=== PATIENT | female | born 1970 | race Caucasian/White ===

== ENCOUNTER 2019-06-16 16:57 | Inpatient (IN) | payer MEDICARE, MEDICAID, SELFPAY ==
[2019-06-16 16:58] VITALS: BP 138/82; PULSE 111; RESP 18; O2SAT 95; BMI 33.3
[2019-06-16] MEDS: LORazepam 2 mg/mL INJ 1 mL IM (17:31)
[2019-06-16] MEDS: ziprasidone 20 mg/mL SDV IM (18:08)
--- NOTE | 2019-06-16 18:11 | PC.NURSE ---
pt continues to cry loudly in room while speaking nonsensical statements. pt asked to provide urine sample and pt states she needs water. pt provided ice water at this time.
[2019-06-16 18:15] LABS: Hemoglobin 14.1 g/dL (11.5-15.3); Mean Corpuscular Volume 98.9 fL (81-99); Monocytes # 0.9 10^3/uL (0.2-0.9); Nucleated Red Blood Cells % 0 %
[2019-06-16 18:21] LABS: Basophils % 0.4 %; Eosinophils # 0.1 10^3/uL (0.0-0.8); Eosinophils % 1.1 %; Hematocrit 43.4 % (37.0-47.0); Lymphocytes # 1.9 10^3/uL (0.8-4.8); Lymphocytes % 17.6 %; Mean Corpuscular HGB Conc 32.5 g/dL (30.0-36.0); Mean Corpuscular Hemoglobin 32.1 pg (28.0-34.0); Monocytes % 8.3 %; Neutrophils # 7.8 10^3/uL (1.8-7.7); Neutrophils % 72.3 %; Platelet Count 269 10^3/cmm (130-400); Red Blood Count 4.39 10^6/uL (4.1-5.3); Red Cell Distribution Width 13.4 % (12.1-15.1); White Blood Count 10.8 10^3/uL (4.0-10.0)
[2019-06-16 18:34] LABS: Alanine Aminotransferase 44 U/L (0-33); Albumin Level 4.1 g/dL (3.5-5.2); Alkaline Phosphatase 70 IU/L (35-105); Anion Gap 14.1 (5-19); Aspartate Amino Transferase 19 U/L (0-32); Blood Urea Nitrogen 9 mg/dL (6-20); Calcium 8.8 mg/dL (8.5-10.5); Carbon Dioxide 24 mmol/L (22-29); Chloride 106 mmol/L (98-107); Globulin 2.9 g/dL (1.3-4.6); Glomerular Filtration Rate 76.9 mL/min (90-130); Glucose 111 mg/dL (65-115); Osmolality Calculated 287 mOsm/kg (285-295); Potassium 4.1 mmol/L (3.5-5.1); Sodium 140 mmol/L (136-145); Total Bilirubin 0.2 mg/dL (0.15-1.2)
[2019-06-16 18:44] LABS: Acetaminophen < 5.0 ug/mL (10-30); Alcohol Level < 10 mg/dL (0-10); Salicylate < 0.3 mg/dL (3-10)
[2019-06-16] MEDS: haloperidol inj 5 mg/mL INJ 1 mL 10 MG IM (18:45)
--- NOTE | 2019-06-16 18:49 | PC.NURSE ---
tech asked pt to provide urine sample and pt began to having loud outbursts shouting more nonsensical things. pt ripping her scrubs off and slamming her legs and arms down on the bed. security and ER physician at bedside. Verbal orders received for more anti-anxiety medications. No hands or force was necessary to be used on Pt. Sitter remains at bedside
[2019-06-16] MEDS: LORazepam 2 mg/mL INJ 1 mL (18:53)
[2019-06-16 20:37] LABS: Add Urine Microscopic? YES; Bilirubin Urine Neg (NEGATIVE); Blood Urine Neg (Negative); Glucose Urine UA Norm (Normal); Ketones Urine Negative (Negative); Leukocyte Esterase Urine Negative (Negative); Nitrate Urine Positive (Negative); Protein Urine Neg (Negative); Specific Gravity, Urine 1.015 (1.005-1.030); Sulfosalicylic Acid Urine Negative (Negative); Urine Appearance SL Hazy (CLEAR); Urine Color Yellow (Yellow); Urobilinogen Urine Norm (Negative); pH Urine 8 (5-7)
[2019-06-16 20:38] LABS: Add Urine Culture? Yes; Amphetamines Screen Urine Negative (Negative); Bacteria Urine 4+; Barbiturates Screen Urine Negative (Negative); Benzodiazepines Screen Urine Negative (Negative); Cocaine Screen Urine Negative (Negative); Opiate Screen Urine Negative (Negative); PCP Screen Urine Negative (Negative); Squamous Epithelial Cell Urine 0-4 (0-5); THC Screen Urine Positive (Negative); WBC Urine 0-4 /hpf (0-5)
[2019-06-16 22:00] VITALS: RESP 16
--- NOTE | 2019-06-16 22:51 | W.ED.PSYCH ---
HPI - Psych General: Chief Complaint: Psychiatric Symptoms Stated Complaint: BEHAVIORAL Time Seen by Provider: 06/16/19 17:40 Source: patient and EMS Mode of arrival: EMS Limitations: no limitations History of Present Illness: HPI Narrative: Patient was brought in by EMS with what appears to be a psychotic episode. On asking the patient questions her answers do not make any sense. They are nonsensical and did not follow any organized thought pattern. She talks about needing her engine started on something about B's knees. No proper history can be obtained from this patient Review of Systems General: Reports: ROS unobtainable due to mental status (She is in acute psychosis) PFSH ED PFSH: Social History Smoking and tobacco status: current every day smoker Physical Exam Const: COMMON NORMALS: no apparent distress, average body habitus, no limitations, healthy appearing, alert and well nourished HENMT: COMMON NORMALS: normocephalic, head/scalp atraumatic and moist oral mucous membranes HEAD & SCALP: normocephalic and atraumatic Neck/C-Spine: COMMON NORMALS: no meningeal signs and no JVD Resp: COMMON NORMALS: normal respiratory effort, no retractions, no use of accessory muscles, clear to auscultation bilaterally and percussion normal AUSCULTATION: clear to auscultation bilaterally PERCUSSION: percussion normal Cardio: COMMON NORMALS: no JVD, regular rate, regular rhythm, S1 normal heart sound, S2 normal heart sound, no gallops, no clicks, no murmurs, no rub and peripheral pulses 2+ throughout RATE: regular rate RHYTHM: regular rhythm HEART SOUNDS: S1 normal and S2 normal PERIPHERAL PULSES: pulses 2+ throughout GI: COMMON NORMALS: normal to inspection, nondistended, normoactive bowel sounds, soft to palpation, non-tender, no hepatosplenomegaly, no masses and no bruits PALPATION: Yes soft and Yes no hepatosplenomegaly : COMMON NORMALS: Yes no CVA tenderness BLADDER/KIDNEY EXAM: Yes no CVA tenderness Back/Pelvis: COMMON NORMALS: no CVA tenderness Extremity: COMMON NORMALS: normal to inspection, full ROM, normal capillary refill, no calf tenderness and no pedal edema Neuro: SENSORIUM/ORIENTATION: Yes alert MENINGEAL SIGNS: Yes no meningeal signs Psych: APPEARANCE: Yes unkempt and Yes disheveled ATTITUDE: Yes bizarre and Yes uncooperative ACTIVITY/MOTOR BEHAVIOR: Yes psychomotor agitation and Yes disorganized SPEECH: Yes incoherent MOOD & AFFECT: Yes labile affect THOUGHT PROCESS: disorganized Skin: COMMON NORMALS: no rashes or lesions noted, no wounds, skin turgor normal, no jaundice, no petechiae and no mottling GENERAL SKIN EXAM: no rashes or lesions noted and turgor normal MDM - Psych MDM Narrative: Medical decision making narrative: 49-year-old female patient who presented to the emergency department in acute psychosis. The patient needed several psychoactive medications to get her to be calm enough for evaluation and laboratory testing. She was medically cleared and then admitted to the neuropsychiatric unit for further evaluation. Lab Data: Labs: Lab Results 06/16/19 06/16/19 06/16/19 Range/Units 17:58 17:58 20:10 WBC 10.8 H (4.0-10.0) 10^3/ uL RBC 4.39 (4.1-5.3) 10^6/u L Hgb 14.1 (11.5-15.3) g/dL Hct 43.4 (37.0-47.0) % MCV 98.9 (81-99) fL MCH 32.1 (28.0-34.0) pg MCHC 32.5 (30.0-36.0) g/dL RDW 13.4 (12.1-15.1) % Plt Count 269 (130-400) 10^3/c mm MPV 10.0 (7.4-10.4) fL Neut % (Auto) 72.3 % Lymph % (Auto) 17.6 % [place] % (Auto) 8.3 % Eos % (Auto) 1.1 % Baso % (Auto) 0.4 % Neut # (Auto) 7.8 H (1.8-7.7) 10^3/u L Lymph # (Auto) 1.9 (0.8-4.8) 10^3/u L [place] # (Auto) 0.9 (0.2-0.9) 10^3/u L Eos # (Auto) 0.1 (0.0-0.8) 10^3/u L Baso # (Auto) 0.0 (0.0-0.1) 10^3/u L Nucleated RBC % (a uto) 0 % Nucleated RBCs # 0.0 /100WBC Sodium 140 (136-145) mmol/L Potassium 4.1 (3.5-5.1) mmol/L Chloride 106 (98-107) mmol/L Carbon Dioxide 24 (22-29) mmol/L Anion Gap 14.1 (5-19) BUN 9 (6-20) mg/dL Creatinine 0.8 (0.5-0.9) mg/dL GFR Calculation 76.9 L (90-130) mL/min Glucose 111 (65-115) mg/dL Calculated Osmolal ity 287 (285-295) mOsm/k g Calcium 8.8 (8.5-10.5) mg/dL Total Bilirubin 0.2 (0.15-1.2) mg/dL AST 19 (0-32) U/L ALT 44 H (0-33) U/L Alkaline Phosphata se 70 (35-105) IU/L Total Protein 7.0 (6.6-8.7) g/dL Albumin 4.1 (3.5-5.2) g/dL Globulin 2.9 (1.3-4.6) g/dL Urine Color Yellow (Yellow) Urine Appearance Sl hazy (CLEAR) Urine pH 8 H (5-7) Ur Specific Gravit y 1.015 (1.005-1.030) Urine Protein Neg (Negative) Urine Glucose (UA) Norm (Normal) Urine Ketones Negative (Negative) Urine Blood Neg (Negative) Urine Nitrate Positive H (Negative) Urine Bilirubin Neg (NEGATIVE) Prot Sulfosalicyli c Acd Negative (Negative) Urine Urobilinogen Norm (Negative) mg/dL Ur Leukocyte Ami ase Negative (Negative) Urine RBC None (0-2) /hpf Urine WBC 0-4 H (0-5) /hpf Ur Squamous Epith Cells 0-4 H (0-5) Urine Bacteria 4+ H (NONE) Salicylates < 0.3 L (3-10) mg/dL Urine Opiates Scre en (Negative) ng/mL Acetaminophen < 5.0 L (10-30) ug/mL Ur Barbiturates Sc reen (Negative) ng/mL Ur Phencyclidine S crn (Negative) ng/mL Ur Amphetamines Sc reen (Negative) ng/mL U Benzodiazepines Scrn (Negative) ng/mL Urine Cocaine Scre en (Negative) ng/mL U Marijuana (THC) Screen (Negative) ng/mL Ethyl Alcohol < 10 (0-10) mg/dL 06/16/19 Range/Units 20:10 WBC (4.0-10.0) 10^3/ uL RBC (4.1-5.3) 10^6/u L Hgb (11.5-15.3) g/dL Hct (37.0-47.0) % MCV (81-99) fL MCH (28.0-34.0) pg MCHC (30.0-36.0) g/dL RDW (12.1-15.1) % Plt Count (130-400) 10^3/c mm MPV (7.4-10.4) fL Neut % (Auto) % Lymph % (Auto) % [place] % (Auto) % Eos % (Auto) % Baso % (Auto) % Neut # (Auto) (1.8-7.7) 10^3/u L Lymph # (Auto) (0.8-4.8) 10^3/u L [place] # (Auto) (0.2-0.9) 10^3/u L Eos # (Auto) (0.0-0.8) 10^3/u L Baso # (Auto) (0.0-0.1) 10^3/u L Nucleated RBC % (a uto) % Nucleated RBCs # /100WBC Sodium (136-145) mmol/L Potassium (3.5-5.1) mmol/L Chloride (98-107) mmol/L Carbon Dioxide (22-29) mmol/L Anion Gap (5-19) BUN (6-20) mg/dL Creatinine (0.5-0.9) mg/dL GFR Calculation (90-130) mL/min Glucose (65-115) mg/dL Calculated Osmolal ity (285-295) mOsm/k g Calcium (8.5-10.5) mg/dL Total Bilirubin (0.15-1.2) mg/dL AST (0-32) U/L ALT (0-33) U/L Alkaline Phosphata se (35-105) IU/L Total Protein (6.6-8.7) g/dL Albumin (3.5-5.2) g/dL Globulin (1.3-4.6) g/dL Urine Color (Yellow) Urine Appearance (CLEAR) Urine pH (5-7) Ur Specific Gravit y (1.005-1.030) Urine Protein (Negative) Urine Glucose (UA) (Normal) Urine Ketones (Negative) Urine Blood (Negative) Urine Nitrate (Negative) Urine Bilirubin (NEGATIVE) Prot Sulfosalicyli c Acd (Negative) Urine Urobilinogen (Negative) mg/dL Ur Leukocyte Ami ase (Negative) Urine RBC (0-2) /hpf Urine WBC (0-5) /hpf Ur Squamous Epith Cells (0-5) Urine Bacteria (NONE) Salicylates (3-10) mg/dL Urine Opiates Scre en Negative (Negative) ng/mL Acetaminophen (10-30) ug/mL Ur Barbiturates Sc reen Negative (Negative) ng/mL Ur Phencyclidine S crn Negative (Negative) ng/mL Ur Amphetamines Sc reen Negative (Negative) ng/mL U Benzodiazepines Scrn Negative (Negative) ng/mL Urine Cocaine Scre en Negative (Negative) ng/mL U Marijuana (THC) Screen Positive H (Negative) ng/mL Ethyl Alcohol (0-10) mg/dL Discharge Plan Discharge Patient Disposition: Admitted As Inpatient Admit Provider: Alex Palafox Discharge Date/Time: 06/16/19 21:45 Coding Level of Care Code ED Ocean Forwarder for Shakeel Rosa
[2019-06-17 06:00] VITALS: RESP 18
--- NOTE | 2019-06-17 08:33 | P.HP_ITS ---
Providers/Chief Complaint Admitting Physician: Alex Palafox MD Primary Care Provider: Abraham Rocha MD Chief Complaint: BEHAVIORAL HPI NPU History of Present Illness Annemarie Hardin is a 49 year old female who presented today with limited intelligible conversation. 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 Outside of that she gave no meaningful information during the conversation. Included below the neck served from her last hospitalization here in 2016 she had other hospitalizations immediately preceding that and all of them have the same MO which was her presenting and there being an inability to gather significant information because of how decompensated she was or how significant her psychosis was. Per [facility] IP eval: History of Present Illness Date of Service: Apr 01, 2016 Chief Complaint: Patient admitted due to acute psychosis HPI: This patient was admitted through the emergency room. She was acutely psychotic at the time of her presentation. Patient is concerned is having bizarre and aggressive behavior. Certainly that continues after her admission to the NPU. Patient is essentially a non-historian. She so disorganized and aggressive that no interview can be conducted. She's required numerous when necessary administrations of Haldol due to the level of aggression that she has displayed. She was here in 2016 for depressive symptoms. It's not clear to me what she was taking prior to her hospitalization but most recent medication seems to include nortriptyline, BuSpar getting, Geodon and Effexor. I suspect she has not been compliant with these medications but I will be holding those at this time. She also has a history of abusing multiple illicit substances including methamphetamine marijuana and alcohol. Her current drug screen is positive for marijuana. Allergies: Coded Allergies: ERYTHROMYCIN ETHYLSUCCINATE (Verified Allergy, Mild, THROAT SWELLS, 12/22/07) TETRACYCLINE (Unverified Adverse Reaction, Mild, NAUSEA, 12/22/07) Uncoded Allergies: POISON SUMAC (Allergy, Severe, Rash, 05/11/11) Active Meds: Current Hospital Medications: Medications (Trade) Dose Ordered Sig/George Route PRN Reason Start Time Stop Time Status Last Admin Dose Admin Lorazepam (Ativan Tab) 1 mg Q4H PRN PO FOR MODERATE ANXIETY 03/31/16 10:30 Lorazepam (Ativan Tab) 2 mg Q4H PRN PO FOR SEVERE ANXIETY 03/31/16 10:30 Lorazepam (Ativan Inj) 2 mg Q4H PRN IM For Severe Aggression 03/31/16 10:30 04/01/16 11:52 Diphenhydramine HCl (Benadryl Inj) 50 mg ONCE PRN IV Severe Extrapyramidal Symptoms 03/31/16 10:30 Acetaminophen (Tylenol Tab) 650 mg Q4H PRN PO FOR MILD PAIN 03/31/16 10:30 Trazodone HCl (Trazodone) 50 mg BEDTIME PRN PO FOR SLEEP 03/31/16 10:30 Nicotine (Nicoderm Patch) 21 mg DAILY PRN TD FOR WITHDRAWAL 03/31/16 10:30 Nicotine Polacrilex (Nicotine Gum) 2 mg Q2H PRN PO Withdrawal 03/31/16 10:30 04/01/16 07:19 Olanzapine (Zyprexa Inj) 5 mg Q4H PRN IM FOR AGITATION 03/31/16 17:30 04/01/16 00:06 Olanzapine (Zyprexa Zydis) 30 mg DAILY PO 04/01/16 09:00 04/01/16 09:06 Haloperidol Lactate (Haldol Inj) 10 mg Q4H PRN IM Severe Aggression 04/01/16 14:30 Gabapentin (Neurontin Cap) 400 mg TID PO 04/01/16 14:00 Past Medical History Other Medical History: Hypertension, fibromyalgia, hepatitis, history of ovarian cyst Other Surgical History: Cholecystectomy, D&C, fracture repair, herniorrhaphy, hysterectomy Meds NPU Home Medications Medication Instructions Recorded Confirmed Last Taken Type albuterol sulfate [Ventolin HFA] 2 puff INHALATION Q4H PRN 06/16/19 06/16/19 Unknown History azelastine 1 drp OPHTHALMIC (EYE) BID PRN 06/16/19 06/16/19 Unknown History diclofenac sodium 2 - 4 g TOPICAL TID PRN 06/16/19 06/16/19 Unknown History diclofenac sodium 75 mg PO BID 06/16/19 06/16/19 Unknown History gabapentin 400 mg PO TID 06/16/19 06/16/19 Unknown History ipratropium bromide 1 - 2 spray INTRANASAL DIRECTED 06/16/19 06/16/19 Unknown History quetiapine 50 mg PO BEDTIME 06/16/19 06/16/19 Unknown History risperidone 1 mg PO DAILY 06/16/19 06/16/19 Unknown History tizanidine 4 mg PO BID PRN 06/16/19 06/16/19 Unknown History ziprasidone HCl 60 mg PO BID 06/16/19 06/16/19 Unknown History zolpidem 10 mg PO BEDTIME PRN 06/16/19 06/16/19 Unknown History Allergies Allergy/AdvReac Type Severity Reaction Status Date / Time erythromycin base Allergy ADR-Vomitin Verified 06/16/19 17:08 g PFSH NPU PFSH: Social History Smoking and tobacco status: current every day smoker Mental Status Exam MSE Comments: This is an obese white female with limited dress, grooming and eye contact. No abnormal movements except for significant psychomotor retardation. Uncooperative with exam in mild to moderate distress. Speech was decreased rate and volume and limited. Mood not responded to affect. Thought process disorganized. Thought content: Patient did not respond to question but did not have aggression directed towards her self or others, she did appear guarded/paranoid, she did appear to be attending to internal stimuli. Attention and concentration were impaired and memory was unreliable but none were formally tested. She is alert and oriented to person. Insight and judgment are impaired. Vitals/I&O/Wt Last Vital Signs Temp 98.1 F 06/17/19 22:00 Pulse 90 06/17/19 22:00 Resp 19 H 06/17/19 22:00 BP 141/88 06/17/19 22:00 Pulse Ox 95 06/17/19 22:00 Weight last 48 hrs Weight 90.718 kg Data NPU : 06/16/19 17:58 06/16/19 17:58 A&P Assessment and plan (1) Psychosis: This is a 49-year-old white female with a long history of psychosis and addiction who presents floridly psychotic with limited ability to really communicate her desires or interests. 1. Restarting last documented medications. 2. Encourage individual, group and milieu therapy. 3. Continue every 15 minute checks for safety. 4. Work with social work team to find a sober living program, hopefully residential, at the highest level of care to which she is willing to commit. Status: Acute (2) Cannabis abuse: Status: Acute Involuntary Hold Information 96 Hour Hold: 96 Hour Involuntary Admission: No Attestations NPU Medical Necessity Statement*: Inpatient hospitalization is medically necessary and the clinically appropriate intervention at this time. She will be in the hospital for over 2 midnights. We will continue to examine medications and make changes as indicated. Likely length of stay 3-5 days. Coding Level of Care Code Acute Associate Programmer Analyst for Shakeel Rothd Diagnoses Psychosis F29 Cannabis abuse F12.10
[2019-06-17] MEDS: gabapentin 400 mg Capsule PO ×3 (09:08→20:09)
[2019-06-17] MEDS: diclofenac 75 mg DR Tablet PO ×2 (09:09→17:53)
[2019-06-17] MEDS: ziprasidone hcl 60 mg Capsule PO ×2 (09:09→17:53)
[2019-06-17 14:00] VITALS: BP 136/80; PULSE 88; RESP 18; TEMP 36.2; O2SAT 99
[2019-06-17] MEDS: nicotine 2 mg Gum BUCCAL (17:54)
[2019-06-17] MEDS: hyDROXYzine 25 mg Capsule 50 MG PO (19:38)
--- NOTE | 2019-06-17 19:52 | PC.NURSE ---
PRN VISTARIL ADMINISTERED VISTARIL 50 MG PO FOR PT. C/O ANXIETY. PT AT [facility] CRYING BEGGING FOR SOMETHING TO HELP HER FEEL BETTER. WILL MONITOR FOR MEDICATION EFFECTIVENESS.
[2019-06-17] MEDS: quetiapine 25 mg Tablet 50 MG PO (20:09)
[2019-06-17 22:00] VITALS: BP 141/88; PULSE 90; RESP 19; TEMP 36.7; O2SAT 95
[2019-06-18 06:00] VITALS: BP 130/84; PULSE 86; RESP 17; TEMP 36.8; O2SAT 98
[2019-06-18] MEDS: diclofenac 75 mg DR Tablet PO ×2 (08:34→16:50)
[2019-06-18] MEDS: gabapentin 400 mg Capsule PO ×3 (08:34→21:05)
[2019-06-18] MEDS: ziprasidone hcl 60 mg Capsule PO ×2 (08:34→16:50)
[2019-06-18] MEDS: nicotine 2 mg Gum BUCCAL ×3 (08:40→17:59)
--- NOTE | 2019-06-18 13:31 | P.PN_ITS ---
Subjective NPU Subjective: Interval history: Annemarie presents today appearing much more coherent than yesterday though with clear residual disorganization at times saying words that are in the area of what she appears to be getting at. But certainly more capable of communicating thoughts than she was yesterday. She is quite emotional identifying that it is Mother's Day. She continues to have p eriods of of incoherence where her worries and not making much of any sense but those moments were fairly uncommon throughout the day. Mental Status Exam MSE Comments: This is an obese white female with adequate dress, grooming and eye contact. No abnormal movements except for mild psychomotor retardation. Cooperative with exam in mild distress. Speech was still decreased rate and volume but with more spontaneous speech and certainly more intelligible. Mood described as depressed affect congruent and slightly. Thought process more organized. Thought content: Patient denied any suicidal or homicidal ideation, there were no delusions reported or noted, she denied any auditory or visual hallucinations. Attention and concentration were improving but impaired and memory was unreliable but none were formally tested. She is alert and oriented times person and place. Insight and judgment are impaired. Vitals/I&O/Wt Last Vital Signs Temp 98.2 F 06/18/19 06:00 Pulse 86 06/18/19 06:00 Resp 17 06/18/19 06:00 BP 130/84 06/18/19 06:00 Pulse Ox 98 06/18/19 06:00 Weight last 48 hrs Weight 88.054 kg Data NPU : 06/16/19 17:58 06/16/19 17:58 A&P Additional A&P Information (1) Psychosis: This is a 49-year-old white female with a long history of psychosis and addiction who presents floridly psychotic with limited ability to really communicate her desires or interests. 1. Continue current medications. 2. Encourage individual, group and milieu therapy. 3. Continue every 15 minute checks for safety. 4. Work with social work team to find a sober living program, hopefully resi dential, at the highest level of care to which she is willing to commit. (2) Cannabis abuse: Involuntary Hold Information 96 Hour Hold: 96 Hour Involuntary Admission: No Attestations NPU Medical Necessity Statement*: Inpatient hospitalization is medically necessary and the clinically appropriate intervention at this time. We will continue to examine medications and make changes as indicated. Likely length of stay 2-4 days. Coding Level of Care Code Acute Speedboat Operator for Shakeel Rosa
[2019-06-18 14:00] VITALS: BP 132/94; PULSE 103; RESP 17
[2019-06-18] MEDS: hyDROXYzine 25 mg Capsule 50 MG PO (16:49)
--- NOTE | 2019-06-18 16:49 | PC.NURSE ---
PRN VISTARIL VISTARIL 50MG PO PER PATIENT C/O ANXIETY. PATIENT IS TEARFUL. WILL CONTINUE TO MONITOR FOR MEDICATION EFFECTIVENESS.
--- NOTE | 2019-06-18 16:56 | PC.NURSE ---
PT NOTE; CLIENTS SON DIVINE CALLED TO CHECK ON HIS MOTHER. CLIENTS SON REPORTS THAT HER ANTIPSYCHOTIC MEDICATION WAS RECENTLY SWITCHED FROM HALDOL TO GEODON AND SINCE THAT TIME HER MENTAL STATE HAS DECOMPANSATED. HE REPORTS THAT SHE WAS DOING REALLY WELL ON THE HALDOL OPPOSED TO THE GEODON.
--- NOTE | 2019-06-18 17:50 | PC.NURSE ---
PRN VISTARIL FOLLOW UP MEDICATION EFFECTIVE. NO FURTHER C/O ANXIETY.
[2019-06-18] MEDS: acetaminophen 325 mg Tablet 650 MG PO (18:01)
[2019-06-18] MEDS: diclofenac 1% Topical Gel 100 gm TOPICAL (18:31)
[2019-06-18] MEDS: quetiapine 25 mg Tablet 50 MG PO (21:05)
--- NOTE | 2019-06-18 21:49 | PC.NURSE ---
pt given scheduled gabapentin and seroquel, as well as PRN ambien for sleep per pt request.
[2019-06-18 22:00] VITALS: BP 122/83; PULSE 75; RESP 17; TEMP 36.6; O2SAT 98
[2019-06-19 06:00] VITALS: BP 129/84; PULSE 80; RESP 16; TEMP 36.5; O2SAT 97
[2019-06-19] MEDS: tizanidine 4 mg Tablet PO (06:07)
--- NOTE | 2019-06-19 06:10 | PC.NURSE ---
Pt given zanaflex for complaint of left to right radiating back spasms.
[2019-06-19] MEDS: nicotine 21 mg Patch 1 PATCH TRANSDERMA (06:47)
[2019-06-19] MEDS: diclofenac 75 mg DR Tablet PO ×2 (09:17→17:01)
[2019-06-19] MEDS: ziprasidone hcl 60 mg Capsule PO ×2 (09:17→17:01)
[2019-06-19] MEDS: gabapentin 400 mg Capsule PO ×3 (09:18→20:19)
[2019-06-19 11:38] VITALS: PULSE 85; RESP 16; O2SAT 98
[2019-06-19 14:00] VITALS: BP 106/73; PULSE 75; RESP 20; TEMP 36.5; O2SAT 100
--- NOTE | 2019-06-19 14:48 | PM.NPN ---
Subjective NPU Subjective: Interval history: Annemarie presents today appearing much more coherent than yesterday though with clear residual disorganization at times. She is fully aware of her surroundings and oriented *4. However, there is still some verbalization of phrases and random statements that do not have anythin gto do with the topic at hand. She denied thepresence of auditory or visual hallucinations. She shared that she is frightened that we will never allow her to leave and she will not get to see the new baby. Mental Status Exam MSE Comments: This is an obese white female with adequate dress, grooming and eye contact. She has a mild resting tremor that is not tardiv e in nature. No cogwheel rigidity. Cooperative with exam in mild distress. Speech was normal rate. Mood described as depressed affect congruent and slightly. Thought process more organized. Thought content: Patient denied any suicidal or homicidal ideation, there were no delusions reported or noted, she denied any auditory or visual hallucinations. Attention and concentration were improving but impaired and memory was unreliable but none were formally tested. She is alert and oriented times person and place. Insight and judgment are impaired. Cognition: Patient Appearance: Appropriate Level of Consciousness: Sedated Patient Cognition Impaired: No Ability to Follow Directions: Good Patient Orientation (long list): Person Comprehension Ability: No Impairment Hallucination Type: None Delusion Description: Not Present Thought Process: Appropriate Affect: Affect Description: Appropriate and Calm Depressive Symptoms: Crying Spells Behavior: Patient Behavior: Appropriate and Cooperative Speech Pattern: Appropriate and Clear Vitals/I&O/Wt Last Vital Signs Temp 97.7 F 06/19/19 14:00 Pulse 75 06/19/19 14:00 Resp 20 H 06/19/19 14:00 BP 106/73 06/19/19 14:00 Pulse Ox 100 06/19/19 14:00 Weight last 48 hrs Weight 88.054 kg Data NPU : 06/16/19 17:58 06/16/19 17:58 A&P Assessment and plan (1) Psychosis: This is a 49-year-old white female with a long history of psychosis and addiction who presents floridly psychotic with limited ability to really communicate her desires or interests. 1. Shifting medications to monotherapy for antipsychotic: Geodon 60 mg bid and diazepam 5 mg for sleep at night. May consider addition of SSRI antidepressant pending response. 2. Encourage individual, group and milieu therapy. 3. Continue every 15 minute checks for safety. 4. Work with social work team to find a sober living program, hopefully residential, at the highest level of care to which she is willing to commit. Status: Acute (2) Cannabis abuse: Status: Acute Additional A&P Information (1) Psychosis: This is a 49-year-old white female with a long history of psychosis and addiction who presents floridly psychotic with limited ability to really communicate her desires or interests. 1. Continue current medications. 2. Encourage individual, group and milieu therapy. 3. Continue every 15 minute checks for safety. 4. Work with social work team to find a sober living program, hopefully residential, at the highest level of care to which she is willing to commit. (2) Cannabis abuse: Involuntary Hold Information 96 Hour Hold: 96 Hour Involuntary Admission: No Attestations NPU Medical Necessity Statement*: Patient will remain in the hospital another 4-5 nights to assess medication efficacy and safety. Coding Level of Care Code Acute Roto Rooter Operator for Shakeel Rosa Diagnoses Psychosis F29 Cannabis abuse F12.10
[2019-06-19] MEDS: trazodone 50 mg Tablet PO (20:19)
[2019-06-19] MEDS: diazePAM 5 mg Tablet PO (20:19)
--- NOTE | 2019-06-19 20:49 | PC.NURSE ---
pt given scheduled HS meds diazepam and gabapintin, as well as requested trazodone.
[2019-06-19 21:54] VITALS: BP 129/95; PULSE 88; RESP 18; TEMP 36.7; O2SAT 99
[2019-06-19] MEDS: OLANZapine ODT 5 MG TABLET PO (22:10)
[2019-06-20] MEDS: haloperidol 5 mg Tablet PO (00:28)
[2019-06-20 06:00] VITALS: BP 115/78; PULSE 91; RESP 17; TEMP 36.6; O2SAT 97
[2019-06-20] MEDS: diclofenac 75 mg DR Tablet PO (08:07)
[2019-06-20] MEDS: gabapentin 400 mg Capsule PO ×2 (08:08→14:51)
[2019-06-20] MEDS: ziprasidone hcl 60 mg Capsule PO (08:08)
[2019-06-20 13:06] VITALS: BP 115/78; PULSE 91; RESP 17; TEMP 36.6; O2SAT 97
[2019-06-20 13:10] VITALS: BP 115/78; PULSE 91; RESP 17; TEMP 36.6; O2SAT 97
--- NOTE | 2019-06-20 13:37 | P.DS_ITS ---
Diagnoses at Discharge Discharge Diagnosis (1) Psychosis: Status: Chronic (2) Cannabis abuse: Status: Chronic Reason for Visit Reason for Visit: Reason For Visit: BEHAVIORAL Brief History: Annemarie Hardin is a 49 year old female who presented today with limited intelligible conversation. 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 Outside of that she gave no meaningful information during the conversation. Included below the neck served from her last hospitalization here in 2016 she had other hospitalizations immediately preceding that and all of them have the same MO which was her presenting and there being an inability to gather significant information because of how decompensated she was or how significant her psychosis was. Per [facility] IP eval: History of Present Illness Date of Service: Apr 01, 2016 Chief Complaint: Patient admitted due to acute psychosis HPI: This patient was admitted through the emergency room. She was acutely psychotic at the time of her presentation. Patient is concerned is having bizarre and agg ressive behavior. Certainly that continues after her admission to the NPU. Patient is essentially a non-historian. She so disorganized and aggressive that no interview can be conducted. She's required numerous when necessary administrations of Haldol due to the level of aggression that she has displayed. She was here in 2016 for depressive symptoms. It's not clear to me what she was taking prior to her hospitalization but most recent medication seems to include nortriptyline, BuSpar getting, Geodon and Effexor. I suspect she has not been compliant with these medications but I will be holding those at this time. She also has a history of abusing multiple illicit substances including methamphetamine marijuana and alcohol. Her current drug screen is positive for marijuana. Hospital Course Discharge Summary The patient was admitted to the adult psychiatric unit and entered into the form of individual and group therapies as part of the unit protocol. They were provided 24-hour access to medication supervision and therapeutic activities by trained psychiatric nursing. The patient was educated with regard to potential benefits and side effects of new medications. We agreed to a contingency plan of discontinuation of medication in the event of intolerable side effects. Upon presentation to the hospital unit, she was quite sedated. As the sedation resolved, she continued to be significantly disorganized having been on no medications prior to hospitalization. Over the ensuing 72 hours, her level of awareness and organization her thought processes improved considerably. On hospital day #4, she was demanding to leave. She stated that she wanted to go home because she had to take care of her cats and her dog. She also wanted to make sure that her was okay as well. She would presented no indication that she was an imminent risk to self or others. She was a voluntary patient a nd was not on a 96-hour involuntary commitment. As such, she was allowed to sign out AGAINST MEDICAL ADVICE which was her wish. Involuntary Hold Information 96 Hour Hold: 96 Hour Involuntary Admission: No Mental Status Exam MSE Comments: Discharge Mental Status Exam: Appearance: hygiene is good; no gross neurological deficits., gait is unremarkable; AIMS=0 Speech: Speech is of normal rate and rhythm and easily understood. Thought processes: Thought processes are idiosyncratic but generally logical.. Judgment is adequate for safety. Psychotic processes: There is no indication of guarding or paranoia. There is no attention to the internal stimuli. Auditory and visual hallucinations are denied. Judgment: Insight is poor. Problem solving skills are adequate for safety. Orientation: The patient is oriented to person, place time and situation. Memory: no deficits noted in immediate, or remote spheres. She has significant deficit for the time around her hospitalization and events leading to her hospitalization. Attention: The patient is alert and interpersonally engaged. Language: Verbalizations are coherent. Fund of knowledge: Fund of knowledge is poor but adequate. Affect/Mood: Affect is irritable with a self-reported euthymic mood. denied suicidal ideation Affective range is appropriate. Psychosis: perception impaired through significant cognitive distortion that she utilizes to justify what ever and goal that she would like, such as leaving the hospital early; reality testing intact. Discharge Data Vitals: Last Vital Signs Temp 97.8 F 06/20/19 13:10 Pulse 91 06/20/19 13:10 Resp 17 06/20/19 13:10 BP 115/78 06/20/19 13:10 Pulse Ox 97 06/20/19 13:10 Discharge Plan Discharge Patient Disposition: Home, Self-Care Condition: Stable Prescriptions: New quetiapine 100 mg Tablet 100 mg PO BEDTIME Qty: 30 RF: 4 ziprasidone HCl 40 mg Capsule 40 mg PO BID Qty: 60 RF: 3 Continued azelastine 0.05 % drops 1 drp ophthalmic (eye) BID PRN (Reason: UNKNOWN) RF: 0 tizanidine 4 mg tablet 4 mg PO BID PRN (Reason: Muscle Spasm) RF: 0 gabapentin 400 mg capsule 400 mg PO TID RF: 0 diclofenac sodium 75 mg tablet,delayed release (DR/EC) 75 mg PO BID RF: 0 Ventolin HFA 90 mcg/actuation HFA aerosol inhaler 2 puff INHALATION Q4H PRN (Reason: Shortness Of Breath) RF: 0 ziprasidone HCl 60 mg capsule 60 mg PO BID RF: 0 ipratropium bromide 0.03 % spray,non-aerosol 1 - 2 spray INTRANASAL DIRECTED RF: 0 diclofenac sodium 1 % gel 2 - 4 g TOPICAL TID PRN (Reason: unknown) RF: 0 Discontinued zolpidem 10 mg tablet 10 mg PO BEDTIME PRN (Reason: Sleep) RF: 0 risperidone 1 mg tablet 1 mg PO DAILY RF: 0 quetiapine 50 mg tablet 50 mg PO BEDTIME RF: 0 Discharge Orders: Discharge Order (Routine); Ordered 06/20/19 Ordered By: Silviano Iyer Referrals: Dr. guerrero [Other] - 4-7 days (hospital case picker tried to get you an appointment but no one answered. Message left. If you want to leave before staff returns call, you will need to call and make sure you have an appointment for follow-up. you need outpatient mental health follow-up as soon as possible. You said that you will follow-up but you could not think of her provider name. Be sure to call your provider as soon as you get home so that you can get your appointment soon!!) Patient Instructions: Quetiapine (By mouth), Ziprasidone (By mouth) Discharge Attestations NPU Time Spent in Discharge Care*: greater than 30 min Coding Level of Care Code Acute Hydrogeology Professor for g Fwd Diagnoses Psychosis F29 Cannabis abuse F12.10
[2019-06-20 14:00] VITALS: BP 119/81; PULSE 71; RESP 18; TEMP 36.4; O2SAT 99
[2019-06-20] MEDS: acetaminophen 325 mg Tablet 650 MG PO (14:50)
[2019-06-20] MEDS: hyDROXYzine 25 mg Capsule 50 MG PO (14:50)
== END 2019-06-20 17:08 | disposition home or self-care (01) | DRG 885 ==
LOC: ER 17:40 → NP 20:52
PROVIDERS: Admitting Provider Psychiatry & Neurology Psychiatry; Emergency Provider Family Medicine; Family Provider Family Medicine; PCP Family Medicine; Visit Provider Psychiatry & Neurology Psychiatry
DX: F29 Unspecified psychosis not due to a substance or known physiological condition (principal); I10 Essential (primary) hypertension; M79.7 Fibromyalgia; Z86.19 Personal history of other infectious and parasitic diseases; F17.210 Nicotine dependence, cigarettes, uncomplicated; F12.10 Cannabis abuse, uncomplicated
CPT/HCPCS: 12345; 80053; 80306; 80307; 81001; 85025; 94640; 96372; 99284; A9270; J1630; J2060; J3486; J3490

== ENCOUNTER 2019-08-12 11:36 | Inpatient (IN) | payer MEDICARE, MEDICAID, SELFPAY ==
--- NOTE | 2019-08-12 11:39 | ECG_ITS ---
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 Measurements Intervals Cooter Rate: 91 P: 67 IA: 141 QRS: 17 QRSD: 82 T: 13 QT: 355 QTc: 437 Interpretive Statements SINUS RHYTHM NONSPECIFIC T-WAVE ABNORMALITY Compared to ECG 10/03/2015 20:36:52 T-wave abnormality now present Electronically Signed On 08-12-2019 13:56:11 CDT by Bogdan Sood M.D. [email or web address] ([id number]
[2019-08-12] MEDS: diphenhydrAMINE 50 mg/mL SDV 1mL IM (11:45)
[2019-08-12] MEDS: LORazepam 2 mg/mL INJ 1 mL IM (11:45)
[2019-08-12] MEDS: haloperidol inj 5 mg/mL INJ 1 mL IM (11:45)
--- NOTE | 2019-08-12 11:57 | ED_ITS ---
HPI - General Adult General: Chief complaint: Psychiatric Symptoms Stated complaint: VIOLENT BEHAVIOR Time Seen by Provider: 08/12/19 11:39 Source: patient and EMS Mode of arrival: EMS History of Present Illness: HPI narrative: Annmearie is a 49-year-old female who comes in agitated and combative. EMS brings her in for psychiatric clearance. The patient has been hostile and aggressive and threatened to kill herself. Patient is poor historian, she is uncooperative and at this time she is aggressive and agitated and trying to hurt herself as well as staff. Review of Systems General: Reports: ROS unobtainable due to mental status PFSH ED PFSH: Social History Smoking and tobacco status: current every day smoker Physical Exam Const: GENERAL APPEARANCE: anxious, combative, disheveled and appears older than stated age HENMT: COMMON NORMALS: normocephalic, atraumatic, external ears normal, EAC's normal and Normal external nose present HEAD & SCALP: normal to inspection, normocephalic and atraumatic FACE & SINUS: normal facial exam and face symmetric NOSE: Normal external nose present and Normal nares present E XTERNAL EAR: Yes external ears normal EXTERNAL AUDITORY CANAL: EAC's normal MOUTH: Normal oral and palatal mucosa present, lip normal and tongue normal Eye: COMMON NORMALS: Equal, round and reactive pupils present and conjunctivae normal GENERAL EYE: appearance normal, both eyes and all related structures ALIGNMENT: Yes alignment normal PERIORBITAL: periorbital findings normal EYELID: eyelids normal CONJUNCTIVA: Yes conjunctivae normal SCLERA: sclerae normal PUPIL: Yes Equal, round and reactive pupils present Neck/C-Spine: COMMON NORMALS: full ROM, no lymphadenopathy, supple, no meningeal signs and no JVD GENERAL: Yes normal visual inspection and Yes trachea midline Chest: COMMONS NORMALS: normal inspection of the chest and normal palpation of entire chest wall Resp: COMMON NORMALS: normal respiratory effort, No retractions and No use of accessory muscles EFFORT & INSPECTION: Yes able to speak in complete sentences and Yes symmetric chest movement AUSCULTATION: no crackles, no rales, no rhonchi and no wheezes Cardio: COMMON NORMALS: no JVD, regular rate, regular rhythm, S1 normal heart sound present and S2 normal heart sound present RATE: regular rate RHYTHM: regular rhythm HEART SOUNDS: S1 normal heart sound present, S2 normal heart sound present, no click, no gallops, no murmurs, no rubs and abnormal split S2 GI: COMMON NORMALS: Soft to palpation and No hepatosplenomegaly present PALPATION: Yes Soft to palpation, No Tenderness to palpation present (GI), No Guarding due to palpation present (GI), No Rigid due to palpation, Yes No hepatosplenomegaly present, No Hernia present, No Palpable mass present and No Pulsatile mass present : COMMON NORMALS: Yes no CVA tenderness BLADDER/KIDNEY EXAM: Yes no CVA tenderness EXTERNAL FEMALE EXAM: No Hernia present Back/Pelvis: COMMON NORMALS: no CVA tenderness, thoracic and lumbar spine normal to inspection, no thoracic nor lumbar tenderness and thoraco-lumbar ROM normal Extremity: COMMON NORMALS: normal to inspection, full ROM, capillary refill normal, no joint enlargement, no clubbing, cyanosis or edema and no calf tenderness Neuro: COMMON NORMALS: CN's II-XII intact bilaterally, moves all extremities, no focal motor deficits and no sensory deficits noted MENINGEAL SIGNS: Yes no meningeal signs SPEECH: speech normal Psych: ATTITUDE: Yes uncooperative, Yes agitated, Yes aggressive and Yes hostile Skin: COMMON NORMALS: no rashes or lesions noted, turgor normal, no jaundice, no petechiae and no mottling GENERAL SKIN EXAM: no rashes or lesions noted and turgor normal Course ED course: Arrival -patient has been restrained for violence and agitation by EMS. Here she immediately is trying to get out of restraints and strike nursing and EMS. She is agitated and combative. I believe she is a threat to herself and others. She is still not responding to verbal de-escalation. I will go ahead and physically restrain her and give her chemical sedation. Vital Signs: Vital signs: Vital Signs Temperature 98.8 F 08/12/19 12:07 Pulse Rate 100 08/12/19 15:39 Respiratory Rate 18 08/12/19 15:39 Blood Pressure 125/86 08/12/19 15:39 Pulse Oximetry 94 08/12/19 15:39 MDM - General Adult MDM Narrative: Medical decision making narrative: 1340 -patient has been out of restraints for some time now. She is sleeping and cooperative when aroused. I reviewed the case in full with Dr. Palafox who is agreeable to admission. Patient has been placed under 96-hour hold. Further care will be dictated by Brie Palafox. Lab Data: Attestation: I reviewed the patient's lab results. Labs: Lab Results 08/12/19 08/12/19 08/12/19 Range/Units 12:30 12:30 12:30 WBC 14.2 H (4.0-10.0) 10^3/ uL RBC 4.40 (4.1-5.3) 10^6/u L Hgb 14.3 (11.5-15.3) g/dL Hct 44.0 (37.0-47.0) % MCV 100.0 H (81-99) fL MCH 32.5 (28.0-34.0) pg MCHC 32.5 (30.0-36.0) g/dL RDW 14.7 (12.1-15.1) % Plt Count 252 (130-400) 10^3/c mm MPV 9.3 (7.4-10.4) fL Neut % (Auto) 84.3 % Lymph % (Auto) 9.7 % [place] % (Auto) 5.2 % Eos % (Auto) 0.3 % Baso % (Auto) 0.2 % Neut # (Auto) 11.9 H (1.8-7.7) 10^3/u L Lymph # (Auto) 1.4 (0.8-4.8) 10^3/u L [place] # (Auto) 0.7 (0.2-0.9) 10^3/u L Eos # (Auto) 0.0 (0.0-0.8) 10^3/u L Baso # (Auto) 0.0 (0.0-0.1) 10^3/u L Nucleated RBC % (a uto) 0 % Nucleated RBCs # 0.0 /100WBC PT 12.60 (10.5-13.3) SECO NDS INR 0.92 (0.8-1.2) Sodium 138 (136-145) mmol/L Potassium 3.8 (3.5-5.1) mmol/L Chloride 106 (98-107) mmol/L Carbon Dioxide 19 L (22-29) mmol/L Anion Gap 16.8 (5-19) BUN 11 (6-20) mg/dL Creatinine 0.7 (0.5-0.9) mg/dL GFR Calculation 89.7 L (90-130) mL/min Glucose 86 (65-115) mg/dL Calculated Osmolal ity 281 L (285-295) mOsm/k g Calcium 9.4 (8.5-10.5) mg/dL Magnesium 2.1 (1.7-2.3) mg/dL Total Bilirubin 0.4 (0.15-1.2) mg/dL AST 13 (0-32) U/L ALT 11 (0-33) U/L Alkaline Phosphata se 66 (35-105) IU/L Creatine Kinase 191 (26-192) U/L Total Protein 7.2 (6.6-8.7) g/dL Albumin 4.3 (3.5-5.2) g/dL Globulin 2.9 (1.3-4.6) g/dL TSH 1.36 (0.27-4.20) uIU/ mL Free T4 1.79 H (0.82-1.77) ng/d L HCG, Qual (Negative) Salicylates < 0.3 L (3-10) mg/dL Acetaminophen < 5.0 L (10-30) ug/mL Phenytoin < 0.8 L (10-20) ug/mL Valproic Acid < 2.8 L (50-100) ug/mL Carbamazepine < 2.0 L (4.0-12.0) ug/mL [place] (0.6-1.2) mmol/L Ethyl Alcohol < 10 (0-10) mg/dL 08/12/19 08/12/19 Range/Units 12:30 12:30 WBC (4.0-10.0) 10^3/ uL RBC (4.1-5.3) 10^6/u L Hgb (11.5-15.3) g/dL Hct (37.0-47.0) % MCV (81-99) fL MCH (28.0-34.0) pg MCHC (30.0-36.0) g/dL RDW (12.1-15.1) % Plt Count (130-400) 10^3/c mm MPV (7.4-10.4) fL Neut % (Auto) % Lymph % (Auto) % [place] % (Auto) % Eos % (Auto) % Baso % (Auto) % Neut # (Auto) (1.8-7.7) 10^3/u L Lymph # (Auto) (0.8-4.8) 10^3/u L [place] # (Auto) (0.2-0.9) 10^3/u L Eos # (Auto) (0.0-0.8) 10^3/u L Baso # (Auto) (0.0-0.1) 10^3/u L Nucleated RBC % (a uto) % Nucleated RBCs # /100WBC PT (10.5-13.3) SECO NDS INR (0.8-1.2) Sodium (136-145) mmol/L Potassium (3.5-5.1) mmol/L Chloride (98-107) mmol/L Carbon Dioxide (22-29) mmol/L Anion Gap (5-19) BUN (6-20) mg/dL Creatinine (0.5-0.9) mg/dL GFR Calculation (90-130) mL/min Glucose (65-115) mg/dL Calculated Osmolal ity (285-295) mOsm/k g Calcium (8.5-10.5) mg/dL Magnesium (1.7-2.3) mg/dL Total Bilirubin (0.15-1.2) mg/dL AST (0-32) U/L ALT (0-33) U/L Alkaline Phosphata se (35-105) IU/L Creatine Kinase (26-192) U/L Total Protein (6.6-8.7) g/dL Albumin (3.5-5.2) g/dL Globulin (1.3-4.6) g/dL TSH (0.27-4.20) uIU/ mL Free T4 (0.82-1.77) ng/d L HCG, Qual Negative (Negative) Salicylates (3-10) mg/dL Acetaminophen (10-30) ug/mL Phenytoin (10-20) ug/mL Valproic Acid (50-100) ug/mL Carbamazepine (4.0-12.0) ug/mL [place] 0.1 L (0.6-1.2) mmol/L Ethyl Alcohol (0-10) mg/dL EKG Data^: EKG 1: Attestation: I personally reviewed and interpreted this EKG as follows: EKG interpretation date: 08/12/19 EKG interpretation time: 13:13 Interpretation: Normal sinus rhythm at 91 beats a minute, normal intervals, normal QTC, nonspecific ST and T wave changes. Discharge Plan Discharge Patient Disposition: Admitted As Inpatient Admit Provider: Alex Palafox Clinical Impression: Acute psychosis Condition: Stable Referrals: Abraham Rocha MD [Primary Care Provider] - Discharge Date/Time: 08/12/19 15:42 Coding Level of Care Code ED Aerial Sprayer for Chg Fwd Exam Comprehensive
[2019-08-12 12:07] VITALS: BP 121/83; PULSE 106; RESP 18; TEMP 37.1; O2SAT 93; BMI 33.3
[2019-08-12 12:18] VITALS: O2SAT 93
--- NOTE | 2019-08-12 12:19 | PC.NURSE ---
pt continues to be verbally agressive towards staff. ED physician notified. orders received.
[2019-08-12 12:49] LABS: Basophils % 0.2 %; Eosinophils % 0.3 %; Hemoglobin 14.3 g/dL (11.5-15.3); Lymphocytes # 1.4 10^3/uL (0.8-4.8); Lymphocytes % 9.7 %; Mean Corpuscular HGB Conc 32.5 g/dL (30.0-36.0); Mean Corpuscular Hemoglobin 32.5 pg (28.0-34.0); Mean Platelet Volume 9.3 fL (7.4-10.4); Monocytes # 0.7 10^3/uL (0.2-0.9); Monocytes % 5.2 %; Neutrophils # 11.9 10^3/uL (1.8-7.7); Neutrophils % 84.3 %; Nucleated Red Blood Cells % 0 %; Platelet Count 252 10^3/cmm (130-400); Red Cell Distribution Width 14.7 % (12.1-15.1); White Blood Count 14.2 10^3/uL (4.0-10.0)
[2019-08-12 12:57] LABS: INR 0.92 (0.8-1.2)
[2019-08-12 13:11] LABS: HCG, Serum Qual Negative (Negative)
[2019-08-12 13:25] LABS: Alanine Aminotransferase 11 U/L (0-33); Albumin Level 4.3 g/dL (3.5-5.2); Alkaline Phosphatase 66 IU/L (35-105); Anion Gap 16.8 (5-19); Aspartate Amino Transferase 13 U/L (0-32); Blood Urea Nitrogen 11 mg/dL (6-20); Calcium 9.4 mg/dL (8.5-10.5); Carbon Dioxide 19 mmol/L (22-29); Chloride 106 mmol/L (98-107); Creatine Phosphokinase 191 U/L (26-192); Creatinine Clr Calc Pharmacy 110.5558; Free T4 Free Thyroxine 1.79 ng/dL (0.82-1.77); Globulin 2.9 g/dL (1.3-4.6); Glomerular Filtration Rate 89.7 mL/min (90-130); Glucose 86 mg/dL (65-115); Magnesium 2.1 mg/dL (1.7-2.3); Osmolality Calculated 281 mOsm/kg (285-295); Potassium 3.8 mmol/L (3.5-5.1); Sodium 138 mmol/L (136-145); Thyroid Stimulating Hormone 1.36 uIU/mL (0.27-4.20); Total Bilirubin 0.4 mg/dL (0.15-1.2); Total Protein 7.2 g/dL (6.6-8.7)
[2019-08-12 13:34] LABS: Lithium 0.1 mmol/L (0.6-1.2)
[2019-08-12 13:51] LABS: Acetaminophen < 5.0 ug/mL (10-30); Alcohol Level < 10 mg/dL (0-10); Salicylate < 0.3 mg/dL (3-10)
[2019-08-12 13:52] LABS: Valproic Acid Level < 2.8 ug/mL (50-100)
[2019-08-12 13:53] LABS: Carbamazepine Tegretol < 2.0 ug/mL (4.0-12.0); Phenytoin Dilantin < 0.8 ug/mL (10-20)
[2019-08-12] MEDS: ziprasidone 20 mg/mL SDV 10 MG IM (14:32)
--- NOTE | 2019-08-12 14:32 | PC.NURSE ---
nurse in room to remove pt's clothes and bracelets and pt very aggressive towards staff, refusing to remove items. security in room. ED physician in room to inform pt of 96 hour hold. pt took IM medication willingly. Will attempt to take items again in a few minutes. will continue to monitor.
[2019-08-12 15:39] VITALS: BP 125/86; PULSE 100; RESP 18; O2SAT 94
[2019-08-12 16:17] VITALS: RESP 18
[2019-08-12 20:30] VITALS: RESP 19
--- NOTE | 2019-08-12 22:33 | PC.NURSE ---
patient sedated at time for administration of meds.
[2019-08-13] MEDS: acetaminophen 325 mg Tablet 650 MG PO (03:43)
[2019-08-13] MEDS: hyDROXYzine 25 mg Capsule 50 MG PO (03:45)
[2019-08-13] MEDS: OLANZapine 5 mg ODT PO (03:46)
[2019-08-13 06:00] VITALS: BP 127/91; PULSE 83; RESP 14; TEMP 36.5; O2SAT 95
[2019-08-13] MEDS: gabapentin 400 mg Capsule PO (08:36)
[2019-08-13] MEDS: ziprasidone hcl 40 mg Capsule PO ×2 (08:36→19:03)
[2019-08-13 09:06] VITALS: PULSE 96; RESP 18; O2SAT 97
--- NOTE | 2019-08-13 10:55 | PM.NHP ---
Providers/Chief Complaint Admitting Physician: Alex Palafox MD Primary Care Provider: Abraham Rocha MD Chief Complaint: VIOLENT BEHAVIOR HPI NPU History of Present Illness Annemarie Hardin is a 49 year old female who presented to the emergency room with reports of psychosis, aggression, and lethality, and was admitted on a 96-hour hold to the NPU for definitive treatment of those issues. This morning she was combative, angry, screaming, demanding and not a good historian in any sense. Standard questions that we ask everyone at admission, she was cursing me out, saying it is the same as every other #&?* anybody has asked me these questions. I tried to ask her what had changed since she was here at the hospital compared to her last stay, and she is saying that there is nothing different, and that she wants to juve the hospital and the ambulance company for bringing her here and asked me why we brought her here. I explained to her that the ambulance is an independent entity, not working for the hospital, and that they were functioning with someone else who requested that she be brought here, which she did not believe. Ultimately, she said her medications were working, and clearly they were not. She was unable to be a productive part of the interview, being very angry and hostile, making threats. She was seen by this sheet writer recently and was psychotic then, but not in this aggressive manner, but an excerpt of that hospitalization is included below. Per last [facility] [place] eval IP 06/17/19: History of Present Illness Annemarie Hardin is a 49 year old female who presented today with limited intelligible conversation. 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 Outside of that she gave no meaningful information during the conversation. Included below the neck served from her last hospitalization here in 2016 she had other hospitalizations immediately preceding that and all of them have the same MO which was her presenting and there being an inability to gather significant information because of how decompensated she was or how significant her psychosis was. Per las [facility] [place] IP eval: History of Present Illness Date of Service: Apr 01, 2016 Chief Complaint: Patient admitted due to acute psychosis HPI: This patient was admitted through the emergency room. She was acutely psychotic at the time of her presentation. Patient is concerned is having bizarre and aggressive behavior. Certainly that continues after her admission to the NPU. Patient is essentially a non-historian. She so disorganized and aggressive that no interview can be conducted. She's required numerous when necessary administrations of Haldol due to the level of aggression that she has displayed. She was here in 2016 for depressive symptoms. It's not clear to me what she was taking prior to her hospitalization but most recent medication seems to include nortriptyline, BuSpar getting, Geodon and Effexor. I suspect she has not been compliant with these medications but I will be holding those at this time. She also has a history of abusing multiple illicit substances including methamphetamine marijuana and alcohol. Her current drug screen is positive for marijuana. Allergies: Coded Allergies: ERYTHROMYCIN ETHYLSUCCINATE (Verified Allergy, Mild, THROAT SWELLS, 12/22/07) TETRACYCLINE (Unverified Adverse Reaction, Mild, NAUSEA, 12/22/07) Uncoded Allergies: POISON SUMAC (Allergy, Severe, Rash, 05/11/11) Meds NPU Home Medications Medication Instructions Recorded Confirmed Last Taken Type albuterol sulfate [Ventolin HFA] 2 puff INHALATION Q4H PRN 06/16/19 08/12/19 Unknown History diclofenac sodium 2 - 4 g TOPICAL TID PRN 06/16/19 08/12/19 Unknown History diclofenac sodium 75 mg PO BID 06/16/19 08/12/19 Unknown History gabapentin 400 mg PO TID 06/16/19 08/12/19 Unknown History ipratropium bromide 1 - 2 spray INTRANASAL DIRECTED 06/16/19 08/12/19 Unknown History tizanidine 4 mg PO BID PRN 06/16/19 08/12/19 Unknown History ziprasidone HCl 60 mg PO BID 06/16/19 08/12/19 Unknown History quetiapine 100 mg PO BEDTIME #30 tab 06/20/19 08/12/19 Unknown Rx ziprasidone HCl 40 mg PO BID #60 cap 06/20/19 08/12/19 Unknown Rx Allergies Allergy/AdvReac Type Severity Reaction Status Date / Time erythromycin base Allergy ADR-Vomitin Verified 06/16/19 17:08 g PFSH NPU PFSH: Social History Smoking and tobacco status: current every day smoker Mental Status Exam MSE Comments: This is an obese, white female, with limited, dress, grooming, and eye contact. No abnormal movements except for psychomotor agitation. Uncooperative with exam in no moderate to extreme distress. Speech was increased rate and volume. Mood described as angry; affect congruent. Thought process, organized. Thought content: patient denied any suicidal or homicidal ideation, there were no delusions reported but paranoia and persecutory thinking exists. Attention and concentration were limited, and memory was unreliable, but none were formally tested. She is alert and oriented times person and place. Insight and judgment are impaired. Impulse control is impaired. Vitals/I&O/Wt Last Vital Signs Temp 97.7 F 08/13/19 06:00 Pulse 96 08/13/19 09:06 Resp 18 08/13/19 09:06 BP 127/91 08/13/19 06:00 Pulse Ox 97 08/13/19 09:06 Weight last 48 hrs Weight 90.718 kg Weight 90.718 kg Data NPU : 08/12/19 12:30 08/12/19 12:30 A&P Assessment and plan (1) Psychosis: Status: Acute (2) Cannabis abuse: Status: Chronic (3) Aggression: Status: Acute (4) Suicidal ideation: Status: Acute (5) Homicidal ideation: Status: Acute Additional A&P Information This is a 49 year old, white female, with at least 10 to 12 hospitalizations in this facility alone, who presents psychotic without any insight into her presentation. Continue current medication. Encourage individual, group, and milieu therapy. Continue q 15-minute check for safety. Would like to work to see if there is any community resource so that they can check in and identify whether she is taking her medication. Additionally, we should see if there is any chance that we could get her on a long-acting injectable to assure some medication adherence. Inpatient hospitalization is medically necessary and the clinically appropriate intervention at this time. We will monitor medications and titrate as indicated. She will be in the hospital for over two midnights. May have to consider a 21-day hold. Likely length of stay five to seven days. Involuntary Hold Information 96 Hour Hold: 96 Hour Involuntary Admission: Yes 96 Hour Hold Ending Date: 08/18/19 96 Hour Hold Ending Time: 12:01 Attestations NPU Medical Necessity Statement*: Inpatient hospitalization is medically necessary and the clinically appropriate intervention at this time. We will monitor medications and titrate as indicated. She will be in the hospital for over two midnights. May have to consider a 21-day hold. Likely length of stay five to seven days. Coding Level of Care Code Acute Manager Party for Gilg Fwd Diagnoses Psychosis F29 Cannabis abuse F12.10 Aggression R46.89 Suicidal ideation R45.851 Homicidal ideation R45.850
--- NOTE | 2019-08-13 11:22 | PC.NURSE ---
PT YELLING, AGITATED AT NURSES STATION. PT DEMANDS THAT EVERYONE STOP ASKING HER NAME, DATE OF OR SHE WILL COME THRU THE GLASS WINDOW AT NURSE. PT OFFERED VISTARIL PO FOR ANXIETY, PT ALLOWED NURSE TO HAND HER THE MEDICATION THAN BEGAN SCREAMING SHE WASN'T TAKING ANYTHING BUT ATIVAN, NURSE INFORMED HER SHE HAS NO ORDER FOR ATIVAN AND SHE TOLD NURSE TO SHOVE IT UP HER ASS AND WENT TO HER ROOM.
--- NOTE | 2019-08-13 11:24 | PC.NURSE ---
PT. BEHAVIOR: CLIENT UP TO NURSING STATION VERY DEMANDING REQUESTING TO CALL HER NATACHA. CLIENT ALLOWED TO CALL HER DURING WHICH CONVERSATION SHE LEFT MESSAGE DEMANDING CALL HER BACK. CLIENT AOFFERED MEDICATION TO HELP WITH HER INCREASED ANXIETY VISTARIL WHICH IS ORDERED PRN. CLIENT REFUSED TO TAKE THE VISTAIL STATING SHE NEEDS SOME STRONGER. STAFF OFFERED TO ADMINISTER A SHOT TO HELP HER WHICH SHE HAS AGREED TO TAKE AT THIS TIME.
[2019-08-13] MEDS: diphenhydrAMINE 50 mg/mL SDV 1mL IM (11:46)
[2019-08-13] MEDS: LORazepam 2 mg/mL INJ 1 mL IM (11:46)
[2019-08-13] MEDS: haloperidol inj 5 mg/mL INJ 1 mL IM (11:47)
--- NOTE | 2019-08-13 11:48 | PC.NURSE ---
PT CONTINUES YELLING, SCREAMING, CURSING AT STAFF, THREATENING TO BREAK OUT OF THIS HOSPITAL. PT AGREEABLE TO TAKE INJECTION. HALDOL 5MG IM, ATIVAN 2MG IM AND BENADRYL 50MG IM GIVEN FOR SEVERE AGITATION. PT CONTINUES TO YELL AND DEMAND TO BE RELEASED FROM UNIT.
[2019-08-13 14:00] VITALS: RESP 16
[2019-08-13] MEDS: diclofenac 75 mg DR Tablet PO (19:03)
[2019-08-13 21:57] VITALS: RESP 18
[2019-08-14 01:23] VITALS: PULSE 68; RESP 18; O2SAT 95
--- NOTE | 2019-08-14 05:36 | PC.NURSE ---
2100 meds not given on 06/13/19 due to patients level of sedation.
[2019-08-14 06:00] VITALS: BP 110/70; PULSE 77; RESP 18; TEMP 37; O2SAT 97
[2019-08-14] MEDS: gabapentin 400 mg Capsule PO (08:15)
[2019-08-14] MEDS: diclofenac 75 mg DR Tablet PO (08:15)
[2019-08-14] MEDS: ziprasidone hcl 40 mg Capsule PO (08:15)
--- NOTE | 2019-08-14 10:49 | PM.NDC ---
Diagnoses at Discharge Discharge Diagnosis (1) Cannabis abuse: Status: Chronic (2) Acute psychosis: Status: Acute (3) Narcissistic personality disorder: Status: Acute Reason for Visit Reason for Visit: VIOLENT BEHAVIOR Brief History: History of Present Illness according to initial psychiatric avaluation. Annemarie Hardin is a 49 year old female who presented today with limited intelligible conversation. 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 Outside of that she gave no meaningful information during the conversation. Included below the neck served from her last hospitalization here in 2016 she had other hospitalizations immediately preceding that and all of them have the same MO which was her presenting and there being an inability to gather significant information because of how decompensated she was or how significant her psychosis was. Per [facility] IP eval: History of Present Illness Date of Service: Apr 01, 2016 Chief Complaint: Patient admitted due to acute psychosis HPI: This patient was admitted through the emergency room. She was acutely psychotic at the time of her presentation. Patient is concerned is having bizarre and aggressive behavior. Certainly that continues after her admission to the NPU. Patient is essentially a non-historian. She so disorganized and aggressive that no interview can be conducted. She's required numerous when necessary administrations of Haldol due to the level of aggression that she has displayed. She was here in 2016 for depressive symptoms. It's not clear to me what she was taking prior to her hospitalization but most recent medication seems to include nortriptyline, BuSpar getting, Geodon and Effexor. I suspect she has not been compliant with these medications but I will be holding those at this time. She also has a history of abusing multiple illicit substances including methamphetamine marijuana and alcohol. Her current drug screen is positive for marijuana. Allergies: Coded Allergies: ERYTHROMYCIN ETHYLSUCCINATE (Verified Allergy, Mild, THROAT SWELLS, 12/22/07) TETRACYCLINE (Unverified Adverse Reaction, Mild, NAUSEA, 12/22/07) Uncoded Allergies: POISON SUMAC (Allergy, Severe, Rash, 05/11/11) Hospital Course Hospital Course Much similar to her course from her hospitalization a few months ago, she was admitted to the adult psychiatric unit and provided a medical assessment on entry through the emergency room. If she was entered into the full array of individual and group therapies as part of the adult psychiatric unit protocol. She quickly adapted to the unit and her psychosis on admission resolved with sleep and nutrition. She demanded to leave the hospital because she needed to tend to family duties at home. The patient's manner was demanding, and demeaning to staff. She was profane, insulting and vulgar. However, she was no longer appearing to be an imminent danger to self or others. It was recommended that she stay and reinstitute her previously effective medications. Identical to her course in the last admission, she demanded to leave AGAINST MEDICAL ADVICE. She was allowed to do so. Involuntary Hold Information 96 Hour Hold: 96 Hour Involuntary Admission: Yes 96 Hour Hold Ending Date: 08/18/19 96 Hour Hold Ending Time: 12:01 Mental Status Exam MSE Comments: Discharge Mental Status Exam: The patient's manner is demanding, and demeaning. She is profane, insulting and vulgar. Appearance: hygiene is good; no gross neurological deficits., gait is unremarkable; AIMS=0 Speech: Speech is of normal rate and rhythm and easily understood. Thought processes: Thought processes are abstract. Judgment is adequate for safety. Associations: intact Psychotic processes: There is no indication of guarding or paranoia. There is no attention to the internal stimuli. Auditory and visual hallucinations are denied. Judgment: Insight is fair. Problem solving skills are adequate for safety. Orientation: The patient is oriented to person, place time and situation. Memory: no deficits noted in immediate, intermediate, or remote spheres. Attention: The patient is alert and interpersonally engaged. Language: Verbalizations are coherent. Fund of knowledge: Fund of knowledge is adequate. Affect/Mood: Affect is consistent with a euthymic mood. denied suicidal ideation Affective range is appropriate. Psychosis: perception unimpaired except through cognitive distortion; reality testing intact. Discharge Data Data Completed and Pending: Pending at discharge Category Date Time Status Drug Screen, Urin e Stat Lab 08/12/19 11:39 Ordered Urinalysis Stat Lab 08/12/19 11:39 Ordered Vitals: Last Vital Signs Temp 98.6 F 08/14/19 06:00 Pulse 77 08/14/19 06:00 Resp 18 08/14/19 06:00 BP 110/70 08/14/19 06:00 Pulse Ox 97 08/14/19 06:00 Discharge Plan Discharge Patient Disposition: Home, Self-Care Condition: Stable Prescriptions: Continued tizanidine 4 mg tablet 4 mg PO BID PRN (Reason: Muscle Spasm) RF: 0 gabapentin 400 mg capsule 400 mg PO TID RF: 0 diclofenac sodium 75 mg tablet,delayed release (DR/EC) 75 mg PO BID RF: 0 albuterol sulfate [Ventolin HFA] 90 mcg/actuation HFA aerosol inhaler 2 puff INHALATION Q4H PRN (Reason: Shortness Of Breath) RF: 0 ziprasidone HCl 60 mg capsule 60 mg PO BID RF: 0 ipratropium bromide 0.03 % spray,non-aerosol 1 - 2 spray INTRANASAL DIRECTED RF: 0 diclofenac sodium 1 % gel 2 - 4 g TOPICAL TID PRN (Reason: unknown) RF: 0 quetiapine 100 mg Tablet 100 mg PO BEDTIME Qty: 30 RF: 4 ziprasidone HCl 40 mg Capsule 40 mg PO BID Qty: 60 RF: 3 Discontinued azelastine 0.05 % drops 1 drp ophthalmic (eye) BID PRN (Reason: UNKNOWN) RF: 0 Discharge Orders: Discharge Order (Routine); Ordered 08/14/19 Ordered By: Silviano Iyer Referrals: Abraham Rocha MD [Primary Care Provider] - Discharge Attestations NPU Time Spent in Discharge Care*: greater than 30 min Coding Level of Care Code Acute 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
[2019-08-14 11:09] VITALS: BP 110/70; PULSE 77; RESP 18; TEMP 37; O2SAT 97
== END 2019-08-14 14:10 | disposition left against medical advice (07) | DRG 885 ==
LOC: ER 13:40 → NP 14:05
PROVIDERS: Admitting Provider Psychiatry & Neurology Psychiatry; Emergency Provider Emergency Medicine; Family Provider Family Medicine; PCP Family Medicine; Visit Provider Psychiatry & Neurology Psychiatry
DX: F23 Brief psychotic disorder (principal); F12.10 Cannabis abuse, uncomplicated; Z53.29 Procedure and treatment not carried out because of patient's decision for other reasons; F60.81 Narcissistic personality disorder; F17.210 Nicotine dependence, cigarettes, uncomplicated
CPT/HCPCS: 12345; 36415; 80053; 80156; 80164; 80178; 80185; 80307; 82550; 83735; 84439; 84443; 84703; 85025; 85610; 93005; 96372; 99284; J1200; J1630; J2060; J3486

== ENCOUNTER 2020-03-08 12:46 | Inpatient (IN) | payer MEDICARE, MEDICAID, SELFPAY ==
[2020-03-08 12:49] VITALS: BP 142/87; PULSE 112; RESP 18; TEMP 37.1; O2SAT 97; BMI 29.9
--- NOTE | 2020-03-08 13:07 | W.ED.PSYCH ---
HPI - Psych General: Chief Complaint: Psychiatric Symptoms Stated Complaint: altered mental status Time Seen by Provider: 03/08/20 12:50 History of Present Illness: HPI Narrative: 58-year-old female brought in by [id number] when she arrived in the department he is naked and barefoot. She was in the custody of officers that evidently was found her standing in the [employer] drive-through talking to a wall. Patient is not able to give any kind of history. school services officer states that the notes that they have been trying to get her to [facility] for a psych eval but they had lost her . We were able to identify her name via [id number]. She does not appear to have any particular injury she is ambulatory. When asked if she had any complaints injuries or pain she answers in gibberish and nonsensical responses. She continues to recite lines from different rap songs. complaint: altered mental status Onset (ago): unknown Duration: constant Relieving factors: none Exacerbating factors: none Associated symptoms: Reports delusions and racing thoughts Treatments prior to arrival: placed on mental health hold Review of Systems General: Reports: ROS unobtainable due to mental status Physical Exam HENMT: COMMON NORMALS: normocephalic, atraumatic and hearing grossly normal bilaterally HEAD & SCALP: normocephalic and atraumatic Neck/C-Spine: COMMON NORMALS: full ROM, no lymphadenopathy, supple and no JVD Lymph: LYMPHATIC: no lymphadenopathy noted and no lymphedema noted Resp: COMMON NORMALS: normal respiratory effort, No retractions, No use of accessory muscles and clear to auscultation bilaterally AUSCULTATION: clear to auscultation bilaterally Cardio: COMMON NORMALS: no JVD, regular rate, regular rhythm and No murmurs present (Cardio) RATE: regular rate RHYTHM: regular rhythm GI: COMMON NORMALS: Soft to palpation and No hepatosplenomegaly present AUSCULTATION: Yes normoactive bowel sounds PALPATION: Yes Soft to palpation, No Tenderness to palpation present (GI), No Guarding due to palpation present (GI) and Yes No hepatosplenomegaly present Extremity: COMMON NORMALS: normal to inspection, capillary refill normal, no clubbing, cyanosis or edema, no calf tenderness and no pedal edema Psych: THOUGHT CONTENT: Yes delusions Skin: COMMON NORMALS: no rashes or lesions noted GENERAL SKIN EXAM: no rashes or lesions noted MDM - Psych MDM Narrative: Medical decision making narrative: Patient acutely psychotic. CPK is elevated I suspect that is due to her methamphetamine use. The reported that she had a seizure earlier today but review the records I cannot find where she is ever been documented have a seizure before and she is not on any antiseizure medications. To the extent that she possibly did have a seizure also suspected to be precipitated by the methamphetamine use discussed with Dr. 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 CT of the head done in the emergency room is unremarkable. Lab Data: Labs: Lab Results 03/08/20 03/08/20 03/08/20 Range/Units 13:23 13:23 13:23 WBC Cancelled Corrected WBC Cancelled RBC Cancelled Hgb Cancelled Hct Cancelled MCV Cancelled MCH Cancelled MCHC Cancelled RDW Cancelled Plt Count Cancelled MPV Cancelled Gran % Cancelled Neut % (Auto) Cancelled Lymph % (Auto) Cancelled [place] % (Auto) Cancelled Eos % (Auto) Cancelled Baso % (Auto) Cancelled Neut # (Auto) Cancelled Lymph # (Auto) Cancelled [place] # (Auto) Cancelled Eos # (Auto) Cancelled Baso # (Auto) Cancelled Absolute Gran (aut o) Cancelled Nucleated RBC % (a uto) Cancelled Nucleated RBCs # Cancelled Sodium 140 (136-145) mmol/L Potassium 3.3 L (3.5-5.1) mmol/L Chloride 102 (98-107) mmol/L Carbon Dioxide 22 (22-29) mmol/L Anion Gap 19.3 H (5-19) BUN 9 (6-20) mg/dL Creatinine 0.7 (0.5-0.9) mg/dL GFR Calculation 89.3 L (90-130) mL/min Glucose 98 (65-115) mg/dL Calculated Osmolal ity 289 (285-295) mOsm/k g Calcium 10.0 (8.5-10.5) mg/dL Total Bilirubin 0.5 (0.15-1.2) mg/dL AST 18 (0-32) U/L ALT 18 (0-33) U/L Alkaline Phosphata se 91 (35-105) IU/L Creatine Kinase 871 H* (26-192) U/L Total Protein 7.9 (6.6-8.7) g/dL Albumin 4.6 (3.5-5.2) g/dL Globulin 3.3 (1.3-4.6) g/dL Urine Color (Yellow) Urine Appearance (CLEAR) Urine pH (5-7) Ur Specific Gravit y (1.005-1.030) Urine Protein (Negative) Urine Glucose (UA) (Normal) Urine Ketones (Negative) Urine Blood (Negative) Urine Nitrate (Negative) Urine Bilirubin (Negative) Urine Urobilinogen (Negative) mg/dL Ur Leukocyte Ami ase (Negative) Urine RBC (0-2) /hpf Urine WBC (0-5) /hpf Ur Squamous Epith Cells (0-5) /hpf Amorphous Sediment /hpf Urine Bacteria (NONE) /hpf Urine Mucus /hpf Salicylates < 0.3 L (3-10) mg/dL Urine Opiates Scre en (Negative) ng/mL Acetaminophen < 5.0 L (10-30) ug/mL Ur Barbiturates Sc reen (Negative) ng/mL Ur Phencyclidine S crn (Negative) ng/mL Ur Amphetamines Sc reen (Negative) ng/mL U Benzodiazepines Scrn (Negative) ng/mL Urine Cocaine Scre en (Negative) ng/mL U Marijuana (THC) Screen (Negative) ng/mL Ethyl Alcohol < 10 (0-10) mg/dL 03/08/20 03/08/20 Range/Units 14:01 14:01 WBC Corrected WBC RBC Hgb Hct MCV MCH MCHC RDW Plt Count MPV Gran % Neut % (Auto) Lymph % (Auto) [place] % (Auto) Eos % (Auto) Baso % (Auto) Neut # (Auto) Lymph # (Auto) [place] # (Auto) Eos # (Auto) Baso # (Auto) Absolute Gran (aut o) Nucleated RBC % (a uto) Nucleated RBCs # Sodium (136-145) mmol/L Potassium (3.5-5.1) mmol/L Chloride (98-107) mmol/L Carbon Dioxide (22-29) mmol/L Anion Gap (5-19) BUN (6-20) mg/dL Creatinine (0.5-0.9) mg/dL GFR Calculation (90-130) mL/min Glucose (65-115) mg/dL Calculated Osmolal ity (285-295) mOsm/k g Calcium (8.5-10.5) mg/dL Total Bilirubin (0.15-1.2) mg/dL AST (0-32) U/L ALT (0-33) U/L Alkaline Phosphata se (35-105) IU/L Creatine Kinase (26-192) U/L Total Protein (6.6-8.7) g/dL Albumin (3.5-5.2) g/dL Globulin (1.3-4.6) g/dL Urine Color Yellow (Yellow) Urine Appearance Cloudy (CLEAR) Urine pH 5 (5-7) Ur Specific Gravit y 1.025 (1.005-1.030) Urine Protein Neg (Negative) Urine Glucose (UA) Norm (Normal) Urine Ketones 1+ H (Negative) Urine Blood Neg (Negative) Urine Nitrate Negative (Negative) Urine Bilirubin Neg (Negative) Urine Urobilinogen Norm (Negative) mg/dL Ur Leukocyte Ami ase Negative (Negative) Urine RBC 0-4 H (0-2) /hpf Urine WBC 0-4 H (0-5) /hpf Ur Squamous Epith Cells 0-4 H (0-5) /hpf Amorphous Sediment 2+ /hpf Urine Bacteria Trace (NONE) /hpf Urine Mucus Trace /hpf Salicylates (3-10) mg/dL Urine Opiates Scre en Negative (Negative) ng/mL Acetaminophen (10-30) ug/mL Ur Barbiturates Sc reen Negative (Negative) ng/mL Ur Phencyclidine S crn Negative (Negative) ng/mL Ur Amphetamines Sc reen Positive H (Negative) ng/mL U Benzodiazepines Scrn Negative (Negative) ng/mL Urine Cocaine Scre en Negative (Negative) ng/mL U Marijuana (THC) Screen Positive H (Negative) ng/mL Ethyl Alcohol (0-10) mg/dL Discharge Plan Discharge Patient Disposition: Admitted As Inpatient Admit Provider: Alex Palafox Coding Level of Care Code ED District Extension Service Agent for Shakeel Fwd Exam Comprehensive
[2020-03-08 13:55] LABS: Alanine Aminotransferase 18 U/L (0-33); Albumin Level 4.6 g/dL (3.5-5.2); Alkaline Phosphatase 91 IU/L (35-105); Anion Gap 19.3 (5-19); Aspartate Amino Transferase 18 U/L (0-32); Blood Urea Nitrogen 9 mg/dL (6-20); Carbon Dioxide 22 mmol/L (22-29); Chloride 102 mmol/L (98-107); Globulin 3.3 g/dL (1.3-4.6); Glomerular Filtration Rate 89.3 mL/min (90-130); Glucose 98 mg/dL (65-115); Osmolality Calculated 289 mOsm/kg (285-295); Potassium 3.3 mmol/L (3.5-5.1); Sodium 140 mmol/L (136-145); Total Bilirubin 0.5 mg/dL (0.15-1.2); Total Protein 7.9 g/dL (6.6-8.7)
[2020-03-08 14:06] LABS: Acetaminophen < 5.0 ug/mL (10-30); Alcohol Level < 10 mg/dL (0-10); Salicylate < 0.3 mg/dL (3-10)
[2020-03-08 14:20] LABS: Urine Appearance Cloudy (CLEAR); Urine Color Yellow (Yellow)
[2020-03-08 14:21] LABS: Add Urine Culture? No; Add Urine Microscopic? YES; Amorphous Sediment Urine 2+ /hpf; Bacteria Urine TRACE /hpf; Bilirubin Urine Neg (Negative); Blood Urine Neg (Negative); Glucose Urine UA Norm (Normal); Ketones Urine 1+ (Negative); Leukocyte Esterase Urine Negative (Negative); Mucus Urine TRACE /hpf; Nitrate Urine Negative (Negative); Protein Urine Neg (Negative); RBC Urine 0-4 /hpf (0-2); Specific Gravity, Urine 1.025 (1.005-1.030); Squamous Epithelial Cell Urine 0-4 /hpf (0-5); Urobilinogen Urine Norm (Negative); WBC Urine 0-4 /hpf (0-5); pH Urine 5 (5-7)
--- NOTE | 2020-03-08 14:21 | PC.NURSE ---
Pt was initially brought to ED by [facility] naked and confused. Pt told [facility] that her name was Annemarie Pickard and her date was blue . Pt was registered as Annemarie Pickard with an estimated age and date. Pt was then identified by staff as Annemarie Hardin, name changed by registration. Pt Catalino Pickard called and verified pt identity and date.
[2020-03-08 14:22] LABS: Amphetamines Screen Urine Positive (Negative); Barbiturates Screen Urine Negative (Negative); Benzodiazepines Screen Urine Negative (Negative); Cocaine Screen Urine Negative (Negative); Opiate Screen Urine Negative (Negative); PCP Screen Urine Negative (Negative); THC Screen Urine Positive (Negative)
[2020-03-08 14:44] LABS: Basophils % 0.2 %; Hemoglobin 14.9 g/dL (11.5-15.3); Lymphocytes # 1.6 10^3/uL (0.8-4.8); Lymphocytes % 9.9 %; Mean Corpuscular HGB Conc 33.1 g/dL (30.0-36.0); Mean Corpuscular Hemoglobin 32.8 pg (28.0-34.0); Mean Corpuscular Volume 99.1 fL (81-99); Monocytes # 1.2 10^3/uL (0.2-0.9); Monocytes % 7.3 %; Neutrophils # 13.41 10^3/uL (1.8-7.7); Neutrophils % 82.1 %; Nucleated Red Blood Cells % 0 %; Platelet Count 249 10^3/cmm (130-400); Red Blood Count 4.54 10^6/uL (4.1-5.3); White Blood Count 16.3 10^3/uL (4.0-10.0)
[2020-03-08 14:46] VITALS: BP 142/87; PULSE 112; RESP 18; O2SAT 97
[2020-03-08 14:51] LABS: Creatine Phosphokinase 871 U/L (26-192)
--- NOTE | 2020-03-08 15:15 | CT_ITS ---
WS: [id number] CT HEAD TECHNIQUE: Noncontrast CT of the head obtained from the skullbase to the vertex. CLINICAL INFORMATION: AMS COMPARISON: MRI 2013 DLP: 866.[address] scans at [facility] use at least one of these dose optimization techniques: automat ed exposure control; mA and/or kV adjustment per patient size (includes targeted exams where dose is matched to clinical indication); or iterative reconstruction. FINDINGS: No evidence of intracranial hemorrhage or mass effect. Ventricular system and basal cisterns are horner nt. No extra-axial fluid collections. No evidence of mass or mass effect. Normal carlson-white different iation. Paranasal sinuses and mastoid air cells are well aerated. .Normal visualized soft tissues. CT/CT head wo con* [id number] IMPRESSION: 1. No evidence of intracranial hemorrhage or mass effect. 2. Normal carlson-white differentiation. 3. No acute intracranial findings.
--- NOTE | 2020-03-08 15:34 | PC.PHAR ---
pts brought in medication bottles for paliperidone er 9mg daily dated 02/08/20,ambien 10mg hs prn dated 07/17/18-nortriptyline 50mg daily dated 02/08/20-singulair 10mg daily,zbi-rbo-dkel,mucus relief sinus-pts states he didnt bring in all her medications-ext med history shows these medications filled between 02/08/20-02/12/[address] 75mg bid prn-diclofenac gel 1% tid prn as directed-gabapentin 400mg tid as directed-propranolol 10mg tid prn anxiety-proair hfa 2p q4h
[2020-03-08] MEDS: diphenhydrAMINE 50 mg/mL SDV 1mL IM (16:53)
[2020-03-08] MEDS: LORazepam 2 mg/mL INJ 1 mL IM (16:54)
[2020-03-08] MEDS: haloperidol inj 5 mg/mL INJ 1 mL IM (16:54)
[2020-03-08 21:01] VITALS: RESP 18
[2020-03-09] MEDS: hyDROXYzine 25 mg Capsule 50 MG PO (01:30)
[2020-03-09] MEDS: trazodone 50 mg Tablet PO (01:31)
[2020-03-09] MEDS: acetaminophen 325 mg Tablet 650 MG PO (01:31)
[2020-03-09 06:00] VITALS: RESP 16
[2020-03-09] MEDS: OLANZapine 5 mg ODT PO (10:29)
[2020-03-09] MEDS: nicotine 21 mg Patch 1 PATCH TRANSDERMA (11:26)
[2020-03-09] MEDS: haloperidol 5 mg Tablet PO (13:07)
--- NOTE | 2020-03-09 13:48 | P.HP_ITS ---
Providers/Chief Complaint Admitting Physician: Alex Palafox MD Chief Complaint: altered mental status HPI NPU History of Present Illness ANNEMARIE HARDIN is a 50 year old female who presented to the emergency department with the following report: Chief Complaint: Psychiatric Symptoms Stated Complaint: altered mental status Time Seen by Provider: 03/08/20 12:50 History of Present Illness: HPI Narrative: 58-year-old female brought in by [employer] when she arrived in the department he is naked and barefoot. She was in the custody of officers that evidently was found her standing in the [employer] drive-through talking to a wall. Patient is not able to give any kind of history. sailing officer states that the notes that they have been trying to get her to [facility] for a psych eval but they had lost her . We were able to identify her name via [employer]. She does not appear to have any particular injury she is ambulatory. When asked if she had any complaints injuries or pain she answers in gibberish and nonsensical responses. She continues to recite lines from different rap songs. complaint: altered mental status Onset (ago): unknown Duration: constant Relieving factors: none Exacerbating factors: none Associated symptoms: Reports delusions and racing thoughts Treatments prior to arrival: placed on mental health hold. She was admitted to the neuropsychiatric unit for definitive treatment of those issues. Annemarie is known to this fha underwriter from previous admissions. She has presented with significant psychosis, thought disorder, active intoxication and withdrawal symptoms with significant aggression which generally clears fairly rapidly. If she is now on a 96-hour hold she will then signed out AMA. She presents today very disorganized speaking clear words with saying things that make no sense about her house running and many other assorted statements that lack no basis in reality. The subject of her answers have nothing to do with the questions that are asked. There were no questions that received responses that were related to the questions. An excerpt of her last note from her 08/13/2019 inpatient hospitalization is included below for context. Per her 08/13/2019 [facility] inpatient eval: History of Present Illness Annemarie Hardin is a 49 year old female who presented to the emergency room with reports of psychosis, aggression, and lethality, and was admitted on a 96-hour hold to the NPU for definitive treatment of those issues. This morning she was combative, angry, screaming, demanding and not a good historian in any sense. Standard questions that we ask everyone at admission, she was cursing me out, saying it is the same as every other #&?* anybody has asked me these questions. I tried to ask her what had changed since she was here at the hospital compared to her last stay, and she is saying that there is nothing different, and that she wants to juve the hospital and the ambulance company for bringing her here and asked me why we brought her here. I explained to her that the ambulance is an independent entity, not working for the hospital, and that they were functioning with someone else who requested that she be brought here, which she did not believe. Ultimately, she said her medications were working, and clearly they were not. She was unable to be a productive part of the interview, being very angry and hostile, making threats. She was seen by this fha underwriter recently and was psychotic then, but not in this aggressive manner, but an excerpt of that hospitalization is included below. Per last [facility] eval IP 06/17/19: History of Present Illness Annemarie Hardin is a 49 year old female who presented today with limited intelligible conversation. 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 Outside of that she gave no meaningful information during the conversation. Included below the neck served from her last hospitalization here in 2016 she had other hospitalizations immediately preceding that and all of them have the same MO which was her presenting and there being an inability to gather significant information because of how decompensated she was or how significant her psychosis was. Per las [facility] IP eval: History of Present Illness Date of Service: Apr 01, 2016 Chief Complaint: Patient admitted due to acute psychosis HPI: This patient was admitted through the emergency room. She was acutely psychotic at the time of her presentation. Patient is concerned is having bizarre and aggressive behavior. Certainly that continues after her admission to the NPU. Patient is essentially a non-historian. She so disorganized and aggressive that no interview can be conducted. She's required numerous when necessary administrations of Haldol due to the level of aggression that she has displayed. She was here in 2016 for depressive symptoms. It's not clear to me what she was taking prior to her hospitalization but most recent medication seems to include nortriptyline, BuSpar getting, Geodon and Effexor. I suspect she has not been compliant with these medications but I will be holding those at this time. She also has a history of abusing multiple illicit substances including methamphetamine marijuana and alcohol. Her current drug screen is positive for marijuana. Allergies: Coded Allergies: ERYTHROMYCIN ETHYLSUCCINATE (Verified Allergy, Mild, THROAT SWELLS, 12/22/07) TETRACYCLINE (Unverified Adverse Reaction, Mild, NAUSEA, 12/22/07) Uncoded Allergies: POISON SUMAC (Allergy, Severe, Rash, 05/11/11) Meds NPU Home Medications Medication Instructions Recorded Confirmed Last Taken Type Ohu-Mrx-Aprt Tab See Rx Instructions .ROUTE .COMPLEX 03/08/20 03/08/20 Unknown History albuterol sulfate 2 puff INHALATION Q4H PRN 03/08/20 03/08/20 Unknown History gmxwatb-cbsozdskg-dixb 1 tab PO DAILY 03/08/20 03/08/20 Unknown History diclofenac sodium 75 mg PO BID PRN 03/08/20 03/08/20 Unknown History diclofenac sodium [Voltaren] 1 g TOPICAL TID 03/08/20 03/08/20 Unknown History gabapentin See Rx Instructions .ROUTE .COMPLEX 03/08/20 03/08/20 Unknown History montelukast 10 mg PO DAILY 03/08/20 03/08/20 Unknown History nortriptyline 50 mg PO DAILY 03/08/20 03/08/20 Unknown History nortriptyline 50 mg PO EVERY OTHER DAY 03/08/20 03/08/20 Unknown History paliperidone 9 mg PO QAM 03/08/20 03/08/20 Unknown History paliperidone 9 mg PO QAM 03/08/20 03/08/20 Unknown History phenylephrine-guaifenesin [Mucus See Rx Instructions .ROUTE .COMPLEX 03/08/20 03/08/20 Unknown History Relief Sinus] propranolol 10 mg PO TID PRN 03/08/20 03/08/20 Unknown History zolpidem 10 mg PO DAILY PRN 03/08/20 03/08/20 Unknown History zolpidem [Ambien] 10 mg PO BEDTIME PRN 03/08/20 03/08/20 Unknown History Allergies Allergy/AdvReac Type Severity Reaction Status Date / Time erythromycin base Allergy Unknown Verified 03/08/20 14:33 Mental Status Exam MSE Comments: This is an obese white female with hospital scrubs on with limited and adequate eye contact. No abnormal movements except for mild psychomotor with exam in no acute distress. Speech was normal rate and volume. Mood described as something that had nothing to do with mood, affect fairly calm. Process disorganized, thought content: Patient not responding to these questions appropriately but has not had aggression toward self or others today, and she did not appear to be attending to internal stimuli. Attention concentration were improving and memory was unreliable but none were formally tested. She is alert and oriented to person. Insight and judgment were impaired and impulse control is limited. 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 1. Continue current medication. We will offer antipsychotic as he is able to communicate more. 2. Continue one-to-one observation for safety. 3. Encourage individual, group and milieu therapies. 4. Encourage sober living treatment after discharge at the highest level of care to which she is willing to commit. Involuntary Hold Information 96 Hour Hold: 96 Hour Involuntary Admission: No Attestations NPU Medical Necessity Statement*: Inpatient hospitalization is medically necessary and the clinically appropriate intervention at this time. We will monitor medications and make changes as indicated. Patient will be in the hospital for over two midnights. Likely length of stay 3 to 5 days. Coding Level of Care Code Acute Computer System Validation Specialist for Shakeel Rosa Diagnoses Psychosis F29 Methamphetamine use F15.10 Withdrawal from methamphetamine F15.23 Cannabis abuse F12.10
[2020-03-09 13:59] VITALS: BP 109/71; PULSE 84; RESP 17; TEMP 36.8; O2SAT 97
[2020-03-09] MEDS: ziprasidone hcl 40 mg Capsule PO (16:17)
--- NOTE | 2020-03-09 16:21 | PC.NURSE ---
Patient is undressing and is attempting to enter patients rooms. She has a sitter and is redirected. Administered Horacio NIELSEN as ordered. MARIAMA COLON
[2020-03-09 19:56] VITALS: BP 130/95; PULSE 84; RESP 18; TEMP 36.6; O2SAT 95
[2020-03-09] MEDS: nicotine 2 mg Gum BUCCAL (22:20)
[2020-03-10] MEDS: haloperidol 5 mg Tablet PO ×3 (01:35→17:18)
[2020-03-10] MEDS: hyDROXYzine 25 mg Capsule 50 MG PO ×2 (01:35→08:50)
[2020-03-10] MEDS: trazodone 50 mg Tablet PO (01:35)
[2020-03-10 04:05] VITALS: BP 138/89; PULSE 94; RESP 18; TEMP 36.6; O2SAT 98
[2020-03-10] MEDS: acetaminophen 325 mg Tablet 650 MG PO (08:50)
[2020-03-10] MEDS: OLANZapine 5 mg ODT PO (08:51)
--- NOTE | 2020-03-10 08:51 | PC.NURSE ---
anxiety / agitation zyprexa given.
--- NOTE | 2020-03-10 11:32 | PC.NURSE ---
Patient agitated / anxious. Not talking and making any sense.
[2020-03-10 14:00] VITALS: BP 118/72; PULSE 97; RESP 18; TEMP 37; O2SAT 97
[2020-03-10] MEDS: nicotine 21 mg Patch 1 PATCH TRANSDERMA (17:17)
--- NOTE | 2020-03-10 17:19 | PC.NURSE ---
Haldol 5mg given for agitation / psychosis.
--- NOTE | 2020-03-10 19:29 | PM.NPN ---
Subjective NPU Subjective: Interval history: Annemarie presented today speaking in a quite disorganized fashion still. She would use the word leave in the sentence but could not truly articulate any organized thought. We discussed the fact that she has presented like this with significant thought disorder after use in a generally resolves quickly and we will just have to allow it to run its course. She did begin to get somewhat riled up and was able to respond well to a as needed medication. Mental Status Exam MSE Comments: This is an obese white female with hospital scrubs on with limited grooming and adequate eye contact. No abnormal movements except for mild psychomotor retardation. Cooperative with exam in mild distress. Speech was normal rate and volume. Mood described with a nonsensical response, affect a little anxious. Thought process disorganized, thought content: Patient not responding to these questions appropriately but has not had aggression toward self or others today, and she did not appear to be attending to internal stimuli. Attention and concentration were improving and memory was unreliable but none were formally tested. She is alert and oriented to person. Insight and judgment were impaired and impulse control is limited. Vitals/I&O/Wt Last Vital Signs Temp 98.6 F 03/10/20 14:00 Pulse 97 03/10/20 14:00 Resp 18 03/10/20 14:00 BP 118/72 03/10/20 14:00 Pulse Ox 97 03/10/20 14:00 Weight last 48 hrs Weight 99.337 kg Data NPU : 03/08/20 14:37 03/08/20 13:23 A&P Additional A&P Information (1) Psychosis: (2) Methamphetamine use: (3) Withdrawal from methamphetamine: (4) Cannabis abuse: Additional A&P Information This is a 50-year-old white female who presents again with likely drug-induced psychosis unable to communicate her thoughts with the treatment team and on a one-to-one secondary to aggression upon admission. 1. Continue current medication. We will offer antipsychotic as he is able to communicate more. 2. Continue one-to-one observation for safety. 3. Encourage individual, group and milieu therapies. 4. Encourage sober living treatment after discharge at the highest level of care to which she is willing to commit. Involuntary Hold Information 96 Hour Hold: 96 Hour Involuntary Admission: No Attestations NPU Medical Necessity Statement*: Inpatient hospitalization is medically necessary and the clinically appropriate intervention at this time. We will monitor medications and make changes as indicated. Likely length of stay 2-4 days. Coding Level of Care Code Acute Editing Internship for Shakeel Rosa
[2020-03-10 20:11] VITALS: BP 146/85; PULSE 76; RESP 18; TEMP 36.5; O2SAT 98
[2020-03-11 06:00] VITALS: BP 119/81; PULSE 90; RESP 16; TEMP 36.6; O2SAT 98
[2020-03-11] MEDS: nicotine 2 mg Gum BUCCAL (08:26)
[2020-03-11] MEDS: OLANZapine 5 mg ODT PO ×2 (08:47→19:58)
[2020-03-11 14:00] VITALS: BP 147/95; PULSE 87; RESP 20; TEMP 36.6; O2SAT 96
[2020-03-11] MEDS: ARIPiprazole 10 mg Tablet PO (16:04)
[2020-03-11] MEDS: hyDROXYzine 25 mg Capsule 50 MG PO (19:58)
[2020-03-11 20:18] VITALS: BP 119/77; PULSE 80; RESP 16; TEMP 36.6; O2SAT 97
[2020-03-12 06:00] VITALS: BP 120/78; PULSE 81; RESP 18; TEMP 36.6; O2SAT 97
[2020-03-12] MEDS: hyDROXYzine 25 mg Capsule 50 MG PO (09:39)
[2020-03-12] MEDS: OLANZapine 5 mg ODT PO (13:22)
[2020-03-12] MEDS: acetaminophen 325 mg Tablet 650 MG PO ×2 (13:22→18:19)
[2020-03-12 14:00] VITALS: BP 127/84; PULSE 90; RESP 20; TEMP 36.4; O2SAT 97
[2020-03-12] MEDS: ziprasidone hcl 40 mg Capsule PO (15:34)
--- NOTE | 2020-03-12 18:58 | PM.NPN ---
Subjective NPU Subjective: Interval history: Annemarie presents today continuing to have clear thought disorder and confusion and disorganized thinking. She is showing improvement and is able to get closer to the idea she is thinking about and has moments of approximation of thought but for instance, at one point she talked about leaving and said that her shoe was almost as big as my shoe and somehow conflated that to have some bearing on her leaving her not. She still has points where the concept she is speaking on makes zero sense. Mental Status Exam MSE Comments: This is an obese white female with hospital scrubs on with limited grooming and adequate eye contact. No abnormal movements except for mild psychomotor retardation. Cooperative with exam in mild distress. Speech was slightly decreased rate and volume. Mood described with a nonsensical response, affect subdued. Thought process disorganized, thought content: Patient not responding to these questions appropriately but has not had aggression toward self or others today, and she did not appear to be attending to internal stimuli. Attention and concentration were improving and memory was unreliable but none were formally tested. She is alert and oriented to person. Insight and judgment were impaired and impulse control is limited. Vitals/I&O/Wt Last Vital Signs Temp 97.6 F 03/12/20 14:00 Pulse 90 03/12/20 14:00 Resp 20 H 03/12/20 14:00 BP 127/84 03/12/20 14:00 Pulse Ox 97 03/12/20 14:00 Data NPU : 03/08/20 14:37 03/08/20 13:23 A&P Additional A&P Information (1) Psychosis: (2) Methamphetamine use: (3) Withdrawal from methamphetamine: (4) Cannabis abuse: Additional A&P Information This is a 50-year-old white female who presents again with likely drug-induced psychosis unable to communicate her thoughts with the treatment team and on a one-to-one secondary to aggression upon admission. 1. Continue current medication. Start Abilify 10 mg p.o. every morning. 2. Continue one-to-one observation for safety. 3. Encourage individual, group and milieu therapies. 4. Encourage sober living treatment after discharge at the highest level of care to which she is willing to commit. Involuntary Hold Information 96 Hour Hold: 96 Hour Involuntary Admission: No Attestations NPU Medical Necessity Statement*: Inpatient hospitalization is medically necessary and the clinically appropriate intervention at this time. We will monitor medications and make changes as indicated. Likely length of stay 1-3 days. Coding Level of Care Code Acute Belt And Link Shop Supervisor for Shakeel Rosa
[2020-03-12 19:39] VITALS: BP 98/70; PULSE 87; RESP 17; TEMP 36.4; O2SAT 98
[2020-03-13 06:00] VITALS: BP 112/74; PULSE 97; RESP 15; TEMP 36.5; O2SAT 97
[2020-03-13] MEDS: ARIPiprazole 10 mg Tablet PO (08:18)
[2020-03-13] MEDS: nicotine 21 mg Patch 1 PATCH TRANSDERMA (09:27)
[2020-03-13] MEDS: hyDROXYzine 25 mg Capsule 50 MG PO ×2 (11:13→20:23)
--- NOTE | 2020-03-13 11:14 | PC.NURSE ---
Addendum entered by Vannessa Singh LPN 03/13/20 12:42: PRN MED EFFECTIVE AT THIS CURRENT TIME PT IS MORE CALM, VOICE IS LOW ET STABLE Original Note: PRN VISTARIL 50 MG GIVEN PO PER PT C/O STATED ANXIETY. PT REQUESTING STRESS PILLS PT OFFERED PRN VISTARIL, PT ARGUMENTATIVE WITH STAFF, SAYING NO I WANT ALL MY MEDICATIONS NOW! PT EDUCATED THAT PHYSICIAN WAS THE ONLY PERSON ABLE TO PRESCRIBE MEDICATIONS, PT DIFFICULT TO REDIRECT. WILL CONT TO MONITOR
--- NOTE | 2020-03-13 13:00 | PM.NPN ---
Subjective NPU Subjective: Interval history: Annemarie presented today reporting that she wants to make this conventional underwriter happy. I described to her lids the most important thing is for her to take her medication as prescribed and has worked through the thought disorder she is having likely secondary to her methamphetamine use. She agreed and we discussed resuming some other medications that she had previously not given information for including propranolol and Neurontin. We discussed the risks benefits and alternatives of those and she understood and agreed to proceed as is documented in this note. She continues to be confused and was talking randomly about family members coming from [place] was in family members coming from [place] on how depending on which direction they were coming from she might know who they are with a sort of well factor that did not fit the situation. Mental Status Exam MSE Comments: This is an obese white female with hospital scrubs on with limited grooming and adequate eye contact. No abnormal movements except for mild psychomotor retardation. Cooperative with exam in mild distress. Speech was slightly decreased rate and volume. Mood described with a little better, affect subdued and still confused. Thought process disorganized with some subtle but steady improvement, thought content: Patient not responding to these questions appropriately but has not had aggression toward self or others today, and she did not appear to be attending to internal stimuli. Attention and concentration were improving and memory was unreliable but none were formally tested. She is alert and oriented to person. Insight and judgment were impaired and impulse control is limited. Vitals/I&O/Wt Last Vital Signs Temp 97.7 F 03/13/20 06:00 Pulse 97 03/13/20 06:00 Resp 15 03/13/20 06:00 BP 112/74 03/13/20 06:00 Pulse Ox 97 03/13/20 06:00 Data NPU : 03/08/20 14:37 03/08/20 13:23 A&P Additional A&P Information (1) Psychosis: (2) Methamphetamine use: (3) Withdrawal from methamphetamine: (4) Cannabis abuse: Additional A&P Information This is a 50-year-old white female who presents again with likely drug-induced psychosis unable to communicate her thoughts with the treatment team and on a one-to-one secondary to aggression upon admission. 1. Continue current medication. Restart propranolol and also Neurontin, but at a lower dose. 2. Continue one-to-one observation for safety. 3. Encourage individual, group and milieu therapies. 4. Encourage sober living treatment after discharge at the highest level of care to which she is willing to commit. Involuntary Hold Information 96 Hour Hold: 96 Hour Involuntary Admission: No Attestations NPU Medical Necessity Statement*: Inpatient hospitalization is medically necessary and the clinically appropriate intervention at this time. We will monitor medications and make changes as indicated. Likely length of stay 1-3 days. Coding Level of Care Code Acute Microeconomics Professor for Shakeel Rosa
[2020-03-13 13:52] VITALS: BP 139/75; PULSE 89; RESP 18; TEMP 35.8; O2SAT 96
--- NOTE | 2020-03-13 19:37 | P.PN_ITS ---
NPU Therapy Progress Note Therapy Progress Note Date: 03/13/20 Time In: 18:40 Time Out: 19:00 Symptoms Reported: needs Haldol , concerned about having seizures, concerned about her safety plan Mood: paranoid, delusions, confused Progress Note: Annemarie was noted to interrupt conversation with another patient as she requests to speak with COLLEGE SCOUTING COORDINATOR but was redirected to wait until conversation with the current patient was complete. She responded appropriately to this boundary. She was found to be in the women's dayroom reading the bible. Annemarie request information about her safety plan which included questions about her discharge plan. She is concerned that her son and are involved in this. Communication with Annemarie is difficult due to the continued level of her delusional thought process. She is able to convey that meth and drug use is a negative thing for her. She states [place] is not a good city for her to be in due to negative influences in this area. She wishes to seek mental health and substance abuse treatment in [place], [place]. She cannot remember speaking with the doctor and is very concerned that she communicates the above mentioned to him. COLLEGE SCOUTING COORDINATOR assisted her in making a list of points she wishes to bring up in their next meeting together. She is thankful for this. Intervention: Empathetic listening, redirecting, assisting in making a list of points to ask the doctor as she cannot remember speaking with him, and if she does, she cannot remember what it is she wants to speak with him about. She is concerned she is having seizures and adds that to the list. Reported Goals Before Discharge: Speak with the doctor, create a safety plan with staff
[2020-03-13] MEDS: gabapentin 100 mg Capsule 200 MG PO (20:22)
[2020-03-13 20:23] VITALS: BP 148/96; PULSE 101; RESP 17; TEMP 37.1; O2SAT 98
[2020-03-13] MEDS: trazodone 50 mg Tablet PO (20:23)
[2020-03-13] MEDS: acetaminophen 325 mg Tablet 650 MG PO (20:24)
[2020-03-13] MEDS: propranolol 20 mg Tablet 10 MG PO (20:25)
[2020-03-13] MEDS: nicotine 2 mg Gum BUCCAL (20:25)
[2020-03-14 06:00] VITALS: BP 111/72; PULSE 98; RESP 18; TEMP 37.1; O2SAT 97
[2020-03-14] MEDS: ARIPiprazole 10 mg Tablet PO (07:43)
[2020-03-14] MEDS: gabapentin 100 mg Capsule 200 MG PO (07:44)
[2020-03-14] MEDS: propranolol 20 mg Tablet 10 MG PO (07:46)
[2020-03-14] MEDS: nicotine 2 mg Gum BUCCAL (07:46)
--- NOTE | 2020-03-14 07:47 | PC.NURSE ---
PRN INDERAL 10 MG GIVEN PO PER PT C/O STATED ANXIETY
[2020-03-14] MEDS: acetaminophen 325 mg Tablet 650 MG PO (12:21)
--- NOTE | 2020-03-14 13:03 | P.DS_ITS ---
Diagnoses at Discharge Discharge Diagnosis (1) Psychosis: Status: Acute (2) Methamphetamine use: Status: Acute (3) Withdrawal from methamphetamine: Status: Acute (4) Cannabis abuse: Status: Acute Reason for Visit Reason for Visit: altered mental status Brief History: History of Present Illness ANNEMARIE VILLARREAL is a 50 year old female who presented to the emergency department with the following report: Chief Complaint: Psychiatric Symptoms Stated Complaint: altered mental status Time Seen by Provider: 03/08/20 12:50 History of Present Illness: HPI Narrative: 58-year-old female brought in by Anibal GARCIA when she arrived in the department he is naked and barefoot. She was in the custody of officers that evidently was found her standing in the [employer] drive-through talking to a wall. Patient is not able to give any kind of history. chairman president and chief executive officer states that the notes that they have been trying to get her to [facility] for a psych eval but they had lost her . We were able to identify her name via [employer] . She does not appear to have any p articular injury she is ambulatory. When asked if she had any complaints injuries or pain she answers in gibberish and nonsensical responses. She continues to recite lines from different rap songs. MD complaint: altered mental status Onset (ago): unknown Duration: constant Relieving factors: none Exacerbating factors: none Associated symptoms: Reports delusions and racing thoughts Treatments prior to arrival: placed on mental health hold. She was admitted to the neuropsychiatric unit for definitive treatment of those issues. Annemarie is known to this writer editor from previous admissions. She has p resented with significant psychosis, thought disorder, active intoxication and withdrawal symptoms with significant aggression which generally clears fairly rapidly. If she is now on a 96-hour hold she will then signed out AMA. She presents today very disorganized speaking clear words with saying things that make no sense about her house running and many other assorted statements that lack no basis in reality. The subject of her answers have nothing to do with the questions that are asked. There were no questions that received responses that were related to the questions. An excerpt of her last note from her 08/13/2019 inpatient hospitalization is included below for context. Per her 08/13/2019 [facility] inpatient eval: History of Present Illness Annemarie Villarreal is a 49 year old female who presented to the emergency room with reports of psychosis, aggression, and lethality, and was admitted on a 96-hour hold to the NPU for definitive treatment of those issues. This morning she was combative, angry, screaming, demanding and not a good historian in any sense. Standard questions that we ask everyone at admission, she was cursing me out, saying it is the same as every other #&?* anybody has asked me these questions. I tried to ask her what had changed since she was here at the hospital compared to her last stay, and she is saying that there is nothing different, and that she wants to juve the hospital and the ambulance company for bringing her here and asked me why we brought her here. I explained to her that the ambulance is an independent entity, not working for the hospital, and that they were functioning with someone else who requested that she be brought here, which she did not believe. Ultimately, she said her medications were working, and clearly they were not. She was unable to be a productive part of the interview, being very angry and hostile, making threats. She was seen by this writer editor recently and was psychotic then, but not in this aggressive manner, but an excerpt of that hospitalization is included below. Per last [facility] eval IP 06/17/19: History of Present Illness Annemarie Villarreal is a 49 year old female who presented today with limited intelligible conversation. All she was doing was repeating things like manufacturing engineer, also was at times giving commentary on what she was doing, like moving slowly, or startled me. Outside of that she gave no meaningful information during the conversation. Included below the neck served from her last hospitalization here in 2016 she had other hospitalizations immediately preceding that and all of them have the same MO which was her presenting and there being an inability to gather significant information because of how decompensated she was or how significant her psychosis was. Per las [facility] IP eval: History of Present Illness Date of Service: Apr 01, 2016 Chief Complaint: Patient admitted due to acute psychosis HPI: This patient was admitted through the emergency room. She was acutely psychotic at the time of her presentation. Patient is concerned is having bizarre and aggressive behavior. Certainly that continues after her admission to the NPU. Patient is essentially a non-historian. She so disorganized and aggressive that no interview can be conducted. She's required numerous when necessary administrations of Haldol due to the level of aggression that she has displayed. She was here in 2016 for depressive symptoms. It's not clear to me what she was taking prior to her hospitalization but most recent medication seems to include nortriptyline, BuSpar getting, Geodon and Effexor. I suspect she has not been compliant with these medications but I will be holding those at this time. She also has a history of abusing multiple illicit substances including methamphetamine marijuana and alcohol. Her current drug screen is positive for marijuana. Allergies: Coded Allergies: ERYTHROMYCIN ETHYLSUCCINATE (Verified Allergy, Mild, THROAT SWELLS, 12/22/07) TETRACYCLINE (Unverified Adverse Reaction, Mild, NAUSEA, 12/22/07) Uncoded Allergies: POISON SUMAC (Allergy, Severe, Rash, 05/11/11) Hospital Course Hospital Course Annemarie presented to the emergency department with significant thought disorder, confused with reports of active addiction and possible suicidality. She was admitted to the neuropsychiatric unit for definitive treatment of those issues. She has done quite well to us, however she had a much slower recovery of her sense of reality than usual which is concerning. She was started on Abilify 10 mg p.o. every morning and had a modest response. She was advised to stop taking these drugs for real concerns of lasting damage and fear she may at some point not be able to bounce back. She showed steady improvement and was able to contract for safety prior to discharge. During the hospitalization, patient had routine laboratory studies which were within normal limits except for few outliers. Additionally there was a general medical evaluation which was also within normal limits and revealed no new acute processes. Discharge Summary: At the time of discharge, lethality was denied and psychosis was resolving. Mood and anxiety were well managed. Patient endorsed a plan to avoid all drugs of abuse and follow-up with the aftercare recommendations of the treatment team. Patient was evaluated and deemed to be absent credible lethality, and had achieved the maximum benefit from an inpatient hospitalization, so was discharged. Involuntary Hold Information 96 Hour Hold: 96 Hour Involuntary Admission: No Mental Status Exam MSE Comments: This is an obese white female with hospital scrubs on with improving grooming and adequate eye contact. No abnormal movements except for mild psychomotor retardation. Cooperative with exam in no acute distress. Speech was slightly decreased rate and volume. Mood described as better, affect subdued clearer. Thought process more organized with some subtle steady improvement. thought content: Patient denied suicidal or homicidal ideations, there were no delusions reported or noted, she denied auditory or visual hallucination. Attention and concentration were intact and memory was more reliable but none were formally tested. She is alert and oriented x3. Insight and judgment were improving and impulse control is limited, but improving. Discharge Data Data Completed and Pending: Completed Studies During Hospitalization Category Date Time Status CT head wo con* 7 0450 Stat Cat Scan 03/08/20 15:15 Completed Vitals: Last Vital Signs Temp 98.8 F 03/14/20 06:00 Pulse 98 03/14/20 06:00 Resp 18 03/14/20 06:00 BP 111/72 03/14/20 06:00 Pulse Ox 97 03/14/20 06:00 Discharge Plan Discharge Patient Disposition: Home Condition: Stable Prescriptions: New trazodone 50 mg Tablet 50 mg PO BEDTIME PRN (Reason: Sleep) 30 Days Qty: 30 RF: 1 gabapentin 100 mg Capsule 300 mg PO TID 30 Days Qty: 270 RF: 1 aripiprazole 10 mg Tablet 10 mg PO DAILY 30 Days Qty: 30 RF: 1 Continued montelukast 10 mg tablet 10 mg PO DAILY RF: 0 Mucus Relief Sinus 10-400 mg Tablet See Rx Instructions .ROUTE .COMPLEX RF: 0 Eqv-Lco-Wlrv Tab See Rx Instructions .ROUTE .COMPLEX RF: 0 diclofenac sodium 75 mg tablet,delayed release (DR/EC) 75 mg PO BID PRN (Reason: unknown) RF: 0 albuterol sulfate 90 mcg/actuation HFA aerosol inhaler 2 puff INHALATION Q4H PRN (Reason: Shortness Of Breath) RF: 0 nortriptyline 50 mg capsule 50 mg PO EVERY OTHER DAY RF: 0 zolpidem 10 mg tablet 10 mg PO DAILY PRN (Reason: Insomnia) RF: 0 propranolol 10 mg tablet 10 mg PO TID PRN (Reason: Anxiety) 30 Days Qty: 90 RF: 1 Discontinued zolpidem [Ambien] 10 mg Tablet 10 mg PO BEDTIME PRN (Reason: Sleep) RF: 0 nortriptyline 50 mg Capsule 50 mg PO DAILY RF: 0 paliperidone 9 mg tablet extended release 24hr 9 mg PO QAM RF: 0 gabapentin 400 mg capsule See Rx Instructions .ROUTE .COMPLEX RF: 0 diclofenac sodium [Voltaren] 1 % gel 1 g topical TID RF: 0 paliperidone 9 mg tablet extended release 24hr 9 mg PO QAM RF: 0 wuxdwqo-gvgkksydu-koui 1 tab PO DAILY RF: 0 Discharge Orders: Discharge Order (Routine); Ordered 03/14/20 Ordered By: Alex Palafox Referrals: [facility] [Other] (Intake paperwork was faxed to [facility]. They will call you about an assessment date. They will need copy of ID, insurance cards and social security card. ) [facility] [Other] - 03/27/20 1:45 am (You will be seeing Jono Bean (Physicians Take Out Waiter/Waitress). This appointment is to get you established with the clinic. Please be here at 1:45 PM, your appointment is at 2:00 PM. Please bring Insurance information and list of current medications. ) Discharge Diet: Regular Discharge Activity: Resume usual activity Patient Instructions: Trazodone (By mouth), Gabapentin (By mouth), Aripiprazole (By mouth) Discharge Attestations NPU Time Spent in Discharge Care*: less than 30 min Specific Discharge Activities: Specific discharge activities: educating patient, discussing with pillowcase cutter/social workers/dc planners, documenting/other paperwork and evaluating patient/reviewing data Coding Level of Care Code Acute Fine Arts Chair for g Fwd Diagnoses Psychosis F29 Methamphetamine use F15.10 Withdrawal from methamphetamine F15.23 Cannabis abuse F12.10
[2020-03-14 13:18] VITALS: BP 111/72; PULSE 98; RESP 18; TEMP 37.1; O2SAT 97
[2020-03-14 13:27] VITALS: BP 111/84; PULSE 84; RESP 18; TEMP 36.5; O2SAT 93
[2020-03-14] MEDS: gabapentin 100 mg Capsule 300 MG PO (14:09)
== END 2020-03-14 15:55 | disposition home or self-care (01) | DRG 897 ==
LOC: ER 14:34 → NP 14:40
PROVIDERS: Admitting Provider Psychiatry & Neurology Psychiatry; Emergency Provider Family Medicine; Visit Provider Psychiatry & Neurology Psychiatry
DX: F15.159 Other stimulant abuse with stimulant-induced psychotic disorder, unspecified (principal); F15.13 Other stimulant abuse with withdrawal; F12.10 Cannabis abuse, uncomplicated
CPT/HCPCS: 12345; 36415; 70450; 80053; 80306; 80307; 81001; 82550; 85025; 96372; 99284; J1200; J1630; J2060

== ENCOUNTER 2020-12-18 15:16 | Emergency (ER) | payer MEDICARE, MEDICAID, SELFPAY ==
[2020-12-18 15:56] VITALS: BP 115/89; PULSE 85; RESP 18; TEMP 36.6; O2SAT 97; BMI 26.1
[2020-12-18 17:16] VITALS: BP 120/71; PULSE 82; RESP 18; O2SAT 98
--- NOTE | 2020-12-18 18:48 | W.ED.GENADLT ---
HPI - General Adult General: Chief complaint: General Medical Stated complaint: D/C FROM [facility] 12.15.20:PNEUMONIA,WANTS FOR N/V/D Time Seen by Provider: 12/18/20 17:09 History of Present Illness: HPI narrative: Patient presents with complaints of sore throat and nausea and diarrhea from recent antibiotic treatment. Patient denies any fever presently denies any shortness of breath or chest pains. MD complaint: Sore throat Onset (ago): hour(s) Severity: mild Associated symptoms: Reports nausea and other (Diarrhea); Deny rash Review of Systems Eyes: Denies: eye discharge ENMT: Reports: throat pain; Denies: oral sores or nasal congestion Resp: Reports: non-productive cough; Denies: wheezing or stridor GI: Reports: nausea Skin/Breast: Denies: rash PFSH ED PFSH: Social History (System 10/16/20 @ 07:16 by Jillian Grider) Smoking and tobacco status: current every day smoker Physical Exam Const: COMMON NORMALS: no acute distress (Child appears very well is playful in no distress) GENERAL APPEARANCE: cooperative HENMT: COMMON NORMALS: normocephalic, external ears normal, EAC's normal, TM's normal bilaterally and Normal external nose present HEAD & SCALP: normal to inspection and normocephalic FACE & SINUS: normal facial exam NOSE: Normal external nose present and No nasal discharge present EXTERNAL EAR: Yes external ears normal EXTERNAL AUDITORY CANAL: EAC's normal TYMPANIC MEMBRANE: TM's normal bilaterally MOUTH: Normal oral and palatal mucosa present THROAT: posterior oropharynx abnormal erythema Eye: COMMON NORMALS: conjunctivae normal CONJUNCTIVA: Yes conjunctivae normal Lymph: LYMPHATIC: no lymphadenopathy noted Chest: COMMONS NORMALS: normal inspection of the chest Resp: COMMON NORMALS: normal respiratory effort, No retractions, No use of accessory muscles and clear to auscultation bilaterally AUSCULTATION: clear to auscultation bilaterally Cardio: COMMON NORMALS: regular rate and regular rhythm RATE: regular rate RHYTHM: regular rhythm GI: COMMON NORMALS: Normal to inspection, nondistended, normoactive bowel sounds present Extremity: COMMON NORMALS: normal to inspection Skin: COMMON NORMALS: no rashes or lesions noted GENERAL SKIN EXAM: no rashes or lesions noted Course Vital Signs: Vital signs: Vital Signs Temperature 97.9 F 12/18/20 15:56 Pulse Rate 82 12/18/20 17:16 Respiratory Rate 18 12/18/20 17:16 Blood Pressure 120/71 12/18/20 17:16 Pulse Oximetry 98 12/18/20 17:16 MDM - General Adult MDM Narrative: Medical decision making narrative: Patient encouraged to stop current antibiotic. To drink plenty of fluids. Take medication as prescribed follow-up primary care provider. Discharge Plan Discharge Patient Disposition: Home Clinical Impression: Adverse effect of drug/medicinal Qualifiers: Encounter type: initial encounter Qualified Code(s): T50.905A - Adverse effect of unspecified drugs, medicaments and biological substances, initial encounter Pharyngitis Qualifiers: Pharyngitis/tonsillitis etiology: unspecified etiology Qualified Code(s): J02.9 - Acute pharyngitis, unspecified Condition: Stable Prescriptions: New promethazine 12.5 mg tablet 12.5 mg PO TID PRN (Reason: nausea and vomiting) Qty: 7 RF: 0 loperamide 2 mg capsule 2 mg PO Q6H PRN (Reason: loose stool) Qty: 7 RF: 0 clindamycin HCl 300 mg capsule 300 mg PO Q8H 7 Days Qty: 21 RF: 0 No Action tizanidine 4 mg tablet 4 mg PO BID PRN (Reason: Muscle Spasm) RF: 0 gabapentin 400 mg capsule 400 mg PO TID RF: 0 diclofenac sodium 75 mg tablet,delayed release (DR/EC) 75 mg PO BID RF: 0 albuterol sulfate [Ventolin HFA] 90 mcg/actuation HFA aerosol inhaler 2 puff INHALATION Q4H PRN (Reason: Shortness Of Breath) RF: 0 ziprasidone HCl 60 mg capsule 60 mg PO BID RF: 0 ipratropium bromide 0.03 % spray,non-aerosol 1 - 2 spray INTRANASAL DIRECTED RF: 0 diclofenac sodium 1 % gel 2 - 4 g TOPICAL TID PRN (Reason: unknown) RF: 0 quetiapine 100 mg Tablet 100 mg PO BEDTIME Qty: 30 RF: 4 ziprasidone HCl 40 mg Capsule 40 mg PO BID Qty: 60 RF: 3 montelukast 10 mg tablet 10 mg PO DAILY RF: 0 Mucus Relief Sinus 10-400 mg Tablet See Rx Instructions .ROUTE .COMPLEX RF: 0 Otb-Hbi-Igoi Tab See Rx Instructions .ROUTE .COMPLEX RF: 0 diclofenac sodium 75 mg tablet,delayed release (DR/EC) 75 mg PO BID PRN (Reason: unknown) RF: 0 albuterol sulfate 90 mcg/actuation HFA aerosol inhaler 2 puff INHALATION Q4H PRN (Reason: Shortness Of Breath) RF: 0 nortriptyline 50 mg capsule 50 mg PO EVERY OTHER DAY RF: 0 zolpidem 10 mg tablet 10 mg PO DAILY PRN (Reason: Insomnia) RF: 0 trazodone 50 mg Tablet 50 mg PO BEDTIME PRN (Reason: Sleep) 30 Days Qty: 30 RF: 1 gabapentin 100 mg Capsule 300 mg PO TID 30 Days Qty: 270 RF: 1 aripiprazole 10 mg Tablet 10 mg PO DAILY 30 Days Qty: 30 RF: 1 propranolol 10 mg tablet 10 mg PO TID PRN (Reason: Anxiety) 30 Days Qty: 90 RF: 1 Discharge Orders: Discharge ED (Routine); Ordered 12/18/20 Ordered By: Gaetano Argueta Referrals: Kyler Johnston FNP [Primary Care Provider] - Discharge Diet: Advance as tolerated Discharge Activity: Increase activity as tolerated Activity Restrictions/Additional Instructions: Follow-up with medical provider as directed. Take medications as prescribed. Return to the ER or your medical provider if condition worsens. Please read and understand discharge instructions. If any questions ask please. Coding Level of Care Code ED Tractor Distributor for Shakeel Rosa
== END 2020-12-18 17:25 | disposition home or self-care (01) ==
PROVIDERS: Emergency Provider Nurse Practitioner Family; PCP Nurse Practitioner Family
DX: J02.9 Acute pharyngitis, unspecified (principal); T50.905A Adverse effect of unspecified drugs, medicaments and biological substances, initial encounter; F17.200 Nicotine dependence, unspecified, uncomplicated
CPT/HCPCS: 99281

== ENCOUNTER 2021-06-04 20:37 | Inpatient (IN) | payer MEDICARE, MEDICAID, SELFPAY ==
[2021-06-04] VITALS (7 sets, daily range): BP systolic 110–166; BP diastolic 66–117; PULSE 80–108; RESP 12–24; TEMP 36.6–36.9; O2SAT 96–99
--- NOTE | 2021-06-04 20:52 | W.ED.GENADLT ---
HPI - General Adult General: Chief complaint: Psychiatric Symptoms Stated complaint: SI Time Seen by Provider: 06/04/21 20:42 History of Present Illness: HPI: [51]yo patient w/ hx of depression and anxiety BIBA for suicidal ideation, depression and anxiety. She tells me that she currently does not have plan is not on any antidepressant. However over the last few days he she has had increasing depression and anxiety. Patient says that her anxiety is not controlled by any of the medicine. On arrival, the patient is AAOx3 and cooperative with my evaluation. No focal complaints of chest pain, shortness of breath, palpitations, N/V, focal GI/ complaints. Currently denies HI. No complaints of hallucinations. Onset: acute Duration: ongoing Location: home Severity: severe Associated symptoms: Deny chest pain, dyspnea, nausea, rash, palpitations or vomiting Review of Systems Const: Denies: fever(s) or chills Eyes: Denies: change in vision ENMT: Denies: mouth pain Card: Denies: chest pain or palpitations Resp: Denies: dyspnea or non-productive cough GI: Denies: abdominal pain, nausea, vomiting or diarrhea : Denies: dysuria Musc: Denies: extremity pain Skin/Breast: Denies: rash or new lesions Neuro: Denies: weakness in extremities Psych: Reports: depression and panic attacks Bandar/Lymph: Denies: easy bruising PFSH ED PFSH: Medical History Anxiety Social History Smoking and tobacco status: never smoked Alcohol intake: current Alcohol intake frequency: holidays/special occasions only Physical Exam Const: COMMON NORMALS: alert HENMT: COMMON NORMALS: atraumatic HEAD & SCALP: atraumatic MOUTH: moist mucous membranes not abnormal Eye: COMMON NORMALS: EOMs intact bilaterally and conjunctivae normal CONJUNCTIVA: Yes conjunctivae normal Neck/C-Spine: COMMON NORMALS: full ROM and supple Resp: COMMON NORMALS: normal respiratory effort and clear to auscultation bilaterally AUSCULTATION: clear to auscultation bilaterally Cardio: COMMON NORMALS: regular rate RATE: regular rate GI: COMMON NORMALS: Soft to palpation and non-tender PALPATION: Yes Soft to palpation Extremity: COMMON NORMALS: full ROM Neuro: SENSORIUM/ORIENTATION: Yes alert MOTOR EXAM: No Abnormal motor strength present and Other motor observations present (no focal motor deficits) Psych: COMMON NORMALS: speech normal SPEECH: Yes normal speech MOOD & AFFECT: Yes depressed mood and Yes anxious Course Vital Signs: Vital signs: Vital Signs Temperature 97.7 F 06/05/21 14:00 Pulse Rate 80 06/05/21 14:00 Respiratory Rate 17 06/05/21 14:00 Blood Pressure 115/86 06/05/21 14:00 Pulse Oximetry 98 06/05/21 14:00 MDM - General Adult Medical Decision Making [51]yo patient w/ hx of depression and anxiety presenting for SI and anxiety. HDS, exam within normal limit Thoughts are linear and organized, and the patient has no AH/VH, or HI. Clinically the patient displays no overt toxidrome; they are well appearing, with low suspicion for toxic ingestion given history and exam. Symptoms unlikely 2/2 anemia, hypothyroidism, infection, or ICH. Patient given 2mg ativan for anxiety. Workup: CBC, CMP, Lipase, salicylate/tylenol, UDS, HCG Lab findings: wnl [1000pm] On reassessment, labs and workup wnl. Patient is hemodynamically stable with no acute medical complaints. Case discussed with psychiatric provider Dr. Palafox at [facility] psych inpatient with recommendation for admission Disposition: Psych Lab Data : 06/04/21 21:23 06/04/21 21:23 Discharge Plan Discharge Patient Disposition: Admitted As Inpatient Admit Provider: Alex Palafox Clinical Impression: Depression, Anxiety Condition: Stable Coding Level of Care Code ED Principal Systems Engineer for Chg Fwd Exam Comprehensive
[2021-06-04] MEDS: LORazepam 2 mg Tablet PO (21:23)
[2021-06-04 21:32] LABS: Basophils % 0.2 %; Hematocrit 38.4 % (37.0-47.0); Hemoglobin 12.8 g/dL (11.5-15.3); Lymphocytes # 1.6 10^3/uL (0.8-4.8); Lymphocytes % 12.8 %; Mean Corpuscular HGB Conc 33.3 g/dL (30.0-36.0); Mean Corpuscular Hemoglobin 31.2 pg (28.0-34.0); Mean Corpuscular Volume 93.7 fl (81-99); Mean Platelet Volume 9.9 fL (7.4-10.4); Monocytes # 0.8 10^3/uL (0.2-0.9); Monocytes % 6.1 %; Neutrophils % 80.5 %; Nucleated Red Blood Cells % 0 %; Platelet Count 236 10^3/cmm (130-400); Red Cell Distribution Width 13.2 % (12.1-15.1); White Blood Count 12.7 10^3/uL (4.0-10.0)
[2021-06-04 21:56] LABS: Acetaminophen < 5.0 ug/mL (10-30); Alanine Aminotransferase 12 U/L (0-33); Albumin Level 4.2 g/dL (3.5-5.2); Alkaline Phosphatase 72 IU/L (35-105); Anion Gap 17.5 (5-19); Aspartate Amino Transferase 11 U/L (0-32); Blood Urea Nitrogen 12 mg/dL (6-20); Carbon Dioxide 21 mmol/L (22-29); Chloride 104 mmol/L (98-107); Creatinine Clr Calc Pharmacy 100.5507; Globulin 2.2 g/dL (1.3-4.6); Glomerular Filtration Rate 88.9 mL/min (90-130); Glucose 135 mg/dL (65-115); Lipase 16 U/L (13-60); Osmolality Calculated 290 mOsm/kg (285-295); Potassium 3.5 mmol/L (3.5-5.1); Salicylate 0.6 mg/dL (3-10); Sodium 139 mmol/L (136-145); Total Bilirubin 0.2 mg/dL (0.15-1.2); Total Protein 6.4 g/dL (6.6-8.7)
[2021-06-04 22:13] LABS: Amphetamines Screen Urine Negative (Negative); Barbiturates Screen Urine Negative (Negative); Benzodiazepines Screen Urine Positive (Negative); Cocaine Screen Urine Negative (Negative); Opiate Screen Urine Negative (Negative); PCP Screen Urine Negative (Negative); THC Screen Urine Positive (Negative)
[2021-06-05 06:00] VITALS: RESP 16
--- NOTE | 2021-06-05 09:04 | PC.NURSE ---
In room for assessment. Laid down in bed and would not face this RN during interview. Stated, I just want everybody out of my face. Denies SI/HI and AVH at this time. Reports she always has pain due to rheumatoid arthritis but refuses any PRNs at this time. Very evasive with assessment. Demands she get a shot of Geodon, Haldol or Invega. States, those pills don't fucking work for me and I'm not counting pills. Informed patient I would let the doctor know of her requests. Patient rolled over and demanded I fountain pen turner the fucking lights.
[2021-06-05] MEDS: gabapentin 300 mg Capsule 600 MG PO ×3 (09:41→20:54)
[2021-06-05] MEDS: hyDROXYzine 25 mg Capsule 50 MG PO ×2 (09:42→16:58)
[2021-06-05] MEDS: nicotine 4 mg lozenge MUCOUS MEM ×2 (10:13→16:58)
[2021-06-05] MEDS: acetaminophen 325 mg Tablet 650 MG PO (11:30)
[2021-06-05] MEDS: OLANZapine 5 mg ODT PO (13:32)
[2021-06-05 14:00] VITALS: BP 115/86; PULSE 80; RESP 17; TEMP 36.5; O2SAT 98
--- NOTE | 2021-06-05 17:59 | P.NPUHP_ITS ---
Providers/Chief Complaint Admitting Physician: Alex Palafox MD Primary Care Provider: Héctor Lerma DO Chief Complaint: SI HPI NPU History of Present Illness Annemarie Villarreal is a 51 year old female presented to the emergency department with the following report: Chief complaint: Psychiatric Symptoms Stated complaint: SI Time Seen by Provider: 06/04/21 20:42 History of Present Illness: HPI: [51]yo patient w/ hx of depression and anxiety BIBA for suicidal ideation, depression and anxiety. She tells me that she currently does not have plan is not on any antidepressant. However over the last few days he she has had increasing depression and anxiety. Patient says that her anxiety is not controlled by any of the medicine. On arrival, the patie nt is AAOx3 and cooperative with my evaluation. No focal complaints of chest pain, shortness of breath, palpitations, N/V, focal GI/ complaints. Currently denies HI. No complaints of hallucinations. Onset: acute Duration: ongoing Location: home Severity: severe Associated symptoms: Deny chest pain, dyspnea, nausea, rash, palpitations or vomiting. She was admitted to neuropsychiatric and for definitive treatment of those issues. She presented today reporting that she is also doing well. However the discussion ensued it again clear how unable she was to articulate much of anything with any clarity. She was talking about things that were clearly not real. She cannot explain essentially any answers that she was giving. We discussed the risk-benefit alternatives of increasing her Abilify to 20 mg and having her have access to Geodon 20 mg as needed and she understood agreed to proceed as is documented in his note. All and when she was asked to explain how she was feeling or give some information on how things been going since she was last seen here she would almost curl up and start crying but could not explain what she was crying about. Insert her last inpatient stay is included below for context given her inability to give any valuable history. Per her 03/09/2020 [facility] inpatient hospitalization: History of Present Illness ANNEMARIE VILLARREAL is a 50 year old female who presented to the emergency department with the following report: Chief Complaint: Psychiatric Symptoms Stated Complaint: altered mental status Time Seen by Provider: 03/08/20 12:50 History of Present Illness:?? HPI Narrative: 58-year-old female brought in by [place] [employer] when she arrived in the department he is naked and barefoot.? She was in the custody of officers that evidently was found her standing in the [employer] drive-through talking to a wall.? Patient is not able to give any kind of history.? science and operations officer states that the notes that they have been trying to get her to [facility] for a psych eval but they had lost her .? We were able to identify her name via [place] [employer].? She does not appear to have any particular injury she is ambulatory.? When asked if she had any complaints injuries or pain she answers in gibberish and nonsensical responses.? She continues to recite lines from [employer]. complaint: altered mental status Onset (ago): unknown Duration: constant Relieving factors: none Exacerbating factors: none Associated symptoms: Reports delusions and racing thoughts Treatments prior to arrival: placed on mental health hold. She was admitted to the neuropsychiatric unit for definitive treatment of those issues. Annemarie is known to this program writer from previous admissions.? She has presented with significant psychosis, thought disorder, active intoxication and withdrawal symptoms with significant aggression which generally clears fairly rapidly.? If she is now on a 96-hour hold she will then signed out AMA.? She presents today very disorganized speaking clear words with saying things that make no sense about her house running and many other assorted statements that lack no basis in reality.? The subject of her answers have nothing to do with the questions that are asked.? There were no questions that received responses that were related to the questions.? An excerpt of her last note from her 08/13/2019 inpatient hospitalization is included below for context. Per her 08/13/2019 [facility] inpatient eval: History of Present Illness Annemarie Villarreal is a 49 year old female who presented to the emergency room with reports of psychosis, aggression, and lethality, and was admitted on a 96-hour hold to the NPU for definitive treatment of those issues. This morning she was combative, angry, screaming, demanding and not a good historian in any sense. Standard questions that we ask everyone at admission, she was cursing me out, saying it is the same as every other #&?* anybody has asked me these questions. I tried to ask her what had changed since she was here at the hospital compared to her last stay, and she is saying that there is nothing different, and that she wants to juve the hospital and the ambulance company for bringing her here and asked me why we brought her here. I explained to her that the ambulance is an independent entity, not working for the hospital, and that they were functioning with someone else who requested that she be brought here, which she did not believe. Ultimately, she said her medications were working, and clearly they were not. She was unable to be a productive part of the interview, being very angry and hostile, making threats. She was seen by this program writer recently and was psychotic then, but not in this aggressive manner, but an excerpt of that hospitalization is included below. ? Per last [facility] eval IP 06/17/19: History of Present Illness Annemarie Villarreal is a 49 year old female who presented today with limited intelli gible conversation.? 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 ? Outside of that she gave no meaningful information during the conversation.? Included below the neck served from her last hospitalization here in 2016 she had other hospitalizations immediately preceding that and all of them have the same MO which was her presenting and there being an inability to gather significant information because of how decompensated she was or how significant her psychosis was. Per las [facility] IP eval: History of Present Illness Date of Service: Apr 01, 2016 Chief Complaint: Patient admitted due to acute psychosis HPI: This patient was admitted through the emergency room.? She was acutely psychotic at the time of her presentation.? Patient is concerned is having bizarre and aggressive behavior.? Certainly that continues after her admission to the NPU.? Patient is essentially a non-historian.? She so disorganized and aggressive that no interview can be conducted.? She's required numerous when necessary administrations of Haldol due to the level of aggression that she has displayed.? She was here in 2016 for depressive symptoms.? It's not clear to me what she was taking prior to her hospitalization but most recent medication seems to include nortriptyline, BuSpar getting, Geodon and Effexor.? I suspect she has not been compliant with these medications but I will be holding those at this time.? She also has a history of abusing multiple illicit substances including methamphetamine marijuana and alcohol.? Her current drug screen is positive for marijuana. Allergies: Coded Allergies: ?? ? ERYTHROMYCIN ETHYLSUCCINATE (Verified? Allergy, Mild, THROAT SWELLS, 12/22/07) ?? ? TETRACYCLINE (Unverified? Adverse Reaction, Mild, NAUSEA, 12/22/07) Uncoded Allergies: ?? ? POISON SUMAC (Allergy, Severe, Rash, 05/11/11) Meds NPU Home Medications Medication Instructions Recorded Confirmed Last Taken Type ipratropium bromide 21 mcg (0.03 1 - 2 spray INTRANASAL DIRECTED 06/16/19 06/04/21 Unknown History %) nasal spray tizanidine 4 mg tablet 4 mg PO BID PRN 06/16/19 06/04/21 Unknown History propranolol 10 mg tablet 10 mg PO TID PRN 30 Days #90 tab 03/14/20 06/04/21 Unknown Rx diclofenac sodium 75 mg 75 mg PO BID PRN #30 tab 03/25/21 06/04/21 Unknown Rx tablet,delayed release prednisone 20 mg tablet 20 mg PO DAILY #18 tab 04/28/21 06/04/21 06/04/21 Rx albuterol sulfate 90 mcg/actuation 2 puff INHALATION Q4H PRN #8.5 g 05/21/21 06/04/21 Unknown Rx aerosol inhaler (Ventolin HFA) gabapentin 600 mg tablet 600 mg PO TID #90 tab 05/21/21 06/04/21 06/04/21 Rx trazodone 50 mg tablet 50 mg PO BEDTIME PRN 30 Days #30 05/21/21 06/04/21 Unknown Rx tab aripiprazole 10 mg tablet (Abilify) 10 mg PO BEDTIME 06/04/21 06/04/21 06/03/21 History Allergies Allergy/AdvReac Type Severity Reaction Status Date / Time doxycycline Allergy Unknown Verified 04/28/21 10:39 erythromycin base Allergy ADR-Vomitin Verified 04/28/21 10:39 g Tetracyclines Allergy Unknown Verified 04/28/21 10:39 PFSH NPU PFSH: Medical History Anxiety Social History Smoking and tobacco status: never smoked Alcohol intake: current Alcohol intake frequency: holidays/special occasions only Mental Status Exam MSE Comments: This is an overweight white female in hospital scrubs on with limited grooming and adequate eye contact.? No abnormal movements except for mild to moderate psychomotor agitation. With exam in mild to moderate distress.? Speech was decreased rate and volume.? Mood described as I do not know, affect labile and tearful.? Thought process disorganized, thought content: Patient not responding to these questions appropriately but has not had aggression toward self or others today, there were no delusions reported but she did appear paranoid and guarded, and she did not appear to be attending to internal stimuli.? Attention concentration were limited and memory was unreliable but none were formally tested.? She is alert and oriented to person and place Insight and judgment were impaired and impulse control is limited. Vitals/I&O/Wt Last Vital Signs Temp 97.7 F 06/05/21 21:43 Pulse 68 06/05/21 21:43 Resp 18 06/05/21 21:43 BP 117/82 06/05/21 21:43 Pulse Ox 98 06/05/21 14:00 Weight last 48 hrs Weight 74.843 kg Data NPU : 06/04/21 21:23 06/04/21 21:23 A&P Assessment and plan (1) Depression: Status: Acute (2) Anxiety: Status: Acute (3) Insomnia: Status: Acute (4) Nicotine dependence, cigarettes, with unspecified nicotine-induced disorders: Status: Acute (5) Psychosis: Status: Acute (6) Cannabis abuse: Status: Acute Plan This is a 51-year-old white female with a long history of psychosis and addiction who presents floridly psychotic with limited ability to really communicate her desires or interests. 1.? Continue current medication. We will increase Abilify to 20 mg p.o. nightly and allow for the 20 mg p.o. twice daily as needed. 2.? Encourage individual, group and milieu therapy. 3.? Continue every 15 minute checks for safety. 4.? Encourage sober living treatment after discharge at the highest level of care to which he is willing to commit. 5. May have to consider 96-hour hold/commitment if does not improve. Involuntary Hold Information 96 Hour Hold: 96 Hour Involuntary Admission: No 96 Hour Hold Ending Date: 08/18/19 96 Hour Hold Ending Time: 12:01 Attestations NPU Medical Necessity Statement*: Inpatient hospitalization is medically necessary and the clinically appropriate intervention at this time. We will monitor medication to make changes as indicated. Patient will be in the hospital for over two midnights. Likely length of stay 3 to 5 days. 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
[2021-06-05] MEDS: ziprasidone hcl 20 mg Capsule PO (20:54)
[2021-06-05] MEDS: ARIPiprazole 10 mg Tablet 20 MG PO (20:54)
[2021-06-05 21:43] VITALS: BP 117/82; PULSE 68; RESP 18; TEMP 36.5
[2021-06-06 06:00] VITALS: BP 98/64; PULSE 64; RESP 14; TEMP 36.6; O2SAT 97
[2021-06-06] MEDS: OLANZapine 5 mg ODT PO ×2 (06:51→15:41)
[2021-06-06] MEDS: nicotine 4 mg lozenge MUCOUS MEM ×3 (07:16→18:18)
[2021-06-06] MEDS: gabapentin 300 mg Capsule 600 MG PO ×3 (09:24→20:40)
[2021-06-06] MEDS: albuterol 8 gm MDI 2 PUFF INHALATION (10:09)
[2021-06-06 10:10] VITALS: PULSE 64; RESP 14; O2SAT 97
[2021-06-06] MEDS: diclofenac 75 mg DR Tablet PO (10:34)
[2021-06-06 14:00] VITALS: BP 125/81; PULSE 77; RESP 20; TEMP 37.2; O2SAT 96
[2021-06-06] MEDS: hyDROXYzine 25 mg Capsule 50 MG PO (14:46)
--- NOTE | 2021-06-06 16:09 | PC.NURSE ---
Pt is tearful at the nurses station, nurse administered a zyprexa zydis for anxiety.
--- NOTE | 2021-06-06 17:39 | W.PM.NPUPNS ---
Subjective NPU Subjective: Patient presents today reporting that she like to go home. We continue to have significant conversation about her cognitive limitations and her psychosis and her lack of readiness for discharge. She is been receptive to these conversations and has been able to except her need to stay. She reports that she is not having any side effect of the medication and appears to be responding per staff with less confusion and less strange statements. But those issues remain. Mental Status Exam MSE Comments: This is an overweight white female in hospital scrubs on with limited grooming and adequate eye contact.? No abnormal movements except for mild psychomotor agitation.? With exam in mild distress.? Speech was decreased rate and volume.? Mood described as I think I am better, affect less labile and tearful.? Thought process disorganized, thought content: Patient not responding to these questions appropriately but has not had aggression toward self or others today, there were no delusions reported but she did appear paranoid and guarded, and she did not appear to be attending to internal stimuli.? Attention concentration were limited and memory was unreliable but none were formally tested.? She is alert and oriented to person and place Insight and judgment were impaired and impulse control is limited. Vitals/I&O/Wt Last Vital Signs Temp 97.9 F 06/06/21 20:19 Pulse 70 06/06/21 20:19 Resp 16 06/06/21 20:19 BP 115/70 06/06/21 20:19 Pulse Ox 97 06/06/21 20:19 Data NPU : 06/04/21 21:23 06/04/21 21:23 A&P Assessment and plan (1) Depression: Status: Acute (2) Anxiety: Status: Acute (3) Insomnia: Status: Acute (4) Nicotine dependence, cigarettes, with unspecified nicotine-induced disorders: Status: Acute (5) Psychosis: Status: Acute (6) Methamphetamine use: Status: Acute (7) Withdrawal from methamphetamine: Status: Acute (8) Cannabis abuse: Status: Acute (9) Suicidal ideation: Status: Acute Plan This is a 51-year-old white female with a long history of psychosis and addiction who presents floridly psychotic with limited ability to really communicate her desires or interests. 1.? Continue current medication.? We increased Abilify to 20 mg p.o. nightly and continue Geodon 20 mg p.o. twice daily as needed. 2.? Encourage individual, group and milieu therapy. 3.? Continue every 15 minute checks for safety. 4.? Encourage sober living treatment after discharge at the highest level of care to which he is willing to commit. 5.? May have to consider 96-hour hold/commitment if does not improve or demands to be discharged. Involuntary Hold Information 96 Hour Hold: 96 Hour Involuntary Admission: No 96 Hour Hold Ending Date: 08/18/19 96 Hour Hold Ending Time: 12:01 Attestations NPU Medical Necessity Statement*: Inpatient hospitalization is medically necessary and the clinically appropriate intervention at this time. We will monitor medication to make changes as indicated. Likely length of stay 3 to 5 days. 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
[2021-06-06 20:19] VITALS: BP 115/70; PULSE 70; RESP 16; TEMP 36.6; O2SAT 97
[2021-06-06] MEDS: ziprasidone hcl 20 mg Capsule PO (20:40)
[2021-06-06] MEDS: ARIPiprazole 10 mg Tablet 20 MG PO (20:40)
[2021-06-06] MEDS: trazodone 50 mg Tablet PO (20:40)
--- NOTE | 2021-06-07 04:45 | PC.NURSE ---
PRN ADMIN: Patient c/o anxiety and trouble sleeping. PRN trazodone and PRN geodon given as ordered with noted effectiveness.
[2021-06-07 05:51] VITALS: BP 115/70; PULSE 70; RESP 16; TEMP 36.6; O2SAT 97
[2021-06-07 06:25] VITALS: BP 116/77; PULSE 68; RESP 18; TEMP 36.8; O2SAT 98
[2021-06-07 08:00] VITALS: PULSE 96; RESP 18; O2SAT 98
[2021-06-07] MEDS: ziprasidone hcl 20 mg Capsule PO ×2 (08:05→21:25)
[2021-06-07] MEDS: gabapentin 300 mg Capsule 600 MG PO ×3 (08:05→21:25)
[2021-06-07] MEDS: acetaminophen 325 mg Tablet 650 MG PO (12:11)
--- NOTE | 2021-06-07 12:12 | PC.NURSE ---
Tylenol 650 mg given for headache rates pain 5/10. Continues to ask if she is leaving. Able to verbally redirect.
[2021-06-07] MEDS: OLANZapine 5 mg ODT PO ×2 (12:28→18:42)
--- NOTE | 2021-06-07 12:29 | PC.NURSE ---
PRN MEDICATIONS VERY TEARFUL, AGITATED AND RESTLESS. RINGING HANDS. STATES SHE WANTS TO SEE THE DR. INFORMED SEVERAL TIMES BY MULTIPLE STAFF THAT SHE WOULD SEE THE DR. WAS VERBALLY REDIRECTED AND WENT TO DAY AREA TO CONVERSE WITH PEERS AND WATCH TV.
[2021-06-07 14:00] VITALS: BP 135/78; PULSE 67; RESP 17; TEMP 37; O2SAT 97
--- NOTE | 2021-06-07 16:15 | W.PM.NPUPNS ---
Subjective NPU Subjective: Patient presents today once again talking about discharge and needing to go check on her belongings. She actually had a person she described as her best friend therefore visiting. We discussed the rationale for her remaining and continuing to stabilize on the medication. The friend was very supportive of her desire to leave but very honest with her that the assessment of disorganization and psychosis are accurate and was supportive of her getting better first before considering discharge. Mental Status Exam MSE Comments: This is an overweight white female in hospital scrubs on with limited grooming and adequate eye contact.? No abnormal movements except for mild psychomotor retardation.? With exam in mild distress.? Speech was decreased rate and volume.? Mood described as I think I am better, affect subdued.? Thought process disorganized, but improving thought content: Patient not responding to these questions appropriately but has not had aggression toward self or others today, there were no delusions reported but she did appear paranoid and guarded, and she did not appear to be attending to internal stimuli.? Attention concentration were limited and memory was unreliable but none were formally tested.? She is alert and oriented to person and place Insight and judgment were impaired and impulse control is limited. Vitals/I&O/Wt Last Vital Signs Temp 98.6 F 06/07/21 14:00 Pulse 67 06/07/21 14:00 Resp 17 06/07/21 14:00 BP 135/78 06/07/21 14:00 Pulse Ox 97 06/07/21 14:00 Data NPU : 06/04/21 21:23 06/04/21 21:23 A&P Assessment and plan (1) Depression: Status: Acute (2) Anxiety: Status: Acute (3) Insomnia: Status: Acute (4) Nicotine dependence, cigarettes, with unspecified nicotine-induced disorders: Status: Acute (5) Psychosis: Status: Acute (6) Cannabis abuse: Status: Acute Plan This is a 51-year-old white female with a long history of psychosis and addiction who presents floridly psychotic with limited ability to really communicate her desires or interests. 1.? Continue current medication.? We increased Abilify to 20 mg p.o. nightly and continue Geodon 20 mg p.o. twice daily as needed. 2.? Encourage individual, group and milieu therapy. 3.? Continue every 15 minute checks for safety. 4.? Encourage sober living treatment after discharge at the highest level of care to which he is willing to commit. 5.? May have to consider 96-hour hold/commitment if does not improve or demands to be discharged. Involuntary Hold Information 96 Hour Hold: 96 Hour Involuntary Admission: No 96 Hour Hold Ending Date: 08/18/19 96 Hour Hold Ending Time: 12:01 Attestations NPU Medical Necessity Statement*: Inpatient hospitalization is medically necessary and the clinically appropriate intervention at this time. We will monitor medication to make changes as indicated. Likely length of stay 2-4 days. 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
[2021-06-07] MEDS: haloperidol 5 mg Tablet PO (16:22)
[2021-06-07] MEDS: nicotine 2 mg Gum BUCCAL (16:22)
[2021-06-07] MEDS: nicotine 4 mg lozenge MUCOUS MEM (18:42)
[2021-06-07 20:27] VITALS: BP 135/91; PULSE 81; RESP 18; TEMP 36.8; O2SAT 99
[2021-06-07] MEDS: ARIPiprazole 10 mg Tablet 20 MG PO (21:24)
[2021-06-07] MEDS: trazodone 50 mg Tablet PO (21:24)
--- NOTE | 2021-06-08 00:06 | PC.NURSE ---
PRN ADMIN: Patient c/o trouble sleeping. PRN trazodone given as ordered with noted effectiveness.
[2021-06-08 06:00] VITALS: BP 111/74; PULSE 68; RESP 14; TEMP 36.4; O2SAT 99
[2021-06-08 07:53] VITALS: PULSE 82; RESP 16; O2SAT 99
--- NOTE | 2021-06-08 08:13 | NUR.SHIFT ---
IN ROOM REQUESTING TIME WITH RN AND DR. EXPRESSES TO THIS RN THAT SHE IS READY TO LEAVE AND WANTS TO TALK TO THE DRJacques EARLY POSSIBLE TO CONVINCE HIM THAT I'M READY TO GO. EDUCATED THAT THE DRJacques WOULD BE HERE TODAY AND SEE HER BUT THIS RN DOES NOT KNOW THE EXACT TIME BUT IT WOULD BE TODAY. ANXIETY HAS IMPROVED FROM YESTERDAY. DECLINES PRN MEDICATION STATES SHE IS ABLE TO COPE WITH HER ANXIETY AT THIS TIME. DENIES SI/HI AND AVH AT THIS TIME. DOES REPORT 3/10 PAIN IN NECK. MED NURSE TO ADMINISTER TYLENOL ORDERED WITH AM MED PASS. INCREASED STAFF PRESENCE FOR VERBAL REDIRECTION AND CONSTANT REMINDING THAT SHE WILL SHE THE DR. REMINDS STAFF SHE WANTS TO SEE THE DRJacques EVERY FEW MINUTES.
[2021-06-08] MEDS: acetaminophen 325 mg Tablet 650 MG PO ×2 (08:44→14:10)
[2021-06-08] MEDS: gabapentin 300 mg Capsule 600 MG PO ×3 (08:45→20:19)
[2021-06-08] MEDS: diclofenac 75 mg DR Tablet PO ×2 (08:45→19:16)
[2021-06-08] MEDS: nicotine 4 mg lozenge MUCOUS MEM (08:45)
[2021-06-08] MEDS: ziprasidone hcl 20 mg Capsule PO ×2 (08:48→20:19)
--- NOTE | 2021-06-08 09:45 | PC.NURSE ---
PRN MEDICATION UP TO NURSES STATION SEVERAL TIMES. VOICES SHE IS ANXIOUS. PAT IS HYPER FOCUSED ON LEAVING AND SEEING THE DR. STATES, I NEED TO SEE THE NOW SO I CAN LEAVE. MY IS WITH ANOTHER WOMEN AND I HAVE A PLACE I CAN LIVE WITH A WOMEN WHO IS REALLY NICE. REASSURED PATIENT THAT SHE WOULD SEE THE TODAY. GEODON GIVEN ORDERED FOR ANXIETY. SUPPORT AND REASSURANCE GIVEN
[2021-06-08] MEDS: albuterol 8 gm MDI 2 PUFF INHALATION (13:15)
[2021-06-08 13:16] VITALS: PULSE 105; RESP 20; O2SAT 99
[2021-06-08 14:00] VITALS: BP 151/84; PULSE 120; RESP 18; TEMP 36.9; O2SAT 99
--- NOTE | 2021-06-08 14:31 | P.NPUPN_ITS ---
Subjective NPU Subjective: Patient presents today continuing to display confusion per staff which is notable upon interview. Focus continues to be on discharge as soon as possible but we continue to discuss the critical need for her to be on medication for her to continue to improve. She continues to take the medication as prescribed and denies any specific side effects. We began a conversation about the possibility of the long-acting injectable. Mental Status Exam MSE Comments: This is an overweight white female in hospital scrubs on with limited grooming and adequate eye contact.? No abnormal movements except for mild psychomotor retardation.? With exam in mild distress.? Speech was decreased rate and volume.? Mood described as I think I am better, affect subdued.? Thought process disorganized, but improving thought content: Patient not responding to these questions appropriately but has not had aggression toward self or others today, there were no delusions reported but she did appear paranoid and guarded, and she did not appear to be attending to internal stimuli.? Attention concentration were limited and memory was unreliable but none were formally tested.? She is alert and oriented to person and place Insight and judgment were impaired and impulse control is limited. Vitals/I&O/Wt Last Vital Signs Temp 97.5 F L 06/08/21 06:00 Pulse 105 H 06/08/21 13:16 Resp 20 H 06/08/21 13:16 BP 111/74 06/08/21 06:00 Pulse Ox 99 06/08/21 13:16 Data NPU : 06/04/21 21:23 06/04/21 21:23 A&P Assessment and plan (1) Depression: Status: Acute (2) Anxiety: Status: Acute (3) Insomnia: Status: Acute (4) Nicotine dependence, cigarettes, with unspecified nicotine-induced disorders: Status: Acute (5) Psychosis: Status: Acute (6) Cannabis abuse: Status: Acute Plan This is a 51-year-old white female with a long history of psychosis and addiction who presents floridly psychotic with limited ability to really communicate her desires or interests. 1.? Continue current medication.? We increased Abilify to 20 mg p.o. nightly and continue Geodon 20 mg p.o. twice daily as needed. We will begin to attempt to transition her to the Abilify Maintena. 2.? Encourage individual, group and milieu therapy. 3.? Continue every 15 minute checks for safety. 4.? Encourage sober living treatment after discharge at the highest level of care to which he is willing to commit. 5.? May have to consider 96-hour hold/commitment if does not improve or demands to be discharged. Involuntary Hold Information 96 Hour Hold: 96 Hour Involuntary Admission: No 96 Hour Hold Ending Date: 08/18/19 96 Hour Hold Ending Time: 12:01 Attestations NPU Medical Necessity Statement*: Inpatient hospitalization is medically necessary and the clinically appropriate intervention at this time. We will monitor medication to make changes as indicated. Likely length of stay 2-4 days. 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
[2021-06-08] MEDS: OLANZapine 5 mg ODT PO (14:37)
--- NOTE | 2021-06-08 14:38 | PC.NURSE ---
PRN MEDICATION C/O GENERALIZED PAIN 5/10 TYLENOL GIVEN ORDERED.
--- NOTE | 2021-06-08 14:39 | PC.NURSE ---
PRN MEDICATION VERY TEARFUL WANTING TO SEE SO SHE CAN LEAVE. CONTINUES TO PACE HERNANDEZ. VERBALLY REDIRECTED WITH EFFECT. PT. SPOKE TO THIS RN IN LENGTH AND PROCESSED HER ANXIETY AND TEARFULLNESS. STAYED AT NURSES STATION AND SPOKE TO RN UNTIL SHE WAS CALM ENOUGH TO LEAVE AND SIT ON HER OWN.
[2021-06-08] MEDS: nicotine 2 mg Gum BUCCAL (20:19)
[2021-06-08] MEDS: trazodone 50 mg Tablet PO ×2 (20:19→22:57)
[2021-06-08] MEDS: ARIPiprazole 10 mg Tablet 20 MG PO (20:19)
[2021-06-08 20:46] VITALS: BP 118/84; PULSE 83; RESP 16; TEMP 36.5; O2SAT 97
--- NOTE | 2021-06-09 01:11 | PC.NURSE ---
PRN ADMIN Patient c/o of anxiety and agitation. PRN ziprasidone given as ordered with noted effectiveness. Patient also requested something to help her sleep. PRN trazodone given with no effectivenss. Approx an hour later patient continued to c/o trouble getting to sleep, 2nd dose of PRN trazodone given with noted effectiveness.
[2021-06-09 06:00] VITALS: BP 107/73; PULSE 79; RESP 16; O2SAT 97
[2021-06-09] MEDS: OLANZapine 5 mg ODT PO ×2 (07:56→18:31)
[2021-06-09] MEDS: gabapentin 300 mg Capsule 600 MG PO ×3 (08:01→21:21)
[2021-06-09] MEDS: acetaminophen 325 mg Tablet 650 MG PO (09:34)
[2021-06-09] MEDS: ziprasidone hcl 20 mg Capsule PO (11:03)
[2021-06-09] MEDS: nicotine 4 mg lozenge MUCOUS MEM (12:28)
[2021-06-09] MEDS: haloperidol 5 mg Tablet PO (13:49)
[2021-06-09 14:00] VITALS: BP 154/86; PULSE 124; RESP 20; TEMP 36.7; O2SAT 99
[2021-06-09] MEDS: diclofenac 75 mg DR Tablet PO (17:08)
--- NOTE | 2021-06-09 17:13 | PC.NURSE ---
Prn note Patient noted to be very tearful, has had Haldol recently, cornel this am. Patient stated she was going to shower and work on her anxiety.
[2021-06-09] MEDS: benztropine 1 mg Tablet PO (18:31)
--- NOTE | 2021-06-09 18:54 | P.NPUPN_ITS ---
Subjective NPU Subjective: Patient presents today reporting that she feels very sad that she cannot go home. We discussed her psychosis and the fact that she says and does confusing things and that we are waiting for that to resolve prior to our plan to discharge. She reports that she understands that we are planning on discharging her when she is feeling much better, but more importantly when she is thinking more clearly and able to be more cogent about her decision and safe to be independent. Mental Status Exam MSE Comments: This is an overweight white female in hospital scrubs on with limited grooming and adequate eye contact.? No abnormal movements except for mild psychomotor retardation.? With exam in mild distress.? Speech was decreased rate and volume.? Mood described as a little tired, affect subdued and Thought process disorganized, but improving thought content: Patient not responding to these questions appropriately but has not had aggression toward self or others today, there were no delusions reported but she did appear paranoid and guarded, and she did not appear to be attending to internal stimuli.? Attention concentration were limited and memory was unreliable but none were formally tested.? She is alert and oriented to person and place Insight and judgment were impaired and impulse control is limited. Vitals/I&O/Wt Last Vital Signs Temp 97.3 F L 06/09/21 20:51 Pulse 72 06/09/21 20:53 Resp 16 06/09/21 20:53 BP 109/74 06/09/21 20:51 Pulse Ox 99 06/09/21 20:53 Data NPU : 06/04/21 21:23 06/04/21 21:23 A&P Assessment and plan (1) Depression: Status: Acute (2) Anxiety: Status: Acute (3) Insomnia: Status: Acute (4) Nicotine dependence, cigarettes, with unspecified nicotine-induced disorders: Status: Acute (5) Psychosis: Status: Acute (6) Cannabis abuse: Status: Acute Plan This is a 51-year-old white female with a long history of psychosis and addiction who presents floridly psychotic with limited ability to really communicate her desires or interests. 1.? Continue current medication.? We increased Abilify to 20 mg p.o. nightly and continue Geodon 20 mg p.o. twice daily as needed.? We will begin to attempt to transition her to the Abilify Maintena. 2.? Encourage individual, group and milieu therapy. 3.? Continue every 15 minute checks for safety. 4.? Encourage sober living treatment after discharge at the highest level of care to which he is willing to commit. 5.? May have to consider 96-hour hold/commitment if does not improve or demands to be discharged. Involuntary Hold Information 96 Hour Hold: 96 Hour Involuntary Admission: No 96 Hour Hold Ending Date: 08/18/19 96 Hour Hold Ending Time: 12:01 Attestations NPU Medical Necessity Statement*: Inpatient hospitalization is medically necessary and the clinically appropriate intervention at this time. We will monitor medication to make changes as indicated. Likely length of stay 2-4 days. Coding Level of Care Code Acute Radiologic Technologist Mammogram for Shakeel Fwd Diagnoses Depression F32.A Anxiety F41.9 Insomnia G47.00 Nicotine dependence, cigarettes, with unspecified nicotine-induced disorders F17.219 Psychosis F29 Cannabis abuse F12.10
[2021-06-09 20:51] VITALS: BP 109/74; PULSE 87; RESP 18; TEMP 36.3; O2SAT 100
[2021-06-09 20:53] VITALS: PULSE 72; RESP 16; O2SAT 99
[2021-06-09] MEDS: albuterol 8 gm MDI 2 PUFF INHALATION (20:54)
[2021-06-09] MEDS: ARIPiprazole 10 mg Tablet 20 MG PO (21:21)
[2021-06-09] MEDS: trazodone 50 mg Tablet PO (21:21)
--- NOTE | 2021-06-10 04:35 | PC.NURSE ---
AT START OF SHIFT PT UP IN DAYROOM SOCIALIZING WITH OTHERS. GOOD INTERACTION NOTED.REPORTS CONTINUED ANXIETY BUT DENIED SI/HI AND AVH. PT RESTED IN BED WITH EYES CLOSED UNTIL APPROXIMATELY 0330. HAS BEEN UNABLE TO GO BACK TO SLEEP AT THIS TIME. UP IN DAYROOM WITH ROOMMATE AT THIS TIME.
[2021-06-10] MEDS: OLANZapine 5 mg ODT PO (04:51)
[2021-06-10 06:00] VITALS: BP 112/81; PULSE 80; RESP 18; TEMP 36.4; O2SAT 100
[2021-06-10] MEDS: acetaminophen 325 mg Tablet 650 MG PO ×2 (06:40→16:54)
[2021-06-10] MEDS: haloperidol 5 mg Tablet PO (07:43)
[2021-06-10] MEDS: ziprasidone hcl 20 mg Capsule PO (07:43)
[2021-06-10 08:00] VITALS: PULSE 84; RESP 16
[2021-06-10] MEDS: gabapentin 300 mg Capsule 600 MG PO ×3 (09:17→19:54)
[2021-06-10] MEDS: benztropine 1 mg Tablet PO ×2 (09:17→17:22)
[2021-06-10] MEDS: nicotine 4 mg lozenge MUCOUS MEM ×2 (10:21→18:24)
[2021-06-10 14:00] VITALS: BP 101/66; PULSE 76; RESP 17; TEMP 36.6; O2SAT 99
--- NOTE | 2021-06-10 16:46 | P.NPUPN_ITS ---
Subjective NPU Subjective: Patient presents today reporting that she really left to go home. We have a long discussion about our concerns about her thought disorder. We discussed the risk benefits and alternatives of starting the Abilify Maintena injection and she understood agreed to consider doing that in the morning. We discussed the value of her having the injection even though she continues to report that she does not miss her medication but she did identify that she had a 9-day period where she did not take the medication because reportedly a refill was not available even though she was calling to get a refill. This is the first time in her stay that she seemed to have clarity enough to have a robust c onversation about how we can keep her well. Mental Status Exam MSE Comments: This is an overweight white female in hospital scrubs on with limited grooming and adequate eye contact.? No abnormal movements except for mild psychomotor retardation.? With exam in mild distress.? Speech was decreased rate and volume.? Mood described as I think him better, affect subdued and tearful. Thought process disorganized, but improving. Thought content: Patient denies suicidal or homicidal ideations, there were no delusions reported but she did appear paranoid and guarded, and she did not appear to be attending to internal stimuli.? Attention concentration were limited and memory was unreliable but none were formally tested.? She is alert and oriented to person and place Insight and judgment were impaired and impulse control is limited. Vitals/I&O/Wt Last Vital Signs Temp 97.9 F 06/10/21 14:00 Pulse 76 06/10/21 14:00 Resp 17 06/10/21 14:00 BP 101/66 06/10/21 14:00 Pulse Ox 99 06/10/21 14:00 Data NPU : 06/04/21 21:23 06/04/21 21:23 A&P Assessment and plan (1) Depression: Status: Acute (2) Anxiety: Status: Acute (3) Insomnia: Status: Acute (4) Nicotine dependence, cigarettes, with unspecified nicotine-induced d isorders: Status: Acute (5) Psychosis: Status: Acute Plan This is a 51-year-old white female with a long history of psychosis and addiction who presents floridly psychotic with limited ability to really communicate her desires or interests. 1.? Continue current medication.? We increased Abilify to 20 mg p.o. nightly and continue Geodon 20 mg p.o. twice daily as needed.? We discussed starting Abilify Maintena 400 mg IM q. monthly. 2.? Encourage individual, group and milieu therapy. 3.? Continue every 15 minute checks for safety. 4.? Encourage sober living treatment after discharge at the highest level of care to which he is willing to commit. 5.? May have to consider 96-hour hold/commitment if does not improve or demands to be discharged. Involuntary Hold Information 96 Hour Hold: 96 Hour Involuntary Admission: No 96 Hour Hold Ending Date: 08/18/19 96 Hour Hold Ending Time: 12:01 Attestations NPU Medical Necessity Statement*: Inpatient hospitalization is medically necessary and the clinically appropriate intervention at this time. We will monitor medication to make changes as indicated. Likely length of stay 2-4 days. Coding Level of Care Code Acute Crm Marketing Executive for Shakeel Rosa Diagnoses Depression F32.A Anxiety F41.9 Insomnia G47.00 Nicotine dependence, cigarettes, with unspecified nicotine-induced disorders F17.219 Psychosis F29
[2021-06-10] MEDS: diclofenac 75 mg DR Tablet PO (16:53)
--- NOTE | 2021-06-10 17:11 | PC.SOCIAL ---
Patient did not attend group.
[2021-06-10] MEDS: ARIPiprazole 10 mg Tablet 20 MG PO (19:53)
[2021-06-10] MEDS: trazodone 50 mg Tablet PO (19:54)
[2021-06-10] MEDS: diphenhydrAMINE 50 mg Capsule PO (20:07)
[2021-06-10 21:00] VITALS: PULSE 78; RESP 16; O2SAT 99
[2021-06-10 21:11] VITALS: BP 119/80; PULSE 68; RESP 16; TEMP 36.7; O2SAT 96
[2021-06-11] MEDS: OLANZapine 5 mg ODT PO (03:23)
[2021-06-11] MEDS: nicotine 4 mg lozenge MUCOUS MEM ×2 (03:24→15:40)
[2021-06-11 05:41] VITALS: BP 99/64; PULSE 73; RESP 18; TEMP 36.6; O2SAT 97
[2021-06-11 05:58] VITALS: BP 112/76
--- NOTE | 2021-06-11 05:59 | PC.NURSE ---
Patient complained of anxiety and not feeling good all over, patient was concerned with her bp and felt it may be low. Nurse checked BP manually and it was 112/76. Pt then stated to nurse that she thought she may be having anxiety but did not want a PRN because they made her feel dizzy. Nurse discussed with patient some non pharmacological alternatives to relieve her anxiety, Nurse walked patient back to her room to decrease environmental stimuli, patient practiced controlled breathing while resting on her bed. PT stated she felt this helped relieve her symptoms.
[2021-06-11] MEDS: hyDROXYzine 25 mg Capsule 50 MG PO (08:43)
[2021-06-11] MEDS: nicotine 2 mg Gum BUCCAL (08:43)
[2021-06-11] MEDS: gabapentin 300 mg Capsule 600 MG PO ×3 (08:43→20:17)
[2021-06-11 10:50] VITALS: PULSE 76; RESP 16; O2SAT 97
[2021-06-11] MEDS: ARIPiprazole Maintena 400 MG IM (11:11)
[2021-06-11 14:00] VITALS: BP 128/66; PULSE 89; RESP 17; TEMP 36.6; O2SAT 99
--- NOTE | 2021-06-11 16:40 | W.PM.NPUPNS ---
Subjective NPU Subjective: Patient presents today reporting that she was agreeable to the Abilify injection. She was again tearful during the discussion but was able to articulate that she understood what this commercial real estate underwriter's concerns were and continue to talk about the 9 days that she was out of her medications. We discussed the fact that she had the injection would make us feel more confident in the fact that she would be able to maintain herself outside the hospital but that we Dr. Navarrete's decision if she was well enough to leave tomorrow. I explained to her that would be part of treatment team and be able to account for him her improvements. Mental Status Exam MSE Comments: This is an overweight white female in hospital scrubs on with limited grooming and adequate eye contact.? No abnormal movements except for mild psychomotor agitation.? With exam in mild to moderate distress.? Speech was decreased rate and volume.? Mood described as I have lots of things to do, affect labile and tearful.? Thought process more organized.? Thought content: Patient denies suicidal or homicidal ideations, there were no delusions reported and she appeared less paranoid and guarded, she denied auditory realizations.? Attention concentration were limited and memory was unreliable but none were formally tested.? She is alert and oriented to person and place Insight and judgment were improving and impulse control is limited. Vitals/I&O/Wt Last Vital Signs Temp 97.8 F 06/11/21 14:00 Pulse 89 06/11/21 14:00 Resp 17 06/11/21 14:00 BP 128/66 06/11/21 14:00 Pulse Ox 99 06/11/21 14:00 Data NPU : 06/04/21 21:23 06/04/21 21:23 A&P Assessment and plan (1) Depression: Status: Acute (2) Anxiety: Status: Acute (3) Insomnia: Status: Acute (4) Nicotine dependence, cigarettes, with unspecified nicotine-induced disorders: Status: Acute (5) Psychosis: Status: Acute Plan This is a 51-year-old white female with a long history of psychosis and addiction who presents floridly psychotic with limited ability to really communicate her desires or interests. 1.? Continue current medication.? We increased Abilify to 20 mg p.o. nightly and continue Geodon 20 mg p.o. twice daily as needed.? We started Abilify Maintena 400 mg IM q. monthly. She will need 2 weeks of oral medication starting tomorrow before she can go to discontinue monthly injection. 2.? Encourage individual, group and milieu therapy. 3.? Continue every 15 minute checks for safety. 4.? Encourage sober living treatment after discharge at the highest level of care to which he is willing to commit. Involuntary Hold Information 96 Hour Hold: 96 Hour Involuntary Admission: No 96 Hour Hold Ending Date: 08/18/19 96 Hour Hold Ending Time: 12:01 Attestations NPU Medical Necessity Statement*: Inpatient hospitalization is medically necessary and the clinically appropriate intervention at this time. We will monitor medication to make changes as indicated. Likely length of stay 1-3 days. Coding Level of Care Code Acute Director Of Professional Services for Shakeel Fwd Diagnoses Depression F32.A Anxiety F41.9 Insomnia G47.00 Nicotine dependence, cigarettes, with unspecified nicotine-induced disorders F17.219 Psychosis F29
[2021-06-11] MEDS: acetaminophen 325 mg Tablet 650 MG PO (18:32)
[2021-06-11 20:00] VITALS: RESP 14
[2021-06-11] MEDS: ARIPiprazole 10 mg Tablet 20 MG PO (20:17)
[2021-06-11] MEDS: diclofenac 75 mg DR Tablet PO (20:26)
[2021-06-11 20:57] VITALS: BP 111/73; PULSE 93; RESP 16; TEMP 36.7; O2SAT 97
[2021-06-12 06:00] VITALS: BP 105/71; PULSE 87; RESP 14; TEMP 36.5; O2SAT 98
[2021-06-12 08:00] VITALS: PULSE 80; RESP 16; O2SAT 96
[2021-06-12] MEDS: nicotine 2 mg Gum BUCCAL ×2 (08:20→12:06)
[2021-06-12] MEDS: gabapentin 300 mg Capsule 600 MG PO ×2 (08:20→14:00)
[2021-06-12] MEDS: diclofenac 75 mg DR Tablet PO (10:12)
--- NOTE | 2021-06-12 13:57 | PC.SOCIAL ---
Patient attended and participated in group.
[2021-06-12 14:00] VITALS: BP 116/78; PULSE 79; RESP 17; TEMP 36.8; O2SAT 96
--- NOTE | 2021-06-12 14:09 | W.PM.NPUDCS ---
Diagnoses at Discharge Discharge Diagnosis (1) Depression: Status: Acute (2) Anxiety: Status: Acute (3) Insomnia: Status: Acute (4) Nicotine dependence, cigarettes, with unspecified nicotine-induced disorders: Status: Acute (5) Psychosis: Status: Acute Reason for Visit Reason for Visit: SI Brief History: History of Present Illness Annemarie Hardin is a 51 year old female presented to the emergency department with the following report: Chief complaint: Psychiatric Symptoms Stated complaint: SI Time Seen by Provider: 06/04/21 20:42 History of Present Illness:?? HPI: [51]yo patient w/ hx of depression and anxiety BIBA for suicidal ideation, depression and anxiety.? She tells me that she currently does not have plan is not on any antidepressant.? However over the last few days he she has had increasing depression and anxiety.? Patient says that her anxiety is not controlled by any of the medicine. On arrival, the patient is AAOx3 and cooperative with my evaluation. No focal complaints of chest pain, shortness of breath, palpitations, N/V, focal GI/ complaints. Currently denies HI. No complaints of hallucinations. Onset: acute Duration: ongoing Location: home Severity: severe Associated symptoms: Deny chest pain, dyspnea, nausea, rash, palpitations or vomiting. She was admitted to neuropsychiatric and for definitive treatment of those issues.? She presented today reporting that she is also doing well.? However the discussion ensued it again clear how unable she was to articulate much of anything with any clarity.? She was talking about things that were clearly not real.? She cannot explain essentially any answers that she was giving.? We discussed the risk-benefit alternatives of increasing her Abilify to 20 mg and having her have access to Geodon 20 mg as needed and she understood agreed to proceed as is documented in his note.? All and when she was asked to explain how she was feeling or give some information on how things been going since she was last seen here she would almost curl up and start crying but could not explain what she was crying about.? Insert her last inpatient stay is included below for context given her inability to give any valuable history. Hospital Course Hospital Course She slowly acclimated to the individual, group and milieu therapies provided. She was continued on her outpatient medications except for Abilify was increased to 20 mg. She agreed to get a Abilify maintain an injection and was given another 13 days of Abilify to take at home. She tolerated these doses and showed steady improvement during her stay. She was able to contract for safety outside hospital prior to discharge. During the hospitalization, patient had routine laboratory studies which were within normal limits except for few outliers. Additionally there was a general medical evaluation which was also within normal limits and revealed no new acute processes. Discharge Summary: At the time of discharge, lethality was denied and psychosis was resolving. Mood and anxiety were well managed. Patient endorsed a plan to follow-up with the aftercare recommendations of the treatment team. Patient was evaluated and deemed to be absent credible lethality, and had achieved the maximum benefit from an inpatient hospitalization, so was discharged. Involuntary Hold Information 96 Hour Hold: 96 Hour Involuntary Admission: No 96 Hour Hold Ending Date: 08/18/19 96 Hour Hold Ending Time: 12:01 Mental Status Exam MSE Comments: This is an overweight white female in hospital scrubs on with limited grooming and adequate eye contact.? No abnormal movements. Psychomotor activity was normal. She was cooperative with exam in no distress.? Speech was normal rate and volume.? Mood described good, affect congruent. Thought process more organized.? Thought content: Patient denies suicidal or homicidal ideations, there were no delusions reported and she did not appear paranoid or guarded. she denied auditory hallucinations.? Attention concentration were limited and memory was unreliable but none were formally tested.? She is alert and oriented to person and place Insight and judgment were improving and impulse control are improved Cognition: Patient Appearance: Appears Older than Age Level of Consciousness: Awake and Alert Patient Cognition Impaired: No Ability to Follow Directions: Fair Patient Orientation (long list): Person, Place, Name, Age and Birthday Comprehension Ability: No Impairment Hallucination Type: None Delusion Description: Not Present Thought Process: Appropriate Affect: Affect Description: Appropriate Behavior: Patient Behavior: Appropriate and Cooperative Speech Pattern: Appropriate and Clear Discharge Data Studies Completed and Pending: Laboratory Results WBC 12.7 10^3/uL (4.0 -10.0) H 06/04/21 21:23 RBC 4.10 10^6/uL (4.1 -5.3) 06/04/21 21:23 Hgb 12.8 g/dL (11.5-1 5.3) 06/04/21 21:23 Hct 38.4 % (37.0-47.0 ) 06/04/21 21: MCV 93.7 fl (81-99) 06/04/21 21: MCH 31.2 pg (28.0-34. 0) 06/04/21 21: MCHC 33.3 g/dL (30.0-3 6.0) 06/04/21: RDW 13.2 % (12.1-15.1 ) 06/04/21: Plt Count 236 10^3/cmm (130 -400) 06/04/21 21: MPV 9.9 fL (7.4-10.4) 06/04/21: Neut % (Auto) 80.5 % 06/04/21 21: Lymph % (Auto) 12.8 % 06/04/21: [place] % (Auto) 6.1 % 06/04/21: Eos % (Auto) 0.0 % 06/04/21 21: Baso % (Auto) 0.2 % 06/04/21: Neut # (Auto) 10.20 10^3/uL (1. 8-7.7) H 06/04/21 21: Lymph # (Auto) 1.6 10^3/uL (0.8- 4.8) 06/04/21: [place] # (Auto) 0.8 10^3/uL (0.2- 0.9) 06/04/21: Eos # (Auto) 0.0 10^3/uL (0.0- 0.8) 06/04/21: Baso # (Auto) 0.0 10^3/uL (0.0- 0.1) 06/04/21: Nucleated RBC % (a uto) 0 % 06/04/21: Nucleated RBCs # 0.0 /100WBC 06/04/21 21: Sodium 139 mmol/L (136-1 45) 06/04/21 21: Potassium 3.5 mmol/L (3.5-5 .1) 06/04/21 21: Chloride 104 mmol/L (98-10 7) 06/04/21 21: Carbon Dioxide 21 mmol/L (22-29) L 06/04/21 21:23 Anion Gap 17.5 (5-19) 06/04/21 21: BUN 12 mg/dL (6-20) 06/04/21 21: Creatinine 0.7 mg/dL (0.5-0. 9) 06/04/21 21: GFR Calculation 88.9 mL/min (90-1 30) L 06/04/21 21: Glucose 135 mg/dL (65-115 ) H 06/04/21 21: Calculated Osmolal ity 290 mOsm/kg (285- 295) 06/04/21 21: Calcium 9.0 mg/dL (8.5-10 .5) 06/04/21: Total Bilirubin 0.2 mg/dL (0.15-1 .2) 06/04/21 21: AST 11 U/L (0-32) 06/04/21: ALT 12 U/L (0-33) 06/04/21 21: Alkaline Phosphata se 72 IU/L (35-105) 06/04/21 21: Total Protein 6.4 g/dL (6.6-8.7 ) L 06/04/21 21: Albumin 4.2 g/dL (3.5-5.2 ) 06/04/21 21: Globulin 2.2 g/dL (1.3-4.6 ) 06/04/21 21: Lipase 16 U/L (13-60) 06/04/21 21: Salicylates 0.6 mg/dL (3-10) L 06/04/21 21: Urine Opiates Scre en Negative ng/mL (N egative) 06/04/21 21:52 Acetaminophen < 5.0 ug/mL (10-3 0) L 06/04/21 21:23 Ur Barbiturates Sc reen Negative ng/mL (N egative) 06/04/21 21:52 Ur Phencyclidine S crn Negative ng/mL (N egative) 06/04/21 21:52 Ur Amphetamines Sc reen Negative ng/mL (N egative) 06/04/21 21:52 U Benzodiazepines Scrn Positive ng/mL (N egative) H 06/04/21 21:52 Urine Cocaine Scre en Negative ng/mL (N egative) 06/04/21 21:52 U Marijuana (THC) Screen Positive ng/mL (N egative) H 06/04/21 21:52 Vitals: Last Vital Signs Temp 97.7 F 06/12/21 06:00 Pulse 80 06/12/21 08:00 Resp 16 06/12/21 08:00 BP 105/71 06/12/21 06:00 Pulse Ox 96 06/12/21 08:00 Discharge Plan Discharge Patient Disposition: Home Condition: Stable Prescriptions: New olanzapine 5 mg Tablet,Disintegrating 5 mg PO Q4H PRN (Reason: Agitation/Psychosis) 30 Days Qty: 15 1RF aripiprazole 10 mg Tablet 20 mg PO BEDTIME 13 Days Qty: 13 0RF Continued prednisone 20 mg tablet 20 mg PO DAILY Qty: 18 0RF Rx Instructions: Take 2 tabs on Days 1-5, 1 tab on days 6-10, 1/2 tab on days 11-15. diclofenac sodium 75 mg tablet,delayed release (DR/EC) 75 mg PO BID PRN (Reason: pain) Qty: 30 2RF albuterol sulfate [Ventolin HFA] 90 mcg/actuation HFA aerosol inhaler 2 puff INHALATION Q4H PRN (Reason: Shortness Of Breath) Qty: 8.5 2RF gabapentin 600 mg tablet 600 mg PO TID Qty: 90 2RF tizanidine 4 mg tablet 4 mg PO BID PRN (Reason: Muscle Spasm) 0RF ipratropium bromide 0.03 % spray,non-aerosol 1 - 2 spray INTRANASAL DIRECTED 0RF propranolol 10 mg tablet 10 mg PO TID PRN (Reason: Anxiety) 30 Days Qty: 90 1RF albuterol sulfate 90 mcg/actuation HFA aerosol inhaler 90 mcg INHALATION Q4-5H PRN (Reason: Shortness Of Breath) 0RF trazodone 50 mg tablet 50 mg PO BEDTIME PRN (Reason: Sleep) 30 Days Qty: 30 1RF Discontinued aripiprazole [Abilify] 10 mg tablet 10 mg PO BEDTIME 0RF Discharge Orders: Discharge Order (Routine); Ordered 06/12/21 Ordered By: Osmany Navarrete Referrals: [facility]- Kierra Keene [Other] - 06/26/21 12:30 pm (Appointment with counselor) Héctor Lerma DO [Primary Care Provider] - 06/18/21 9:30 am (Please be sure to attend follow up appointment.) Discharge Diet: Regular Discharge Activity: Resume usual activity Patient Instructions: Opioid Safety Discharge Attestations NPU Time Spent in Discharge Care*: greater than 30 min Specific Discharge Activities: Specific discharge activities: educating patient, discussing with caser up/social workers/dc planners, documenting/other paperwork and evaluating patient/reviewing data Coding Level of Care Code Acute Chg DC note Diagnoses Depression F32.A Anxiety F41.9 Insomnia G47.00 Nicotine dependence, cigarettes, with unspecified nicotine-induced disorders F17.219 Psychosis F29
[2021-06-12 14:22] VITALS: PULSE 80; RESP 16; O2SAT 96
[2021-06-12 14:23] VITALS: BP 116/70; PULSE 80; RESP 16; TEMP 36.9; O2SAT 96
--- NOTE | 2021-06-12 15:11 | PC.NURSE ---
DISCHARGE NOTE DISCHARGE TEACHING COMPLETED WITH EDUCATION PROVIDED FOR ALL NEW MEDICATIONS. VERBALIZED UNDERSTANDING. VSS. DENIES PAIN. DENIES SI/HI AND AVH AT THIS TIME. LEFT WITH SON VIA POV. IN [facility] [employer]. REVIEWED APPOINTMENTS AND TIMES. ALL QUESTIONS ANSWERED AND SUPPORT VOICED.
--- NOTE | 2021-06-12 15:22 | PC.SOCIAL ---
IMM Update pg 2 of IMM updated and reviewed w/ patient Copy provided and Copy placed in chart.
== END 2021-06-12 15:11 | disposition home or self-care (01) | DRG 885 ==
LOC: ER 21:48 → NP 22:03
PROVIDERS: Admitting Provider Psychiatry & Neurology Psychiatry; Emergency Provider Emergency Medicine; PCP Family Medicine; Visit Provider Psychiatry & Neurology Psychiatry
DX: F29 Unspecified psychosis not due to a substance or known physiological condition (principal); R45.851 Suicidal ideations; F41.8 Other specified anxiety disorders; G47.00 Insomnia, unspecified; F17.210 Nicotine dependence, cigarettes, uncomplicated; F12.90 Cannabis use, unspecified, uncomplicated; Z91.128 Patient's intentional underdosing of medication regimen for other reason; Z79.891 Long term (current) use of opiate analgesic
CPT/HCPCS: 80053; 80306; 80307; 83690; 85025; 94640; 96372; 97150; 97165; 99285; J3535; Q0163

== ENCOUNTER 2023-01-02 18:31 | Inpatient (IN) | payer MEDICARE, MEDICAID, SELFPAY ==
[2023-01-02 18:33] VITALS: BP 120/72; PULSE 73; RESP 17; TEMP 36.6; O2SAT 98
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
[2023-01-02 20:21] LABS: Basophils % 0.4 %; Eosinophils # 0.1 10^3/uL (0.0-0.8); Eosinophils % 0.9 %; Lymphocytes # 2.5 10^3/uL (0.8-4.8); Lymphocytes % 29.2 %; Mean Corpuscular HGB Conc 33.6 g/dL (30-55); Mean Corpuscular Volume 95.1 fl (85-98); Mean Platelet Volume 9.5 fL (7.4-10.4); Monocytes # 0.6 10^3/uL (0.2-0.9); Monocytes % 6.8 %; Neutrophils # 5.28 10^3/uL (1.8-7.7); Neutrophils % 62.3 %; Nucleated Red Blood Cells % 0 %; Platelet Count 247 10^3/cmm (157-399); Red Cell Distribution Width 13.3 % (12.1-15.1); White Blood Count 8.47 10^3/uL (3.29-11.43)
[2023-01-02 20:40] LABS: Alanine Aminotransferase 16 U/L (0-33); Albumin Level 4.1 g/dL (3.5-5.2); Alkaline Phosphatase 81 U/L (35-105); Anion Gap 16.2 (5-19); Aspartate Amino Transferase 12 U/L (0-32); Blood Urea Nitrogen 12 mg/dL (6-20); Calcium 9.3 mg/dL (8.5-10.5); Carbon Dioxide 22 mmol/L (22-29); Chloride 104 mmol/L (98-107); Glomerular Filtration Rate 130.6 mL/min (90-130); Glucose 85 mg/dL (65-115); Osmolality Calculated 287 mOsm/kg (285-295); Potassium 3.2 mmol/L (3.5-5.1); Salicylate 0.4 mg/dL (3-10); Sodium 139 mmol/L (136-145); Total Bilirubin 0.4 mg/dL (0.15-1.2); Total Protein 7.1 g/dL (6.6-8.7)
[2023-01-02 20:47] LABS: Acetaminophen < 5.0 ug/mL (10-30); Alcohol Level < 10 mg/dL (0-10)
[2023-01-02] MEDS: haloperidol inj 5 mg/mL INJ 1 mL IM (21:49)
[2023-01-02] MEDS: LORazepam 2 mg/mL INJ 1 mL IM (21:49)
[2023-01-02] MEDS: diphenhydrAMINE 50 mg/mL SDV 1mL IM (21:49)
[2023-01-02 22:00] VITALS: BP 115/74; PULSE 69; RESP 18; TEMP 36.8; O2SAT 97
--- NOTE | 2023-01-02 22:06 | PC.NURSE ---
Pt arrived to NPU w/RN and security at side. Pt appears disheveled, anxious, and agitated. Admission assessment difficult to complete d/t pt becoming increasingly anxious and agitated, as well as tearful with inability to consul her. Pt states you're questioning me to , I'm going to start tearing stuff up . Will get PRN medication for administration.
--- NOTE | 2023-01-02 22:08 | PC.NURSE ---
lying down in bed w/eyes open, while trying to complete admit assessment pt became very tearful, increasingly anxious and agitated with threats to tear this place up . PRN ativan, haldol, benadryl administered per orders. No respiratory distress present. Behavior monitoring continues.
[2023-01-02] MEDS: nicotine 4 mg lozenge MUCOUS MEM (22:31)
--- NOTE | 2023-01-02 22:33 | PC.NURSE ---
Unable to verify pts home medications at this time. Pt unwilling to discuss what she takes on a daily basis.
--- NOTE | 2023-01-02 22:39 | PC.NURSE ---
Medications verified via pharmacy fills.
[2023-01-02 22:52] LABS: Amphetamines Screen Urine Negative (Negative); Barbiturates Screen Urine Negative (Negative); Benzodiazepines Screen Urine Positive (Negative); Cocaine Screen Urine Negative (Negative); Opiate Screen Urine Negative (Negative); PCP Screen Urine Negative (Negative); THC Screen Urine Positive (Negative)
[2023-01-03 06:00] VITALS: BP 118/65; PULSE 94; RESP 16; O2SAT 98
[2023-01-03] MEDS: diclofenac 75 mg DR Tablet PO (13:09)
[2023-01-03] MEDS: tizanidine 4 mg Tablet PO (13:09)
[2023-01-03 14:00] VITALS: BP 104/67; PULSE 60; RESP 16; TEMP 36.6; O2SAT 98
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
[2023-01-03] MEDS: gabapentin 300 mg Capsule 600 MG PO ×2 (15:16→20:41)
[2023-01-03] MEDS: OLANZapine 5 mg ODT PO (17:43)
[2023-01-03] MEDS: acetaminophen 325 mg Tablet 650 MG PO (17:43)
[2023-01-03] MEDS: lurasidone 80 mg Tablet 40 MG PO (18:12)
[2023-01-03] MEDS: nicotine 4 mg lozenge MUCOUS MEM (18:13)
[2023-01-03] MEDS: prazosin 1 mg Capsule 2 MG PO (20:42)
[2023-01-03 22:00] VITALS: BP 104/69; PULSE 52; RESP 16; O2SAT 96
[2023-01-04 06:00] VITALS: BP 100/63; PULSE 86; RESP 16; O2SAT 94
[2023-01-04] MEDS: acetaminophen 325 mg Tablet 650 MG PO ×3 (06:17→20:51)
[2023-01-04] MEDS: tizanidine 4 mg Tablet PO (06:17)
[2023-01-04] MEDS: hyDROXYzine 25 mg Capsule 50 MG PO (08:16)
[2023-01-04] MEDS: diclofenac 75 mg DR Tablet PO (08:17)
[2023-01-04] MEDS: gabapentin 300 mg Capsule 600 MG PO ×3 (08:17→20:51)
[2023-01-04] MEDS: nicotine 21 mg Patch 1 PATCH TRANSDERMA (08:17)
--- NOTE | 2023-01-04 09:09 | PC.NURSE ---
PT IN BED RESTING AROUSES TO VOICE. REPORTS GENERALIZED PAIN / PT WAS MEDICATED WITH TYLENOL 650 MG PRIOR TO SHIFT. PT DENIES SI/HI AND AVH AT THIS TIME. PT RATES ANXIETY 08/17, VISTARIL 50 MG WAS GIVEN ORDERED FOR ANXIETY. RATES DEPRESSION 06/17. PT WAS ENCOURAGED TO GET UP TO EAT BREAKFAST AND GO TO GROUPS. PT STATES SHE WILL. ALL QUESTIONS WERE ANSWERED AND SUPPORT WAS VOICED.
[2023-01-04 14:00] VITALS: BP 88/50; PULSE 66; RESP 16; TEMP 36.7; O2SAT 94
--- NOTE | 2023-01-04 18:08 | W.PM.NPUPNS ---
Subjective NPU Subjective: 52-year-old white female admitted with paranoia and psychosis likely in the context of recent use of methamphetamine. The patient had reported continued feelings of being watched and stated that she continued to feel like others were trying to harm her. She continued to isolate herself on the milieu and continued to report feeling hopeless and depressed. Patient continued to state that she had difficulties with maintaining sobriety. her urine was negative for methamphetamines. She had reported continued concerns about whether someone may attempt to kill her. She had reported that she had occasional suicidal thoughts. She had limited engagement with her peers. Mental Status Exam MSE Comments: Casually dressed white female who appeared older than her stated age with poor hygiene and a disheveled appearance. She remained guarded on interview. Her speech was scanty with monotone quality and normal prosody and volume. There was no evidence of any abnormal involuntary motor movements tics or tremors appreciated other than mild psychomotor slowing. Her thought process was linear but superficial. Thought content showed no clear evidence of homicidal ideation although she had endorsed vague suicidal ideation without an active plan. Her mood was described as depressed. Her affect appeared odd and subdued. She was alert and oriented to person place time and situation. She did not appear to be responding to internal stimuli and denied any auditory or visual hallucinations. There was some evidence of paranoia and overvalued ideas with ideas of reference. Her insight is impaired. Her judgment is poor. Her impulse control appeared limited. Vitals/I&O/Wt Last Vital Signs Temp 98.0 F 01/04/23 14:00 Pulse 66 01/04/23 14:00 Resp 16 01/04/23 14:00 BP 88/50 01/04/23 14:00 Pulse Ox 94 01/04/23 14:00 O2 Del Method Room Air 01/03/23 14:00 Weight last 48 hrs Weight 70.307 kg Weight 72.575 kg Data NPU 01/02/23 20:16 01/02/23 20:16 A&P Assessment and plan (1) Psychosis: (2) Depression: (3) Insomnia: (4) History of posttraumatic stress disorder (PTSD): Plan 52-year-old white female with a previous history of psychotic disorder admitted with bizarre complaints including suicidal ideation with active paranoia. The patient was agreeable to restarting medications to target her psychosis . 1. Encourage individual, group and milieu therapy. 2. Recommend sober living treatment at the highest level of care to which the patient is willing to commit. 3. Continue q-15 minute checks for safety.? 4.? Restart current medications. 5.? Will attempt to gather collateral information. 6. Increase Latuda to 60mg to target psychosis. Involuntary Hold Information 96 Hour Hold: 96 Hour Involuntary Admission: No 96 Hour Hold Ending Date: 08/18/19 96 Hour Hold Ending Time: 12:01 Attestations NPU Medical Necessity Statement*: Inpatient hospitalization is medically necessary and the clinically appropriate intervention at this time. We will monitor and adjust medictions as indicated. Her likely length of stay 4-6 days. Coding Level of Care Code Acute Code for [facility] Fwd Diagnoses Psychosis F29 Depression F32.A Insomnia G47.00 History of posttraumatic stress disorder (PTSD) Z86.59
[2023-01-04] MEDS: lurasidone 20 mg Tablet 60 MG PO (18:24)
[2023-01-04 20:39] VITALS: BP 101/70; PULSE 70; RESP 18; TEMP 36.3; O2SAT 99
[2023-01-04] MEDS: OLANZapine 5 mg ODT PO (20:51)
[2023-01-04] MEDS: trazodone 50 mg Tablet PO (20:51)
[2023-01-04] MEDS: prazosin 1 mg Capsule 2 MG PO (20:52)
[2023-01-05] MEDS: acetaminophen 325 mg Tablet 650 MG PO ×3 (07:00→20:25)
[2023-01-05] MEDS: hyDROXYzine 25 mg Capsule 50 MG PO (08:26)
--- NOTE | 2023-01-05 08:46 | PC.NURSE ---
Patient denies si/hi and avh. She does state she is anxious and appears anxious as well, shaking a bit when she talks. She says she is anxious about calling her incarcerated son today. Patient also endorses pain at an 8/10 all over.
[2023-01-05] MEDS: gabapentin 300 mg Capsule 600 MG PO ×3 (10:16→20:25)
[2023-01-05] MEDS: diclofenac 75 mg DR Tablet PO (10:17)
[2023-01-05] MEDS: OLANZapine 5 mg ODT PO ×2 (11:08→20:25)
--- NOTE | 2023-01-05 11:55 | XRR_ITS ---
PROCEDURE INFORMATION: Exam: XR Right Ankle Exam date and time: 01/05/2023 2:13 PM Age: 53 years old Clinical indication: Right; Patient HX: RT ankle pain bruising; Additional info: Swelling/ankle pain TECHNIQUE: Imaging protocol: Radiologic exam of the right ankle. Views: 3 or more views. COMPARISON: No relevant prior studies available. FINDINGS: Bones/joints: Normal. No fracture or dislocation. No acute osseous or joint abnormality. Soft tissues: Normal. XR/XR ankle RT min 3V* [id number] IMPRESSION: No acute findings.
[2023-01-05 14:00] VITALS: BP 118/75; PULSE 66; RESP 20; TEMP 36.7; O2SAT 99
[2023-01-05] MEDS: lurasidone 20 mg Tablet 60 MG PO (18:27)
[2023-01-05] MEDS: prazosin 1 mg Capsule 2 MG PO (20:25)
--- NOTE | 2023-01-05 20:26 | P.NPUPN_ITS ---
Subjective NPU 2 Subjective: 52-year-old white female admitted with paranoia and psychosis, and depression in the context of recent use of methamphetamine. Patient continued to endorse depression. She reported some feelings of hopelessness. She reported some difficulties with concentration. She had continued to appear somewhat confused as she stated that there were many problems associated with her family and stated that she felt like specific people in her family were targeting her. She was minimally engaged in treatment. She reported adequate appetite and reported no side effects from her current medications. She had denied any hallucinations at this time. Mental Status Exam 2 MSE Comments: Casually dressed white female who appeared older than her stated age with poor hygiene and a disheveled appearance. She remained guarded on interview. Her speech was scanty with monotone quality and normal prosody and volume. There was no evidence of any abnormal involuntary motor movements tics or tremors appreciated other than mild psychomotor slowing. Her thought process was linear and at times disorganized Thought content showed no clear evidence of homicidal ideation with no suicidal ideation noted. Her mood was described as depressed. Her affect appeared odd and subdued. She was alert and oriented to person place time and situation. She did not appear to be responding to internal stimuli and denied any auditory or visual hallucinations. There was some evidence of paranoia and overvalued ideas with ideas of reference. Her insight is impaired. Her judgment is poor. Her impulse control appeared limited. Vitals/I&O/Wt Last Vital Signs Temp 98.1 F 01/05/23 14:00 Pulse 66 01/05/23 14:00 Resp 20 H 01/05/23 14:00 BP 118/75 01/05/23 14:00 Pulse Ox 99 01/05/23 14:00 O2 Del Method Room Air 01/05/23 14:00 Data NPU 01/02/23 20:16 01/02/23 20:16 A&P Assessment and plan (1) Psychosis: (2) Depression: (3) Insomnia: (4) History of posttraumatic stress disorder (PTSD): Plan 52-year-old white female with a previous history of psychotic disorder admitted with bizarre complaints including suicidal ideation with active paranoia. The patient was agreeable to restarting medications to target her psychosis . 1. Encourage individual, group and milieu therapy. 2. Recommend sober living treatment at the highest level of care to which the patient is willing to commit. 3. Continue q-15 minute checks for safety.? 4.? Restart current medications. 5.? Will attempt to gather collateral information. 6. Continue Latuda at 60mg to target psychosis. Involuntary Hold Information 2 96 Hour Hold: 96 Hour Involuntary Admission: No 96 Hour Hold Ending Date: 0 08/18/19 96 Hour Hold Ending Time: 12:01 Attestations NPU 2 Medical Necessity Statement*: Inpatient hospitalization is medically necessary and the clinically appropriate intervention at this time. We will monitor and adjust medictions as indicated. Her likely length of stay 4-6 days. Coding Level of Care Code Acute Code for [facility] Fwd Diagnoses Psychosis F29 Depression F32.A Insomnia G47.00 History of posttraumatic stress disorder (PTSD) Z86.59
[2023-01-05 20:41] VITALS: BP 106/72; PULSE 65; RESP 18; TEMP 36.5; O2SAT 100
[2023-01-05] MEDS: nicotine 4 mg lozenge MUCOUS MEM (23:23)
[2023-01-06 06:00] VITALS: RESP 15
[2023-01-06] MEDS: gabapentin 300 mg Capsule 600 MG PO ×3 (08:14→20:35)
[2023-01-06] MEDS: nicotine 21 mg Patch 1 PATCH TRANSDERMA (08:15)
[2023-01-06] MEDS: acetaminophen 325 mg Tablet 650 MG PO ×2 (08:15→11:39)
[2023-01-06] MEDS: diclofenac 75 mg DR Tablet PO ×2 (10:20→20:35)
[2023-01-06] MEDS: hyDROXYzine 25 mg Capsule 50 MG PO (12:13)
--- NOTE | 2023-01-06 12:15 | PC.NURSE ---
PRN VISTARIL 50 MG GIVEN PO PER PT C/O ANXIETY, TEARFUL UP TO THE DESK, SAYING SHE FEELS LIKE SHE'S GOING TO HAVE ANOTHER PANIC ATTACK
[2023-01-06] MEDS: duloxetine 30 mg Capsule PO (13:01)
[2023-01-06] MEDS: OLANZapine 5 mg ODT PO ×2 (13:11→20:36)
--- NOTE | 2023-01-06 13:23 | PC.NURSE ---
PRN ZYPREXA ZYDIS 5 MG GIVEN PO PER PT C/O CONTINUED ANXIETY, TEARFUL UP TO THE DESK, SAYING THE VISTARIL GIVEN EARLIER JUST WASN'T WORKING
[2023-01-06 13:57] VITALS: BP 102/72; PULSE 78; RESP 16; TEMP 36.6; O2SAT 99
--- NOTE | 2023-01-06 16:46 | P.NPUPN_ITS ---
Subjective NPU 2 Subjective: 52-year-old white female admitted with paranoia and psychosis, and depression in the context of recent use of methamphetamine. patient continued to make numerous complaints stating that she was in pain from her fibromyalgia. She had also endorsed some PTSD related symptoms including nightmares. She reported no relief today after Voltaren was started. She reports having confusion as to why she was here. The patient continued to have periods of excess crying and was unable to elaborate as to why or what was causing her mood changes. She had admitted to the use of methamphetamine and reported that she had had problems with managing her mood and her thoughts when using methamphetamine in the past. She had endorsed some concern regarding homelessness. Mental Status Exam 2 MSE Comments: Casually dressed white female who appeared older than her stated age with poor hygiene and a disheveled appearance. She remained guarded on interview. Her speech was productive with monotone quality and normal prosody and volume. There was no evidence of any abnormal involuntary motor movements tics or tremors appreciated other than mild psychomotor slowing. Her thought process was appeared to be vague and derailed. Thought content showed no clear evidence of homicidal ideation with no suicidal ideation noted. Her mood was described as depressed. Her affect appeared labile. She was alert and oriented to person place time and situation. She did not appear to be responding to internal stimuli and denied any auditory or visual hallucinations. There was some evidence of paranoia and overvalued ideas with ideas of reference. Her insight is impaired. Her judgment is poor. Her impulse control appeared limited. Vitals/I&O/Wt Last Vital Signs Temp 97.8 F 01/06/23 13:57 Pulse 78 01/06/23 13:57 Resp 16 01/06/23 13:57 BP 102/72 01/06/23 13:57 Pulse Ox 99 01/06/23 13:57 O2 Del Method Room Air 01/06/23 13:57 Data NPU 01/02/23 20:16 01/02/23 20:16 A&P Assessment and plan (1) Psychosis: (2) Depression: (3) Insomnia: (4) History of posttraumatic stress disorder (PTSD): Plan 52-year-old white female with a previous history of psychotic disorder admitted with bizarre complaints including suicidal ideation with active paranoia. The patient was agreeable to restarting medications to target her psychosis . 1. Encourage individual, group and milieu therapy. 2. Recommend sober living treatment at the highest level of care to which the patient is willing to commit. 3. Continue q-15 minute checks for safety.? 4.? Continue gabapentin, added cymbalta 30mg daily to target depression and fibromyalgia, Continue tizanidine for back spasms. 5.? Will attempt to gather collateral information. 6. Continue Latuda at 60mg to target psychosis. Involuntary Hold Information 2 96 Hour Hold: 96 Hour Involuntary Admission: No 96 Hour Hold Ending Date: 0 08/18/19 96 Hour Hold Ending Time: 12:01 Attestations NPU 2 Medical Necessity Statement*: Inpatient hospitalization is medically necessary and the clinically appropriate intervention at this time. We will monitor and adjust medictions as indicated. Her likely length of stay 4-6 days. Coding Level of Care Code Acute Code for [facility] Fwd Diagnoses Psychosis F29 Depression F32.A Insomnia G47.00 History of posttraumatic stress disorder (PTSD) Z86.59
[2023-01-06] MEDS: lurasidone 80 mg Tablet PO (17:02)
[2023-01-06 20:19] VITALS: BP 98/66; PULSE 65; RESP 17; TEMP 36.7; O2SAT 97
[2023-01-06] MEDS: tizanidine 4 mg Tablet PO (20:35)
[2023-01-06] MEDS: trazodone 50 mg Tablet PO (20:35)
[2023-01-06] MEDS: prazosin 1 mg Capsule 2 MG PO (20:35)
--- NOTE | 2023-01-06 21:20 | PC.NURSE ---
IN BED RESTING AROUSES TO VOICE. PT IS SOMATIC COMPLAINING OF PAIN IN EVERY BODY PART. PT WAS EDUCATED THAT THIS RN PULLED XANFLEX, GABAPENTIN FOR PAIN. RIGHT ANKLE REMAINS SWOLLEN AND HAS BRUISING. PT CONSULT WAS ORDERED LAST SHIFT. DENIES SI/HI AND AVH AT THIS TIME. PT REPORTS PAIN 8/10 DIFLENAC 75 MG GIVEN ORDERED FOR PAIN. PT REPORTS SHE HAS BEEN AGGRAVATED ALL DAY AT HERSELF AND WANTS TO SMOKE. PT WAS OFFERED NICOTICE GUM BUT REFUSED. ALL QUESTIONS ANSWERED AND SUPPORT WAS VOICED.
--- NOTE | 2023-01-07 02:10 | PC.NURSE ---
PT HAS BEEN IN BED RESTING WITH EYES CLOSED SINCE 2129, XANAFLEX, TRAZODONE AND ZYPRXA DEEMED EFFECTIVE.
[2023-01-07] MEDS: acetaminophen 325 mg Tablet 650 MG PO ×3 (05:45→15:14)
[2023-01-07 06:00] VITALS: BP 94/65; PULSE 70; RESP 17; O2SAT 98
[2023-01-07] MEDS: gabapentin 300 mg Capsule 600 MG PO ×3 (07:36→20:35)
[2023-01-07] MEDS: nicotine 21 mg Patch 1 PATCH TRANSDERMA (07:36)
[2023-01-07] MEDS: duloxetine 30 mg Capsule PO (07:37)
[2023-01-07] MEDS: diclofenac 75 mg DR Tablet PO ×2 (07:37→20:34)
[2023-01-07 14:00] VITALS: BP 124/75; PULSE 68; RESP 15; TEMP 36.6; O2SAT 96
[2023-01-07] MEDS: lurasidone 80 mg Tablet PO (18:37)
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
[2023-01-07 20:24] VITALS: BP 130/69; PULSE 69; RESP 17; TEMP 36.4; O2SAT 97
[2023-01-07] MEDS: haloperidol 5 mg Tablet PO (20:34)
[2023-01-07] MEDS: prazosin 1 mg Capsule 2 MG PO (20:34)
[2023-01-07] MEDS: tizanidine 4 mg Tablet PO (20:34)
[2023-01-07] MEDS: quetiapine 100 mg Tablet PO (20:34)
--- NOTE | 2023-01-07 20:58 | PC.NURSE ---
IN DAY CONVERSING WITH PEERS. PT CONTINUES TO HAVE SOMATIC COMPLAINTS ABOUT EVERY PART OF BODY. PT REPORTS PAIN 9/10 THAT IS GENERALIZED. PT WAS GIVEN SCHEDULED PAIN MEDICATION AND XANAFLEX MG ORDERED FOR PAIN. DENIES SI/HI AND AVH AT THIS TIME. REPORTS ANXIETY /10 AND DEPRESSION 9/10. PT WAS GIVEN HALDOL 5 MG FOR REPORTED INCREASED ANXIETY. NEW ORDERS WERE RECEIVED TO START SEROQUEL 100 MG AT BEDTIME. PT IS VERY PLEASED IT WAS STARTED STATING THAT'S THE ONLY THING THAT EVER WORKS FOR ME. ALL QUESTIONS ANSWERED AND SUPPORT WAS VOICED.
[2023-01-08 06:00] VITALS: RESP 18
--- NOTE | 2023-01-08 06:01 | PC.NURSE ---
PT SLEPT APPROXIMATELY 9 HOURS LAST NIGHT AFTER RECEIVING SEROQUEL 100 MG SCHEDULED AND HALDOL 5 MG FOR ANXIETY. MEDICATIONS DEEMED EFFECTIVE.
[2023-01-08] MEDS: nicotine 21 mg Patch 1 PATCH TRANSDERMA (07:23)
--- NOTE | 2023-01-08 07:50 | PC.NURSE ---
Denies si/hi and avh. She also denies any anxiety or depression. She does say she has been thinking a lot about what all she needs to do when she leaves, but is not stressed. Patient very calm and cooperative.
[2023-01-08] MEDS: diclofenac 75 mg DR Tablet PO ×2 (08:01→20:27)
[2023-01-08] MEDS: gabapentin 300 mg Capsule 600 MG PO ×3 (08:01→20:28)
[2023-01-08] MEDS: duloxetine 30 mg Capsule PO (08:01)
--- NOTE | 2023-01-08 09:05 | P.NPUPN_ITS ---
Subjective NPU 2 Subjective: Patient presented today reporting that she is doing okay. She continues to look for options with her friend nelli prater luck. We were able to discuss the possibility of her going to [facility]. They will come on Wednesday to interview her but at this point I have indicated that they will take her. She continues to work with her son and her friend on dealing with the dogs which have become quite an anchor. She denies any side effects to the medication is appearing less paranoid by reports and direct examination. Mental Status Exam 2 MSE Comments: This is a a well-nourished well-developed white female in hospital scrubs on with limited grooming and adequate eye contact.? No abnormal movements except for mild psychomotor agitation.? Cooperative with exam in mild distress.? Speech was decreased rate and volume.? Mood described as I am feeling better, affect mostly euthymic but anxious.? Thought process organized.? Thought content: Patient denies suicidal or homicidal ideations, there were no delusions reported but she did endorse having paranoia upon admission and she appeared slightly paranoid and guarded, she denied auditory or visual hallucinations.? Attention concentration were limited and memory was mostly reliable but none were formally tested.? She is alert and oriented to person and place. Insight and judgment were improving and impulse control is limited. Vitals/I&O/Wt Last Vital Signs Temp 97.6 F 01/07/23 20:24 Pulse 69 01/07/23 20:24 Resp 18 01/08/23 06:00 BP 130/69 01/07/23 20:24 Pulse Ox 97 01/07/23 20:24 O2 Del Method Room Air 01/07/23 20:24 Data NPU 01/02/23 20:16 01/02/23 20:16 A&P Assessment and plan (1) Psychosis: (2) Depression: (3) Insomnia: (4) History of posttraumatic stress disorder (PTSD): Plan 52-year-old white female with a previous history of psychotic disorder admitted with bizarre complaints including suicidal ideation with active paranoia. The patient was agreeable to restarting medications to target her psychosis . 1. Encourage individual, group and milieu therapy. 2. Recommend sober living treatment at the highest level of care to which the patient is willing to commit. 3. Continue q-15 minute checks for safety.? 4.? Continue gabapentin, added cymbalta 30mg daily to target depression and fibromyalgia, Continue tizanidine for back spasms. 5.? Will attempt to gather collateral information. 6. Continue Latuda at 60mg to target psychosis. Involuntary Hold Information 2 96 Hour Hold: 96 Hour Involuntary Admission: No 96 Hour Hold Ending Date: 0 08/18/19 96 Hour Hold Ending Time: 12:01 Attestations NPU 2 Medical Necessity Statement*: Inpatient hospitalization is medically necessary and the clinically appropriate intervention at this time. We will monitor and adjust medications as indicated. Her likely length of stay 3 days. Coding Level of Care Code Acute Code for g Fwd Diagnoses Psychosis F29 Depression F32.A Insomnia G47.00 History of posttraumatic stress disorder (PTSD) Z86.59
[2023-01-08] MEDS: OLANZapine 5 mg ODT PO (09:48)
[2023-01-08] MEDS: acetaminophen 325 mg Tablet 650 MG PO ×3 (13:17→20:28)
[2023-01-08 14:00] VITALS: BP 95/63; PULSE 72; RESP 14; TEMP 36.6; O2SAT 99
[2023-01-08] MEDS: lurasidone 80 mg Tablet PO (18:25)
[2023-01-08] MEDS: quetiapine 100 mg Tablet PO (20:27)
[2023-01-08] MEDS: tizanidine 4 mg Tablet PO (20:27)
[2023-01-08] MEDS: ondansetron 4 MG Tablet PO (20:28)
[2023-01-08] MEDS: prazosin 1 mg Capsule 2 MG PO (20:28)
[2023-01-08 20:46] VITALS: BP 90/59; PULSE 76; RESP 15; TEMP 36.7; O2SAT 96
[2023-01-09] MEDS: acetaminophen 325 mg Tablet 650 MG PO ×4 (03:56→18:02)
[2023-01-09] MEDS: phenyleph-mineral oil-petrolat Oint 28 gm 1 APPLIC PR ×2 (04:12→15:07)
[2023-01-09] MEDS: tizanidine 4 mg Tablet PO ×2 (05:24→15:16)
[2023-01-09 06:00] VITALS: BP 92/61; PULSE 70; RESP 15; O2SAT 97
--- NOTE | 2023-01-09 07:19 | P.NPUPN_ITS ---
Subjective NPU 2 Subjective: Patient presented today reporting she is doing okay. Her only significant complaint was for pain and endorsing a desire for stronger pain medication. Otherwise she reported that she was doing fine with the psychiatric medications and continues to feel optimistic about the discharge plan for Wednesday. She continues to attend to get a hold of her son to get him to be more responsible for the dog situation. Mental Status Exam 2 MSE Comments: This is a a well-nourished well-developed white female in hospital scrubs on with limited grooming and adequate eye contact.? No abnormal movements except for mild psychomotor agitation.? Cooperative with exam in mild distress.? Speech was decreased rate and volume.? Mood described as I am okay, affect mostly euthymic and less anxious.? Thought process organized.? Thought content: Patient denies suicidal or homicidal ideations, there were no delusions reported but she did endorse having paranoia upon admission and she appeared slightly paranoid and guarded, she denied auditory or visual hallucinations.? Attention concentration were limited and memory was mostly reliable but none were formally tested.? She is alert and oriented to person and place. Insight and judgment were improving and impulse control is limited. Vitals/I&O/Wt Last Vital Signs Temp 98.1 F 01/08/23 20:46 Pulse 70 01/09/23 06:00 Resp 15 01/09/23 06:00 BP 92/61 01/09/23 06:00 Pulse Ox 97 01/09/23 06:00 O2 Del Method Room Air 01/09/23 06:00 Data NPU 01/02/23 20:16 01/02/23 20:16 A&P Assessment and plan (1) Psychosis: (2) Depression: (3) Insomnia: (4) History of posttraumatic stress disorder (PTSD): Plan 52-year-old white female with a previous history of psychotic disorder admitted with bizarre complaints including suicidal ideation with active paranoia. The patient was agreeable to restarting medications to target her psychosis . 1. Encourage individual, group and milieu therapy. 2. Recommend sober living treatment at the highest level of care to which the patient is willing to commit. 3. Continue q-15 minute checks for safety.? 4.? Continue gabapentin, added cymbalta 30mg daily to target depression and fibromyalgia, Continue tizanidine for back spasms. 5.? Will attempt to gather collateral information. 6. Continue Latuda at 60mg to target psychosis. Involuntary Hold Information 2 96 Hour Hold: 96 Hour Involuntary Admission: No 96 Hour Hold Ending Date: 0 08/18/19 96 Hour Hold Ending Time: 12:01 Attestations NPU 2 Medical Necessity Statement*: Inpatient hospitalization is medically necessary and the clinically appropriate intervention at this time. We will monitor and adjust medications as indicated. Her likely length of stay 2 days. Coding Level of Care Code Acute Code for [facility] Fwd Diagnoses Psychosis F29 Depression F32.A Insomnia G47.00 History of posttraumatic stress disorder (PTSD) Z86.59
[2023-01-09] MEDS: docusate sodium 100 mg Capsule PO (07:38)
[2023-01-09] MEDS: nicotine 21 mg Patch 1 PATCH TRANSDERMA (07:38)
[2023-01-09] MEDS: gabapentin 300 mg Capsule 600 MG PO ×3 (07:38→21:12)
[2023-01-09] MEDS: diclofenac 75 mg DR Tablet PO ×2 (07:39→21:11)
[2023-01-09] MEDS: duloxetine 30 mg Capsule PO (07:39)
[2023-01-09] MEDS: OLANZapine 5 mg ODT PO ×2 (09:15→15:07)
--- NOTE | 2023-01-09 09:18 | PC.NURSE ---
Patient agitated because of pain. Pain wants something stronger than what we can give her. Patient given Zyprexa 5mg ODT. Patient apologized for being upset at staff, stating that she just needed the doctor to give her stronger meds.
[2023-01-09 14:00] VITALS: BP 115/69; PULSE 80; RESP 14; TEMP 36.6; O2SAT 96
[2023-01-09] MEDS: lurasidone 80 mg Tablet PO (18:00)
[2023-01-09 20:14] VITALS: BP 100/68; PULSE 73; RESP 17; TEMP 36.7; O2SAT 96
[2023-01-09] MEDS: quetiapine 100 mg Tablet PO (21:12)
[2023-01-09] MEDS: prazosin 1 mg Capsule 2 MG PO (21:12)
[2023-01-10] MEDS: tizanidine 4 mg Tablet PO ×2 (03:20→20:18)
[2023-01-10] MEDS: acetaminophen 325 mg Tablet 650 MG PO ×3 (03:20→17:04)
[2023-01-10 06:00] VITALS: BP 112/69; PULSE 77; RESP 15; TEMP 36.3; O2SAT 97
[2023-01-10] MEDS: gabapentin 300 mg Capsule 600 MG PO ×3 (07:31→20:18)
[2023-01-10] MEDS: duloxetine 30 mg Capsule PO (07:31)
[2023-01-10] MEDS: diclofenac 75 mg DR Tablet PO ×2 (07:31→20:18)
[2023-01-10] MEDS: nicotine 21 mg Patch 1 PATCH TRANSDERMA (07:31)
--- NOTE | 2023-01-10 07:50 | P.NPUPN_ITS ---
Subjective NPU 2 Subjective: Patient presented today reporting that she is feeling better. She looks forward to the opportunity to possibly going to [facility] tomorrow. She endorsed being worried about being able to get her close and being able to grow in some level at [employer]. We talked about her son and his being [facility]. She reports that the medications are working for her and she denied any side effects. We talked about discharge in the next 48 hours. Mental Status Exam 2 MSE Comments: This is a a well-nourished well-developed white female in hospital scrubs on with improving grooming and adequate eye contact.? No abnormal movements.? Cooperative with exam in no acute distress.? Speech was decreased rate and volume.? Mood described as better, affect mostly euthymic and less anxious.? Thought process organized.? Thought content: Patient denies suicidal or homicidal ideations, there were no delusions reported or noted, she denied auditory or visual hallucinations.? Attention concentration were limited and memory was mostly reliable but none were formally tested.? She is alert and oriented to person and place. Insight and judgment were improving and impulse control is limited. Vitals/I&O/Wt Last Vital Signs Temp 97.4 F L 01/10/23 06:00 Pulse 77 01/10/23 06:00 Resp 15 01/10/23 06:00 BP 112/69 01/10/23 06:00 Pulse Ox 97 01/10/23 06:00 O2 Del Method Room Air 01/10/23 06:00 Weight last 48 hrs Weight 76.204 kg Weight 76.204 kg Data NPU 01/02/23 20:16 01/02/23 20:16 A&P Assessment and plan (1) Psychosis: (2) Depression: (3) Insomnia: (4) History of posttraumatic stress disorder (PTSD): Plan 52-year-old white female with a previous history of psychotic disorder admitted with bizarre complaints including suicidal ideation with active paranoia. The patient was agreeable to restarting medications to target her psychosis . 1. Encourage individual, group and milieu therapy. 2. Recommend sober living treatment at the highest level of care to which the patient is willing to commit. 3. Continue q-15 minute checks for safety.? 4.? Continue gabapentin, added cymbalta 30mg daily to target depression and fibromyalgia, Continue tizanidine for back spasms. 5.? Will attempt to gather collateral information. 6. Continue Latuda at 60mg to target psychosis. Involuntary Hold Information 2 96 Hour Hold: 96 Hour Involuntary Admission: No 96 Hour Hold Ending Date: 0 08/18/19 96 Hour Hold Ending Time: 12:01 Attestations NPU 2 Medical Necessity Statement*: Inpatient hospitalization is medically necessary and the clinically appropriate intervention at this time. We will monitor and adjust medications as indicated. Her likely length of stay 1 days. Coding Level of Care Code Acute Code for [facility] Fwd Diagnoses Psychosis F29 Depression F32.A Insomnia G47.00 History of posttraumatic stress disorder (PTSD) Z86.59
[2023-01-10 14:00] VITALS: BP 144/85; PULSE 75; RESP 16; TEMP 36.8; O2SAT 97
[2023-01-10] MEDS: OLANZapine 5 mg ODT PO (18:25)
[2023-01-10] MEDS: lurasidone 80 mg Tablet PO (18:25)
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
[2023-01-10] MEDS: quetiapine 100 mg Tablet PO (20:18)
[2023-01-10] MEDS: ondansetron 4 MG Tablet PO (20:18)
[2023-01-10] MEDS: prazosin 1 mg Capsule 2 MG PO (20:18)
[2023-01-10 20:24] VITALS: BP 116/80; PULSE 83; RESP 18; O2SAT 96
[2023-01-11] MEDS: acetaminophen 325 mg Tablet 650 MG PO ×3 (01:53→13:14)
[2023-01-11] MEDS: tizanidine 4 mg Tablet PO (04:18)
[2023-01-11] MEDS: nicotine 4 mg lozenge MUCOUS MEM (05:01)
[2023-01-11 06:00] VITALS: BP 87/57; PULSE 41; RESP 16; O2SAT 98
[2023-01-11] MEDS: nicotine 21 mg Patch 1 PATCH TRANSDERMA (07:50)
[2023-01-11] MEDS: diclofenac 75 mg DR Tablet PO (07:51)
[2023-01-11] MEDS: duloxetine 30 mg Capsule PO (07:52)
[2023-01-11] MEDS: gabapentin 300 mg Capsule 600 MG PO ×2 (07:52→14:52)
[2023-01-11 09:10] VITALS: BP 87/57; PULSE 41; RESP 16; O2SAT 98
--- NOTE | 2023-01-11 12:41 | DCPLANNER ---
Imm was printed and given to pt and copy placed in file.
--- NOTE | 2023-01-11 12:43 | DCPLANNER ---
Imm was printed and given to pt and copy placed in file.
[2023-01-11 14:00] VITALS: BP 112/74; PULSE 79; RESP 16; TEMP 36.8; O2SAT 98
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
== END 2023-01-11 16:46 | disposition home or self-care (01) | DRG 885 ==
LOC: ER 19:55 → NP 20:05
PROVIDERS: Admitting Provider Psychiatry & Neurology Psychiatry; Emergency Provider Emergency Medicine; PCP Family Medicine; Visit Provider Psychiatry & Neurology Psychiatry
DX: F29 Unspecified psychosis not due to a substance or known physiological condition (principal); R45.851 Suicidal ideations; F32.A Depression, unspecified; G89.29 Other chronic pain; M79.7 Fibromyalgia; G47.00 Insomnia, unspecified; F43.10 Post-traumatic stress disorder, unspecified; F15.10 Other stimulant abuse, uncomplicated; Z62.810 Personal history of physical and sexual abuse in childhood; Z62.811 Personal history of psychological abuse in childhood; F22 Delusional disorders
CPT/HCPCS: 36415; 73610; 80053; 80306; 80307; 85025; 96372; 97150; 97161; 97165; 99285; J1200; J1630; J2060; Q0162

== ENCOUNTER 2023-03-03 13:00 | Emergency (ER) | payer MEDICAID, SELFPAY ==
[2023-03-03 13:04] VITALS: BP 114/78; PULSE 74; RESP 16; TEMP 37.1; O2SAT 96; BMI 28.0
[2023-03-03 13:27] VITALS: BP 101/67; PULSE 66; RESP 18; O2SAT 96
--- NOTE | 2023-03-03 13:29 | W.ED.EXTPRO ---
HPI - Extremity Problem General: Chief complaint: Extremity Problem,Nontraumatic Stated complaint: sciatica pain Time Seen by Provider: 03/03/23 13:17 History of Present Illness: 53-year-old female comes in today with complaints of low back pain radiating down her left hip. Patient has a history of sciatica. Patient has diclofenac and tizanidine at home. Patient appears nontoxic. Patient moves all extremities well. Patient is ambulatory. Review of Systems General: Reports: 10 or more systems reviewed and unremarkable except in HPI and below Musc: Reports: back pain PFSH ED PFSH: Medical History (Updated 03/03/23 @ 13:36 by ZAY Arrington) Psychiatric care Homicidal ideation Aggression Anxiety Social History Smoking and tobacco/nicotine status: never used tobacco/nicotine Alcohol intake: current Alcohol intake frequency: holidays/special occasions only Substance/Drug Use: current Substance/Drug use frequency: daily Physical Exam Const: COMMON NORMALS: alert HENMT: COMMON NORMALS: normocephalic HEAD & SCALP: normocephalic Neck/C-Spine: COMMON NORMALS: full ROM Resp: COMMON NORMALS: normal respiratory effort Cardio: COMMON NORMALS: regular rate RATE: regular rate Back/Pelvis: LUMBAR SPINE/LOWER BACK: No lumbar spinal tenderness and Yes paraspinal muscle tenderness Neuro: SENSORIUM/ORIENTATION: Yes alert Skin: COMMON NORMALS: turgor normal GENERAL SKIN EXAM: turgor normal Course Vital Signs: Vital signs: Vital Signs Temperature 98.7 F 03/03/23 13:04 Pulse Rate 63 03/03/23 13:50 Respiratory Rate 18 03/03/23 13:27 Blood Pressure 89/50 03/03/23 13:50 Pulse Oximetry 98 03/03/23 13:50 Oxygen Delivery Me thod Room Air 03/03/23 13:27 MDM - Extremity (Nontraumatic) Medical Decision Making 53-year-old female comes in with low back pain radiating down the left leg. On exam patient has no spinal tenderness to palpation. Patient has muscle tenderness on the left paraspinous muscles and sacroiliac area. Differential diagnosis includes intervertebral disc disease, facet arthropathy, lumbar radiculopathy, sciatica. Patient has some sciatica. Will treat with some dexamethasone 10 mg and 30 mg of ketorolac in the ER. Patient will continue with routine home meds. Patient reported understanding of care plan need for follow-up or return to the ER. No radiology studies performed this visit Discharge Plan Discharge Patient Disposition: Home Clinical Impression: Sciatic nerve palsy, left Condition: Stable Prescriptions: No Action duloxetine 30 mg Capsule,Delayed Release(Dr/Ec) 30 mg PO DAILY 30 Days Qty: 30 1RF quetiapine 100 mg Tablet 100 mg PO BEDTIME 30 Days Qty: 30 1RF Latuda 80 mg Tablet 80 mg PO 1900 30 Days Qty: 30 1RF gabapentin 600 mg tablet 600 mg PO TID 30 Days Qty: 90 1RF tizanidine 4 mg tablet 4 mg PO BID PRN (Reason: Muscle Spasm) 30 Days Qty: 30 1RF diclofenac sodium 75 mg tablet,delayed release (DR/EC) 75 mg PO BID PRN (Reason: pain) 30 Days Qty: 30 1RF prazosin 2 mg capsule 2 mg PO BEDTIME 30 Days Qty: 30 1RF Discharge Orders: Discharge ED (Routine); Ordered 03/03/23 Ordered By: Alberto Jay Referrals: Héctor Christensen [Primary Care Provider] - Discharge Diet: Usual diet Discharge Activity: Increase activity as tolerated Patient Instructions: Sciatica (ED) Activity Restrictions/Additional Instructions: Gentle stretching and range of motion activity. Continue with Voltaren and tizanidine for pain and discomfort. Drink plenty of water with medications. Follow-up with primary care in 3 to 5 days for recheck. Coding Level of Care Code ED [employer]ing [employer] Instructor for Shakeel Rosa
[2023-03-03] MEDS: ketorolac 30 mg/mL INJ IM (13:40)
[2023-03-03] MEDS: dexamethasone 10 mg/mL INJ IM (13:40)
[2023-03-03 13:50] VITALS: BP 89/50; PULSE 63; O2SAT 98
== END 2023-03-03 13:51 | disposition home or self-care (01) ==
PROVIDERS: Emergency Provider Nurse Practitioner Family; PCP Family Medicine
DX: G58.8 Other specified mononeuropathies (principal)
CPT/HCPCS: 96372; 99284; J1100; J1885

== ENCOUNTER 2023-04-20 16:26 | Inpatient (IN) | payer MEDICARE, MEDICAID, SELFPAY ==
[2023-04-20 16:28] VITALS: BP 133/90; PULSE 86; RESP 16; TEMP 36.9; O2SAT 99; BMI 33.0
--- NOTE | 2023-04-20 16:34 | ED.C_ITS ---
HPI - Psych 2 General: Chief Complaint: Psychiatric Symptoms Stated Complaint: Stress, Psych Time Seen by Provider: 04/20/23 16:29 History of Present Illness: Patient presents to the ER by EMS with complaints of high level of stress and anxiety and afraid she is known to lose her mind. Patient is currently homeless, she denies suicidal homicidal ideation at this time. Patient does have significant flight of ideas and pressured speech she keeps saying things like I am , too much stress not and if clean, this is a meet and greet and I do not like to be touched, I have seen things, that is all gone until you, upon review of the chart patient has been seen here multiple times and in our SUPPLY COORDINATOR you multiple times Per chart review patient has a diagnosis of PTSD, depression, anxiety, psychosis, methamphetamine and cannabis abuse, narcissistic personality disorder, patient was last discharged by Dr. Palafox from [facility] on 01/11/2023 Review of Systems 2 General: Reports: 10 or more systems reviewed and unremarkable except in HPI and below PFSH ED 2 PFSH: Medical History Psychiatric care Homicidal ideation Aggression Anxiety Social History Smoking and tobacco/nicotine status: never used tobacco/nicotine Alcohol intake: current Alcohol intake frequency: holidays/special occasions only Substance/Drug Use: current Substance/Drug use frequency: daily Physical Exam 2 Const: COMMON NORMALS: no acute distress, average body habitus, healthy appearing, alert and well nourished HENMT: COMMON NORMALS: normocephalic, atraumatic, hearing grossly normal bilaterally, external ears normal, Normal external nose present, moist oral mucous membranes and oropharynx normal HEAD & SCALP: normocephalic and atraumatic NOSE: Normal external nose present EXTERNAL EAR: Yes external ears normal Neck/C-Spine: COMMON NORMALS: no JVD Chest: COMMONS NORMALS: normal inspection of the chest and normal palpation of entire chest wall Resp: COMMON NORMALS: normal respiratory effort, No retractions, No use of accessory muscles and clear to auscultation bilaterally AUSCULTATION: clear to auscultation bilaterally Cardio: COMMON NORMALS: no JVD, regular rate, regular rhythm, S1 normal heart sound present, S2 normal heart sound present, No gallops present (Cardio), No clicks present (Cardio), No murmurs present (Cardio) and No rub (Cardio) R ATE: regular rate RHYTHM: regular rhythm HEART SOUNDS: S1 normal heart sound present and S2 normal heart sound present GI: COMMON NORMALS: Normal to inspection, nondistended, normoactive bowel sounds present, Soft to palpation, non-tender, No hepatosplenomegaly present and no masses PALPATION: Yes Soft to palpation and Yes No hepatosplenomegaly present Neuro: SENSORIUM/ORIENTATION: Yes alert Course 2 Vital Signs: Vital signs: Vital Signs Temperature 98.4 F 04/20/23 16:28 Pulse Rate 86 04/20/23 16:28 Respiratory Rate 16 04/20/23 16:28 Blood Pressure 133/90 04/20/23 16:47 Pulse Oximetry 95 04/20/23 17:02 Oxygen Delivery Me thod Room Air 04/20/23 17:02 [facility] - Psych Medical Decision Making Patient was cleared in a standard medical fashion. Once cleared Dr. Palafox was consulted who agreed to put the patient in MPU for further evaluation and treatment. Differential Diagnosis Likely acute psychosis and drug-induced psychotic disorder Medical Records I reviewed the patient's medical records. Lab Data I reviewed the patient's lab results. 04/20/23 18:11 04/20/23 16:57 Laboratory Results WBC 10.87 10^3/uL (3.29-11.43) 04/20/23 18:11 Corrected WBC Cancelled 04/20/23 16:57 RBC 4.29 10^6/uL (3.85-5.65) 04/20/23 18:11 Hgb 13.60 g/dL (11.27-16.99) 04/20/23 18:11 Hct 41.3 % (36-47) 04/20/23 18:11 MCV 96.3 fl (85-98) 04/20/23 18:11 MCH 31.7 pg (27-33) 04/20/23 18:11 MCHC 32.9 g/dL (30-55) 04/20/23 18:11 RDW 13.7 % (12.1-15.1) 04/20/23 18:11 Plt Count 228 10^3/cmm (157-399) 04/20/23 18:11 MPV 9.5 fL (7.4-10.4) 04/20/23 18:11 Gran % Cancelled 04/20/23 16:57 Neut % (Auto) 72.9 % 04/20/23 18:11 Lymph % (Auto) 18.5 % 04/20/23 18:11 [place] % (Auto) 7.7 % 04/20/23 18:11 Eos % (Auto) 0.2 % 04/20/23 18:11 Baso % (Auto) 0.3 % 04/20/23 18:11 Neut # (Auto) 7.93 10^3/uL (1.8-7.7) H 04/20/23 18:11 Lymph # (Auto) 2.0 10^3/uL (0.8-4.8) 04/20/23 18:11 [place] # (Auto) 0.8 10^3/uL (0.2-0.9) 04/20/23 18:11 Eos # (Auto) 0.0 10^3/uL (0.0-0.8) 04/20/23 18:11 Baso # (Auto) 0.0 10^3/uL (0.0-0.1) 04/20/23 18:11 Absolute Gran (auto) Cancelled 04/20/23 16:57 Nucleated RBC % (auto) 0 % 04/20/23 18:11 Nucleated RBCs # 0.0 /100WBC 04/20/23 18:11 Sodium 142 mmol/L (136-145) 04/20/23 16:57 Potassium 3.8 mmol/L (3.5-5.1) 04/20/23 16:57 Chloride 103 mmol/L (98-107) 04/20/23 16:57 Carbon Dioxide 21 mmol/L (22-29) L 04/20/23 16:57 Anion Gap 21.8 (5-19) H 04/20/23 16:57 BUN 14 mg/dL (6-20) 04/20/23 16:57 Creatinine 0.6 mg/dL (0.5-0.9) 04/20/23 16:57 GFR Calculation 105.4 mL/min (90-130) 04/20/23 16:57 Glucose 74 mg/dL (65-115) 04/20/23 16:57 Calculated Osmolality 293 mOsm/kg (285-295) 04/20/23 16:57 Calcium 10.4 mg/dL (8.5-10.5) 04/20/23 16:57 Total Bilirubin 0.6 mg/dL (0.15-1.2) 04/20/23 16:57 AST 15 U/L (0-32) 04/20/23 16:57 ALT 14 U/L (0-33) 04/20/23 16:57 Alkaline Phosphatase 97 U/L (35-105) 04/20/23 16:57 Total Protein 7.9 g/dL (6.6-8.7) 04/20/23 16:57 Albumin 4.9 g/dL (3.5-5.2) 04/20/23 16:57 Globulin 3.0 g/dL (1.3-4.6) 04/20/23 16:57 Urine Color Yellow (Yellow) 04/20/23 16:46 Urine Appearance Sl hazy (CLEAR) A 04/20/23 16:46 Urine pH 5 (5-7) 04/20/23 16:46 Ur Specific [place] 1.025 (1.005-1.030) 04/20/23 16:46 Urine Protein Trace (Negative) 04/20/23 16:46 Urine Glucose (UA) Norm (Normal) 04/20/23 16:46 Urine Ketones 2+ (Negative) H 04/20/23 16:46 Urine Blood Neg (Negative) 04/20/23 16:46 Urine Nitrate Negative (Negative) 04/20/23 16:46 Urine Bilirubin 1+ (Negative) H 04/20/23 16:46 Urine Urobilinogen 4 mg/dL (Negative) H 04/20/23 16:46 Ur Leukocyte Esterase Negative (Negative) 04/20/23 16:46 Urine RBC 0-4 /hpf (0-2) H 04/20/23 16:46 Urine WBC 0-4 /hpf (0-5) H 04/20/23 16:46 Ur Squamous Epith Cells 5-10 /hpf (0-5) H 04/20/23 16:46 Amorphous Sediment Not Reportable 04/20/23 16:46 Urine Bacteria Trace /hpf (NONE) 04/20/23 16:46 Hyaline Casts 0-4 /lpf H 04/20/23 16:46 Urine Mucus 2+ /hpf 04/20/23 16:46 Salicylates < 0.3 mg/dL (3-10) L 04/20/23 16:57 Urine Opiates Screen Negative ng/mL (Negative) 04/20/23 16:46 Acetaminophen 5.7 ug/mL (10-30) L 04/20/23 16:57 Ur Barbiturates Screen Negative ng/mL (Negative) 04/20/23 16:46 Ur Phencyclidine Scrn Negative ng/mL (Negative) 04/20/23 16:46 Ur Amphetamines Screen Negative ng/mL (Negative) 04/20/23 16:46 U Benzodiazepines Scrn Negative ng/mL (Negative) 04/20/23 16:46 Urine Cocaine Screen Negative ng/mL (Negative) 04/20/23 16:46 U Marijuana (THC) Screen Positive ng/mL (Negative) H 04/20/23 16:46 Ethyl Alcohol < 10 mg/dL (0-10) 04/20/23 16:57 No radiology studies performed this visit Discharge Plan Discharge Patient Disposition: Admitted As Inpatient Clinical Impression: Acute psychosis, Cannabis abuse Drug-induced psychotic disorder Qualifiers: Complication of substance-induced condition: with unspecified complication Q ualified Code(s): F19.959 - Other psychoactive substance use, unspecified with psychoactive substance-induced psychotic disorder, unspecified Condition: Stable Coding Level of Care Code ED Rubber Chemist for Shakeel Rosa
[2023-04-20 16:47] VITALS: BP 133/90; O2SAT 96
--- NOTE | 2023-04-20 16:51 | PC.PHAR ---
PT UNABLE TO SENSIBLY VERIFY MEDICATIONS. MED REC VERIFIED VIA EXT MED LIST ON FILE WITH CURRENT FILL DATES. 04/20/23
[2023-04-20 17:02] VITALS: O2SAT 95
[2023-04-20 17:36] LABS: Amphetamines Screen Urine Negative (Negative); Barbiturates Screen Urine Negative (Negative); Benzodiazepines Screen Urine Negative (Negative); Cocaine Screen Urine Negative (Negative); Opiate Screen Urine Negative (Negative); PCP Screen Urine Negative (Negative); THC Screen Urine Positive (Negative)
[2023-04-20 17:44] LABS: Protein Urine Trace (Negative); Specific Gravity, Urine 1.025 (1.005-1.030); Urine Appearance SL Hazy (CLEAR); Urine Color Yellow (Yellow); pH Urine 5 (5-7)
[2023-04-20 17:45] LABS: Acetaminophen 5.7 ug/mL (10-30); Alanine Aminotransferase 14 U/L (0-33); Albumin Level 4.9 g/dL (3.5-5.2); Alkaline Phosphatase 97 U/L (35-105); Anion Gap 21.8 (5-19); Aspartate Amino Transferase 15 U/L (0-32); Blood Urea Nitrogen 14 mg/dL (6-20); Calcium 10.4 mg/dL (8.5-10.5); Carbon Dioxide 21 mmol/L (22-29); Chloride 103 mmol/L (98-107); Creatinine Clr Calc Pharmacy 127.4394; Glomerular Filtration Rate 105.4 mL/min (90-130); Glucose 74 mg/dL (65-115); Osmolality Calculated 293 mOsm/kg (285-295); Potassium 3.8 mmol/L (3.5-5.1); Sodium 142 mmol/L (136-145); Total Bilirubin 0.6 mg/dL (0.15-1.2); Total Protein 7.9 g/dL (6.6-8.7)
[2023-04-20 17:46] LABS: Add Urine Microscopic? YES; Bilirubin Urine 1+ (Negative); Blood Urine Neg (Negative); Glucose Urine UA Norm (Normal); Ketones Urine 2+ (Negative); Leukocyte Esterase Urine Negative (Negative); Nitrate Urine Negative (Negative); Urobilinogen Urine 4 mg/dL (Negative)
[2023-04-20 17:52] LABS: Alcohol Level < 10 mg/dL (0-10); Salicylate < 0.3 mg/dL (3-10)
[2023-04-20 17:54] LABS: Add Urine Culture? No; Bacteria Urine TRACE /hpf; Hyaline Casts Urine 0-4 /lpf; Mucus Urine 2+ /hpf; RBC Urine 0-4 /hpf (0-2); WBC Urine 0-4 /hpf (0-5)
[2023-04-20 18:18] LABS: Basophils % 0.3 %; Eosinophils % 0.2 %; Hematocrit 41.3 % (36-47); Lymphocytes % 18.5 %; Mean Corpuscular HGB Conc 32.9 g/dL (30-55); Mean Corpuscular Hemoglobin 31.7 pg (27-33); Mean Corpuscular Volume 96.3 fl (85-98); Mean Platelet Volume 9.5 fL (7.4-10.4); Monocytes # 0.8 10^3/uL (0.2-0.9); Monocytes % 7.7 %; Neutrophils # 7.93 10^3/uL (1.8-7.7); Neutrophils % 72.9 %; Nucleated Red Blood Cells % 0 %; Platelet Count 228 10^3/cmm (157-399); Red Blood Count 4.29 10^6/uL (3.85-5.65); Red Cell Distribution Width 13.7 % (12.1-15.1); White Blood Count 10.87 10^3/uL (3.29-11.43)
[2023-04-20 20:21] VITALS: BP 143/83; PULSE 109; RESP 20; TEMP 36.8; O2SAT 94
[2023-04-20] MEDS: hyDROXYzine 25 mg Capsule 50 MG PO (20:46)
--- NOTE | 2023-04-21 00:36 | PC.NURSE ---
Admission Note pt was brought from ER by wheelchair at 2014. Pt is uncooperative with admission assessment. Pt stated that she is here because there is too many doctors appointments and too many i dont knows going on. During admission pt denies SI/HI/AVH. Nursing staff was able to get her dressed into NPU scrubs, however pt has a medical alert bracelet that we were unable to take off. Pt refused to sign all admission paperwork but allowed staff to get admission vitals. Pt is now seen resting in her bed with eyes closed. Behavioral monitoring continues.
--- NOTE | 2023-04-21 06:50 | PC.NURSE ---
Patient would not let us do vitals this morning.
[2023-04-21] MEDS: duloxetine 20 mg Capsule PO ×2 (07:58→17:57)
[2023-04-21] MEDS: acetaminophen 325 mg Tablet 650 MG PO ×3 (07:58→17:58)
[2023-04-21] MEDS: gabapentin 300 mg Capsule PO ×4 (07:58→20:36)
[2023-04-21] MEDS: hyDROXYzine 25 mg Capsule 50 MG PO ×2 (08:08→18:50)
[2023-04-21] MEDS: OLANZapine 5 mg ODT PO ×2 (08:08→20:36)
[2023-04-21 08:56] LABS: Glucose Point of Care 111 mg/dL (70-110)
[2023-04-21] MEDS: nicotine 21 mg Patch 1 PATCH TRANSDERMA (09:17)
--- NOTE | 2023-04-21 09:38 | PC.NURSE ---
Patient tearful and irritable during assessment. Patient reports that she fell several times over the past few months. Patient reports pain 10/10 over her entire body. Patient unsure of reason for falls. This nurse put in PT orders for assess and treat. Patient reports anxiety and depression. Denies SI, HI, AVH.
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
[2023-04-21 14:00] VITALS: BP 112/69; PULSE 85; RESP 17; TEMP 36.7; O2SAT 95
[2023-04-21] MEDS: lurasidone 80 mg Tablet PO (17:59)
[2023-04-21 20:31] VITALS: BP 131/90; PULSE 76; RESP 18; TEMP 36.7; O2SAT 97
[2023-04-21] MEDS: prazosin 1 mg Capsule 2 MG PO (20:36)
[2023-04-22 06:00] VITALS: BP 126/82; PULSE 117; RESP 20; TEMP 36.6; O2SAT 95
[2023-04-22] MEDS: gabapentin 300 mg Capsule PO ×4 (07:18→20:25)
[2023-04-22] MEDS: hyDROXYzine 25 mg Capsule 50 MG PO (07:18)
[2023-04-22] MEDS: duloxetine 20 mg Capsule PO ×2 (07:18→17:57)
[2023-04-22] MEDS: acetaminophen 325 mg Tablet 650 MG PO ×2 (07:33→12:02)
[2023-04-22] MEDS: tizanidine 4 mg Tablet PO (07:39)
[2023-04-22] MEDS: nicotine 21 mg Patch 1 PATCH TRANSDERMA (09:00)
--- NOTE | 2023-04-22 10:52 | P.NPUPN_ITS ---
Subjective [facility] 2 Subjective: Patient presented today reporting that she was to get out of here sooner rather than later. We discussed the likelihood of discharge in the next 48 hours and an openness to the plan for discharge tomorrow if appropriate follow-up plans are in place and she has an identifiable and safe landing place. She continues to report a plan to do better at this time overall. She denied any side effects of the medication and was glad to be back on them. She reports being somewhat tired from getting back on her medications. Mental Status Exam 2 MSE Comments: This is a a well-nourished well-developed white female in hospital scrubs on with limited grooming and adequate eye contact.? No abnormal movements except for mild psychomotor agitation.? Cooperative with exam in mild distress.? Speech was decreased rate and volume.? Mood described as I am feeling better than yesterday, affect slightly subdued and tearful.? Thought process organized.? Thought content: Patient denies suicidal or homicidal ideations, there were no delusions reported, she denied auditory or visual hallucinations.? Attention concentration were intact and memory was mostly reliable but none were formally tested.? She is alert and oriented x 3. Insight and judgment appeared fair and impulse control is limited. Vitals/I&O/Wt Last Vital Signs Temp 97.8 F 04/22/23 06:00 Pulse 117 H 04/22/23 06:00 Resp 20 H 04/22/23 06:00 BP 126/82 04/22/23 06:00 Pulse Ox 95 04/22/23 06:00 O2 Del Method Room Air 04/22/23 06:00 Weight last 48 hrs Weight 92.986 kg Data [facility] 04/20/23 18:11 04/20/23 16:57 A&P Assessment and plan (1) Psychosis: (2) Depression: (3) Insomnia: (4) History of posttraumatic stress disorder (PTSD): Plan This is a 53-year-old white female with a previous history of psychotic disorder and significant addiction issues presents reporting that she has been doing better overall but had been gone for a month and presents with fracture resources and hoping to get stabilized quickly back in our system. 1. Encourage individual, group and milieu therapy. 2. Recommend sober living treatment at the highest level of care to which the patient is willing to commit. 3. Continue q-15 minute checks for safety.? 4.? Continue current medication. 5.? Will attempt to gather collateral information. Involuntary Hold Information 2 96 Hour Hold: 96 Hour Involuntary Admission: No 96 Hour Hold Ending Date: 0 08/18/19 96 Hour Hold Ending Time: 12:01 Attestations [facility] 2 Medical Necessity Statement*: Inpatient hospitalization is medically necessary and the clinically appropriate intervention at this time. We will monitor and adjust medications as indicated. Her likely length of stay 1-3 days. Coding Level of Care Code Acute Code for [facility] Fwd Diagnoses Psychosis F29 Depression F32.A Insomnia G47.00 History of posttraumatic stress disorder (PTSD) Z86.59
[2023-04-22] MEDS: diclofenac 75 mg DR Tablet PO (12:32)
[2023-04-22 14:00] VITALS: BP 140/86; PULSE 96; RESP 22; TEMP 36.6; O2SAT 99
[2023-04-22] MEDS: nicotine 2 mg Gum BUCCAL ×2 (14:15→18:03)
[2023-04-22] MEDS: OLANZapine 5 mg ODT PO ×2 (14:16→20:25)
[2023-04-22 17:31] VITALS: O2SAT 95
[2023-04-22] MEDS: lurasidone 80 mg Tablet PO (17:57)
[2023-04-22] MEDS: prazosin 1 mg Capsule 2 MG PO (20:25)
[2023-04-22 20:38] VITALS: BP 113/68; PULSE 75; RESP 15; TEMP 36.8; O2SAT 94
[2023-04-23] MEDS: acetaminophen 325 mg Tablet 650 MG PO ×3 (03:36→10:55)
[2023-04-23 06:00] VITALS: BP 119/78; PULSE 72; RESP 18; TEMP 36.3; O2SAT 98
[2023-04-23] MEDS: nicotine 21 mg Patch 1 PATCH TRANSDERMA (06:35)
[2023-04-23] MEDS: diclofenac 75 mg DR Tablet PO (08:02)
[2023-04-23] MEDS: gabapentin 300 mg Capsule PO ×2 (08:02→12:56)
[2023-04-23] MEDS: duloxetine 20 mg Capsule PO (08:02)
[2023-04-23] MEDS: hyDROXYzine 25 mg Capsule 50 MG PO (08:04)
--- NOTE | 2023-04-23 08:44 | DCPLANNER ---
ALEXEI completed on 04/23/23 @ 4700. Pt was given a copy of her rights and she stated she understood her rights.
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
[2023-04-23 12:55] VITALS: BP 119/78; PULSE 72; RESP 18; TEMP 36.3; O2SAT 98
== END 2023-04-23 15:52 | disposition home or self-care (01) | DRG 885 ==
LOC: ER 18:15 → NP 20:12
PROVIDERS: Physician Assistant; Admitting Provider Psychiatry & Neurology Psychiatry; Emergency Provider Emergency Medicine; PCP Family Medicine; Visit Provider Psychiatry & Neurology Psychiatry
DX: F29 Unspecified psychosis not due to a substance or known physiological condition (principal); Z59.00 Homelessness unspecified; G47.00 Insomnia, unspecified; Z86.59 Personal history of other mental and behavioral disorders; F32.A Depression, unspecified; F41.9 Anxiety disorder, unspecified; F10.10 Alcohol abuse, uncomplicated; F15.10 Other stimulant abuse, uncomplicated; F12.10 Cannabis abuse, uncomplicated; F60.81 Narcissistic personality disorder; R05.3 Chronic cough; M79.7 Fibromyalgia; Z62.811 Personal history of psychological abuse in childhood; Z62.810 Personal history of physical and sexual abuse in childhood
CPT/HCPCS: 36415; 36416; 80053; 80306; 80307; 81001; 82962; 85025; 94664; 97110; 97161; 97165; 97167; 97760; 99283; 99285; L1902; Q0162

== ENCOUNTER 2023-04-24 16:51 | Emergency (ER) | payer MEDICARE, MEDICAID, SELFPAY ==
[2023-04-24 16:57] VITALS: BP 137/91; PULSE 82; RESP 17; TEMP 37.3; O2SAT 97
--- NOTE | 2023-04-24 17:02 | W.ED.PSYCHS ---
HPI - Psych General: Chief Complaint: Psychiatric Symptoms Stated Complaint: MHE Time Seen by Provider: 04/24/23 16:56 Source: patient Mode of arrival: ambulatory Limitations: no limitations History of Present Illness: 53-year-old female has a history of psychosis along with methamphetamine abuse and is homeless. Patient had just been discharged from psych unit yesterday I believe. She states that she is staying at a homeless detention and just does not feel right she is not really able to elaborate she denies being SI or HI denies any worse improved factors. Associated symptoms: Reports depression; Deny homicidal ideation or suicidal ideation Review of Systems Const: Denies: fever(s), chills, body aches or change in appetite ENMT: Denies: throat pain or dental pain Card: Denies: chest pain Resp: Denies: dyspnea GI: Denies: abdominal pain, nausea, vomiting or diarrhea Musc: Denies: neck pain or back pain Skin/Breast: Denies: rash Neuro: Denies: headache(s) Psych: Reports: depression; Denies: suicidal ideation or homicidal ideation [facility] ED PFSH: Medical History Psychiatric care Homicidal ideation Aggression Anxiety Social History Smoking and tobacco/nicotine status: never used tobacco/nicotine Alcohol intake: current Alcohol intake frequency: holidays/special occasions only Substance/Drug Use: current Substance/Drug use frequency: daily Physical Exam Const: COMMON NORMALS: no acute distress, patient oriented x3 and healthy appearing HENMT: COMMON NORMALS: normocephalic and atraumatic HEAD & SCALP: normocephalic and atraumatic Neck/C-Spine: COMMON NORMALS: full ROM and supple Chest: COMMONS NORMALS: normal inspection of the chest Resp: COMMON NORMALS: normal respiratory effort Cardio: COMMON NORMALS: regular rate, regular rhythm and No murmurs present (Cardio) RATE: regular rate RHYTHM: regular rhythm Extremity: COMMON NORMALS: normal to inspection and full ROM Neuro: COMMON NORMALS: patient oriented x3, moves all extremities and no focal motor deficits Psych: COMMON NORMALS: mental status grossly normal, Normal thought process present and cooperative THOUGHT PROCESS: Normal thought process present Skin: COMMON NORMALS: no rashes or lesions noted and no wounds GENERAL SKIN EXAM: no rashes or lesions noted Course Vital Signs: Vital signs: Vital Signs Temperature 99.1 F 04/24/23 16:57 Pulse Rate 82 04/24/23 16:57 Respiratory Rate 17 04/24/23 16:57 Blood Pressure 137/91 04/24/23 16:57 Pulse Oximetry 97 04/24/23 16:57 Oxygen Delivery Me thod Room Air 04/24/23 16:57 MDM - Psych Medical Decision Making Patient presents here with some anxiety about her living arrangement she is not suicidal or homicidal she is not acutely psychotic I spoke to Dr. Palafox who knows patient and discharge discharge her. He does not feel that she needs to be readmitted and I agree she has no acute findings where she needs n.p.o. I did explain her this she is to follow-up with her PCP I did give her information for the crisis center as well and she is to go there if she is feeling worse return here if worsening as well she understands agrees to plan. Medical Records I reviewed the patient's medical records. No radiology studies performed this visit Discharge Plan Discharge Patient Disposition: Home Clinical Impression: Anxiety Condition: Stable Prescriptions: No Action hydroxyzine pamoate 25 mg Capsule 50 mg PO Q6H PRN (Reason: Anxiety) 30 Days Qty: 30 1RF tizanidine 4 mg tablet 4 mg PO BID PRN (Reason: Muscle Spasm) 30 Days Qty: 30 1RF gabapentin 300 mg capsule 300 mg PO QID 30 Days Qty: 120 1RF diclofenac sodium 75 mg tablet,delayed release (DR/EC) 75 mg PO BID PRN (Reason: pain) 30 Days Qty: 30 1RF prazosin 2 mg capsule 2 mg PO BEDTIME 30 Days Qty: 30 1RF duloxetine 20 mg capsule,delayed release(DR/EC) 20 mg PO BID 30 Days Qty: 60 1RF Latuda 80 mg Tablet 80 mg PO 1900 30 Days Qty: 30 1RF Discharge Orders: Discharge ED (Routine); Ordered 04/24/23 Ordered By: Mati Ceballos Referrals: Héctor Christensen [Primary Care Provider] - Discharge Diet: Advance as tolerated Discharge Activity: Resume usual activity Patient Instructions: Anxiety (ED) Coding Level of Care Code ED Workers Compensation Administrator for Shakeel Rosa
== END 2023-04-24 17:25 | disposition home or self-care (01) ==
PROVIDERS: Emergency Provider Emergency Medicine; PCP Family Medicine
DX: F41.9 Anxiety disorder, unspecified (principal); Z59.01 Sheltered homelessness
CPT/HCPCS: 99283

== ENCOUNTER 2023-04-25 20:15 | Inpatient (IN) | payer MEDICARE, MEDICAID, SELFPAY ==
[2023-04-25 20:19] VITALS: BP 137/90; PULSE 96; RESP 16; TEMP 36.6; O2SAT 98; BMI 27.4
--- NOTE | 2023-04-25 20:23 | ED.C_ITS ---
HPI - Psych 2 General: Chief Complaint: Psychiatric Symptoms Stated Complaint: MHE Time Seen by Provider: 04/25/23 20:16 Source: patient and EMS Mode of arrival: EMS Limitations: no limitations History of Present Illness: 53-year-old female history of PTSD along with psychosis she just recently got out of the psych joe she was seen last night she states that she has not been taking her Latuda and she is not feeling right. I did see patient last night she does appear acutely psychotic from last night she keeps talking about people that are stealing her meds and monkey wrench is not making much sense. She denies SI or HI. Associated symptoms: Reports depression Review of Systems 2 Const: Denies: fever(s), chills, body aches or change in appetite ENMT: Denies: throat pain or dental pain Card: Denies: chest pain Resp: Denies: dyspnea GI: Denies: abdominal pain, nausea, vomiting or diarrhea Musc: Denies: neck pain or back pain Skin/Breast: Denies: rash Neuro: Denies: headache(s) Psych: Reports: depression and paranoia PFSH ED 2 PFSH: Medical History Psychiatric care Homicidal ideation Aggression Anxiety Social History Smoking and tobacco/nicotine status: never used tobacco/nicotine Alcohol intake: current Alcohol intake frequency: holidays/special occasions only Substance/Drug Use: current Substance/Drug use frequency: daily Physical Exam 2 Const: COMMON NORMALS: patient oriented x3 HENMT: COMMON NORMALS: normocephalic and atraumatic HEAD & SCALP: n ormocephalic and atraumatic Eye: COMMON NORMALS: Equal, round and reactive pupils present and EOMs intact bilaterally PUPIL: Yes Equal, round and reactive pupils present Neck/C-Spine: COMMON NORMALS: full ROM and supple Chest: COMMONS NORMALS: normal inspection of the chest Resp: COMMON NORMALS: normal respiratory effort Cardio: COMMON NORMALS: regular rate, regular rhythm and No murmurs present (Cardio) RATE: regular rate RHYTHM: regular rhythm Extremity: COMMON NORMALS: normal to inspection and full ROM Neuro: COMMON NORMALS: patient oriented x3, moves all extremities and no focal motor deficits Psych: COMMON NORMALS: mental status grossly normal and cooperative A TTITUDE: Yes paranoid and Yes Withdrawn affect present SPEECH: Yes rapid M OOD & AFFECT: Yes depressed mood THOUGHT PROCESS: Flight of ideas present Skin: COMMON NORMALS: no rashes or lesions noted and no wounds GENERAL SKIN EXAM: no rashes or lesions noted Course 2 Vital Signs: Vital signs: Vital Signs Temperature 98 F 04/25/23 20:19 Pulse Rate 96 04/25/23 20:19 Respiratory Rate 16 04/25/23 20:19 Blood Pressure 137/90 04/25/23 20:19 Pulse Oximetry 98 04/25/23 20:19 Oxygen Delivery Me thod Room Air 04/25/23 20:19 [facility] - Psych Medical Decision Making Patient presents here with acute psychosis. Patient's medically cleared she is voluntarily being admitted to the psych joe at this time. Medical Records I reviewed the patient's medical records. Lab Data I reviewed the patient's lab results. 04/25/23 20:38 04/25/23 20:38 Laboratory Results WBC 10.27 10^3/uL (3.29-11.43) 04/25/23 20:38 RBC 4.81 10^6/uL (3.85-5.65) 04/25/23 20:38 Hgb 15.30 g/dL (11.27-16.99) 04/25/23 20:38 Hct 46.0 % (36-47) 04/25/23 20:38 MCV 95.6 fl (85-98) 04/25/23 20:38 MCH 31.8 pg (27-33) 04/25/23 20:38 MCHC 33.3 g/dL (30-55) 04/25/23 20:38 RDW 13.4 % (12.1-15.1) 04/25/23 20:38 Plt Count 206 10^3/cmm (157-399) 04/25/23 20:38 MPV 9.9 fL (7.4-10.4) 04/25/23 20:38 Neut % (Auto) 64.4 % 04/25/23 20:38 Lymph % (Auto) 26.8 % 04/25/23 20:38 [place] % (Auto) 7.5 % 04/25/23 20:38 Eos % (Auto) 0.8 % 04/25/23 20:38 Baso % (Auto) 0.4 % 04/25/23 20:38 Neut # (Auto) 6.62 10^3/uL (1.8-7.7) 04/25/23 20:38 Lymph # (Auto) 2.8 10^3/uL (0.8-4.8) 04/25/23 20:38 [place] # (Auto) 0.8 10^3/uL (0.2-0.9) 04/25/23 20:38 Eos # (Auto) 0.1 10^3/uL (0.0-0.8) 04/25/23 20:38 Baso # (Auto) 0.0 10^3/uL (0.0-0.1) 04/25/23 20:38 Nucleated RBC % (auto) 0 % 04/25/23 20:38 Nucleated RBCs # 0.0 /100WBC 04/25/23 20:38 Sodium 138 mmol/L (136-145) 04/25/23 20:38 Potassium 3.7 mmol/L (3.5-5.1) 04/25/23 20:38 Chloride 103 mmol/L (98-107) 04/25/23 20:38 Carbon Dioxide 21 mmol/L (22-29) L 04/25/23 20:38 Anion Gap 17.7 (5-19) 04/25/23 20:38 BUN 17 mg/dL (6-20) 04/25/23 20:38 Creatinine 0.7 mg/dL (0.5-0.9) 04/25/23 20:38 GFR Calculation 88.2 mL/min (90-130) L 04/25/23 20:38 Glucose 78 mg/dL (65-115) 04/25/23 20:38 Calculated Osmolality 286 mOsm/kg (285-295) 04/25/23 20:38 Calcium 10.3 mg/dL (8.5-10.5) 04/25/23 20:38 Total Bilirubin 0.4 mg/dL (0.15-1.2) 04/25/23 20:38 AST 18 U/L (0-32) 04/25/23 20:38 ALT 25 U/L (0-33) 04/25/23 20:38 Alkaline Phosphatase 91 U/L (35-105) 04/25/23 20:38 Total Protein 8.1 g/dL (6.6-8.7) 04/25/23 20:38 Albumin 4.7 g/dL (3.5-5.2) 04/25/23 20:38 Globulin 3.4 g/dL (1.3-4.6) 04/25/23 20:38 Salicylates < 0.3 mg/dL (3-10) L 04/25/23 20:38 Acetaminophen < 5.0 ug/mL (10-30) L 04/25/23 20:38 Ethyl Alcohol < 10 mg/dL (0-10) 04/25/23 20:38 No radiology studies performed this visit Discharge Plan Discharge Patient Disposition: Admitted As Inpatient Admit Provider: Alex Palafox Clinical Impression: Psychosis Condition: Stable Coding Level of Care Code ED International Logistics Coordinator for Shakeel Rosa
[2023-04-25 20:44] LABS: Basophils % 0.4 %; Eosinophils # 0.1 10^3/uL (0.0-0.8); Eosinophils % 0.8 %; Lymphocytes # 2.8 10^3/uL (0.8-4.8); Lymphocytes % 26.8 %; Mean Corpuscular HGB Conc 33.3 g/dL (30-55); Mean Corpuscular Hemoglobin 31.8 pg (27-33); Mean Corpuscular Volume 95.6 fl (85-98); Mean Platelet Volume 9.9 fL (7.4-10.4); Monocytes # 0.8 10^3/uL (0.2-0.9); Monocytes % 7.5 %; Neutrophils # 6.62 10^3/uL (1.8-7.7); Neutrophils % 64.4 %; Nucleated Red Blood Cells % 0 %; Platelet Count 206 10^3/cmm (157-399); Red Blood Count 4.81 10^6/uL (3.85-5.65); Red Cell Distribution Width 13.4 % (12.1-15.1); White Blood Count 10.27 10^3/uL (3.29-11.43)
[2023-04-25 21:12] LABS: Acetaminophen < 5.0 ug/mL (10-30); Alanine Aminotransferase 25 U/L (0-33); Albumin Level 4.7 g/dL (3.5-5.2); Alcohol Level < 10 mg/dL (0-10); Alkaline Phosphatase 91 U/L (35-105); Anion Gap 17.7 (5-19); Aspartate Amino Transferase 18 U/L (0-32); Blood Urea Nitrogen 17 mg/dL (6-20); Calcium 10.3 mg/dL (8.5-10.5); Carbon Dioxide 21 mmol/L (22-29); Chloride 103 mmol/L (98-107); Creatinine Clr Calc Pharmacy 99.7025; Globulin 3.4 g/dL (1.3-4.6); Glomerular Filtration Rate 88.2 mL/min (90-130); Glucose 78 mg/dL (65-115); Osmolality Calculated 286 mOsm/kg (285-295); Potassium 3.7 mmol/L (3.5-5.1); Salicylate < 0.3 mg/dL (3-10); Sodium 138 mmol/L (136-145); Total Bilirubin 0.4 mg/dL (0.15-1.2); Total Protein 8.1 g/dL (6.6-8.7)
[2023-04-25] MEDS: hyDROXYzine 25 mg Capsule 50 MG PO (22:10)
[2023-04-25] MEDS: OLANZapine 5 mg ODT PO (22:10)
[2023-04-25 22:31] VITALS: BP 131/89; PULSE 81; RESP 18; TEMP 36.5; O2SAT 97
[2023-04-25] MEDS: gabapentin 300 mg Capsule PO (22:47)
[2023-04-25] MEDS: duloxetine 20 mg Capsule PO (22:47)
[2023-04-25] MEDS: lurasidone 80 mg Tablet PO (22:47)
--- NOTE | 2023-04-25 23:53 | PC.NURSE ---
Admission Note Pt arrived to NPU by wheelchair at 2132. Pt stated that she is here because there are too many questions, too much stress and someone took her medications. Pt has not taken her Latuda since she left here on the . Pt is very irritable during assessment. When asked some of the admission questions Pt told this nurse its none of your damn business. Pt told this nurse there are a lot of higher ups making sure i get the help I need so I don't understand why you are asking me all these questions. Pt denies SI/HI/AVH upon admission. Pt was dressed into NPU scrubs. Pts home medications were reconciled and administered. Pt is now observed resting in bed quietly with eyes closed. Behavioral monitoring continues.
[2023-04-26 06:00] VITALS: BP 107/75; PULSE 75; RESP 16; TEMP 36.6; O2SAT 96
[2023-04-26] MEDS: duloxetine 20 mg Capsule PO ×2 (08:06→20:21)
[2023-04-26] MEDS: acetaminophen 325 mg Tablet 650 MG PO ×2 (08:06→18:12)
[2023-04-26] MEDS: gabapentin 300 mg Capsule PO ×4 (08:06→20:21)
[2023-04-26] MEDS: OLANZapine 5 mg ODT PO (09:03)
[2023-04-26] MEDS: ondansetron 4 MG Tablet PO (09:03)
[2023-04-26] MEDS: diclofenac 75 mg DR Tablet PO (09:03)
--- NOTE | 2023-04-26 09:04 | PC.NURSE ---
Addendum entered by Vannessa Singh LPN 04/26/23 10:28: prn meds effective no further c/o nausea or agitation/anxiety currently Original Note: PRN ZOFRAN & ZYPREXA ZOFRAN 4 MG GIVEN PO PER PT C/O NAUSEA ZYPREXA 5 MG GIVEN PO PER PT C/O STATED ANXIETY/AGITATION. MED SEEKING BEHAVIORS NOTED, ASKING FOR ANY AND ALL PRN MEDICATIONS
[2023-04-26 09:52] LABS: Amphetamines Screen Urine Negative (Negative); Barbiturates Screen Urine Negative (Negative); Benzodiazepines Screen Urine Negative (Negative); Cocaine Screen Urine Negative (Negative); Opiate Screen Urine Negative (Negative); PCP Screen Urine Negative (Negative); THC Screen Urine Positive (Negative)
[2023-04-26 14:00] VITALS: BP 92/63; PULSE 107; RESP 13; TEMP 36.6; O2SAT 97
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
[2023-04-26] MEDS: lurasidone 80 mg Tablet PO (17:53)
[2023-04-26] MEDS: prazosin 1 mg Capsule 2 MG PO (20:21)
[2023-04-26 20:56] VITALS: BP 107/70; PULSE 69; RESP 17; TEMP 36.6; O2SAT 96
[2023-04-26] MEDS: efferdent effervescent 1 EACH DENTAL (21:17)
[2023-04-27 06:00] VITALS: BP 108/76; PULSE 70; RESP 16; TEMP 36.7; O2SAT 97
[2023-04-27] MEDS: tizanidine 4 mg Tablet PO ×2 (07:56→20:00)
[2023-04-27] MEDS: nicotine 21 mg Patch 1 PATCH TRANSDERMA (07:57)
[2023-04-27] MEDS: gabapentin 300 mg Capsule PO ×4 (07:57→20:00)
[2023-04-27] MEDS: acetaminophen 325 mg Tablet 650 MG PO ×2 (07:57→13:14)
[2023-04-27] MEDS: duloxetine 20 mg Capsule PO ×2 (07:57→20:00)
[2023-04-27] MEDS: hyDROXYzine 25 mg Capsule 50 MG PO ×2 (11:11→18:18)
[2023-04-27] MEDS: diclofenac 75 mg DR Tablet PO (11:18)
[2023-04-27] MEDS: OLANZapine 5 mg ODT PO (11:47)
[2023-04-27 14:00] VITALS: BP 83/54; PULSE 79; RESP 16; TEMP 36.6; O2SAT 98
--- NOTE | 2023-04-27 17:33 | W.PM.NPUPNS ---
Subjective NPU Subjective: 53-year-old female admitted with psychosis and increased confusion with recent noncompliance with her current medications just prior to her admission. She had continued to report feeling confused. She stated that she did not wish to return back to [facility]. She had remained isolative on the milieu. She had continued to complain of pain issues. She reported having a plan to return to live with her friend instead of the [facility] this time. She had continued to endorse feeling as if her bed was spinning around her. She had complained of dizziness. Patient had reported a past history of psychosis and depression with a diagnosis of schizoaffective disorder reported. She continued to have odd comments regarding her distrust of people in her previous residence at [facility]. Mental Status Exam MSE Comments: This is a a well-nourished well-developed white female in hospital scrubs on with poor grooming and poor eye contact.? No abnormal movements except for mild psychomotor agitation.? She was cooperative with exam in mild distress.? Speech was decreased in rate and volume with increased latency in speech. ? Mood described as depressed Affect was subdued and odd. Thought process was linear but derailed. ? Thought content: Patient denies suicidal or homicidal ideation. There was delusions of persecution. She denied auditory or visual hallucinations.? Attention, concentration were intact and memory was mostly reliable but none were formally tested.? She is alert and oriented to person, place but not date or day of week. Insight and judgment was impaired. Her impulse control is poor. Vitals/I&O/Wt Last Vital Signs Temp 98 F 04/27/23 14:00 Pulse 79 04/27/23 14:00 Resp 16 04/27/23 14:00 BP 83/54 04/27/23 14:00 Pulse Ox 98 04/27/23 14:00 O2 Del Method Room Air 04/27/23 14:00 Weight last 48 hrs Weight 77.111 kg Data NPU 04/25/23 20:38 04/25/23 20:38 A&P Assessment and plan (1) Psychosis: (2) Depression: (3) Insomnia: (4) History of posttraumatic stress disorder (PTSD): Plan This is a 53-year-old white female with a previous history of psychotic disorder and significant addiction issues presents with psychosis just 3 days after her last discharge currently reporting homelessness. 1. Encourage individual, group and milieu therapy. 2. Recommend sober living treatment at the highest level of care to which the patient is willing to commit. 3. Continue q-15 minute checks for safety.? 4.? Continue Latuda, cymbalta, and gabapentin as prescribed. Patient remains psychotic. 5.? Will attempt to gather collateral information. Involuntary Hold Information 96 Hour Hold: 96 Hour Involuntary Admission: No 96 Hour Hold Ending Date: 08/18/19 96 Hour Hold Ending Time: 12:01 Attestations NPU Medical Necessity Statement*: Inpatient hospitalization is medically necessary and the clinically appropriate intervention at this time. We will monitor and adjust medications as indicated. Her likely length of stay 3-5 days. Coding Level of Care Code Acute Code for [facility] Fwd Diagnoses Psychosis F29 Depression F32.A Insomnia G47.00 History of posttraumatic stress disorder (PTSD) Z86.59
[2023-04-27] MEDS: lurasidone 80 mg Tablet PO (18:18)
[2023-04-27 19:49] VITALS: BP 110/71; PULSE 61; RESP 16; TEMP 36.5; O2SAT 99
[2023-04-27] MEDS: prazosin 1 mg Capsule 2 MG PO (20:00)
[2023-04-27] MEDS: efferdent effervescent 1 EACH DENTAL (20:01)
[2023-04-28 06:00] VITALS: BP 101/67; PULSE 90; RESP 16; TEMP 36.7; O2SAT 97
[2023-04-28] MEDS: hyDROXYzine 25 mg Capsule 50 MG PO (06:51)
[2023-04-28] MEDS: acetaminophen 325 mg Tablet 650 MG PO ×2 (08:24→13:11)
[2023-04-28] MEDS: duloxetine 20 mg Capsule PO (08:24)
[2023-04-28] MEDS: docusate sodium 100 mg Capsule PO (08:24)
[2023-04-28] MEDS: tizanidine 4 mg Tablet PO (08:24)
[2023-04-28] MEDS: gabapentin 300 mg Capsule PO ×4 (08:24→19:55)
[2023-04-28] MEDS: nicotine 21 mg Patch 1 PATCH TRANSDERMA (08:25)
--- NOTE | 2023-04-28 08:38 | PC.NURSE ---
PT DENIES SI/HI AND AVH AT THIS TIME. ASSESSMENT COMPLETED IN ROOM. PT IS NOTED TO BE TEARFUL AT TIMES AND STATES SHE IS SAD AND DEPRESSED WITH MYSELF. RATES ANXIETY 5/10 AND DEPRESSION 8/10. RATES PAIN 4/10 AND PAIN IS REPORTED TO BE GENERALIZED. PT WAS GIVEN TYLENOL AND TIZANADINE ORDERED, SEE MAR FOR DETAILS. PT IS OBSERVED INTERACTING WITH PEERS AND STAFF. SUPPORT AND COMFORT WAS PROVIDED BY RN. ALL QUESTIONS ANSWERED AND SUPPORT WAS VOICED. PT RECEIVED SHOWER ITEMS FOR SHOWER.
[2023-04-28 14:00] VITALS: BP 95/64; PULSE 60; RESP 20; TEMP 36.6; O2SAT 96
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
[2023-04-28] MEDS: OLANZapine 5 mg ODT PO ×2 (14:43→19:55)
[2023-04-28] MEDS: duloxetine 30 mg Capsule PO (15:37)
[2023-04-28] MEDS: sennosides-docusate Tablet 2 TAB PO (15:37)
--- NOTE | 2023-04-28 18:00 | PC.NURSE ---
PT RECEIVED PRN ZYDIS 5 MG FOR REPORTS OF INCREASED ANXIETY. MEDICATION DEEMED EFFECTIVE, PT HAS BEEN RESTING IN ROOM AND HAS HAD NO FURTHER COMPLAINTS OF ANXIETY THAT REQUIRED PRN MEDICATIONS. SUPPORT VOICED.
[2023-04-28] MEDS: lurasidone 80 mg Tablet PO (19:54)
[2023-04-28] MEDS: prazosin 1 mg Capsule 4 MG PO (19:54)
[2023-04-28 19:59] VITALS: BP 114/75; PULSE 77; RESP 17; TEMP 36.7; O2SAT 100
--- NOTE | 2023-04-28 20:30 | PC.NURSE ---
Pt laying in bed calm/cooperative. Pt denies SI/HI/AVH but endorses some anx/depression. Pt given PRN Zyprexa for anxiety. No distress noted & current needs met at this time.
[2023-04-29] MEDS: acetaminophen 325 mg Tablet 650 MG PO ×2 (04:51→14:17)
[2023-04-29 06:00] VITALS: BP 95/61; PULSE 72; RESP 17; TEMP 36.4; O2SAT 98
[2023-04-29] MEDS: OLANZapine 5 mg ODT PO ×3 (06:50→20:18)
[2023-04-29] MEDS: nicotine 21 mg Patch 1 PATCH TRANSDERMA (07:43)
[2023-04-29] MEDS: diclofenac 75 mg DR Tablet PO ×2 (07:43→18:18)
[2023-04-29] MEDS: hyDROXYzine 25 mg Capsule 50 MG PO (07:43)
[2023-04-29] MEDS: duloxetine 60 mg Capsule PO (07:44)
[2023-04-29] MEDS: gabapentin 300 mg Capsule PO ×4 (07:44→20:18)
[2023-04-29] MEDS: tizanidine 4 mg Tablet PO ×2 (08:00→18:19)
--- NOTE | 2023-04-29 11:14 | P.NPUPN_ITS ---
Subjective NPU 2 Subjective: 53-year-old female admitted with psychos is and increased confusion with recent noncompliance with her current medications just prior to her admission. Patient continues to report feeling unsafe to return home. She had described significant anxiety and significant pain issues while appearing somewhat isolative on the milieu. She had refused attendance at groups. She had not endorsed any hallucinations. She had continued to endorse depression and continued to perseverate about needing her pain medications changed from a as needed to a routine dose. She had reported having struggles with being around people and stated that she feels as if she was being judged. She showed evidence of poor ability to cope with changes and indicated that she may need help in her home situation. Mental Status Exam 2 MSE Comments: This is a a well-nourished well-developed white female in hospital scrubs on with poor grooming and poor eye contact.?She remained hypervigilant on interview and was startled upon interview. No abnormal movements except for mild psychomotor agitation.? She was cooperative with exam in mild to moderate distress.? Speech was normal in rate and volume with mild increase latency in speech. ? Mood described as stressed Affect was subdued. Thought process was linear and logical today. ? Thought content: Patient denies suicidal or homicidal ideation. There was vague paranoia but no clear delusions. She denied auditory or visual hallucinations.? Attention, concentration were intact and memory was mostly reliable but none were formally tested.? She is alert and oriented to person, place and time. Insight is feeble and judgment was limited. Her impulse control is poor. Vitals/I&O/Wt Last Vital Signs Temp 97.6 F 04/29/23 06:00 Pulse 72 04/29/23 06:00 Resp 17 04/29/23 06:00 BP 95/61 04/29/23 06:00 Pulse Ox 98 04/29/23 06:00 O2 Del Method Room Air 04/29/23 06:00 Data NPU 04/25/23 20:38 04/25/23 20:38 A&P Assessment and plan (1) Psychosis: (2) PTSD (post-traumatic stress disorder): (3) Depression: (4) Insomnia: (5) History of posttraumatic stress disorder (PTSD): Plan This is a 53-year-old white female with a previous history of psychotic disorder and significant addiction issues presents with psychosis just 3 days after her last discharge currently reporting homelessness. 1. Encourage individual, group and milieu therapy. 2. Recommend sober living treatment at the highest level of care to which the patient is willing to commit. 3. Continue q-15 minute checks for safety.? 4.? Continue Latuda, 80mg daily, continue prazosin to 4mg to target PTSD related nightmares, continue Cymbalta to 60mg daily to target depression and pain. 5.? Patient would likely benefit from CBT to treat long hx of PTSD. 6. Patient not willing to return to [facility]. Involuntary Hold Information 2 96 Hour Hold: 96 Hour Involuntary Admission: No 96 Hour Hold Ending Date: 0 08/18/19 96 Hour Hold Ending Time: 12:01 Attestations NPU 2 Medical Necessity Statement*: Inpatient hospitalization is medically necessary and the clinically appropriate intervention at this time. We will monitor and adjust medications as indicated. Her likely length of stay is 3-5 days. Coding Level of Care Code Acute Code for [facility] Diagnoses Psychosis F29 PTSD (post-traumatic stress disorder) F43.10 Depression F32.A Insomnia G47.00 History of posttraumatic stress disorder (PTSD) Z86.59
[2023-04-29 14:00] VITALS: BP 109/73; PULSE 66; RESP 16; TEMP 36.6; O2SAT 99
[2023-04-29] MEDS: lurasidone 80 mg Tablet PO (18:19)
[2023-04-29 19:53] VITALS: BP 102/70; PULSE 58; RESP 16; TEMP 36.6; O2SAT 98
[2023-04-29] MEDS: prazosin 1 mg Capsule 4 MG PO (20:18)
[2023-04-29] MEDS: phenyleph-mineral oil-petrolat Oint 28 gm 1 APPLIC TOPICAL (20:19)
[2023-04-29] MEDS: efferdent effervescent 1 EACH DENTAL (20:25)
--- NOTE | 2023-04-29 20:41 | PC.NURSE ---
Pt in room and noted to be flat & cooperative. Pt currently denies SI/HI/AVH but endorses high anxiety/depression. Pt was given PRN Zyprexa for anxiety. Pt current needs are met & no distress noted.
[2023-04-30 06:00] VITALS: BP 142/81; PULSE 83; RESP 16; TEMP 36.4; O2SAT 97
[2023-04-30] MEDS: nicotine 21 mg Patch 1 PATCH TRANSDERMA (07:26)
[2023-04-30] MEDS: gabapentin 300 mg Capsule PO ×2 (07:27→12:28)
[2023-04-30] MEDS: duloxetine 60 mg Capsule PO (07:27)
[2023-04-30] MEDS: diclofenac 75 mg DR Tablet PO (07:27)
[2023-04-30] MEDS: tizanidine 4 mg Tablet PO (07:27)
[2023-04-30] MEDS: acetaminophen 325 mg Tablet 650 MG PO (07:28)
[2023-04-30] MEDS: magnesium hydroxide 30 mL UDC PO (08:46)
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
[2023-04-30 12:42] VITALS: BP 142/81; PULSE 83; RESP 16; TEMP 36.4; O2SAT 97
== END 2023-04-30 14:25 | disposition home or self-care (01) | DRG 885 ==
LOC: ER 20:33 → NP 20:52
PROVIDERS: Admitting Provider Psychiatry & Neurology Psychiatry; Emergency Provider Emergency Medicine; PCP Family Medicine; Visit Provider Psychiatry & Neurology Psychiatry
DX: F29 Unspecified psychosis not due to a substance or known physiological condition (principal); Z59.01 Sheltered homelessness; F41.9 Anxiety disorder, unspecified; T50.996A Underdosing of other drugs, medicaments and biological substances, initial encounter; Z91.128 Patient's intentional underdosing of medication regimen for other reason; F12.90 Cannabis use, unspecified, uncomplicated; F32.A Depression, unspecified; G47.00 Insomnia, unspecified; F43.10 Post-traumatic stress disorder, unspecified
CPT/HCPCS: 36415; 80053; 80306; 80307; 85025; 97165; 97167; 99283; 99285; Q0162

== ENCOUNTER 2023-09-07 15:33 | Emergency (ER) | payer MEDICARE, MEDICAID, SELFPAY ==
[2023-09-07 15:36] VITALS: PULSE 98; RESP 18; TEMP 36.8; O2SAT 97
--- NOTE | 2023-09-07 15:51 | W.ED.PSYCHS ---
HPI - Psych General: Chief Complaint: Psychiatric Symptoms Stated Complaint: anxiety attacks Time Seen by Provider: 09/07/23 15:44 History of Present Illness: 53-year-old female with a history of anxiety who presents emergency room with worsening anxiety over the past week. She says she is taking the medication she has at home and had help in she just cannot take it anymore. She is tearful and very anxious. She has no suicidal or homicidal thoughts. Review of Systems Narrative: Constitutional symptoms: Negative except as documented in HPI. Skin symptoms: Negative except as documented in HPI. Eye symptoms: Negative except as documented in HPI. ENMT symptoms: Negative except as documented in HPI. Respiratory symptoms: Negative except as documented in HPI. Cardiovascular symptoms: Negative except as documented in HPI. Gastrointestinal symptoms: Negative except as documented in HPI. Genitourinary symptoms: Negative except as documented in HPI. Musculoskeletal symptoms: Negative except as documented in HPI. Neurologic symptoms: Negative except as documented in HPI. Psychiatric symptoms: Negative except as documented in HPI. Endocrine symptoms: Negative except as documented in HPI. PFS ED PFSH: Medical History (Updated 09/07/23 @ 15:50 by Kathy Lindo MD) Moderate episode of recurrent major depressive disorder Major depressive disorder, recurrent episode with anxious distress Psychiatric care Homicidal ideation Aggression Anxiety Social History Smoking and tobacco/nicotine status: never used tobacco/nicotine Alcohol intake: current Alcohol intake frequency: holidays/special occasions only Substance/Drug Use: current Substance/Drug use frequency: daily Physical Exam Narrative: EXAM NARRATIVE: General: Alert, no acute distress. Skin: Warm, dry. Head: Normocephalic, atraumatic. Neck: Supple, trachea midline. Eye: Extraocular movements are intact. Ears, nose, mouth and throat: mucosa moist. Cardiovascular: Regular, Normal peripheral perfusion. Respiratory: Lungs are clear to auscultation, respirations are non-labored, breath sounds are equal, Symmetrical chest wall expansion. Gastrointestinal: Soft, Nontender, Non distended Musculoskeletal: Normal ROM, no deformity. Neurological: Alert and oriented, No focal neurological deficit observed. Psychiatric: Cooperative, patient is tearful and appears quite anxious Course Vital Signs: Vital signs: Vital Signs Temperature 98.3 F 09/07/23 15:36 Pulse Rate 98 09/07/23 15:36 Respiratory Rate 18 09/07/23 15:36 Pulse Oximetry 97 09/07/23 15:36 Oxygen Delivery Me thod Room Air 09/07/23 15:36 MDM - Psych Medical Decision Making Assessment and plan: Anxiety Panic attack -2 mg IM Ativan in the emergency room - Discharged home - Discussed plan with patient. Answered any questions. - Evaluation and treatment of this problem were appropriate in the emergency setting. No radiology studies performed this visit Discharge Plan Discharge Patient Disposition: Home Clinical Impression: Anxiety Condition: Stable Prescriptions: No Action gabapentin 600 mg tablet 600 mg PO TID cyclobenzaprine 5 mg tablet 5 mg PO TID PRN budesonide-formoterol [Symbicort] 160-4.5 mcg/actuation HFA aerosol inhaler 2 puff inhalation BID prazosin 2 mg capsule 2 mg PO .q hs Qty: 30 1RF Rx Instructions: Take one capsule by mouth every night lurasidone 60 mg tablet 60 mg PO DAILY Qty: 30 1RF Rx Instructions: Take one tablet daily with at least 350 calories duloxetine 60 mg capsule,delayed release(DR/EC) 60 mg PO .q am Qty: 30 1RF Rx Instructions: Take one capsule by mouth every morning duloxetine 20 mg capsule,delayed release(DR/EC) 20 mg PO .every afternoon Qty: 30 1RF Rx Instructions: Take one capsule daily in the afternoon buspirone 10 mg tablet 10 mg PO BID Qty: 60 1RF Rx Instructions: Take one tablet morning and evening tizanidine 4 mg tablet 4 mg PO BID PRN (Reason: Muscle Spasm) 30 Days Qty: 30 1RF diclofenac sodium 75 mg tablet,delayed release (DR/EC) 75 mg PO BID PRN (Reason: pain) 30 Days Qty: 30 1RF Discharge Orders: Discharge ED (Routine); Ordered 09/07/23 Ordered By: Kathy Lindo Referrals: Héctor Christensen [Primary Care Provider] - Discharge Diet: Usual diet Discharge Activity: Increase activity as tolerated Patient Instructions: Anxiety (ED) Activity Restrictions/Additional Instructions: If you develop suicidal thoughts, or thoughts of harming yourself, or thoughts of harming others please seek medical attention immediately. Thank you for choosing [facility] for your healthcare needs today. Please realize this is an emergency room and that we are providing you with a medical screening exam and this may not be complete and all inclusive of all the testing and or work up that you may need to determine your ailment or severity of your illness. You have been screened and evaluated and felt safe for discharge. Health conditions do change or evolve sometimes and as such it is important that you follow up with your Primary Doctor to be re checked, 3-5 days is a general good time frame for follow up. You are always welcome to return to the ED for re assessment if your symptoms are worsening or you have new concerns Coding Level of Care Code ED Medical Record Technician for Shakeel Rosa
[2023-09-07] MEDS: LORazepam 2 mg/mL INJ 1 mL IM (16:07)
[2023-09-07 16:14] VITALS: BP 144/104; PULSE 98; RESP 18; O2SAT 98
--- NOTE | 2023-09-07 16:16 | PC.NURSE ---
Patient in room with friend. Pt denies si/hi. Sitter outside doorway if needed.
[2023-09-07 16:31] VITALS: BP 122/90; PULSE 97; O2SAT 97
--- NOTE | 2023-09-08 11:31 | CSC.PNEEDS_ITS ---
[facility] [place] Questions General Health Any present concerns or symptoms?: anxiety Are you diagnosed with any physical health conditions, if so what diagnosis: Yes (Sciatica nerve pain, severe muscle spasms of the back) Home Medications Medication Instructions Recorded Confirmed Last Taken Type diclofenac sodium 75 mg 75 mg PO BID PRN pain 30 days #30 04/23/23 07/02/23 04/23/23 Rx tablet,delayed release tabs tizanidine 4 mg tablet 4 mg PO BID PRN Muscle Spasm 30 04/23/23 05/04/23 04/23/23 Rx days #30 tabs gabapentin 600 mg tablet 600 mg PO TID 06/04/23 07/02/23 Unknown History budesonide-formoterol HFA 160 2 puff inhalation BID 07/02/23 07/02/23 Unknown History mcg-4.5 mcg/actuation aerosol inhaler (Symbicort) cyclobenzaprine 5 mg tablet 5 mg PO TID PRN 07/02/23 07/02/23 Unknown History buspirone 10 mg tablet 10 mg PO BID #60 tabs 08/16/23 Unknown Rx duloxetine 20 mg capsule,delayed 20 mg PO .every afternoon #30 caps 08/16/23 Unknown Rx release duloxetine 60 mg capsule,delayed 60 mg PO .q am #30 caps 08/16/23 Unknown Rx release lurasidone 60 mg tablet 60 mg PO DAILY #30 tabs 08/16/23 Unknown Rx prazosin 2 mg capsule 2 mg PO .q hs #30 caps 08/16/23 Unknown Rx Allergies Allergy/AdvReac Type Severity Reaction Status Date / Time aripiprazole Allergy Unknown Verified 06/04/23 09:47 doxycycline Allergy Unknown Verified 06/04/23 09:47 erythromycin base Allergy ADR-Vomitin Verified 06/04/23 09:47 g Tetracyclines Allergy Unknown Verified 06/04/23 09:47 Do you take medications as prescribed?: Sometimes I take them as prescribed (Patient states she does not take gabapentin as it makes her drowsy) Are you able to afford your medications?: Yes Are you experiencing any medication side effects now: No Do You Have a Primary Care Physician: Yes How often do you get a health checkup?: Once in 6 months Have You Been Hospitalized or Gone to The Emergency Room in The Last Year: Yes In the last 7 days, how much pain have you felt?: Some Current pain? Scale 1-10:: 6 Are you receiving treatment for your pain?: Yes In the past 7days, did you need help from others to perform everyday activities such as eating, getting dressed, grooming, bathing, walking, or using the toilet?: No In the past 7days, did you need help from others to take care of things such as laundry and housekeeping, banking, shopping,using the telephone, food preparation, transportation,or taking your own meds?: No Do you feel, you have physical limitations as compared to most people?: Yes How would you describe the condition of mouth & teeth, including false teeth or dentures?: Fair In general would you say your health is: Fair Do you have any weight concerns?: Yes Have you had any recent changes in your weight, are you concerned about body fat or lean muscle mass, if so: No (Patient states she needs to loose some weight) Nutrition/Activity Patterns Nutrition/Eating Patterns What nutrition concerns do you have?: Patient states she has been eating less because she needs to lose weight Do you follow a special dietary plan?: No Do you take over the counter supplements?If so, which one? and for what purpose?: No Do you tend to eat at regular or set times each day?: No Substance/Tobacco Use Do you participate in current substance abuse of any kind?If so what substance do you struggle with?: Yes (marijuana ) Have you participated in substance abuse in the last 24/48 hrs?If so, what substance and how much?: No Have You Ever [place] You Should Cut Down on Drinking or Drug Use: Yes Have People Annoyed You by Criticizing Your Drinking or Drug Use: No Have You Ever [place] Bad or Guilty About Your Drinking or Drug Use: No Have You Ever Had a Drink or Used Drugs First Thing in The Morning to Steady Your Nerves or to Get Rid of a Hangover: No Do you smoke?If so how many packs a day?: Yes (1) If you smoke, are you concerned about the potential negative impact to your health?: No Do you have desire to quit smoking?: No Have you tried to quit smoking?: Yes Are you interested in creating a smoking cession plan today?: No RAND Health Survey RAND 36 Survey In general would you say your health is: Fair Compared to one year ago, how would you rate your health in general now?: About the same The following items are about activities that you might do during a typical day. Does your health now limit you in these activities? If so, how much. During the past 4 weeks have you had any of the following problems with your work or other regular daily activities as a result of your physical health During the past 4 weeks have you had any of the following problems with your work or other regular daily activities as a result of any emotional problems - such as feeling depressed or anxious These questions are about how you feel & how things have been with you during the past 4 weeks. For each question, please give the one answer that comes closest to the way you have been feeling. How much of the time during the past 4 weeks.... How TRUE or FALSE is each of the following statements for you.1:Definitely true,2:Mostly true,3:Don't know,4:Mostly false,5:Definitely false
--- NOTE | 2023-09-08 11:33 | CSC.DSPLAN ---
CSC Discharge Plan Current SI: None Current HI: Denies any homicidal thoughts, plans, intentions, or time frames Safety Plan Completed: Yes Patient agrees with discharge safety plan: Yes Was the client admitted to [facility]?: Yes Were medication services provided during today's visit?: Yes Client Presentation upon Discharge: Patient stated that she felt less overwhelmed upon discharge. Patient appeared to be in a better state. Current Progress Towards Recovery and Well-Being: Patient will bring in her pill finished goods planner weekly and nurse will assist in filling this until we can get her set up with a local pharmacy that bubble packs medications. Continued Treatment Barriers: No transportation Services referred from Center: Other Local/State Community Services (Local pharmacy referral for bubble packing medications) Care Provided-Services the individual received: Crisis Services [facility] Outcome: Crisis Stabilized CSC Discharge Disposition/Location: Home/Residence Care Coordination Agencies Referred to:: Other (Local pharmacy referral for bubble packing medications)
--- NOTE | 2023-09-08 11:46 | W.CSC.NURCN ---
[facility] Nurse Contact Note Nurse Contact Note Patient presented to [facility] with anxiety and stated she needed assistance with her medications. Patient states that she has Medicaid and has her medications delivered straight to her door via mail as she does not have transportation. Patient gave nurse a box of prescription medications. There was roughly 12 bottles of Gabapentin. Patient states that she does not have take that as prescribed because it makes her drowsy, nurse encouraged patient to speak with her PCP regarding this. [facility] Heating Equipment Repairer purchased a pill environmental restoration planner for patient, nurse received current medication list from [facility] and filled pill environmental restoration planner. Spoke with patient about a local pharmacy that could bubble pack her medications, she stated that she would prefer this. Nurse and Heating Equipment Repairer will look into getting this set up for patient. All medications and discontinued medications were disposed of in drug best within the hospital, patient was in agreeance with this.
== END 2023-09-07 16:31 | disposition home or self-care (01) ==
PROVIDERS: Emergency Provider Emergency Medicine; PCP Family Medicine
DX: F41.9 Anxiety disorder, unspecified (principal)
CPT/HCPCS: 96372; 99284; J2060

== ENCOUNTER 2023-09-11 16:43 | Emergency (ER) | payer MEDICARE, MEDICAID, SELFPAY ==
[2023-09-11 16:47] VITALS: BP 167/99; PULSE 90; RESP 17; TEMP 36.6; O2SAT 95; BMI 29.0
--- NOTE | 2023-09-11 17:10 | ED.C_ITS ---
HPI - Psych 2 General: Chief Complaint: Psychiatric Symptoms Stated Complaint: SI, MHE Time Seen by Provider: 09/11/23 16:57 Source: patient Mode of arrival: ambulatory Limitations: no limitations History of Present Illness: Patient is a 53-year-old female presents to ED today with a complaint of anxiety. Patient states that she has pain all over . She states this is chronic from multiple past traumas. She also states she has a history of rheumatoid arthritis. She states her chronic pain makes her very anxious. She states she does see [facility] and is on buspirone for her anxiety but states this is not helping. Patient wanting help for her anxiety and chronic pain. She states she is not suicidal or homicidal. She states she was dropped off at the ED by her neighbors who are waiting for her in the parking lot. She does not want to go to [facility]. She states she lives alone with her dog and wants to get home. complaint: other (anxiety) Duration: constant History of same: Yes Associated symptoms: Deny auditory hallucinations, visual hallucinations, depression, homicidal ideation or suicidal ideation Treatments prior to arrival: none Review of Systems 2 Const: Denies: fever(s) or chills Card: Denies: chest pain, palpitations, lightheadedness or syncope Resp: Denies: dyspnea GI: Denies: abdominal pain, nausea, vomiting or diarrhea Skin/Breast: Denies: rash Neuro: Denies: headache(s) Psych: Reports: anxiety and difficulty concentrating; Denies: depression, visual hallucinations, auditory hallucinations, suicidal ideation or homicidal ideation [facility] ED 2 PFSH: Medical History Chronic pain Moderate episode of recurrent major depressive disorder Major depressive disorder, recurrent episode with anxious distress Psychiatric care Homicidal ideation Aggression Anxiety Social History Smoking and tobacco/nicotine status: never used tobacco/nicotine Alcohol intake: current Alcohol intake frequency: holidays/special occasions only Substance/Drug Use: current Substance/Drug use frequency: daily Physical Exam 2 Const: COMMON NORMALS: average body habitus, patient oriented x3, alert and well nourished GENERAL APPEARANCE: cooperative OTHER: patient's speech is somewhat tangential HENMT: COMMON NORMALS: normocephalic and atraumatic HEAD & SCALP: n ormocephalic and atraumatic Resp: COMMON NORMALS: normal respiratory effort and clear to auscultation bilaterally AUSCULTATION: clear to auscultation bilaterally Cardio: COMMON NORMALS: regular rate and regular rhythm RATE: regular rate RHYTHM: regular rhythm Neuro: COMMON NORMALS: patient oriented x3 SENSORIUM/ORIENTATION: Yes alert Psych: COMMON NORMALS: cooperative, activity/motor behavior normal, denies hallucinations, denies homicidal ideation and denies suicidal ideation A PPEARANCE: Yes disheveled ATTITUDE: Yes calm ACTIVITY/MOTOR BEHAVIOR: Yes appropriate eye contact SPEECH: Yes slow and Yes soft MOOD & AFFECT: Yes euthymic mood THOUGHT PROCESS: Tangential thought process present THOUGHT CONTENT: Yes Normal thought content present INSIGHT: Fair insight present (Psych) JUDGEMENT: Fair judgement present (Psych) Course 2 Vital Signs: Vital signs: Vital Signs Temperature 97.9 F 09/11/23 16:47 Pulse Rate 90 09/11/23 16:47 Respiratory Rate 17 09/11/23 16:47 Blood Pressure 167/99 09/11/23 16:47 Pulse Oximetry 95 09/11/23 16:47 Oxygen Delivery Me thod Room Air 09/11/23 16:47 MDM - Psych Medical Decision Making Patient here for anxiety and chronic pain. She is not suicidal or homicidal. She does not want to be admitted to [facility]. She states she wants to go home. She believes she has a [facility] appointment this week. I did check her future appointments and it does appear she has an appointment on 09/12 at 1500. She was encouraged to attend this appointment. Return to ED precautions given. Medical Records I reviewed the patient's medical records. Lab Data I reviewed the patient's lab results. 09/11/23 17:11 09/11/23 17:11 Laboratory Results WBC 12.13 10^3/uL (3.29-11.43) H 09/11/23 17:11 RBC 4.94 10^6/uL (3.85-5.65) 09/11/23 17:11 Hgb 15.60 g/dL (11.27-16.99) 09/11/23 17:11 Hct 47.0 % (36-47) 09/11/23 17:11 MCV 95.1 fl (85-98) 09/11/23 17:11 MCH 31.6 pg (27-33) 09/11/23 17:11 MCHC 33.2 g/dL (30-55) 09/11/23 17:11 RDW 13.0 % (12.1-15.1) 09/11/23 17:11 Plt Count 256 10^3/cmm (157-399) 09/11/23 17:11 MPV 10.0 fL (7.4-10.4) 09/11/23 17:11 Neut % (Auto) 69.7 % 09/11/23 17:11 Lymph % (Auto) 21.7 % 09/11/23 17:11 Eaton % (Auto) 7.2 % 09/11/23 17:11 Eos % (Auto) 0.9 % 09/11/23 17:11 Baso % (Auto) 0.3 % 09/11/23 17:11 Neut # (Auto) 8.46 10^3/uL (1.8-7.7) H 09/11/23 17:11 Lymph # (Auto) 2.6 10^3/uL (0.8-4.8) 09/11/23 17:11 Eaton # (Auto) 0.9 10^3/uL (0.2-0.9) 09/11/23 17:11 Eos # (Auto) 0.1 10^3/uL (0.0-0.8) 09/11/23 17:11 Baso # (Auto) 0.0 10^3/uL (0.0-0.1) 09/11/23 17:11 Nucleated RBC % (auto) 0 % 09/11/23 17:11 Nucleated RBCs # 0.0 /100WBC 09/11/23 17:11 Sodium 141 mmol/L (136-145) 09/11/23 17:11 Potassium 3.9 mmol/L (3.5-5.1) 09/11/23 17:11 Chloride 105 mmol/L (98-107) 09/11/23 17:11 Carbon Dioxide 20 mmol/L (22-29) L 09/11/23 17:11 Anion Gap 19.9 (5-19) H 09/11/23 17:11 BUN 13 mg/dL (6-20) 09/11/23 17:11 Creatinine 0.7 mg/dL (0.5-0.9) 09/11/23 17:11 GFR Calculation 88.2 mL/min (90-130) L 09/11/23 17:11 Glucose 102 mg/dL (65-115) 09/11/23 17:11 Calculated Osmolality 292 mOsm/kg (285-295) 09/11/23 17:11 Calcium 10.2 mg/dL (8.5-10.5) 09/11/23 17:11 Total Bilirubin 0.4 mg/dL (0.15-1.2) 09/11/23 17:11 AST 35 U/L (0-32) H 09/11/23 17:11 ALT 72 U/L (0-33) H 09/11/23 17:11 Alkaline Phosphatase 95 U/L (35-105) 09/11/23 17:11 Total Protein 7.6 g/dL (6.6-8.7) 09/11/23 17:11 Albumin 4.8 g/dL (3.5-5.2) 09/11/23 17:11 Globulin 2.8 g/dL (1.3-4.6) 09/11/23 17:11 Salicylates < 0.3 mg/dL (3-10) L 09/11/23 17:11 Urine Opiates Screen Negative ng/mL (Negative) 09/11/23 17:00 Acetaminophen < 5.0 ug/mL (10-30) L 09/11/23 17:11 Ur Barbiturates Screen Negative ng/mL (Negative) 09/11/23 17:00 Ur Phencyclidine Scrn Negative ng/mL (Negative) 09/11/23 17:00 Ur Amphetamines Screen Negative ng/mL (Negative) 09/11/23 17:00 U Benzodiazepines Scrn Negative ng/mL (Negative) 09/11/23 17:00 Urine Cocaine Screen Negative ng/mL (Negative) 09/11/23 17:00 U Marijuana (THC) Screen Positive ng/mL (Negative) H 09/11/23 17:00 Ethyl Alcohol < 10 mg/dL (0-10) 09/11/23 17:11 No radiology studies performed this visit Discharge Plan Discharge Patient Disposition: Home Clinical Impression: Chronic neuropathic pain, Fibromyalgia, Anxiety Condition: Stable Prescriptions: No Action gabapentin 600 mg tablet 600 mg PO TID cyclobenzaprine 5 mg tablet 5 mg PO TID PRN budesonide-formoterol [Symbicort] 160-4.5 mcg/actuation HFA aerosol inhaler 2 puff inhalation BID buspirone 10 mg tablet 10 mg PO BID prazosin 2 mg capsule 2 mg PO .Nightly Rx Instructions: Take 1 capsule by mouth at bedtime every night duloxetine 60 mg capsule,delayed release(DR/EC) 60 mg PO .Every morning Rx Instructions: Take 1 capsule by mouth every morning with the 20 mg dose lurasidone 60 mg tablet 60 mg PO DAILY Rx Instructions: Take 1 tablet once daily with food or snack (at least 350 calories) duloxetine 20 mg capsule,delayed release(DR/EC) 20 mg PO .Every afternoon Rx Instructions: Take 1 capsule by mouth every afternoon tizanidine 4 mg tablet 4 mg PO BID PRN (Reason: Muscle Spasm) 30 Days Qty: 30 1RF diclofenac sodium 75 mg tablet,delayed release (DR/EC) 75 mg PO BID PRN (Reason: pain) 30 Days Qty: 30 1RF Discharge Orders: Discharge ED (Routine); Ordered 09/11/23 Ordered By: Dixie Culver Referrals: Héctor Christensen [Primary Care Provider] - Activity Restrictions/Additional Instructions: It looks like you have a [facility] appointment scheduled for September 12 at 3 PM. Please double check this with what you have on your calendar. Make sure you attend this appointment. Coding Level of Care Code ED Database Administration Manager for Shakeel Rosa
[2023-09-11 17:17] LABS: Basophils % 0.3 %; Eosinophils # 0.1 10^3/uL (0.0-0.8); Eosinophils % 0.9 %; Lymphocytes # 2.6 10^3/uL (0.8-4.8); Lymphocytes % 21.7 %; Mean Corpuscular HGB Conc 33.2 g/dL (30-55); Mean Corpuscular Hemoglobin 31.6 pg (27-33); Mean Corpuscular Volume 95.1 fl (85-98); Monocytes # 0.9 10^3/uL (0.2-0.9); Monocytes % 7.2 %; Neutrophils # 8.46 10^3/uL (1.8-7.7); Neutrophils % 69.7 %; Nucleated Red Blood Cells % 0 %; Platelet Count 256 10^3/cmm (157-399); Red Blood Count 4.94 10^6/uL (3.85-5.65); White Blood Count 12.13 10^3/uL (3.29-11.43)
[2023-09-11 17:28] LABS: Amphetamines Screen Urine Negative (Negative); Barbiturates Screen Urine Negative (Negative); Benzodiazepines Screen Urine Negative (Negative); Cocaine Screen Urine Negative (Negative); Opiate Screen Urine Negative (Negative); PCP Screen Urine Negative (Negative); THC Screen Urine Positive (Negative)
[2023-09-11 17:36] LABS: Alanine Aminotransferase 72 U/L (0-33); Albumin Level 4.8 g/dL (3.5-5.2); Alkaline Phosphatase 95 U/L (35-105); Aspartate Amino Transferase 35 U/L (0-32); Blood Urea Nitrogen 13 mg/dL (6-20); Calcium 10.2 mg/dL (8.5-10.5); Carbon Dioxide 20 mmol/L (22-29); Chloride 105 mmol/L (98-107); Creatinine Clr Calc Pharmacy 102.4259; Globulin 2.8 g/dL (1.3-4.6); Glomerular Filtration Rate 88.2 mL/min (90-130); Glucose 102 mg/dL (65-115); Osmolality Calculated 292 mOsm/kg (285-295); Sodium 141 mmol/L (136-145); Total Bilirubin 0.4 mg/dL (0.15-1.2); Total Protein 7.6 g/dL (6.6-8.7)
[2023-09-11 17:38] LABS: Acetaminophen < 5.0 ug/mL (10-30); Alcohol Level < 10 mg/dL (0-10); Anion Gap 19.9 (5-19); Potassium 3.9 mmol/L (3.5-5.1); Salicylate < 0.3 mg/dL (3-10)
[2023-09-11] MEDS: LORazepam 1 mg Tablet PO (17:41)
== END 2023-09-11 18:14 | disposition home or self-care (01) ==
PROVIDERS: Emergency Provider Physician Assistant; PCP Family Medicine
DX: G62.9 Polyneuropathy, unspecified (principal); M79.7 Fibromyalgia; F41.9 Anxiety disorder, unspecified
CPT/HCPCS: 80053; 80306; 80307; 85025; 99283

== ENCOUNTER 2023-09-28 10:16 | Outpatient (CLI) | payer MEDICARE, OTHER, SELFPAY ==
[2023-09-28 11:08] LABS: Basophils % 0.4 %; Eosinophils # 0.1 10^3/uL (0.0-0.8); Eosinophils % 1.7 %; Hematocrit 43.4 % (36-47); Lymphocytes # 2.7 10^3/uL (0.8-4.8); Lymphocytes % 35.7 %; Mean Corpuscular HGB Conc 32.3 g/dL (30-55); Mean Corpuscular Hemoglobin 31.9 pg (27-33); Mean Corpuscular Volume 98.9 fl (85-98); Mean Platelet Volume 10.2 fL (7.4-10.4); Monocytes # 0.4 10^3/uL (0.2-0.9); Monocytes % 5.9 %; Neutrophils # 4.16 10^3/uL (1.8-7.7); Nucleated Red Blood Cells % 0 %; Platelet Count 193 10^3/cmm (157-399); Red Blood Count 4.39 10^6/uL (3.85-5.65); Red Cell Distribution Width 13.2 % (12.1-15.1); White Blood Count 7.43 10^3/uL (3.29-11.43)
[2023-09-28 11:15] LABS: Erythrocyte Sedimentation Rate 15 mm/hr (0-15)
[2023-09-28 11:38] LABS: Chol HDL Ratio 5.79 mg/dL (0.0-4.40); Cholesterol 220 mg/dL (0-200); Gamma Glutamyl Transferase 20 U/L (5-36); HDL Cholesterol 38 mg/dL (60-100); LDL Cholesterol Calculated 143 mg/dL (50-129); LDL HDL Ratio 3.76 RATIO (0.00-3.22); Thyroid Stimulating Hormone 0.98 uIU/mL (0.27-4.20); Triglycerides 194 mg/dL (0-150)
[2023-09-28 11:48] LABS: Hepatitis A Antibody IgM Non-Reactive (Nonreactive); Hepatitis B Core IgM Non-Reactive (Nonreactive); Hepatitis B Surface Antigen Non-Reactive (Nonreactive)
[2023-09-28 12:06] LABS: Free T4 Free Thyroxine 1.15 ng/dL (0.82-1.77)
[2023-09-28 13:04] LABS: Hepatitis C Virus Antibody Reactive (Nonreactive)
[2023-09-29 14:54] LABS: Cyclic Citrullinated Peptide <16 UNITS
[2023-09-30 15:44] LABS: HEP C RNA Viral Load Quant <1.18 NOT DETECTED Log IU/mL (NOT DETECTED); HEP C RNA Viral Load Quant <15 NOT DETECTED IU/mL (NOT DETECTED)
== END 2023-09-28 10:17 | disposition home or self-care (01) ==
LOC: LAB 10:20
PROVIDERS: PCP Family Medicine; Visit Provider Family Medicine
DX: M06.9 Rheumatoid arthritis, unspecified (principal); E78.5 Hyperlipidemia, unspecified; B19.20 Unspecified viral hepatitis C without hepatic coma
CPT/HCPCS: 36415; 80061; 80074; 82977; 84439; 84443; 85025; 85651; 86140; 86200; 86431; 87522

== ENCOUNTER 2023-10-26 11:39 | Outpatient (CLI) | payer MEDICARE, MEDICAID, SELFPAY ==
[2023-10-26 12:30] LABS: Estmated Average Glucose 111; Hemoglobin A1C 5.5 % (4.0-6.0)
== END 2023-10-26 11:40 | disposition home or self-care (01) ==
LOC: LAB 11:42
PROVIDERS: Visit Provider Psychiatry & Neurology Psychiatry
DX: F43.10 Post-traumatic stress disorder, unspecified (principal); F41.1 Generalized anxiety disorder; F33.9 Major depressive disorder, recurrent, unspecified
CPT/HCPCS: 36415; 83036

== ENCOUNTER 2024-12-27 20:17 | Inpatient (IN) | payer MEDICARE, MEDICAID, SELFPAY ==
[2023-11-10 08:49] VITALS: BP 106/80; BMI 28.9
--- OUTSIDE RECORDS SUMMARY | 2023-12-04 03:00 | XMS_ITS ---
Author Organization [facility] Address [address] [place] [address] Care Team Providers Care Certification Engineer Name Role Phone Tee Morgan MD Primary Care Provider Unavailabl Aurora Krause Unavailable [phone] Migration, Provider Unavailable Unavailable REASON FOR VISIT EMR-[facility] Encounters Encounter Location Date Provider Diagnosis Migrated_Facility 0 0 12/04/2023 Provider Migration Plan Of Treatment No Information Progress Notes * Annemarie VILLARREAL LDOB:1970 (54 yo F)Acc No.[id number]:12/04/2023 Patient: Flori TRUJILLORATNA Annemarie Padilla :1970 A ge:53 Y S ex:Female Address:[place] [address] Subjective: * Chief Complaints: * E MR-Freddy * * Date:
--- OUTSIDE RECORDS SUMMARY | 2023-12-05 03:00 | XMS_ITS ---
Author Organization [facility] Address [address] [place] [address] Care Team Providers Care Retail Coverage Merchandiser Name Role Phone Tee Morgan MD Primary Care Provider Unavailabl Aurora Krause Unavailable [phone] Migration, Provider Unavailable Unavailable Allergies Allergen (clinical drug ingredient) Drug/Non Drug Allergy documented on EMR Reaction Allergy Type Onset Date Status erythromycin Erythromycin Base N&V, Rash Drug Allergy Active doxycycline Doxycycline N&V, Rash Drug Allergy Act emily tetracycline Tetracycline N&V, Rash Drug Allergy A ctive REASON FOR VISIT EMR-Freddy Medications Medication SIG (Take, Route, Frequency, Duration) Notes Start Date End Date Status Meloxicam *[facility]* Active Voltaren *[facility]* Active Gabapentin *[facility]* Active Aleve *Pick strength[facility]f [facility]m from [facility]* Active Social History Social History Additional Details Category Social Info Options Details Migrated Social History Migrated Social History Alcoholic beverages? - Yes, Currently on disability? - Yes, If yes, frequency of alcoholic beverages - 2-3 drinks per week, Marital Status - , Nonprescription drug use? - Yes : Marijuana, Smoking - 1 PPD, Smoking status (MU) - Current every day smoker, Working currently? - No Encounters Encounter Location Date Provider Diagnosis Migrated_Facility 0 0 12/05/2023 Provider Migration Plan Of Treatment No Information Progress Notes * Annemarie VILLARREAL LDOB:1970 (54 yo F)Acc No.[id number]:12/05/2023 Patient: Annemarie ZELAYA :1970 A ge:53 Y S ex:Female Address:[facility] [place] [address] Subjective: * Chief Complaints: * E MR-Freddy * Surgical History: Arm surgery Gallbladder surgery Partial Hysterectomy * Social History: M igrated Social History: M igrated Social History: Alcoholic beverages? - Yes, C urrently on disability? - Yes, I f yes, frequency of alcoholic beverages - 2-3 drinks per week, M arital Status - , N onprescription drug use? - Yes : Marijuana, S moking - 1 PPD, S moking status (MU) - Current every day smoker, W orking currently? - No. * Medications: T akingVoltaren , Notes to Pharmacist: *Pick strength-form from [facility] for eRX*Gabapentin , Notes to Pharmacist: *Pick strength-form from [facility] for eRX*Aleve , Notes to Pharmacist: *Pick strength-form from [facility] for eRX*Meloxicam , Notes to Pharmacist: *Pick strength-form from [facility] for eRX*Taking Voltaren , Notes to Pharmacist: *Pick strength-form from [facility] for eRX*Taking Gabapentin , Notes to Pharmacist: *Pick strength-form from [facility] for eRX*Taking Aleve , Notes to Pharmacist: *Pick strength-form from [facility] for eRX*Taking Meloxicam , Notes to Pharmacist: *Pick strength-form from [facility] for eRX* * Allergies: E rythromycin Base: N&V, Rash - AllergyDoxycycline: N&V, Rash - AllergyTetracycline: N&V, Rash - Allergy * * Date:
[2024-12-27 20:18] VITALS: BP 138/83; PULSE 96; RESP 16; TEMP 36.5; O2SAT 95; BMI 28.2
--- OUTSIDE RECORDS SUMMARY | 2024-12-27 20:24 | XMS_ITS | Encounter Summary ---
Author Organization [facility] Address [address] [place] [address] Care Team Providers Care Heel Builder Name Role Phone Non-Staff, Physician Primary Care Provider Unava ilable Encounter Details Date Type Department Care Team (Latest Contact Info) Description 10/10/2002 Outpatient Historical [facility] Medicine [address] [phone] Aiden Alvarez DO NO ADDRESS ON FILE STOMATITIS (Primary Dx) Social History Tobacco Use Types Packs/Day Years Used Date Smoking Tobacco: Never Assessed Comments Unknown Sex and Gender Information Value Date Recorded Sex Assigned at Not on file Legal Sex Female 3:53 AM AUTOMOTIVE SERVICE CONSULTANT Gender Identity Not on file Sexual Orientation Not on file documented as of this encounter Plan of Treatment Not on file documented as of this encounter Visit Diagnoses Diagnosis Stomatitis and mucositis (ulcerative)- Primary documented in this encounter Care Teams Heel Builder Relationship Specialty Start Date End Date Non-Staff, Physician NO ADDRESS ON FILE PCP - General 10/08/17 documented as of this encounter
--- OUTSIDE RECORDS SUMMARY | 2024-12-27 20:24 | XMS_ITS | Encounter Summary ---
Author Organization [facility] Address [address] [place] [address] Care Team Providers Care Tube Maker Name Role Phone Non-Staff, Physician Primary Care Provider Unava ilable Encounter Details Date Type Department Care Team (Latest Contact Info) Description 01/08/2003 Outpatient Historical [address] [phone] Perez Carlton MD [address] [phone] ACUTE URI NOS (Primary Dx); ARTHROPATHY NEC-UNSPEC Social History Tobacco Use Types Packs/Day Years Used Date Smoking Tobacco: Never Assessed Comments Unknown Sex and Gender Information Value Date Recorded Sex Assigned at Not on file Legal Sex Female 3:53 AM SEA KAYAKING GUIDE Gender Identity Not on file Sexual Orientation Not on file documented as of this encounter Plan of Treatment Not on file documented as of this encounter Visit Diagnoses Diagnosis Acute upper respiratory infections of unspecified site- Primary Other specified arthropathy, site unspecified documented in this encounter Care Teams Tube Maker Relationship Specialty Start Date End Date Non-Staff, Physician NO ADDRESS ON FILE PCP - General 10/08/17 documented as of this encounter
--- OUTSIDE RECORDS SUMMARY | 2024-12-27 20:24 | XMS_ITS | Encounter Summary ---
Author Organization [facility] Address [address] [facility] [place] [address] Care Team Providers Care Forest Manager Name Role Phone Non-Staff, Physician Primary Care Provider Unava ilable Encounter Details Date Type Department Care Team (Latest Contact Info) Description 07/14/[address] [facility] Family Medicine- [place] [address] [place], [place] [phone] Aiden Alvarez DO NO ADDRESS ON FILE Dermatitis due to plant (Primary Dx) Social History Tobacco Use Types Packs/Day Years Used Date Smoking Tobacco: Never Assessed Comments Unknown Sex and Gender Information Value Date Recorded Sex Assigned at Not on file Legal Sex Female 3:53 AM INSURANCE SALESMAN Gender Identity Not on file Sexual Orientation Not on file documented as of this encounter Plan of Treatment Not on file documented as of this encounter Visit Diagnoses Diagnosis Dermatitis due to plant- Primary Contact dermatitis and other eczema due to plants (except food) documented in this encounter Care Teams Forest Manager Relationship Specialty Start Date End Date Non-Staff, Physician NO ADDRESS ON FILE PCP - General 10/08/17 documented as of this encounter
--- OUTSIDE RECORDS SUMMARY | 2024-12-27 20:24 | XMS_ITS | Encounter Summary ---
Author Organization [facility] Address [address] [place] [address] Care Team Providers Care Evening Sitter Name Role Phone Non-Staff, Physician Primary Care Provider Unava ilable Encounter Details Date Type Department Care Team (Latest Contact Info) Description 11/29/2002 Outpatient Historical [facility]- [address] [phone] Perez Carlton MD [address] [phone] MYALGIA AND MYOSITIS NOS (Primary Dx) Social History Tobacco Use Types Packs/Day Years Used Date Smoking Tobacco: Never Assessed Comments Unknown Sex and Gender Information Value Date Recorded Sex Assigned at Not on file Legal Sex Female 3:53 AM DARKLIGHT INSPECTOR Gender Identity Not on file Sexual Orientation Not on file documented as of this encounter Plan of Treatment Not on file documented as of this encounter Visit Diagnoses Diagnosis Myalgia and myositis, unspecified- Primary Mylagia and myositis, unspecified documented in this encounter Care Teams Evening Sitter Relationship Specialty Start Date End Date Non-Staff, Physician NO ADDRESS ON FILE PCP - General 10/08/17 documented as of this encounter
--- OUTSIDE RECORDS SUMMARY | 2024-12-27 20:24 | XMS_ITS | Encounter Summary ---
Author Organization [facility] Address [address] [place] [address] Care Team Providers Care Thermostat Machine Tender Name Role Phone Non-Staff, Physician Primary Care Provider Unava ilable Encounter Details Date Type Department Care Team (Latest Contact Info) Description 10/01/1998 Outpatient Historical [facility] Medicine [place] [address] [facility] [address] [place] [phone] Perez Carlton MD [address] [facility] [address] [place] [address] Enlargement of lymph nodes (Primary Dx); Abnormal loss of weight Social History Tobacco Use Types Packs/Day Years Used Date Smoking Tobacco: Never Assessed Comments Unknown Sex and Gender Information Value Date Recorded Sex Assigned at Not on file Legal Sex Female 3:53 AM BRANCH RETAIL EXECUTIVE Gender Identity Not on file Sexual Orientation Not on file documented as of this encounter Plan of Treatment Not on file documented as of this encounter Visit Diagnoses Diagnosis Enlargement of lymph nodes- Primary Abnormal loss of weight Abnormal loss of weight and underweight documented in this encounter Care Teams Thermostat Machine Tender Relationship Specialty Start Date End Date Non-Staff, Physician NO ADDRESS ON FILE PCP - General 10/08/17 documented as of this encounter
--- OUTSIDE RECORDS SUMMARY | 2024-12-27 20:24 | XMS_ITS | Encounter Summary ---
Author Organization [facility] Address [address] [place] [address] Care Team Providers Care Wild Animal Caretaker Name Role Phone Non-Staff, Physician Primary Care Provider Unava ilable Encounter Details Date Type Department Care Team (Latest Contact Info) Description 11/14/2002 Outpatient Historical [facility]- [address] [phone] Perez Carlton MD [address] [phone] MYALGIA AND MYOSITIS NOS (Primary Dx); CLASS MIGRAIN W/O MENTN INTRACTABLE Social History Tobacco Use Types Packs/Day Years Used Date Smoking Tobacco: Never Assessed Comments Unknown Sex and Gender Information Value Date Recorded Sex Assigned at Not on file Legal Sex Female 3:53 AM COPY LATHE TENDER Gender Identity Not on file Sexual Orientation Not on file documented as of this encounter Plan of Treatment Not on file documented as of this encounter Visit Diagnoses Diagnosis Myalgia and myositis, unspecified- Primary Mylagia and myositis, unspecified Migraine with aura, without mention of intractable migraine without mention of status migrainosus documented in this encounter Care Teams Wild Animal Caretaker Relationship Specialty Start Date End Date Non-Staff, Physician NO ADDRESS ON FILE PCP - General 10/08/17 documented as of this encounter
--- OUTSIDE RECORDS SUMMARY | 2024-12-27 20:24 | XMS_ITS | Encounter Summary ---
Author Organization [facility] Address [address] [place] [address] Care Team Providers Care Kitman Name Role Phone Non-Staff, Physician Primary Care Provider Unava ilable Encounter Details Date Type Department Care Team (Latest Contact Info) Description 10/02/2002 Outpatient Historical [facility] Medicine [address] [address] Aiden Alvarez DO NO ADDRESS ON FILE STOMATITIS (Primary Dx); ACUTE SINUSITIS NOS Social History Tobacco Use Types Packs/Day Years Used Date Smoking Tobacco: Never Assessed Comments Unknown Sex and Gender Information Value Date Recorded Sex Assigned at Not on file Legal Sex Female 3:53 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
--- OUTSIDE RECORDS SUMMARY | 2024-12-27 20:24 | XMS_ITS | Encounter Summary ---
Author Organization [facility] Address [address] [place] [address] Care Team Providers Care Fire Management Officer Name Role Phone Non-Staff, Physician Primary Care Provider Unava ilable Encounter Details Date Type Department Care Team (Latest Contact Info) Description 09/27/2002 Outpatient Historical [facility] Medicine [address] [phone] Aiden Alvarez, NO ADDRESS ON FILE ACUTE SINUSITIS NOS (Primary Dx) Social History Tobacco Use Types Packs/Day Years Used Date Smoking Tobacco: Never Assessed Comments Unknown Sex and Gender Information Value Date Recorded Sex Assigned at Not on file Legal Sex Female 3:53 AM RECRUITMENT INTERNSHIP Gender Identity Not on file Sexual Orientation Not on file documented as of this encounter Plan of Treatment Not on file documented as of this encounter Visit Diagnoses Diagnosis Acute sinusitis, unspecified- Primary documented in this encounter Care Teams Fire Management Officer Relationship Specialty Start Date End Date Non-Staff, Physician NO ADDRESS ON FILE PCP - General 10/08/17 documented as of this encounter
--- OUTSIDE RECORDS SUMMARY | 2024-12-27 20:24 | XMS_ITS | Encounter Summary ---
Author Organization [facility] Address [address] [place] [address] Care Team Providers Care Business Operations Consultant Name Role Phone Non-Staff, Physician Primary Care Provider Unava ilable Encounter Details Date Type Department Care Team (Latest Contact Info) Description 01/03/2003 Outpatient Historical [facility] Rheumatology- [place] Dustin Perlita [address] [place] [phone] Gloria Pulido MD NO ADDRESS ON FILE RHEUMATISM NOS (Primary Dx); JOINT PAIN-MULT JTS; MYALGIA AND MYOSITIS NOS Social History Tobacco Use Types Packs/Day Years Used Date Smoking Tobacco: Never Assessed Comments Unknown Sex and Gender Information Value Date Recorded Sex Assigned at Not on file 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
--- OUTSIDE RECORDS SUMMARY | 2024-12-27 20:24 | XMS_ITS | Encounter Summary ---
Author Organization [facility] Address [address] [place] [address] Care Team Providers Care Line Assembler Name Role Phone Non-Staff, Physician Primary Care Provider Unava ilable Encounter Details Date Type Department Care Team (Late st Contact Info) Description 01/03/2003 Outpatient Historical 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
--- OUTSIDE RECORDS SUMMARY | 2024-12-27 20:24 | XMS_ITS | Encounter Summary ---
Author Organization [facility] Address [address] [place] [address] Care Team Providers Care Local Intermodal Truck Driver Name Role Phone Non-Staff, Physician Primary Care Provider Unava ilable Encounter Details Date Type Department Care Team (Latest Contact Info) Description 07/17/2002 Outpatient Historical [address] [phone] Perez Carlton MD [address] [phone] MYALGIA AND MYOSITIS NOS (Primary Dx) Social History Tobacco Use Types Packs/Day Years Used Date Smoking Tobacco: Never Assessed Comments Unknown Sex and Gender Information Value Date Recorded Sex Assigned at Not on file 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
--- OUTSIDE RECORDS SUMMARY | 2024-12-27 20:24 | XMS_ITS | Encounter Summary ---
Author Organization [facility] Address [address] [place] [address] Care Team Providers Care Diesel Inspector Name Role Phone Non-Staff, Physician Primary Care Provider Unava ilable Encounter Details Date Type Department Care Team (Latest Contact Info) Description 02/19/2003 Outpatient Historical [facility] Medicine [address] [place] [phone] Perez Carlton MD [address] [facility] [address] [place] [phone] MYALGIA AND MYOSITIS NOS (Primary Dx) Social History Tobacco Use Types Packs/Day Years Used Date Smoking Tobacco: Never Assessed Comments Unknown Sex and Gender Information Value Date Recorded Sex Assigned at Not on file 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
--- OUTSIDE RECORDS SUMMARY | 2024-12-27 20:24 | XMS_ITS | Encounter Summary ---
Author Organization [facility] Address [address] [place] [address] Care Team Providers Care Senior Project Accountant Name Role Phone Non-Staff, Physician Primary Care Provider Unava ilable Encounter Details Date Type Department Care Team (Late st Contact Info) Description 01/12/2003 Outpatient Historical [facility] Gloria Pulido MD NO ADDRESS ON FILE Social History Tobacco Use Types Packs/Day Years Used Date Smoking Tobacco: Never Assessed Comments Unknown Sex and Gender Information Value Date Recorded Sex Assigned at Not on file Legal Sex Female 3:53 AM GAS PLANT SPECIALIST Gender Identity Not on file Sexual Orientation Not on file documented as of this encounter Plan of Treatment Not on file documented as of this encounter Visit Diagnoses Not on filedocumented in this encounter Care Teams Senior Project Accountant Relationship Specialty Start Date End Date Non-Staff, Physician NO ADDRESS ON FILE PCP - General 10/08/17 documented as of this encounter
--- OUTSIDE RECORDS SUMMARY | 2024-12-27 20:24 | XMS_ITS | Encounter Summary ---
Author Organization [facility] Address [address] [place] [address] Care Team Providers Care Grain Miller Helper Name Role Phone Non-Staff, Physician Primary Care Provider Unava ilable Encounter Details Date Type Department Care Team (Latest Contact Info) Description 09/25/2002 Outpatient Historical [facility] Family Medicine- [place] [address] [place] [phone] Aiden Alvarez DO NO ADDRESS ON FILE ACUTE SINUSITIS NOS (Primary Dx) Social History Tobacco Use Types Packs/Day Years Used Date Smoking Tobacco: Never Assessed Comments Unknown Sex and Gender Information Value Date Recorded Sex Assigned at Not on file Legal Sex Female 3:53 AM FLOOR SPECIALIST Gender Identity Not on file Sexual Orientation Not on file documented as of this encounter Plan of Treatment Not on file documented as of this encounter Visit Diagnoses Diagnosis Acute sinusitis, unspecified- Primary documented in this encounter Care Teams Grain Miller Helper Relationship Specialty Start Date End Date Non-Staff, Physician NO ADDRESS ON FILE PCP - General 10/08/17 documented as of this encounter
--- OUTSIDE RECORDS SUMMARY | 2024-12-27 20:24 | XMS_ITS | Encounter Summary ---
Author Organization [facility] Address [address] [place] [address] Care Team Providers Care Student Driving Instructor Name Role Phone Non-Staff, Physician Primary Care Provider Unava ilable Encounter Details Date Type Department Care Team (Latest Contact Info) Description 10/17/2002 Outpatient Historical [facility] Medicine [address] [phone] Aiden Alvarez DO NO ADDRESS ON FILE ACUTE SINUSITIS NOS (Primary Dx); STOMATITIS Social History Tobacco Use Types Packs/Day Years Used Date Smoking Tobacco: Never Assessed Comments Unknown Sex and Gender Information Value Date Recorded Sex Assigned at Not on file Legal Sex Female 3:53 AM PRINT CONTROLLER Gender Identity Not on file Sexual Orientation Not on file documented as of this encounter Plan of Treatment Not on file documented as of this encounter Visit Diagnoses Diagnosis Acute sinusitis, unspecified- Primary Stomatitis and mucositis (ulcerative) documented in this encounter Care Teams Student Driving Instructor Relationship Specialty Start Date End Date Non-Staff, Physician NO ADDRESS ON FILE PCP - General 10/08/17 documented as of this encounter
--- OUTSIDE RECORDS SUMMARY | 2024-12-27 20:24 | XMS_ITS | Clinical Summary ---
Author Organization [facility] Address [facility] [place] [address] Care Team Providers Care Church Musician Name Role Phone Non-Staff, Physician Primary Care Provider Unava ilable Allergies Active Allergy Reactions Criticality Noted Date Comments Doxycycline Nausea and Vomiting Low 06/06/2015 Erythromycin Nausea and Vomiting Low 07/17/2010 Tetracycline Nausea and Vomiting Low 07/17/2010 Medications No known medications Active Problems Problem Noted Date Diagnosed Date Schizoaffective disorder, depressive type 2015 PTSD (post-traumatic stress disorder) 12/16/2015 Primary osteoarthritis involving multiple joints 12/16/2015 Recreational drug use 07/25/2010 Overview (07/25/2010): Uses marijuana frequently Adrenal insufficiency 07/17/2010 Depression 07/17/2010 Tobacco abuse 07/17/2010 Overview (07/17/2010): 1 ppd (07/19) Affective psychosis, bipolar Immunizations Immunization Administration Dates Next Due (TDVAX)(7 YRS UP) TETANUS AN D DIPHTHERIA TOXOIDS, ADSORBED (2 LF OF TETANUS TOXOID AND 2 LF OF DIPHTHERIA TOXOID), 0.5ML (PF), IM 02/08/2010 INFLUENZA VACCINE QUADRIVALENT 3 YR UP PF IM 08/2015 Family History Medical History Relation Name Comments Unknown Brother Unknown Daughter Unknown Father Unknown Maternal Grandfather Unknown Maternal Grandmother Unknown Mother Unknown Paternal Grandfather Unknown Paternal Grandmother Unknown Sister Unknown Son Relation Name Status Comments Brother Daughter Father Maternal Grandfather Maternal Grandmother Mother Paternal Grandfather Paternal Grandmother Sister Son Social History Tobacco Use Types Packs/Day Years Used Date Smoking Tobacco: Every Day Cigarettes 1 15 Smokeless Tobacco: Never Alcohol Use Standard Drinks/Week Comments Yes 0 (1 standard drink = 0.6 oz pur e alcohol) occasional use Feeling Safe Answer Date Recorded Within the last year, have y ou been afraid of your partner or ex-partner? No 07/29/2020 Within the last year, have y ou been humiliated or emotionally abused in other ways by your partner or ex-partner? No Within the last year, have y ou been kicked, hit, slapped, or otherwise physically hurt by your partner or ex-partner? No 07/29/2020 Within the last year, have y ou been raped or forced to have any kind of sexual activity by your partner or ex-partner? No 07/29/2020 Social Connections Answer Date Recorded In a typical week, how many times do you talk on the telephone with family, friends, or neighbors? More than three times a week 07/29/2020 How often do you get togethe r with friends or relatives? More than three times a week 07/29/2020 How often do you attend [facility] or ca[facility] services? Never 07/29/2020 Do you belong to any clubs o r organizations such as episcopalian groups, unions, fraternal or athletic groups, or school groups? No 07/29/2020 How often do you attend meet ings of the clubs or organizations you belong to? Never 07/29/2020 Are you , , di vorced, , never , or living with a partner? 07/29/2020 Financial Resource Strain Answer Date R ecorded How hard is it for you to pa y for the very basics like food, housing, medical care, and heating? Not very hard 07/29/2020 Food Insecurity Answer Date Recorded In the past 12 months, have you worried that your food would run out before you had money to buy more? Sometimes true 2020 In the past 12 months, did y ou run out of food and didn't have money to buy more? Never true 07/29/2020 Transportation Needs Answer Date Record ed In the past 12 months, has l ack of transportation kept you from medical appointments or from getting medications? Patient declined 07/29/2020 In the past 12 months, has l ack of transportation kept you from meetings, work, or from getting things needed for daily living? Patient declined 07/29/2020 Housing Stability Answer Date Recorded In the last 12 months, was t here a time when you were not able to pay the mortgage or rent on time? No 07/29/2020 In the past 12 months, how m any times have you moved where you were living? 1 07/29/2020 At any time in the past 12 m [facility], were you homeless or living in a penitentiary (including now)? No 07/29/2020 Comments No Sex and Gender Information Value Date Recorded Sex Assigned at Not on file Legal Sex Female 3:53 AM ADOPTION SOCIAL WORKER Gender Identity Not on file Sexual Orientation Not on file Occupation Industry Job Start Date Job End Date Not on file Not on file Not on file Not on file Not on file Not on file Not on file Not on file Last Filed Vital Signs Vital Sign Reading Time Taken Comments Blood Pressure 112/78 08/02/2020 7:09 PM CDT Pulse 86 08/02/2020 7:09 PM CDT Temperature 36.2 C (97.1 F) 08/02/2020 7:09 PM CDT Respiratory Rate 16 08/02/2020 7:09 PM CDT Oxygen Saturation 97% 08/02/2020 7:09 PM CDT Inhaled Oxygen Concentration - - Weight 72.1 kg (159 lb) 07/29/2020 6:02 PM CDT Height 167.6 cm (5' 6 ) 07/29/2020 6:02 PM CDT Body Mass Index 25.66 07/29/2020 6:02 PM CDT Plan of Treatment Health Maintenance Due Date Last Done Comments HEPATITIS B VACCINES (1 of 3 - 19+ 3-dose series) 12/10 HPV/Cotest (21-29) 01/05/1993 CERVICAL CANCER SCREENING 01/05/2002 HPV/Cotest (30-65) 01/05/2002 PAP SMEAR 01/05/2002 DTAP/TDAP/TD VACCINES (1 - Tdap) 02/09/2010 02/08/19 11 BREAST CANCER SCREENING 2012 COLORECTAL SCREENING 01/05/2017 Colorectal Cancer Screening 01/05/2017 FIT-DNA Q 3 years 01/05/2017 FIT/FOBT Q 1 year 01/05/2017 Flex Sig/CT Colonography Q 5 years 01/05/2017 ZOSTER VACCINE (1 of 2) 01/05/2022 INFLUENZA VACCINE (#1) 2024 12/16/2015 Insurance [place]ICAID [place] [facility] PPO D-SNP [facility] PPO D-SNP [place] Member Subscriber Plan / Payer (Ef fective 2020-Present) Name:Annemarie Hardin Relation to Subscriber:Self Name:Annemarie Hardin Payer ID:[id number] Group ID:Not on file Type:Medicaid Address: [address] MEDICARE Advance Directives For more information, please contact: [phone] * Full Code (Latest Code Status on File) Date Activated Date Inactivated Comments 07/29/2020 7:00 PM 08/03/2020 1:52 PM Care Teams Church Musician Relationship Specialty Start Date End Date Non-Staff, Physician NO ADDRESS ON FILE PCP - General 10/08/17
--- OUTSIDE RECORDS SUMMARY | 2024-12-27 20:24 | XMS_ITS | Encounter Summary ---
Author Organization [facility] Address [address] [place] [address] Care Team Providers Care Car Hostler Name Role Phone Non-Staff, Physician Primary Care Provider Unava ilable Encounter Details Date Type Department Care Team (Latest Contact Info) Description 12/12/2002 Outpatient Historical [facility]- [address] [phone] Perez Carlton MD [address] [phone] MYALGIA AND MYOSITIS NOS (Primary Dx); UNSPEC CONSTIPATION Social History Tobacco Use Types Packs/Day Years Used Date Smoking Tobacco: Never Assessed Comments Unknown Sex and Gender Information Value Date Recorded Sex Assigned at Not on file Legal Sex Female 3:53 AM LATHE 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
--- OUTSIDE RECORDS SUMMARY | 2024-12-27 20:24 | XMS_ITS | Encounter Summary ---
Author Organization [facility] Address [address] [place] [address] Care Team Providers Care Sumatra Opener Name Role Phone Non-Staff, Physician Primary Care Provider Unava ilable Encounter Details Date Type Department Care Team (Latest Contact Info) Description 01/30/2000 Outpatient Historical [facility] Medicine [place] [address] [facility] [address] [place] [phone] Perez Carlton MD [address] [phone] Screening for malignant neoplasm of the cervix (Primary Dx); Breast screening, unspecified; Anxiety state, unspecified; Tobacco use disorder Social History Tobacco Use Types Packs/Day Years Used Date Smoking Tobacco: Never Assessed Comments Unknown Sex and Gender Information Value Date Recorded Sex Assigned at Not on file 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
--- OUTSIDE RECORDS SUMMARY | 2024-12-27 20:24 | XMS_ITS | Encounter Summary ---
Author Organization [facility] Address [address] [place] [address] Care Team Providers Care Catalytic Converter Operator Helper Name Role Phone Non-Staff, Physician Primary Care Provider Unava ilable Encounter Details Date Type Department Care Team (Latest Contact Info) Description 01/03/2003 Outpatient Historical [facility] Imaging Services-[place] Perlita [address] [place] [phone] Gloria Pulido MD NO ADDRESS ON FILE JOINT PAIN-JOINT NEC (Primary Dx) Social History Tobacco Use Types Packs/Day Years Used Date Smoking Tobacco: Never Assessed Comments Unknown Sex and Gender Information Value Date Recorded Sex Assigned at Not on file Legal Sex Female 3:53 AM APPEALS REFEREE Gender Identity Not on file Sexual Orientation Not on file documented as of this encounter Plan of Treatment Not on file documented as of this encounter Visit Diagnoses Diagnosis Pain in joint, other specified sites- Primary documented in this encounter Care Teams Catalytic Converter Operator Helper Relationship Specialty Start Date End Date Non-Staff, Physician NO ADDRESS ON FILE PCP - General 10/08/17 documented as of this encounter
--- OUTSIDE RECORDS SUMMARY | 2024-12-27 20:24 | XMS_ITS | Encounter Summary ---
Author Organization [facility] Address [address] [place] [address] Care Team Providers Care Distance Learning Program Coordinator Name Role Phone Non-Staff, Physician Primary Care Provider Unava ilable Encounter Details Date Type Department Care Team (Latest Contact Info) Description 10/23/2002 Outpatient Historical [facility] Rheumatology- [place] Dustin Perlita [address] [place] [phone] Gloria Pulido MD NO ADDRESS ON FILE JOINT PAIN-MULT JTS (Primary Dx); OTHER MALAISE AND FATIGUE; RHEUMATISM NOS Social History Tobacco Use Types Packs/Day Years Used Date Smoking Tobacco: Never Assessed Comments Unknown Sex and Gender Information Value Date Recorded Sex Assigned at Not on file Legal Sex Female 3:53 AM COMMUNITY HEALTH PLANNING DIRECTOR Gender Identity Not on file Sexual Orientation Not on file documented as of this encounter Plan of Treatment Not on file documented as of this encounter Visit Diagnoses Diagnosis Pain in joint, multiple sites- Primary Other malaise and fatigue Rheumatism, unspecified and fibrositis documented in this encounter Care Teams Distance Learning Program Coordinator Relationship Specialty Start Date End Date Non-Staff, Physician NO ADDRESS ON FILE PCP - General 10/08/17 documented as of this encounter
--- OUTSIDE RECORDS SUMMARY | 2024-12-27 20:24 | XMS_ITS | Encounter Summary ---
Author Organization [facility] Address [address] [place] [address] Care Team Providers Care Gis Engineer Name Role Phone Non-Staff, Physician Primary Care Provider Unava ilable Encounter Details Date Type Department Care Team (Latest Contact Info) Description 11/06/2002 Outpatient Historical [facility] Rheumatology- [facility] [place] [address] [place] [phone] Gloria Pulido MD NO ADDRESS ON FILE INFLAM SPONDYLOPATHY NOS (Primary Dx); JOINT PAIN-MULT JTS; RHEUMATISM NOS Social History Tobacco Use Types Packs/Day Years Used Date Smoking Tobacco: Never Assessed Comments Unknown Sex and Gender Information Value Date Recorded Sex Assigned at Not on file Legal Sex Female 3:53 AM ASSET SPECIALIST Gender Identity Not on file Sexual Orientation Not on file documented as of this encounter Plan of Treatment Not on file documented as of this encounter Visit Diagnoses Diagnosis Unspecified inflammatory spondylopathy- Primary Pain in joint, multiple sites Rheumatism, unspecified and fibrositis documented in this encounter Care Teams Gis Engineer Relationship Specialty Start Date End Date Non-Staff, Physician NO ADDRESS ON FILE PCP - General 10/08/17 documented as of this encounter
--- OUTSIDE RECORDS SUMMARY | 2024-12-27 20:24 | XMS_ITS | Encounter Summary ---
Author Organization [facility] Address [address] [place] [address] Care Team Providers Care Placement Manager Name Role Phone Non-Staff, Physician Primary Care Provider Unava ilable Encounter Details Date Type Department Care Team (Latest Contact Info) Description 10/07/1998 Outpatient Historical [facility] Medicine [place] [address] [facility] [address] [place] [phone] Perez Carlton MD [address] [facility] [address] [place] [phone] Myalgia and myositis, unspecified (Primary Dx); Depressive disorder, not elsewhere classified Social History Tobacco Use Types Packs/Day Years Used Date Smoking Tobacco: Never Assessed Comments Unknown Sex and Gender Information Value Date Recorded Sex Assigned at Not on file Legal Sex Female 3:53 AM 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
--- OUTSIDE RECORDS SUMMARY | 2024-12-27 20:24 | XMS_ITS | Encounter Summary ---
Author Organization [facility] Address [address] [place] [address] Care Team Providers Care Leadership Program Associate Name Role Phone Non-Staff, Physician Primary Care Provider Unava ilable Encounter Details Date Type Department Care Team (Latest Contact Info) Description 10/23/2002 Outpatient Historical [facility] Rheumatology- [facility] [place] [address] [place] [phone] Gloria Pulido MD NO ADDRESS ON FILE JOINT PAIN-UNSPEC (Primary Dx) Social History Tobacco Use Types Packs/Day Years Used Date Smoking Tobacco: Never Assessed Comments Unknown Sex and Gender Information Value Date Recorded Sex Assigned at Not on file 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
--- OUTSIDE RECORDS SUMMARY | 2024-12-27 20:24 | XMS_ITS | Encounter Summary ---
Author Organization [facility] Address [address] [place] [address] Care Team Providers Care Measuring Machine Operator Name Role Phone Non-Staff, Physician Primary Care Provider Unava ilable Encounter Details Date Type Department Care Team (Latest Contact Info) Description 10/15/1998 Outpatient Historical [facility] Medicine [place] [address] [facility] [address] [place] [address] Perez Carlton MD [address] [facility] [address] [place] [address] Other and unspecified noninfectious gastroenteritis and colitis(558.9) (Primary Dx); Migraine, unspecified, without mention of intractable migraine without mention of status migrainosus Social History Tobacco Use Types Packs/Day Years Used Date Smoking Tobacco: Never Assessed Comments Unknown Sex and Gender Information Value Date Recorded Sex Assigned at Not on file Legal Sex Female 3:53 AM INFUSION RN Gender Identity Not on file Sexual Orientation Not on file documented as of this encounter Plan of Treatment Not on file documented as of this encounter Visit Diagnoses Diagnosis Other and unspecified noninfectious gastroenteritis and colitis(558.9)- Primary Other and unspecified noninfectious gastroenteritis and colitis Migraine, unspecified, without mention of intractable migraine without mention of status migrainosus documented in this encounter Care Teams Measuring Machine Operator Relationship Specialty Start Date End Date Non-Staff, Physician NO ADDRESS ON FILE PCP - General 10/08/17 documented as of this encounter
--- OUTSIDE RECORDS SUMMARY | 2024-12-27 20:24 | XMS_ITS | Encounter Summary ---
Author Organization [facility] Address [address] [place] [address] Care Team Providers Care Parking Station Attendant Name Role Phone Non-Staff, Physician Primary Care Provider Unava ilable Encounter Details Date Type Department Care Team (Latest Contact Info) Description 10/23/2002 Outpatient Historical [facility] [place] [address] [place] [address] Gloria Pulido MD NO ADDRESS ON FILE JOINT PAIN-UNSPEC (Primary Dx); LUMBAGO Social History Tobacco Use Types Packs/Day Years Used Date Smoking Tobacco: Never Assessed Comments Unknown Sex and Gender Information Value Date Recorded Sex Assigned at Not on file Legal Sex Female 3:53 AM 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
--- OUTSIDE RECORDS SUMMARY | 2024-12-27 20:24 | XMS_ITS | Encounter Summary ---
Author Organization [facility] Address [address] [place] [address] Care Team Providers Care Silk Blocker Name Role Phone Non-Staff, Physician Primary Care Provider Unava ilable Encounter Details Date Type Department Care Team (Latest Contact Info) Description 10/01/1999 Outpatient Historical [facility] Medicine [address] [phone] Heide Baeza NO ADDRESS ON FILE Allergy, unspecified not elsewhere classified (Primary Dx) Social History Tobacco Use Types Packs/Day Years Used Date Smoking Tobacco: Never Assessed Comments Unknown Sex and Gender Information Value Date Recorded Sex Assigned at Not on file Legal Sex Female 3:53 AM DUE DILIGENCE COORDINATOR Gender Identity Not on file Sexual Orientation Not on file documented as of this encounter Plan of Treatment Not on file documented as of this encounter Visit Diagnoses Diagnosis Allergy, unspecified not elsewhere classified- Primary documented in this encounter Care Teams Silk Blocker Relationship Specialty Start Date End Date Non-Staff, Physician NO ADDRESS ON FILE PCP - General 10/08/17 documented as of this encounter
--- OUTSIDE RECORDS SUMMARY | 2024-12-27 20:25 | XMS_ITS | Encounter Summary ---
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
--- OUTSIDE RECORDS SUMMARY | 2024-12-27 20:25 | XMS_ITS | Encounter Summary ---
Author Organization [facility] Address [address] [place] [address] Care Team Providers Care Psychological Science Professor Name Role Phone Non-Staff, Physician Primary Care Provider Unava ilable Encounter Details Date Type Department Care Team (Latest Contact Info) Description 06/25/1999 Outpatient Historical [facility] Medicine [place] [address] [facility] [address] [place] [address] Perez Carlton MD [address] [facility] [address] [place] [phone] Health examination of defined subpopulation (Primary Dx) Social History Tobacco Use Types Packs/Day Years Used Date Smoking Tobacco: Never Assessed Comments Unknown Sex and Gender Information Value Date Recorded Sex Assigned at Not on file Legal Sex Female 3:53 AM SOLUTIONS ANALYST Gender Identity Not on file Sexual Orientation Not on file documented as of this encounter Plan of Treatment Not on file documented as of this encounter Visit Diagnoses Diagnosis Health examination of defined subpopulation- Primary documented in this encounter Care Teams Psychological Science Professor Relationship Specialty Start Date End Date Non-Staff, Physician NO ADDRESS ON FILE PCP - General 10/08/17 documented as of this encounter
--- OUTSIDE RECORDS SUMMARY | 2024-12-27 20:25 | XMS_ITS | Encounter Summary ---
Author Organization [facility] Address [address] [place] [address] Care Team Providers Care Shell Reprint Operator Name Role Phone Non-Staff, Physician Primary Care Provider Unava ilable Encounter Details Date Type Department Care Team (Latest Contact Info) Description 11/26/1998 Outpatient Historical [facility] Medicine [address] [address] Aiden Alvarez DO NO ADDRESS ON FILE Absence of menstruation (Primary Dx); Surveillance of other previously prescribed contraceptive method Social History Tobacco Use Types Packs/Day Years Used Date Smoking Tobacco: Never Assessed Comments Unknown Sex and Gender Information Value Date Recorded Sex Assigned at Not on file Legal Sex Female 3:53 AM UNHAIRER Gender Identity Not on file Sexual Orientation Not on file documented as of this encounter Plan of Treatment Not on file documented as of this encounter Visit Diagnoses Diagnosis Absence of menstruation- Primary Surveillance of other previously prescribed contraceptive method documented in this encounter Care Teams Shell Reprint Operator Relationship Specialty Start Date End Date Non-Staff, Physician NO ADDRESS ON FILE PCP - General 10/08/17 documented as of this encounter
--- OUTSIDE RECORDS SUMMARY | 2024-12-27 20:25 | XMS_ITS | Encounter Summary ---
Author Organization [facility] Address [address] [place] [address] Care Team Providers Care Weekday Babysitter Name Role Phone Non-Staff, Physician Primary Care Provider Unava ilable Encounter Details Date Type Department Care Team (Latest Contact Info) Description 01/03/1999 Outpatient Historical [facility] Medicine [address] [phone] Aiden Alvarez, NO ADDRESS ON FILE Contusion of foot (Primary Dx) Social History Tobacco Use Types Packs/Day Years Used Date Smoking Tobacco: Never Assessed Comments Unknown Sex and Gender Information Value Date Recorded Sex Assigned at Not on file 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
--- OUTSIDE RECORDS SUMMARY | 2024-12-27 20:25 | XMS_ITS | Encounter Summary ---
Author Organization [facility] Address [address] [place] [address] Care Team Providers Care Certified Medical Technician Assistant Name Role Phone Non-Staff, Physician Primary Care Provider Unava ilable Encounter Details Date Type Department Care Team (Latest Contact Info) Description 07/11/2002 Outpatient Historical [address] [phone] Perez Carlton MD [address] [phone] MYALGIA AND MYOSITIS NOS (Primary Dx) Social History Tobacco Use Types Packs/Day Years Used Date Smoking Tobacco: Never Assessed Comments Unknown Sex and Gender Information Value Date Recorded Sex Assigned at Not on file Legal Sex Female 3:53 AM INSIDE SALES EXECUTIVE Gender Identity Not on file Sexual Orientation Not on file documented as of this encounter Plan of Treatment Not on file documented as of this encounter Visit Diagnoses Diagnosis Myalgia and myositis, unspecified- Primary Mylagia and myositis, unspecified documented in this encounter Care Teams Certified Medical Technician Assistant Relationship Specialty Start Date End Date Non-Staff, Physician NO ADDRESS ON FILE PCP - General 10/08/17 documented as of this encounter
--- OUTSIDE RECORDS SUMMARY | 2024-12-27 20:25 | XMS_ITS | Encounter Summary ---
Author Organization [facility] Address [address] [place] [address] Care Team Providers Care Senior Quality Assurance Specialist Name Role Phone Non-Staff, Physician Primary Care Provider Unava ilable Encounter Details Date Type Department Care Team (Late st Contact Info) Description 01/05/2006 Outpatient Historical [facility] Lance Murray MD [facility] [place] [address] Social History Tobacco Use Types Packs/Day Years Used Date Smoking Tobacco: Never Assessed Comments Unknown Sex and Gender Information Value Date Recorded Sex Assigned at Not on file Legal Sex Female 3:53 AM PHOTOGRAPHER NEWS Gender Identity Not on file Sexual Orientation Not on file documented as of this encounter Plan of Treatment Not on file documented as of this encounter Procedures Procedure Name Priority Date/Time Associated Diagnosis Comments MRI THORACIC WO CONTRAST Routine 01/05/2006 9:34 AM PHOTOGRAPHER NEWS documented in this encounter Results * MRI THORACIC WO CONTRAST (01/05/2006 9:34 AM PHOTOGRAPHER NEWS) Anatomical Region Laterality Modality Spine Other 01/05/2006 9:34 AM PHOTOGRAPHER NEWS Narrative 01/05/2006 9:34 AM PHOTOGRAPHER NEWS MRI OF THE CERVICAL, THORACIC, AND LUMBAR SPINE WITHOUT CONTRAST: HISTORY: Back pain. CERVICAL SPINE: Normal height and alignment of the cervical vertebrae. No abnormal marrow signal. Relationships at the foramen magnum are normal. No cord compression or abnormal cord signal. Nosignificant disc bulge, protrusion, or foraminal narrowing. The paraspinal soft tissues areunremarkable. THORACIC SPINE: Normal height and alignment of the thoracic vertebrae. A small hemangioma is noted inthe superior T10 vertebral body. Marrow signal is otherwise normal. No thoracic disc bulge,protrusion, central canal or foraminal stenosis. No abnormal cord signal. LUMBAR SPINE: Normal height and alignment of the lumbar vertebrae. No abnormal marrow signal. Theconus terminates at T12-L1 and is normal. The cauda equina is unremarkable. The intervertebral disc space heights are well maintained. Mild L3-L4, L4-L5, and L5-S1 facetdegenerative changes. Two small cysts are noted along the margins of the left L3-L4 facet. IMPRESSION: Mild lower lumbar facet degenerative changes. The cervical and thoracic spine exams areunremarkable. - Dictated By: Trinity Pizarro M.D. Electronically Signed By: Trinity Pizarro M.D. Date Signed: 01/11/06 Procedure Note 12/28/2008 MRI OF THE CERVICAL, THORACIC, AND LUMBAR SPINE WITHOUT CONTRAST: HISTORY: Back pain. CERVICAL SPINE: Normal height and alignment of the cervical vertebrae. No abnormal marrowsignal. Relationships at the foramen magnum are normal. No cord compression orabnormal cord signal. Nosignificant disc bulge, protrusion, or foraminal narrowing. Theparaspinal soft tissues areunremarkable. THORACIC SPINE: Normal height and alignment of the thoracic vertebrae. A small hemangiomais noted inthe superior T10 vertebral body. Marrow signal is otherwise normal. No thoracic discbulge,protrusion, central canal or foraminal stenosis. No abnormal cord signal. LUMBAR SPINE: Normal height and alignment of the lumbar vertebrae. No abnormal marrowsignal. Theconus terminates at T12-L1 and is normal. The cauda equina is unremarkable. The intervertebral disc space heights are well maintained. Mild L3-L4,L4-L5, and L5-S1 facetdegenerative changes. Two small cysts are noted along the margins of the left L3-Z5aabef. IMPRESSION: Mild lower lumbar facet degenerative changes. The cervical and thoracicspine exams areunremarkable. - Dictated By: Trinity Pizarro M.D. Electronically Signed By: Trinity Pizarro M.D. Date Signed: 01/11/06 Lance Murray MD MR ORDERABLES Final Re sult documented in this encounter Visit Diagnoses Not on filedocumented in this encounter Care Teams Senior Quality Assurance Specialist Relationship Specialty Start Date End Date Non-Staff, Physician NO ADDRESS ON FILE PCP - General 10/08/17 documented as of this encounter
--- OUTSIDE RECORDS SUMMARY | 2024-12-27 20:25 | XMS_ITS | Encounter Summary ---
Author Organization [facility] Address [address] [place] [facility] [place] [address] Care Team Providers Care Hydrogen Plant Operator Name Role Phone Non-Staff, Physician Primary Care Provider Unava ilable Encounter Details Date Type Department Care Team (Latest Contact Info) Description 07/08/2005 Outpatient Historical [facility] Medicine- [address] [place] [address] Edgardo Hunt NP NO ADDRESS ON FILE Acute Sinusitis, Unspecified (Primary Dx); Unspecified Myalgia and Myositis; Lumbago Social History Tobacco Use Types Packs/Day Years Used Date Smoking Tobacco: Never Assessed Comments Unknown Sex and Gender Information Value Date Recorded Sex Assigned at Not on file Legal Sex Female 3:53 AM TRIALS MANAGER Gender Identity Not on file Sexual Orientation Not on file documented as of this encounter Plan of Treatment Not on file documented as of this encounter Visit Diagnoses Diagnosis Acute sinusitis, unspecified- Primary Myalgia and myositis, unspecified Mylagia and myositis, unspecified Lumbago documented in this encounter Care Teams Hydrogen Plant Operator Relationship Specialty Start Date End Date Non-Staff, Physician NO ADDRESS ON FILE PCP - General 10/08/17 documented as of this encounter
--- OUTSIDE RECORDS SUMMARY | 2024-12-27 20:25 | XMS_ITS | Encounter Summary ---
Author Organization [facility] Address [address] [place] [address] Care Team Providers Care Special Events Assistant Name Role Phone Non-Staff, Physician Primary Care Provider Unava ilable Encounter Details Date Type Department Care Team (Latest Contact Info) Description 08/16/2003 Outpatient Historical [facility] Rheumatology- [facility] [place] [address] [place] [phone] Gloria Pulido MD NO ADDRESS ON FILE RHEUMATISM NOS (Primary Dx); ROTATOR CUFF SYND NOS Social History Tobacco Use Types Packs/Day Years Used Date Smoking Tobacco: Never Assessed Comments Unknown Sex and Gender Information Value Date Recorded Sex Assigned at Not on file Legal Sex Female 3:53 AM GOLD NIB GRINDER Gender Identity Not on file Sexual Orientation Not on file documented as of this encounter Plan of Treatment Not on file documented as of this encounter Visit Diagnoses Diagnosis Rheumatism, unspecified and fibrositis- Primary Disorders of bursae and tendons in shoulder region, unspecified documented in this encounter Care Teams Special Events Assistant Relationship Specialty Start Date End Date Non-Staff, Physician NO ADDRESS ON FILE PCP - General 10/08/17 documented as of this encounter
--- OUTSIDE RECORDS SUMMARY | 2024-12-27 20:25 | XMS_ITS | Encounter Summary ---
Author Organization [facility] Address [address] [place] [address] Care Team Providers Care Event Lighting Specialist Name Role Phone Non-Staff, Physician Primary Care Provider Unava ilable Encounter Details Date Type Department Care Team (Latest Contact Info) Description 12/09/2005 Outpatient Historical [facility] Medicine [address] [phone] Aiden Alvarez DO NO ADDRESS ON FILE Unspecified Myalgia and Myositis (Primary Dx) Social History Tobacco Use Types Packs/Day Years Used Date Smoking Tobacco: Never Assessed Comments Unknown Sex and Gender Information Value Date Recorded Sex Assigned at Not on file Legal Sex Female 3:53 AM 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
--- OUTSIDE RECORDS SUMMARY | 2024-12-27 20:25 | XMS_ITS | Encounter Summary ---
Author Organization [facility] Address [address] [place] [address] Care Team Providers Care Bioinformatics Scientist Name Role Phone Non-Staff, Physician Primary Care Provider Unava ilable Encounter Details Date Type Department Care Team (Latest Contact Info) Description 03/17/2005 Outpatient Historical [facility] Medicine [address] [phone] Aiden Alvarez DO NO ADDRESS ON FILE BACKACHE NOS (Primary Dx) Social History Tobacco Use Types Packs/Day Years Used Date Smoking Tobacco: Never Assessed Comments Unknown Sex and Gender Information Value Date Recorded Sex Assigned at Not on file Legal Sex Female 3:53 AM RECEPTION INTERVIEWER Gender Identity Not on file Sexual Orientation Not on file documented as of this encounter Plan of Treatment Not on file documented as of this encounter Visit Diagnoses Diagnosis Backache, unspecified- Primary documented in this encounter Care Teams Bioinformatics Scientist Relationship Specialty Start Date End Date Non-Staff, Physician NO ADDRESS ON FILE PCP - General 10/08/17 documented as of this encounter
--- OUTSIDE RECORDS SUMMARY | 2024-12-27 20:25 | XMS_ITS | Encounter Summary ---
Author Organization [facility] Address [address] [place] [address] Care Team Providers Care Business Liaison Manager Name Role Phone Non-Staff, Physician Primary Care Provider Unava ilable Encounter Details Date Type Department Care Team (Latest Contact Info) Description 04/16/2000 Outpatient Historical [facility] Family Medicine- Gloria [address] [place] [phone] Aiden Alvarez DO NO ADDRESS ON FILE Acute sinusitis, unspecified (Primary Dx); Acute bronchitis Social History Tobacco Use Types Packs/Day Years Used Date Smoking Tobacco: Never Assessed Comments Unknown Sex and Gender Information Value Date Recorded Sex Assigned at Not on file Legal Sex Female 3:53 AM FISH CONSERVATIONIST Gender Identity Not on file Sexual Orientation Not on file documented as of this encounter Plan of Treatment Not on file documented as of this encounter Visit Diagnoses Diagnosis Acute sinusitis, unspecified- Primary Acute bronchitis documented in this encounter Care Teams Business Liaison Manager Relationship Specialty Start Date End Date Non-Staff, Physician NO ADDRESS ON FILE PCP - General 10/08/17 documented as of this encounter
--- OUTSIDE RECORDS SUMMARY | 2024-12-27 20:25 | XMS_ITS | Encounter Summary ---
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
--- OUTSIDE RECORDS SUMMARY | 2024-12-27 20:25 | XMS_ITS | Encounter Summary ---
Author Organization [facility] Address [address] [place] [address] Care Team Providers Care Sports Agent Name Role Phone Non-Staff, Physician Primary Care Provider Unava ilable Encounter Details Date Type Department Care Team (Latest Contact Info) Description 09/15/2005 Outpatient Historical [facility] Medicine [address] [address] Edgardo Hunt NP NO ADDRESS ON FILE Unspecified Myalgia and Myositis (Primary Dx) Social History Tobacco Use Types Packs/Day Years Used Date Smoking Tobacco: Never Assessed Comments Unknown Sex and Gender Information Value Date Recorded Sex Assigned at Not on file Legal Sex Female 3:53 AM PRACTICE ADVISOR Gender Identity Not on file Sexual Orientation Not on file documented as of this encounter Plan of Treatment Not on file documented as of this encounter Visit Diagnoses Diagnosis Myalgia and myositis, unspecified- Primary Mylagia and myositis, unspecified documented in this encounter Care Teams Sports Agent Relationship Specialty Start Date End Date Non-Staff, Physician NO ADDRESS ON FILE PCP - General 10/08/17 documented as of this encounter
--- OUTSIDE RECORDS SUMMARY | 2024-12-27 20:25 | XMS_ITS | Encounter Summary ---
Author Organization [facility] Address [address] [facility] Attn: Epic Prelude ADT [place] [address] Care Team Providers Care Drapery Installer Name Role Phone Non-Staff, Physician Primary Care Provider Unava ilable Encounter Details Date Type Department Care Team (Late st Contact Info) Description 02/03/2000 Outpatient Historical Perez Carlton MD [address] [facility] [address] [place] [address] Social History Tobacco Use Types Packs/Day Years Used Date Smoking Tobacco: Never Assessed Comments Unknown Sex and Gender Information Value Date Recorded Sex Assigned at Not on file Legal Sex Female 3:53 AM 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
--- OUTSIDE RECORDS SUMMARY | 2024-12-27 20:25 | XMS_ITS | Encounter Summary ---
Author Organization [facility] Address [address] [place] [address] Care Team Providers Care Assistant Manager Airside Operations Name Role Phone Non-Staff, Physician Primary Care Provider Unava ilable Encounter Details Date Type Department Care Team (Latest Contact Info) Description 10/25/2003 Outpatient Historical [facility] Imaging Services-Rob Chan [place] [address] [place] [address] Kathie Graf MD [address] [id number] UNSPEC CONSTIPATION (Primary Dx) Social History Tobacco Use Types Packs/Day Years Used Date Smoking Tobacco: Never Assessed Comments Unknown Sex and Gender Information Value Date Recorded Sex Assigned at Not on file 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
--- OUTSIDE RECORDS SUMMARY | 2024-12-27 20:25 | XMS_ITS | Encounter Summary ---
Author Organization [facility] Address [address] [place] [address] Care Team Providers Care Proof Machine Operator Supervisor Name Role Phone Non-Staff, Physician Primary Care Provider Unava ilable Encounter Details Date Type Department Care Team (Latest Contact Info) Description 05/23/1999 Outpatient Historical [facility] Medicine [place] [address] [facility] [address] [place] [address] Perez Carlton MD [address] [facility] [address] [place] [phone] Surveillance of other previously prescribed contraceptive method (Primary Dx) Social History Tobacco Use Types Packs/Day Years Used Date Smoking Tobacco: Never Assessed Comments Unknown Sex and Gender Information Value Date Recorded Sex Assigned at Not on file 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
--- OUTSIDE RECORDS SUMMARY | 2024-12-27 20:25 | XMS_ITS | Encounter Summary ---
Author Organization [facility] Address [address] [place] [address] Care Team Providers Care Echocardiograph Tech Name Role Phone Non-Staff, Physician Primary Care Provider Unava ilable Encounter Details Date Type Department Care Team (Latest Contact Info) Description 06/20/2002 Outpatient Historical [facility] Medicine- Gloria [address] [place] [address] Aiden Alvarez DO NO ADDRESS ON FILE LUMBAGO (Primary Dx); DEPRESSIVE DISORDER NEC; ABNORMAL WEIGHT GAIN; ALLERGY, UNSPECIFIED Social History Tobacco Use Types Packs/Day Years Used Date Smoking Tobacco: Never Assessed Comments Unknown Sex and Gender Information Value Date Recorded Sex Assigned at Not on file Legal Sex Female 3:53 AM BEAD BUILDER Gender Identity Not on file Sexual Orientation Not on file documented as of this encounter Plan of Treatment Not on file documented as of this encounter Visit Diagnoses Diagnosis Lumbago- Primary Depressive disorder, not elsewhere classified Abnormal weight gain Allergy, unspecified not elsewhere classified documented in this encounter Care Teams Echocardiograph Tech Relationship Specialty Start Date End Date Non-Staff, Physician NO ADDRESS ON FILE PCP - General 10/08/17 documented as of this encounter
--- OUTSIDE RECORDS SUMMARY | 2024-12-27 20:25 | XMS_ITS | Encounter Summary ---
Author Organization [facility] Address [address] [place] [address] Care Team Providers Care Clinical Research Physician Name Role Phone Non-Staff, Physician Primary Care Provider Unava ilable Encounter Details Date Type Department Care Team (Latest Contact Info) Description 10/26/2005 Outpatient Historical [facility] [address] [place] [address] AMBULANCE, [facility] Syncope and Collapse (Primary Dx) Social History Tobacco Use Types Packs/Day Years Used Date Smoking Tobacco: Never Assessed Comments Unknown Sex and Gender Information Value Date Recorded Sex Assigned at Not on file Legal Sex Female 3:53 AM ULTRASOUND TESTER Gender Identity Not on file Sexual Orientation Not on file documented as of this encounter Plan of Treatment Not on file documented as of this encounter Visit Diagnoses Diagnosis Syncope and collapse- Primary documented in this encounter Care Teams Clinical Research Physician Relationship Specialty Start Date End Date Non-Staff, Physician NO ADDRESS ON FILE PCP - General 10/08/17 documented as of this encounter
--- OUTSIDE RECORDS SUMMARY | 2024-12-27 20:25 | XMS_ITS | Encounter Summary ---
Author Organization [facility] Address [address] [place] [address] Care Team Providers Care Sales And In Home Delivery Specialist Name Role Phone Non-Staff, Physician Primary Care Provider Unava ilable Encounter Details Date Type Department Care Team (Latest Contact Info) Description 04/10/2003 Outpatient Historical [facility] Rheumatology- [facility] [address] [place] [phone] Gloria Pulido MD NO ADDRESS ON FILE RHEUMATISM NOS (Primary Dx) Social History Tobacco Use Types Packs/Day Years Used Date Smoking Tobacco: Never Assessed Comments Unknown Sex and Gender Information Value Date Recorded Sex Assigned at Not on file Legal Sex Female 3:53 AM CASH MANAGEMENT OFFICER Gender Identity Not on file Sexual Orientation Not on file documented as of this encounter Plan of Treatment Not on file documented as of this encounter Visit Diagnoses Diagnosis Rheumatism, unspecified and fibrositis- Primary documented in this encounter Care Teams Sales And In Home Delivery Specialist Relationship Specialty Start Date End Date Non-Staff, Physician NO ADDRESS ON FILE PCP - General 10/08/17 documented as of this encounter
--- OUTSIDE RECORDS SUMMARY | 2024-12-27 20:25 | XMS_ITS | Encounter Summary ---
Author Organization [facility] Address [address] [place] [address] Care Team Providers Care Clinical Informatics Strategist Name Role Phone Non-Staff, Physician Primary Care Provider Unava ilable Encounter Details Date Type Department Care Team (Late st Contact Info) Description 10/31/2005 Inpatient Historical HIS IN BED Renea Bryant DO NO ADDRESS ON FILE Leslee Rothman MD NO ADDRESS ON FILE Other Disorder of Muscle, Ligament, and Fascia (Primary Dx) Social History Tobacco Use Types Packs/Day Years Used Date Smoking Tobacco: Never Assessed Comments Unknown Sex and Gender Information Value Date Recorded Sex Assigned at Not on file 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 Gender Identity Not on file Sexual Orientation Not on file documented as of this encounter Plan of Treatment Not on file documented as of this encounter Procedures Procedure Name Priority Date/Time Associated Diagnosis Comments PROTIME-INR Routine 11/04/2005 3:48 AM CDT PROTEIN S ACTIVITY Routine 11/03/2005 3: 25 AM CDT CBC WITH DIFFERENTIAL Routine 11/03/2005 3:25 AM CDT PROTEIN C ACTIVITY Routine 11/03/2005 3: 25 AM CDT LUPUS ANTICOAGULANT W/REFLEX CONFIRMATION Routine 11/03/2005 3:25 AM CDT FACTOR V LEIDEN MUTATION Routine 11/03/2005 3:25 AM CDT PROTIME-INR Routine 11/03/2005 3:25 AM CDT ANTITHROMBIN III ACTIVITY Routine 11/03/2005 3:25 AM CDT LACTATE DEHYDROGENASE Routine 11/03/2005 3:25 AM CDT HOMOCYSTEINE Routine 11/03/2005 3:25 AM CDT CK Routine 11/03/2005 3:25 AM CDT COMPREHENSIVE METABOLIC PANEL Routine 11/03/2005 3:25 AM CDT PT AND APTT Routine 11/02/2005 9:20 AM CDT CBC WITH DIFFERENTIAL Routine 11/02/2005 4:15 AM CDT HCG QUANTITATIVE, BLOOD Routine 11/02/2005 4:15 AM CDT BASIC METABOLIC PANEL Routine 11/02/2005 4:15 AM CDT CBC WITH DIFFERENTIAL Routine 11/01/2005 3:12 AM CDT PROTIME-INR Routine 11/01/2005 3:12 AM CDT COMPREHENSIVE METABOLIC PANEL Routine 11/01/2005 3:12 AM CDT SEDIMENTATION RATE Routine 10/31/2005 9: [address] CHEST W CONTRAST Routine 10/31/2005 6 :24 PM CDT XR FOOT 3+ VW RIGHT Routine 10/31/2005 6 :24 PM CDT XR FEMUR 2 VW RIGHT Routine 10/31/2005 6 :24 PM CDT XR SHOULDER 2+ VW RIGHT Routine 10/31/2005 6:24 PM CDT MRI SHOULDER W WO CONTRAST RIGHT Routine 10/31/2005 6:[address] GUIDED ASPIRATION Routine 10/31/2005 6:24 PM CDT documented in this encounter Results * (ABNORMAL) PROTIME-INR (11/04/2005 3:48 AM CDT) PROTIME 15.9(H) 12.6 - 14.9 Secs INTERFACE SYSTEM Comment: As of 04 note change in normal range. INR 1.2 INTERFACE SYSTEM Comment: Expected Values for INR: DVT/PE Goal INR 2.5; range 2.0 - 3.0 Valve Replacement Tissue Goal INR 2.5; range 2.0 - 3.0 Mechanical Goal INR 3.0; range 2.5 - 3.5 POST-TX Goal INR 2.5; range 2.0 - 3.0 or Goal 3.0; range 2.5 - 3.5 Atrial Fibrillation Goal INR 2.5; range 2.0 - 3.0 Ischemic Stroke Goal INR 2.5; range 2.0 - 3.0 For additional information see Guidelines for Anticoagulation available from the pharmacy Mauro Espitia D. 11/04/2005 3:48 AM CDT us Leslee Rothman MD HEMATOLOGY ORDERABLES Final Result Performing Organization Address [facility] Phone Number INTERFACE SYSTEM Refer to clinic/hospital department * PROTEIN S ACTIVITY (11/03/2005 3:25 AM CDT) PROTEIN S ACTIVITY 48 45 - 125 % INTERFACE SYSTEM 11/03/2005 3:25 AM CDT us Leslee Rothman MD CHEMISTRY ORDERABLES Final R esult Performing Organization Address City/[facility] Co de Phone Number INTERFACE SYSTEM Refer to clinic/hospital department * (ABNORMAL) PROTEIN C ACTIVITY (11/03/2005 3:25 AM CDT) PROTEIN C ACTIVITY 19(L) 70 - 141 % INTERFACE SYSTEM Comment:VERIFIED BY REPEAT 11/03/2005 3:25 AM CDT us Leslee Rothman MD HEMATOLOGY ORDERABLES Final Result Performing Organization Address [facility] Phone Number INTERFACE SYSTEM Refer to clinic/hospital department * FACTOR V LEIDEN MUTATION (11/03/2005 3:25 AM CDT) Pathologist [facility] FACTOR V LEIDEN MUTATION See Sep Report INTERFACE SYSTEM 11/03/2005 3:25 AM CDT us Leslee Rothman MD HEMATOLOGY ORDERABLES Final Result Performing Organization Address [facility] Phone Number INTERFACE SYSTEM Refer to clinic/hospital department * (ABNORMAL) LUPUS ANTICOAGULANT (11/03/2005 3:25 AM CDT) Pathologist [facility] SEE NOTE INTERFACE SYSTEM Comment: Elevated PT and PTT which exhibit significant correction with plasma mixing studies, findings suggestive of factor deficiency. No lab evidence of lupus anticoagulant. Interpreted by: Brooklyn Ellis M.D. PTT-LA MIX INTERFACE SYSTEM Comment: Baseline Protime and PTT were both elevated and corrected with the plasma mixing studies. DRVVT (DILUTE VIOLETTA VIPER VENOM TIME) 41.2(H) 28.5 - 40.8 Secs INTERFACE SYSTEM DRVVT RATIO .9 0.0 - 1.2 INTERFAC E SYSTEM PLATELET NEUTRALIZATION PROC Normal INTERFACE SYSTEM PTT-LA Negative INTERFACE SYSTEM 11/03/2005 3:25 AM CDT us Leslee Rothman MD HEMATOLOGY ORDERABLES Final Result Performing Organization Address [facility] Phone Number INTERFACE SYSTEM Refer to clinic/hospital department * (ABNORMAL) PROTIME-INR (11/03/2005 3:25 AM CDT) Pathologist [facility] PROTIME 17.9(H) 12.6 - 14.9 Secs INTERFACE SYSTEM Comment: As of 04 note change in normal range. INR 1.4 INTERFACE SYSTEM Comment: Expected Values for INR: DVT/PE Goal INR 2.5; range 2.0 - 3.0 Valve Replacement Tissue Goal INR 2.5; range 2.0 - 3.0 Mechanical Goal INR 3.0; range 2.5 - 3.5 POST-TX Goal INR 2.5; range 2.0 - 3.0 or Goal 3.0; range 2.5 - 3.5 Atrial Fibrillation Goal INR 2.5; range 2.0 - 3.0 Ischemic Stroke Goal INR 2.5; range 2.0 - 3.0 For additional information see Guidelines for Anticoagulation available from the pharmacy Mauro Espitia. 11/03/2005 3:25 AM CDT us Leslee Rothman MD HEMATOLOGY ORDERABLES Final Result Performing Organization Address City/[facility] de Phone Number INTERFACE SYSTEM Refer to clinic/hospital department * HOMOCYSTEINE, SERUM (11/03/2005 3:25 AM CDT) HOMOCYSTEINE, SERUM 7.8 5.0 - 11.5 umol/L INTERFACE SYSTEM Comment: As of 04 at 12:00 p.m. [facility] has changed the methodology for Homocysteine, and with this change the reference range has changed for: Males 0-12.5 umol/L Females 0-11.5 umol/L 11/03/2005 3:25 AM CDT us Leslee Rothman MD CHEMISTRY ORDERABLES Final R esult Performing Organization Address [facility] de Phone Number INTERFACE SYSTEM Refer to clinic/hospital department * (ABNORMAL) ANTITHROMBIN III ACTIVITY (11/03/2005 3:25 AM CDT) ANTITHROMBIN III ACTIVITY 74(L) 80 - 120 % INTERFACE SYSTEM Comment:TEST VERIFIED BY REP EAT. 11/03/2005 3:25 AM CDT us Leslee Rothman MD HEMATOLOGY ORDERABLES Final Result Performing Organization Address City/[facility] de Phone Number INTERFACE SYSTEM Refer to clinic/hospital department * (ABNORMAL) LACTATE DEHYDROGENASE (11/03/2005 3:25 AM CDT) LD (LACTATE DEHYDROGENASE) 252(H) 100 - 190 U/L INTERFACE SYSTEM Comment: As of 05 the [facility] has changed testing methods. The new reference range is 100-190 The old referance range was 250-540 11/03/2005 3:25 AM CDT us Leslee Rothman MD CHEMISTRY ORDERABLES Final R esult Performing Organization Address City/[facility] de Phone Number INTERFACE SYSTEM Refer to clinic/hospital department * (ABNORMAL) CK (11/03/2005 3:25 AM CDT) CK 576(H) 26 - 140 U/L INTERFACE SYSTEM Comment: As of 05 the [facility] has changed testing methods. The new reference ranges are Males 38-174 Females 26-140 The old referance ranges were Males 0-155 Females 0-133 11/03/2005 3:25 AM CDT us Leslee Rothman MD CHEMISTRY ORDERABLES Final R esult Performing Organization Address [facility] de Phone Number INTERFACE SYSTEM Refer to clinic/hospital department * (ABNORMAL) COMPREHENSIVE METABOLIC PANEL (11/03/2005 3:25 AM CDT) GLUCOSE 107 70 - 110 mg/dL INTERFACE SYSTEM BUN 6(L) 7 - 17 mg/dL INTERFACE SYSTEM CREATININE 0.7 0.7 - 1.2 mg/dL INTERFACE SYSTEM SODIUM 139 136 - 145 mEq/L INTERFACE SYSTEM POTASSIUM 4.2 3.5 - 5.0 mEq/L INTERFACE SYSTEM CHLORIDE 106 95 - 110 mEq/L INTERFACE SYSTEM CO2 28 22 - 32 mmol/l INTERFACE SYSTEM ANION GAP 9 9 - 20 mEq/L INTERFACE SYSTEM OSMOLALITY, CALCULATED 284 275 - 295 mOsm/Kg INTERFACE SYSTEM CALCIUM 9.4 8.4 - 10.5 mg/dL INTERFACE SYSTEM TOTAL PROTEIN 6.4 6.3 - 8.2 g/dL INTERFACE SYSTEM ALBUMIN 3.6 3.5 - 5.0 g/dL INTERFACE SYSTEM GLOBULIN (CALC) 2.8 2.4 - 3.9 g/dL INTERFACE SYSTEM ALBUMIN/GLOBULIN RATIO 1.3 1.0 - 2.3 INTERFACE SYSTEM ALKALINE PHOSPHATASE 62 25 - 100 U/L INTERFACE SYSTEM Comment: As of 05 the [facility] has changed testing methods. The new reference range is 25-100 The old referance range was 38-126 AST 35(H) 8 - 33 U/L INTERFACE SYSTEM Comment: As of 05 the [facility] has changed testing methods. The new reference range is 8-33 The old referance range was Males 17-59 Females 14-36 ALT 33 4 - 36 IU/L INTERFACE SYSTEM Comment: As of 05 the [facility] has changed testing methods. The new reference range is 4-36 The old referance range was Males 21-72 Females 9-52 BILIRUBIN TOTAL 0.1(L) 0.3 - 1.2 mg/dL INTERFACE SYSTEM Comment: As of 05 the [facility] has changed testing methods. The new reference range is 0.3-1.2 The old referance range was 0.2-1.4 11/03/2005 3:25 AM CDT Leslee Rothman MD CHEMISTRY ORDERABLES Final R esult INTERFACE SYSTEM Refer to clinic/hospital department * (ABNORMAL) CBC WITH DIFFERENTIAL (11/03/2005 3:25 AM CDT) WBC 8.4 4.5 - 11.0 K/ul INTERFACE SYSTEM RBC 3.59(L) 4.20 - 5.40 Mil/ul INTERFACE SYSTEM HEMOGLOBIN 10.8(L) 12.0 - 16.0 g/dL INTERFACE SYSTEM HEMATOCRIT 33.9(L) 36.0 - 46.0 % INTERFACE SYSTEM MCV 94.4 84.0 - 103.0 Fl INTERFACE SYSTEM MCH 30.1 27.0 - 34.0 pg INTERFACE SYSTEM MCHC 31.9 30.0 - 35.0 g/dL INTERFACE SYSTEM RDW 13.0 11.0 - 14.5 % INTERFACE SYSTEM PLATELETS 253 140 - 440 K/ul INTERFACE SYSTEM MPV 9.9 8.9 - 12.8 Fl INTERFACE SYSTEM NEUTROPHILS 56.1 42.2 - 75.2 % INTERFACE SYSTEM LYMPHOCYTES 32.6 24.0 - 44.0 % INTERFACE SYSTEM MONOCYTES 8.4 2.0 - 10.0 % INTERFA CE SYSTEM EOSINOPHILS 2.7 0.0 - 7.0 % INTERF ARACELI SYSTEM BASOPHILS 0.2 0.0 - 1.0 % INTERFAC E SYSTEM NEUTROPHIL ABSOLUTE 4.7 2.0 - 8.0 K/uL INTERFACE SYSTEM LYMPHOCYTE ABSOLUTE 2.7 1.2 - 4.0 K/ul INTERFACE SYSTEM MONOCYTE ABSOLUTE 0.7(H) 0.1 - 0.6 K/ul INTERFACE SYSTEM EOSINOPHIL ABSOLUTE 0.2 0.0 - 0.7 K/ul INTERFACE SYSTEM BASOPHILS ABSOLUTE 0.0 0.0 - 0.2 K/ul INTERFACE SYSTEM PERIPHERAL BLOOD SMEAR REVIEW Smear Reviewed Automated Diff INTERFACE SYSTEM 11/03/2005 3:25 AM CDT Leslee Rothman MD HEMATOLOGY ORDERABLES Final Result INTERFACE SYSTEM Refer to clinic/hospital department * (ABNORMAL) PT AND APTT (11/02/2005 9:20 AM CDT) PROTIME 18.3(H) 12.6 - 14.9 Secs INTERFACE SYSTEM Comment: As of 04 note change in normal range. INR 1.5 INTERFACE SYSTEM Comment: Expected Values for INR: DVT/PE Goal INR 2.5; range 2.0 - 3.0 Valve Replacement Tissue Goal INR 2.5; range 2.0 - 3.0 Mechanical Goal INR 3.0; range 2.5 - 3.5 POST-TX Goal INR 2.5; range 2.0 - 3.0 or Goal 3.0; range 2.5 - 3.5 Atrial Fibrillation Goal INR 2.5; range 2.0 - 3.0 Ischemic Stroke Goal INR 2.5; range 2.0 - 3.0 For additional information see Guidelines for Anticoagulation available from the pharmacy Mauro Espitia PTT 53.4(H) 21.5 - 34.4 Secs INTERFACE SYSTEM Comment: Therapeutic Range: Hi-level PE/DVT heparin protocol 90.1 -110 sec Lo-level PE/DVT heparin protocol 75.1 - 95 sec Cardiac Heparin Protocol 85.1 - 100 sec Neuro Heparin Protocol 70.1 - 85 sec As of 03/04/05 note change in APTT Normal Range. 11/02/2005 9:20 AM CDT us Leslee Rothman MD HEMATOLOGY ORDERABLES Final Result INTERFACE SYSTEM Refer to clinic/hospital department * HCG QUANTITATIVE, BLOOD (11/02/2005 4:15 AM CDT) CHORIONIC GONADOTROPIN, TOTAL <2.0 0.0 - 10.0 mlU/ML INTERFACE SYSTEM Comment: As of 04 at 12:00 p.m. [facility] has changed the methodology for ThCG, and with this change the reference range has changed from 0-5.0 mIU/ml to 0-10.0 mIU/ml. ----- ----- Total HCG levels between 10 mIU/mL and 25 mIU/mL may be indicative of early but need to be correlated with other clinical findings. HCG ranges during normal , as reported by the missing persons investigator, are summarized as follows: Gestational Age Expected hCG Values(mIU/ml) 0.2-1 Weeks 5 - 50 1-2 Weeks 50 - 500 2-3 Weeks 100 - 5,000 3-4 Weeks 1,000 - 50,000 5-6 Weeks 10,000 - 100,000 6-8 Weeks 15,000 - 200,000 2-3 Months 10,000 - 100,000 11/02/2005 4:15 AM CDT us Leslee Rothman MD CHEMISTRY ORDERABLES Final R [facility] Performing Organization Address [facility] de Phone Number INTERFACE SYSTEM Refer to clinic/hospital department * (ABNORMAL) BASIC METABOLIC PANEL (11/02/2005 4:15 AM CDT) GLUCOSE 103 70 - 110 mg/dL INTERFACE SYSTEM BUN 8 7 - 17 mg/dL INTERFACE SYSTEM CREATININE 0.6(L) 0.7 - 1.2 mg/dL INTERFACE SYSTEM SODIUM 142 136 - 145 mEq/L INTERFACE SYSTEM POTASSIUM 4.4 3.5 - 5.0 mEq/L INTERFACE SYSTEM CHLORIDE 106 95 - 110 mEq/L INTERFACE SYSTEM CO2 29 22 - 32 mmol/l INTERFACE SYSTEM ANION GAP 11 9 - 20 mEq/L INTERFACE SYSTEM OSMOLALITY, CALCULATED 291 275 - 295 mOsm/Kg INTERFACE SYSTEM CALCIUM 9.7 8.4 - 10.5 mg/dL INTERFACE SYSTEM 11/02/2005 4:15 AM CDT us Leslee Rothman MD CHEMISTRY ORDERABLES Final R [facility] Performing Organization Address [facility] de Phone Number INTERFACE SYSTEM Refer to clinic/hospital department * (ABNORMAL) CBC WITH DIFFERENTIAL (11/02/2005 4:15 AM CDT) WBC 7.0 4.5 - 11.0 K/ul INTERFACE SYSTEM RBC 3.62(L) 4.20 - 5.40 Mil/ul INTERFACE SYSTEM HEMOGLOBIN 11.0(L) 12.0 - 16.0 g/dL INTERFACE SYSTEM HEMATOCRIT 34.1(L) 36.0 - 46.0 % INTERFACE SYSTEM MCV 94.2 84.0 - 103.0 Fl INTERFACE SYSTEM MCH 30.4 27.0 - 34.0 pg INTERFACE SYSTEM MCHC 32.3 30.0 - 35.0 g/dL INTERFACE SYSTEM RDW 12.9 11.0 - 14.5 % INTERFACE SYSTEM PLATELETS 238 140 - 440 K/ul INTERFACE SYSTEM MPV 9.8 8.9 - 12.8 Fl INTERFACE SYSTEM NEUTROPHILS 50.2 42.2 - 75.2 % INTERFACE SYSTEM LYMPHOCYTES 38.3 24.0 - 44.0 % INTERFACE SYSTEM MONOCYTES 7.6 2.0 - 10.0 % INTERFACE SYSTEM EOSINOPHILS 3.6 0.0 - 7.0 % INTERFACE SYSTEM BASOPHILS 0.3 0.0 - 1.0 % INTERFACE SYSTEM NEUTROPHIL ABSOLUTE 3.5 2.0 - 8.0 K/uL INTERFACE SYSTEM LYMPHOCYTE ABSOLUTE 2.7 1.2 - 4.0 K/ul INTERFACE SYSTEM MONOCYTE ABSOLUTE 0.5 0.1 - 0.6 K/ul INTERFACE SYSTEM EOSINOPHIL ABSOLUTE 0.3 0.0 - 0.7 K/ul INTERFACE SYSTEM BASOPHILS ABSOLUTE 0.0 0.0 - 0.2 K/ul INTERFACE SYSTEM 11/02/2005 4:15 AM CDT Leslee Rothman MD HEMATOLOGY ORDERABLES Final Result INTERFACE SYSTEM Refer to clinic/hospital department * (ABNORMAL) PROTIME-INR (11/01/2005 3:12 AM CDT) PROTIME 17.6(H) 12.6 - 14.9 Secs INTERFACE SYSTEM Comment: As of 04 note change in normal range. INR 1.4 INTERFACE SYSTEM Comment: Expected Values for INR: DVT/PE Goal INR 2.5; range 2.0 - 3.0 Valve Replacement Tissue Goal INR 2.5; range 2.0 - 3.0 Mechanical Goal INR 3.0; range 2.5 - 3.5 POST-TX Goal INR 2.5; range 2.0 - 3.0 or Goal 3.0; range 2.5 - 3.5 Atrial Fibrillation Goal INR 2.5; range 2.0 - 3.0 Ischemic Stroke Goal INR 2.5; range 2.0 - 3.0 For additional information see Guidelines for Anticoagulation available from the pharmacy Mauro Espitia 11/01/2005 3:12 AM CDT us Leslee Rothman MD HEMATOLOGY ORDERABLES Final Result INTERFACE SYSTEM Refer to clinic/hospital department * (ABNORMAL) COMPREHENSIVE METABOLIC PANEL (11/01/2005 3:12 AM CDT) GLUCOSE 94 70 - 110 mg/dL INTERFACE SYSTEM BUN 6(L) 7 - 17 mg/dL INTERFACE SYSTEM CREATININE 0.7 0.7 - 1.2 mg/dL INTERFACE SYSTEM SODIUM 140 136 - 145 mEq/L INTERFACE SYSTEM POTASSIUM 3.9 3.5 - 5.0 mEq/L INTERFACE SYSTEM CHLORIDE 108 95 - 110 mEq/L INTERFACE SYSTEM CO2 28 22 - 32 mmol/l INTERFACE SYSTEM ANION GAP 8(L) 9 - 20 mEq/L INTERFACE SYSTEM OSMOLALITY, CALCULATED 285 275 - 295 mOsm/Kg INTERFACE SYSTEM CALCIUM 9.4 8.4 - 10.5 mg/dL INTERFACE SYSTEM TOTAL PROTEIN 6.4 6.3 - 8.2 g/dL INTERFACE SYSTEM ALBUMIN 3.6 3.5 - 5.0 g/dL INTERFACE SYSTEM GLOBULIN (CALC) 2.8 2.4 - 3.9 g/dL INTERFACE SYSTEM ALBUMIN/GLOBULIN RATIO 1.3 1.0 - 2.3 INTERFACE SYSTEM ALKALINE PHOSPHATASE 70 25 - 100 U/L INTERFACE SYSTEM Comment: As of 05 the [facility] has changed testing methods. The new reference range is 25-100 The old referance range was 38-126 AST 31 8 - 33 U/L INTERFACE SYSTEM Comment: As of 05 the [facility] has changed testing methods. The new reference range is 8-33 The old referance range was Males 17-59 Females 14-36 ALT 43(H) 4 - 36 IU/L INTERFACE SYSTEM Comment: As of 05 the [facility] has changed testing methods. The new reference range is 4-36 The old referance range was Males 21-72 Females 9-52 BILIRUBIN TOTAL 0.2(L) 0.3 - 1.2 mg/dL INTERFACE SYSTEM Comment: As of 05 the [email or web address] has changed testing methods. The new reference range is 0.3-1.2 The old referance range was 0.2-1.4 11/01/2005 3:12 AM CDT us Leslee Rothman MD CHEMISTRY ORDERABLES Final R esult INTERFACE SYSTEM Refer to clinic/hospital department * (ABNORMAL) CBC WITH DIFFERENTIAL (11/01/2005 3:12 AM CDT) WBC 6.8 4.5 - 11.0 K/ul INTERFACE SYSTEM RBC 3.77(L) 4.20 - 5.40 Mil/ul INTERFACE SYSTEM HEMOGLOBIN 11.4(L) 12.0 - 16.0 g/dL INTERFACE SYSTEM HEMATOCRIT 36.1 36.0 - 46.0 % INTERFACE SYSTEM MCV 95.8 84.0 - 103.0 Fl INTERFACE SYSTEM MCH 30.2 27.0 - 34.0 pg INTERFACE SYSTEM MCHC 31.6 30.0 - 35.0 g/dL INTERFACE SYSTEM RDW 13.1 11.0 - 14.5 % INTERFACE SYSTEM PLATELETS 241 140 - 440 K/ul INTERFACE SYSTEM MPV 9.6 8.9 - 12.8 Fl INTERFACE SYSTEM NEUTROPHILS 47.3 42.2 - 75.2 % INTERFACE SYSTEM LYMPHOCYTES 39.6 24.0 - 44.0 % INTERFACE SYSTEM MONOCYTES 9.4 2.0 - 10.0 % INTERFACE SYSTEM EOSINOPHILS 3.4 0.0 - 7.0 % INTERFACE SYSTEM BASOPHILS 0.3 0.0 - 1.0 % INTERFACE SYSTEM NEUTROPHIL ABSOLUTE 3.2 2.0 - 8.0 K/uL INTERFACE SYSTEM LYMPHOCYTE ABSOLUTE 2.7 1.2 - 4.0 K/ul INTERFACE SYSTEM MONOCYTE ABSOLUTE 0.6 0.1 - 0.6 K/ul INTERFACE SYSTEM EOSINOPHIL ABSOLUTE 0.2 0.0 - 0.7 K/ul INTERFACE SYSTEM BASOPHILS ABSOLUTE 0.0 0.0 - 0.2 K/ul INTERFACE SYSTEM 11/01/2005 3:12 AM CDT us Leslee Rothman MD HEMATOLOGY ORDERABLES Final Result Performing Organization Address City/State/[facility] Co de Phone Number INTERFACE SYSTEM Refer to clinic/hospital department * (ABNORMAL) SEDIMENTATION RATE (10/31/2005 9:08 PM CDT) ESR (SEDIMENTATION RATE) 92(H) 0 - 22 mm/hr INTERFACE SYSTEM 10/31/2005 9:08 PM CDT Leslee Rothman MD HEMATOLOGY ORDERABLES Final Result INTERFACE SYSTEM Refer to clinic/hospital department * CT CHEST W CONTRAST (10/31/2005 6:24 PM CDT) Anatomical Region Laterality Modality Chest Other 10/31/2005 6:24 PM CDT Narrative 10/31/2005 6:[address] chest with contrast. Date: 11/03/05 at 2016 hours. Indication: Mass. Technique: CT chest with contrast was performed. Contrast: 60 ml Optiray 350 was administered intravenously. Findings: The lungs are clear. No pulmonary mass seen. A few bilateral axillary and scatteredmediastinal lymph nodes are not pathologic by size criteria. No pleural or pericardial effusion. The thoracic aorta is normal. Stones noted within the gallbladder. Impression: No significant abnormalities of the thorax identified. Cholelithiasis noted. - Dictated By: Hayder Wong M.D. Electronically Signed By: Hayder Wong M.D. Date Signed: 11/03/05 [facility] Procedure Note 12/28/2008 CT chest with contrast. Date: 11/03/05 at 2016 hours. Indication: Mass. Technique: CT chest with contrast was performed. Contrast: 60 ml Optiray 350 was administered intravenously. Findings: The lungs are clear. No pulmonary mass seen. A few bilateral axillary andscatteredmediastinal lymph nodes are not pathologic by size criteria. No pleural or pericardialeffusion. The thoracic aorta is normal. Stones noted within the gallbladder. Impression: No significant abnormalities of the thorax identified. Cholelithiasisnoted. - Dictated By: Hayder Wong M.D. Electronically Signed By: Hayder Wong M.D. Date Signed: 11/03/[address] ORDERABLES Final Result * XR FOOT 3+ VW RIGHT (10/31/2005 6:24 PM CDT) Anatomical Region Laterality Modality Ankle / Foot Other 10/31/2005 6:24 PM CDT Narrative 10/31/2005 6:24 PM CDT Right Foot 11/03/05 At 1709 HoursIndication: Pain. Findings: 3 views were performed. No osseous or joint abnormalities are seen. Impression: No significant abnormalities identified. Followup in 7 to 10 days may be considered forfurther evaluation if clinically warranted. - Dictated By: Hayder oWng M.D. Electronically Signed By: Hayder Wong M.D. Date Signed: 11/03/05 AMA Procedure Note 12/28/2008 Right Foot 11/03/05 At 1709 HoursIndication: Pain. Findings: 3 views were performed. No osseous or joint abnormalities are seen. Impression: No significant abnormalities identified. Followup in 7 to 10 days may beconsidered forfurther evaluation if clinically warranted. - Dictated By: Hayder Wong M.D. Electronically Signed By: Hayder Wong M.D. Date Signed: 11/03/05 AMA us Historical Provider DIAGNOSTIC IMAGING ORDERABLE S Final Result * XR FEMUR 2 VW RIGHT (10/31/2005 6:24 PM CDT) Anatomical Region Laterality Modality Lower Extremity Other 10/31/2005 6:24 PM CDT Narrative 10/31/2005 6:24 PM CDT TWO VIEWS EACH OF THE RIGHT AND LEFT FEMUR AND TWO VIEWS OF THE RIGHT TIBIA/FIBULA: No apparent osseous abnormality of both lower extremities. Nonspecific appearance of soft tissue edema of the right lower extremity. IMPRESSION: As above. cgf: Dictated By: William Kohler M.D. Electronically Signed By: William Kohler M.D. Date Signed: 11/02/05 Procedure Note 12/28/2008 TWO VIEWS EACH OF THE RIGHT AND LEFT FEMUR AND TWO VIEWS OF THE RIGHTTIBIA/FIBULA: No apparent osseous abnormality of both lower extremities. Nonspecificappearance of soft tissue edema of the right lower extremity. IMPRESSION: As above. cgf: Dictated By: William Kohler M.D. Electronically Signed By: William Kohler M.D. Date Signed: 11/02/05 us Historical Provider DIAGNOSTIC IMAGING ORDERABLE S Final Result * CT GUIDED ASPIRATION (10/31/2005 6:24 PM CDT) Anatomical Region Laterality Modality Other 10/31/2005 6:24 PM CDT Narrative 10/31/2005 6:24 PM CDT After explaining the nature purpose of the procedure, risks and benefits with the patient, informedconsent was obtained. The patient was then placed prone in the CT scan table and images wereobtained to the left shoulder. Enlargement the left teres minor and infraspinatus muscles and edemathe subcutaneous fat is noted. Hypodensity within the muscles and thin linear hyperdensity is notedbut no distinct definite calcifications. This thin linear hyperdensity could represent earlycalcification in the muscle or may represent the margin of the hematoma. Using sterile technique 1% lidocaine, with an 18-gauge needle was then placed within the abnormalteres minor/infraspinatus muscles. Confirmation of placement with CT was performed. Aspiration wasthen performed and approximately 7 mL of bloody fluid was aspirated. The patient tolerated theprocedure well. The fluid sample was sent for gram stain culture and sensitivity. Impression: 1. CT guided aspiration of fluid collection left teres minor and infraspinatus muscles. - Dictated By: Evelyn Gonsalves M.D. Electronically Signed By: Evelyn Gonsalves M.D. Date Signed: 11/02/05 Procedure Note 12/28/2008 After explaining the nature purpose of the procedure, risks and benefitswith the patient, informedconsent was obtained. The patient was then placed prone in the CTscan table and images wereobtained to the left shoulder. Enlargement the left teres minor andinfraspinatus muscles and edemathe subcutaneous fat is noted. Hypodensity within the muscles andthin linear hyperdensity is notedbut no distinct definite calcifications. This thin linearhyperdensity could represent earlycalcification in the muscle or may represent the margin of thehematoma. Using sterile technique 1% lidocaine, with an 18-gauge needle was thenplaced within the abnormalteres minor/infraspinatus muscles. Confirmation of placement with CT wasperformed. Aspiration wasthen performed and approximately 7 mL of bloody fluid was aspirated. Thepatient tolerated theprocedure well. The fluid sample was sent for gram stain culture and sensitivity. Impression: 1. CT guided aspiration of fluid collection left teres minor andinfraspinatus muscles. - Dictated By: Evelyn Gonsalves M.D. Electronically Signed By: Evelyn Gonsalves M.D. Date Signed: 11/02/[address] ORDERABLES Final Result * MRI SHOULDER W WO CONTRAST RIGHT (10/31/2005 6:24 PM CDT) Anatomical Region Laterality Modality Upper Extremity Other 10/31/2005 6:24 PM CDT Narrative 10/31/2005 6:24 PM CDT MRI the right shoulder was performed. Images were performed without contrast and post-20 mLMagnevist contrast. Patient has pain and swelling of the right shoulder and history DVT and is onthe anticoagulant therapy. There is extensive edema within the infraspinatus and teres minor muscles. The postcontrast imagesbest demonstrate an area of ill-defined enhancement in the infraspinatus and teres minor muscleswith thin enhancing septations peripherally. This does not have a well marginated appearance andthe appearance is most suggestive of either intramuscular hematoma or an area of evolving muscleinfarction. The muscle is enlarged and the tendon and infraspinatus does have some linear lowsignal intensity more prominent than the other tendons which may represent some subtlecalcification. Specifically the possibility of calcific tendinitis or possibly even calcificationof dermatomyositis may be present. At this time, the enhancement pattern is most suggestive ofhematoma or myositis. Infection cannot be entirely excluded. An aspiration of the collection willbe performed and has been scheduled for later today. A small amount of edema and enhancement is noted the deltoid muscle adjacent to the abnormalities inthe infraspinatus and teres minor most likely reactive otherwise the majority deltoid isappropriate. The subscapularis muscle and the supraspinatus are also appropriate in appearance. There is some fluid and edema in subcutaneous fat over the posterior shoulder. No bony fracture isidentified in the [id number]. There is a small area of linear enhancement and edema in thelateral humeral metaphysis adjacent to the old physeal scar. Prominent vessels are noted in thisregion and this may simply be reactive, bony contusion or simply interosseous hemangioma. There isno cortical destruction or classic features of osteomyelitis in this region. Prominent penetratingvessels are noted in this region. No complete rotator cuff tear and no glenohumeral joint effusion. No abnormal enhancement of the glenohumeral joint synovium. The long head biceps tendon is withinthe bicipital groove the humerus and attaching the glenolabral complex and a linear labral tear isidentified. Impression: 1. Ill-defined hypodensity with peripheral enhancement infraspinatus and teres minor. This is a veryill-defined irregular appearance and at this time is nonspecific. This is not a definite area ofinfection or abscess but an aspiration will be performed. The appearance is more typical for softtissue hematoma or possibly muscle infarct or myonecrosis. Myositis including dermatomyositisshould also be considered. Subtle low signal could represent some early calcification in theinfraspinatus tendon. 2. this case has been discussed with Dr. Kirt Bahena. - Dictated By: Evelyn Gonsalves M.D. Electronically Signed By: Evelyn Gonsalves M.D. Date Signed: 11/02/05 Procedure Note 12/28/2008 MRI the right shoulder was performed. Images were performed withoutcontrast and post-20 mLMagnevist contrast. Patient has pain and swelling of the right shoulder and historyDVT and is onthe anticoagulant therapy. There is extensive edema within the infraspinatus and teres minor muscles.The postcontrast imagesbest demonstrate an area of ill-defined enhancement in the infraspinatus andteres minor muscleswith thin enhancing septations peripherally. This does not have a well marginatedappearance andthe appearance is most suggestive of either intramuscular hematoma or an area of evolvingmuscleinfarction. The muscle is enlarged and the tendon and infraspinatus does have some linear lowsignalintensity more prominent than the other tendons which may represent some subtlecalcification.Specifically the possibility of calcific tendinitis or possibly even calcificationof dermatomyositis may bepresent. At this time, the enhancement pattern is most suggestive ofhematoma or myositis. Infection cannot beentirely excluded. An aspiration of the collection willbe performed and has been scheduled for later today. A small amount of edema and enhancement is noted the deltoid muscleadjacent to the abnormalities inthe infraspinatus and teres minor most likely reactive otherwise the majoritydeltoid isappropriate. The subscapularis muscle and the supraspinatus are also appropriate inappearance. There is some fluid and edema in subcutaneous fat over the posteriorshoulder. No bony fracture isidentified in the [id number]. There is a small area of linearenhancement and edema in thelateral humeral metaphysis adjacent to the old physeal scar. Prominent vessels arenoted in thisregion and this may simply be reactive, bony contusion or simply interosseous hemangioma.There isno cortical destruction or classic features of osteomyelitis in this region. Prominentpenetratingvessels are noted in this region. No complete rotator cuff tear and no glenohumeral joint effusion. No abnormal enhancement of the glenohumeral joint synovium. The long headbiceps tendon is withinthe bicipital groove the humerus and attaching the glenolabral complex and alinear labral tear isidentified. Impression: 1. Ill-defined hypodensity with peripheral enhancement infraspinatus andteres minor. This is a veryill-defined irregular appearance and at this time is nonspecific. Thisis not a definite area ofinfection or abscess but an aspiration will be performed. The appearanceis more typical for softtissue hematoma or possibly muscle infarct or myonecrosis. Myositis includingdermatomyositisshould also be considered. Subtle low signal could represent some early calcification intheinfraspinatus tendon. 2. this case has been discussed with Dr. Kirt Bahena. - Dictated By: Evelyn Gonsalves M.D. Electronically Signed By: Evelyn Gonsalves M.D. Date Signed: 11/02/05 Leslee Rothman MD MR ORDERABLES Final Result * XR SHOULDER 2+ VW RIGHT (10/31/2005 6:24 PM CDT) Anatomical Region Laterality Modality Upper Extremity Other 10/31/2005 6:24 PM CDT Narrative 10/31/2005 6:24 PM CDT Chest - PA and lateral. Shoulder - right. Date: 11/01/2005. Indication: Deep venous thrombosis. Shoulder pain. PA and lateral projections of the chest show normal midline structures. Lungs appear clear. Osseousstructures show no acute abnormality. Thoracic scoliosis. AP internal/external rotatory and axillary projections of the right shoulder show no fracture or focalosseous defect. Glenohumeral articulation intact. Impression: No acute findings. - Dictated By: Perez Johnson D.O. Electronically Signed By: Perez Johnson D.O. Date Signed: 11/01/05 [facility]Rashaun Procedure Note 12/28/2008 Chest - PA and lateral. Shoulder - right. Date: 11/01/2005. Indication: Deep venous thrombosis. Shoulder pain. PA and lateral projections of the chest show normal midline structures.Lungs appear clear. Osseousstructures show no acute abnormality. Thoracic scoliosis. AP internal/external rotatory and axillary projections of the rightshoulder show no fracture or focalosseous defect. Glenohumeral articulation intact. Impression: No acute findings. - Dictated By: Perez Johnson D.O. Electronically Signed By: Perez Johnson D.O. Date Signed: 11/01/05 GRB Leslee Rothman MD DIAGNOSTIC IMAGING ORDERABLE S Final Result documented in this encounter Visit Diagnoses Diagnosis Other disorder of muscle, ligament, and fascia- Primary documented in this encounter Care Teams Clinical Informatics Strategist Relationship Specialty Start Date End Date Non-Staff, Physician NO ADDRESS ON FILE PCP - General 10/08/17 documented as of this encounter
--- OUTSIDE RECORDS SUMMARY | 2024-12-27 20:25 | XMS_ITS | Encounter Summary ---
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) Social History Tobacco Use Types Packs/Day Years Used Date Smoking Tobacco: Never Assessed Comments Unknown Sex and Gender Information Value Date Recorded Sex Assigned at Not on file 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
--- OUTSIDE RECORDS SUMMARY | 2024-12-27 20:25 | XMS_ITS | Encounter Summary ---
Author Organization [facility] Address [address] [place] [address] Care Team Providers Care Survey Analyst Name Role Phone Non-Staff, Physician Primary Care Provider Unava ilable Encounter Details Date Type Department Care Team (Latest Contact Info) Description 07/07/2002 Outpatient Historical [address] [phone] Shashank Deshpande PA NO ADDRESS ON FILE OTHER GENERAL SYMPTOMS (Primary Dx) Social History Tobacco Use Types Packs/Day Years Used Date Smoking Tobacco: Never Assessed Comments Unknown Sex and Gender Information Value Date Recorded Sex Assigned at Not on file 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
--- OUTSIDE RECORDS SUMMARY | 2024-12-27 20:25 | XMS_ITS | Encounter Summary ---
Author Organization [facility] Address [address] [place] [address] Care Team Providers Care Health Education Teacher Name Role Phone Non-Staff, Physician Primary Care Provider Unava ilable Encounter Details Date Type Department Care Team (Latest Contact Info) Description 10/25/2003 Outpatient Historical [facility] [place] [address] [place] [address] Kathie Graf MD [address] [phone] ABDOMINAL PAIN UNSPEC SITE (Primary Dx); UNSPEC CONSTIPATION Social History Tobacco Use Types Packs/Day Years Used Date Smoking Tobacco: Never Assessed Comments Unknown Sex and Gender Information Value Date Recorded Sex Assigned at Not on file 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
--- OUTSIDE RECORDS SUMMARY | 2024-12-27 20:25 | XMS_ITS | Encounter Summary ---
Author Organization [facility] Address [address] [place] [address] Care Team Providers Care Director Informatics Name Role Phone Non-Staff, Physician Primary Care Provider Unava ilable Encounter Details Date Type Department Care Team (Latest Contact Info) Description 02/20/2000 Outpatient Historical [facility] Medicine [address] [place] [phone] Perez Carlton MD [address] [phone] Tobacco use disorder (Primary Dx); Depressive disorder, not elsewhere classified Social History Tobacco Use Types Packs/Day Years Used Date Smoking Tobacco: Never Assessed Comments Unknown Sex and Gender Information Value Date Recorded Sex Assigned at Not on file 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
--- OUTSIDE RECORDS SUMMARY | 2024-12-27 20:25 | XMS_ITS | Encounter Summary ---
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
--- OUTSIDE RECORDS SUMMARY | 2024-12-27 20:25 | XMS_ITS | Encounter Summary ---
Author Organization [facility] Address [address] [place] [address] Care Team Providers Care Local Area Network Systems Adminstrator Name Role Phone Non-Staff, Physician Primary Care Provider Unava ilable Encounter Details Date Type Department Care Team (Latest Contact Info) Description 10/29/2005 Outpatient Historical [facility] [address] 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
--- OUTSIDE RECORDS SUMMARY | 2024-12-27 20:25 | XMS_ITS | Encounter Summary ---
Author Organization [facility] Address [address] [place] [address] Care Team Providers Care Lease Picker Name Role Phone Non-Staff, Physician Primary Care Provider Unava ilable Encounter Details Date Type Department Care Team (Latest Contact Info) Description 01/17/1999 Outpatient Historical [facility] Medicine [place] [address] [facility] [address] [place] [phone] Perez Carlton MD [address] [facility] [address] [place] [phone] Acute upper respiratory infections of unspecified site (Primary Dx) Social History Tobacco Use Types Packs/Day Years Used Date Smoking Tobacco: Never Assessed Comments Unknown Sex and Gender Information Value Date Recorded Sex Assigned at Not on file 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
--- OUTSIDE RECORDS SUMMARY | 2024-12-27 20:25 | XMS_ITS | Encounter Summary ---
Author Organization [facility] Address [address] [place] [address] Care Team Providers Care Instrumentation Manager Name Role Phone Non-Staff, Physician Primary Care Provider Unava ilable Encounter Details Date Type Department Care Team (Latest Contact Info) Description 02/24/1999 Outpatient Historical [facility] Medicine [place] [address] [facility] [address] [place] [phone] Perez Carlton MD [address] 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
--- OUTSIDE RECORDS SUMMARY | 2024-12-27 20:25 | XMS_ITS | Encounter Summary ---
Author Organization [facility] Address [address] [place] [address] Care Team Providers Care Computer Systems Technology Instructor Name Role Phone Non-Staff, Physician Primary Care Provider Unava ilable Encounter Details Date Type Department Care Team (Late st Contact Info) Description 10/25/2003 Emergency [facility] [address] 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
--- OUTSIDE RECORDS SUMMARY | 2024-12-27 20:25 | XMS_ITS | Encounter Summary ---
Author Organization [facility] Address [address] [place] [address] Care Team Providers Care Archivist Military History Name Role Phone Non-Staff, Physician Primary Care Provider Unava ilable Encounter Details Date Type Department Care Team (Latest Contact Info) Description 12/31/1998 Outpatient Historical [facility] Family Medicine [place] [address] [facility] [address] [place] [address] Perez Carlton MD [address] [phone] Issue of medical certificates (Primary Dx); Gynecologic examination Social History Tobacco Use Types Packs/Day Years Used Date Smoking Tobacco: Never Assessed Comments Unknown Sex and Gender Information Value Date Recorded Sex Assigned at Not on file 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
--- OUTSIDE RECORDS SUMMARY | 2024-12-27 20:25 | XMS_ITS | Encounter Summary ---
Author Organization [facility] Address [address] [place] [address] Care Team Providers Care Clinical Study Manager Name Role Phone Non-Staff, Physician Primary Care Provider Unava ilable Encounter Details Date Type Department Care Team (Latest Contact Info) Description 10/31/2005 Outpatient Historical [facility] [address] 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
--- OUTSIDE RECORDS SUMMARY | 2024-12-27 20:25 | XMS_ITS | Encounter Summary ---
Author Organization [facility] Address [address] [place] [address] Care Team Providers Care Custom Leather Products Maker Name Role Phone Non-Staff, Physician Primary Care Provider Unava ilable Encounter Details Date Type Department Care Team (Latest Contact Info) Description 07/07/2002 Outpatient Historical [address] [phone] Marga Radford MD NO ADDRESS ON FILE MYALGIA AND MYOSITIS NOS (Primary Dx) Social History Tobacco Use Types Packs/Day Years Used Date Smoking Tobacco: Never Assessed Comments Unknown Sex and Gender Information Value Date Recorded Sex Assigned at Not on file 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
--- OUTSIDE RECORDS SUMMARY | 2024-12-27 20:26 | XMS_ITS | Encounter Summary ---
Author Organization [facility] Address [address] [place] [address] Care Team Providers Care Nutrition Assistant Name Role Phone Non-Staff, Physician Primary Care Provider Unava ilable Encounter Details Date Type Department Care Team (Latest Contact Info) Description 01/13/2006 Outpatient Historical [facility] [place] [address] [phone] Gail Alicea, TAX ECONOMIST [address] [place] [phone] Acute Upper Respiratory Infections of Unspecified Site (Primary Dx) Social History Tobacco Use Types Packs/Day Years Used Date Smoking Tobacco: Never Assessed Comments Unknown Sex and Gender Information Value Date Recorded Sex Assigned at Not on file 

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
--- OUTSIDE RECORDS SUMMARY | 2024-12-27 20:26 | XMS_ITS | Patient Health Record ---
Author Organization [facility] Address [address] [place] [place] [address] Care Team Providers Care Maintenance Aide Name Role Phone Tee Morgan MD Primary Care Provider Aurora Weiss Unavailable [phone] Reason For Referral No Information Medications Medication SIG (Take, Route, Frequency, Duration) Notes Start Date End Date Status Meloxicam *Pick strength-f orm from Medispan for eRX* Active Voltaren *Pick strength-f orm from Medispan for eRX* Active Gabapentin *Pick strength-f orm from Medispan for eRX* Active Aleve *Pick strength-f orm from Medispan for eRX* Active Social History Social History [...] every day smoker, Working currently? - No Plan Of Treatment No Information Insurance Providers Payer Name Payer Address Payer Phone Subscriber Number Group Number Insured Name Patient Relationship to Insured Coverage Start Date Coverage End Date [place] [address] TABATHA ASTORGA [phone] [id number] Annemarie Hardin Self - patient is the insured [place] Medicaid [address] DAVINA FATIMA [phone] [id number] LashawnKatiena Self - patient is the insured Medical (General) History Surgical History Surgery Date(Month/Year) Arm surgery Gallbladder surgery Partial Hysterectomy
--- NOTE | 2024-12-27 21:01 | PC.NURSE ---
Provided pt with a sandwich and shawanda
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
[2024-12-27 21:28] LABS: Hematocrit 45.0 % (36-47); Hemoglobin 14.40 g/dL (11.27-16.99); Mean Corpuscular HGB Conc 32.0 g/dL (30-55); Mean Corpuscular Hemoglobin 31.4 pg (27-33); Mean Corpuscular Volume 98.0 fl (85-98); Nucleated Red Blood Cells % 0 %; Platelet Count 225 10^3/cmm (157-399); Red Blood Count 4.59 10^6/uL (3.85-5.65); White Blood Count 14.26 10^3/uL (3.29-11.43)
--- NOTE | 2024-12-27 21:58 | PC.NURSE ---
Pt is not compliant with vital signs at this time.
--- NOTE | 2024-12-27 22:25 | XRR_ITS ---
PROCEDURE INFORMATION: Exam: XR Chest Exam date and time: 12/27/2024 10:50 PM Age: 54 years old Clinical indication: Cough; Additional info: Diaphoretic, cough TECHNIQUE: Imaging protocol: Radiologic exam of the chest. Views: 1 view. COMPARISON: No relevant prior studies available. FINDINGS: Lungs: Unremarkable. No consolidation. Pleural spaces: No focal consolidation, pleural effusion, or pneumothorax. Heart/Mediastinum: Unremarkable. No cardiomegaly. Bones/joints: Right humerus ORIF. XR/XR chest 1V portable [id number] IMPRESSION: No focal consolidation, pleural effusion, or pneumothorax.
[2024-12-27 22:45] LABS: Alanine Aminotransferase 15 U/L (0-33); Albumin Level 4.6 g/dL (3.5-5.2); Alkaline Phosphatase 91 U/L (35-105); Anion Gap 17.4 (5-19); Aspartate Amino Transferase 27 U/L (0-32); Blood Urea Nitrogen 13 mg/dL (6-20); Calcium 9.9 mg/dL (8.5-10.5); Carbon Dioxide 23 mmol/L (22-29); Chloride 106 mmol/L (98-107); Globulin 2.6 g/dL (1.3-4.6); Glucose 116 mg/dL (65-115); Osmolality Calculated 297 mOsm/kg (285-295); Potassium 3.4 mmol/L (3.5-5.1); Sodium 143 mmol/L (136-145); Total Protein 7.2 g/dL (6.6-8.7)
[2024-12-27 22:48] LABS: Acetaminophen < 5.0 ug/mL (10-30); Alcohol Level < 10 mg/dL (0-10); Salicylate < 0.3 mg/dL (3-10)
[2024-12-27] MEDS: water for injection-sterile 10 ML 999 ML (22:48)
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
[2024-12-27 23:00] VITALS: BP 112/72; PULSE 78; O2SAT 97
--- NOTE | 2024-12-27 23:00 | PC.NURSE ---
96 Hour Involuntary Hold Patient Rights have been reviewed with the patient and a copy of the same has been provided to her. Security Officers Sammy Hernandez and Nate Palafox were present at bedside during the presentation of Rights.
[2024-12-27 23:15] VITALS: BP 139/86; PULSE 75; RESP 16; O2SAT 96
[2024-12-27 23:30] VITALS: BP 101/54; PULSE 71; RESP 16; O2SAT 96
[2024-12-27 23:45] VITALS: BP 89/53; PULSE 70; RESP 18; O2SAT 96
[2024-12-28] VITALS (8 sets, daily range): BP systolic 95–150; BP diastolic 49–100; PULSE 68–95; RESP 17–22; TEMP 36.2–36.9; O2SAT 93–98
--- NOTE | 2024-12-28 09:10 | XR_ITS ---
WS: [id number] XR ankle RT min 3V* [id number] REASON FOR EXAM: injury FINDINGS: Deformity of the apex of the medial malleolus most compatible with old healed medial collateral ligament avulsion injury. No other significant focal bone abnormality. Joint spaces of the ankle are intact and well preserved. XR/XR ankle LT min 3V* [id number] IMPRESSION: No definite acute bone or joint abnormality.
[2024-12-28] MEDS: morphine 4 mg/mL SDV 1 mL IM (09:34)
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
--- NOTE | 2024-12-28 11:07 | P.CONIM_ITS ---
Providers/Reason For Consult 2 Consulting Physician/Specialty*: Jacqueline Villarreal MD/Hospitalist Reason for Consult*: Left ankle pain Requesting Physician: Dr. Yobany Downs. Attending Physician: Alex Palafox MD Primary Care Provider: Cruz Vizcarra MD History of Present Illness History of Present Illness Annemarie Hardin is a 54 year old female who was admitted to psych floor for some psych issues. This morning, while walking in the [facility] of the unit, she developed sudden severe pain in the Achilles area of the left ankle. She was unable to bear weight, and had to sit on the floor, crying heavily. I was there when this happened, and I witnessed the whole episode. Consequently, some one-time dose of IM morphine was ordered and given, while patient was ordered a three-view ankle x-ray. Review of Systems 2 Narrative: General: Negative for fever, headaches, dizziness or weakness. Respiration: Negative for shortness of breath, cough or wheezing. CVS: Negative for chest pain, palpitations or dyspnea on exertion. GI: Negative for nausea, vomiting, or diarrhea/constipation. UGS: Negative for dysuria, urgency or increased urinary frequency. All other systems reviewed, and essentially negative, except as in the HPI. Medications/Allergies Home Medications ?Medication ?Instructions ?Recorded ?Confirmed ?Last Taken ?Type cetirizine 10 mg capsule (Zyrtec) 10 mg PO DAILY PRN A llergy Symptoms 12/22/23 12/28/24 Unknown History albuterol sulfate 90 mcg/actuation 1 inh inhalation QI D PRN shortness 05/30/24 12/28/24 Unknown Rx aerosol inhaler of breath or wheezing #8.5 g andrew methocarbamol 500 mg tablet 500 mg PO TID PRN muscle s pasm #90 10/25/24 12/28/24 Unknown Rx tabs buspirone 10 mg tablet 20 mg (2 x 10 mg) PO BID 30 days 11/23/24 12/28/24 Unknown Rx #120 tabs duloxetine 60 mg capsule,delayed 60 mg PO DAILY #30 ca ps 11/23/24 12/28/24 Unknown Rx release lurasidone 60 mg tablet 60 mg PO DAILY #30 tabs 11/0812/28/24 Unknown Rx gabapentin 600 mg tablet 600 mg PO TID 12/28/2412/28 Unknown History Allergies Allergy/AdvReac Type Severity Reaction Status Date / Time aripiprazole Allergy Unknown Verified 09/25/24 13:34 doxycycline Allergy Unknown Verified 09/25/24 13:34 erythromycin base Allergy ADR-Vomitin Verified 09/25/24 13:34 g Tetracyclines Allergy Unknown Verified 09/25/24 13:34 Current Medications Generic Name Dose Route Start Last Admin Trade Name Freq PRN Reason Stop Dose Admin Acetaminophen 650 mg 12/28/24 01:10 12/28/24 08:42 Acetaminophen 325 Mg Tablet PO 650 mg Q4H PRN Administration MILD PAIN Buspirone HCl 20 mg 12/28/24 09:00 12/28/24 08:42 Buspirone 10 Mg Tablet PO 20 mg BID SARTHAK Administration Cetirizine HCl 10 mg 12/28/24 02:52 12/28/24 08:51 Cetirizine 10 Mg Tablet PO 10 mg DAILY PRN Administration Allergy Symptoms Duloxetine HCl 60 mg 12/28/24 09:00 12/28/24 08:43 Duloxetine 60 Mg Capsule PO 60 mg DAILY SARTHAK Administration Gabapentin 600 mg 12/28/24 09:00 12/28/24 08:43 Gabapentin 300 Mg Capsule PO 600 mg TID SARTHAK Administration Hydroxyzine Pamoate 50 mg 12/28/24 01:10 12/28/24 08:47 Hydroxyzine 25 Mg Capsule PO 50 mg Q6H PRN Administration ANXIETY Lurasidone HCl 60 mg 12/28/24 09:00 12/28/24 08:43 Lurasidone 20 Mg Tablet PO 60 mg DAILY SARTHAK Administration Nicotine Polacrilex 2 mg 12/28/24 01:10 12/28/24 08:53 Nicotine 2 Mg Gum BUCCAL 2 mg Q2H PRN Administration NICOTINE WITHDRAWAL PFSH Acute 2 PFSH: Medical History Osteoarthritis Methamphetamine use disorder, moderate, in sustained remission Tobacco use disorder Generalized anxiety disorder PTSD (post-traumatic stress disorder) Methamphetamine use Narcissistic personality disorder Cannabis abuse Chronic pain Moderate episode of recurrent major depressive disorder Major depressive disorder, recurrent episode with anxious distress Psychiatric care Homicidal ideation Aggression Anxiety Social History Smoking and tobacco/nicotine status: current every day tobacco/nicotine user Alcohol intake: current Alcohol intake frequency: holidays/special occasions only Substance/Drug Use: current Substance/Drug use frequency: daily Adopted: No Caregiver/support person: No Lives independently: Yes Household members: other Housing: Apartment Marital status: Legally Number of children: 2 Highest education level completed: Associate Degree: Academic Program service: No Current occupational status: unemployed Current occupational exposures/hazards: No Pets and animals: Yes Pets & animals: dog(s) Leisure activites: exercise, music and games Sexually active: No Do you think of yourself as: Straight/Heterosexual Current gender identity: Female Aniya/Islam: Rastafarian Special aniya needs: No Agree to transfusion: Yes Female Reproductive History: Para: 2 Vitals/I&O/Wt Last Vital Signs Temp 98.0 F 12/28/24 06:00 Pulse 76 12/28/24 06:00 Resp 18 12/28/24 09:34 BP 103/62 12/28/24 06:00 Pulse Ox 93 12/28/24 06:00 O2 Del Method Room Air 12/28/24 06:00 12/27/24 12/28/24 12/28/24 22:59 06:59 14:59 Intake Total Balance Weight last 48 hrs Weight 79.379 kg Physical Exam 2 Narrative: General: Awake and alert. No obvious respiratory distress. Neuro/Psych: Cooperative. Oriented x 3 Chest/Resp: Bilateral equal air entry; chest clinically clear. CVS: Regular heart rate and rhythm. No obvious murmurs appreciated. GI: Soft and non-tender abdomen. No obvious organomegaly. Extremities: Bilateral equal pulses. No obvious pitting pedal edema. MSK: An apparently tender knot felt in the mid-Achilles ligament area, with no obvious erythema, swelling or induration noted. No obvious bony deformities. Data 12/27/24 21:22 12/27/24 21:22 Left Ankle 3V X-ray: Radiologist's impression: Deformity of the apex of the medial malleolus most compatible with old healed medial collateral ligament avulsion injury. No other significant focal bone abnormality. Joint spaces of the ankle are intact and well preserved. IMPRESSION: No definite acute bone or joint abnormality. A&P Assessment and plan 1. Acute left ankle pain: 2. Achilles tendon disorder: Plan: Patient apparently responded to the one-time dose of morphine. I also plan to put an order for as needed hydrocodone. I spoke with Dr. Santiago, who recommended consulting podiatry. Otherwise, he recommended walking boot and outpatient follow-up. I spoke with the mobile mechanic, who confirmed that he is not in town, and there is no great coverage at the moment. I was going to order a walking boot, but I was informed later in the early afternoon that patient was able to ambulate without any more difficulties. So, we will keep an eye, and reassess later tomorrow. Otherwise, nothing more to recommend from my standpoint at this time. PDMP PDMP Reviewed: Not Reviewed Coding Level of Care Code Acute Code for [facility] Fwd Diagnoses Acute left ankle pain M25.572 Achilles tendon disorder M67.979
--- NOTE | 2024-12-28 11:46 | PC.NURSE ---
administered verbal counseling on pt safety while getting into chair at the dining room table ,pt had another pt move chair moved the chair then she climbed into the seat of the chair then moved having her buttock sitting on the back of the chair then sliding into the seat. pt stated they are to heavy and she is unable to move. instructed pt to move chair before getting out of it.
--- NOTE | 2024-12-28 13:00 | PC.NURSE ---
pt up walking on left foot showing no signs of discomfort
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
[2024-12-28] MEDS: LORazepam 2 mg/mL INJ 1 mL IM (20:30)
[2024-12-28] MEDS: diphenhydrAMINE 50 mg/mL SDV 1mL IM (20:30)
[2024-12-28] MEDS: haloperidol inj 5 mg/mL INJ 1 mL IM (20:31)
--- NOTE | 2024-12-28 20:31 | PC.NURSE ---
Pt heard screaming in the dayroom NURSE NURSE while sitting in one of the dayroom chairs eating a snack. Pt told the FREEZER OPERATOR You heard me screaming down in the dayroom I have a cramp in my foot and you come when I yell . The FREEZER OPERATOR educated on pts walking up to staff / coming to the nurses station window if she was in need of something and yelling was not appropriate. The pt then told the FREEZER OPERATOR You are a fat lazy fuck and I need a booty shot , the pt then stomped off back to the dayroom. This RN got a verbal order from Dr. Downs to give IM B-52. This RN brayan up the shots and this nurse, the meteorologist in charge and FREEZER OPERATOR went to the dayroom and the pt started yelling Now you guys want to fucking deal with me, I have been waiting all fucking day for you guys . The pt was led back to her room to be given the IM B-52. The pt cont. to scream while walking down the aleman and in her room. This nurse administered Ativan 2mg & Haldol 5mg into the R deltoid and the charge administered Benadryl 50mg into the pts L deltoid. The pt cont. to scream about I need my phone and my fucking contacts . This RN educated that when she calms down we can talk about that however the pt screamed at this nurse and the FREEZER OPERATOR and stated I am not fucking dealing with you two anymore . The pt told the charge I am only going to talk and handle with you until the change of shift . Pt was left sitting on her bed in her room. No distress noted.
[2024-12-29 05:34] VITALS: BP 124/84; PULSE 89; RESP 18; O2SAT 97
[2024-12-29 13:09] VITALS: BP 125/86; PULSE 77; RESP 17; TEMP 36.4; O2SAT 95
--- NOTE | 2024-12-29 14:53 | DCPLANNER ---
Imm was given to pt and rights explained and copy placed in file.
--- NOTE | 2024-12-29 15:08 | P.NPUPN_ITS ---
Subjective NPU 2 Subjective: 54-year-old female admitted with psychos is and increased confusion with history of schizoaffective disorder and PTSD. The patient had reported that she was feeling better. She had continued to make vague references to wanting to . She reported feeling safer here. She had minimized much of the charges that were pending regarding her charges of assaulting the police and another man. She had reported having occasional flashbacks. She had endorsed having periods of intense irritability and decreased need for sleep. She reported continued problems with pain. She reported that she felt frequently like she was being judged and reported that she was paranoid and suspicious of everyone. She had denied any hallucinations at this time. She had required as needed medications last night due to intense verbal outbursts. She reported feeling better on Geodon. Mental Status Exam 2 MSE Comments: This is a a well-nourished, well-developed white female in hospital scrubs on with poor grooming and fleeting eye contact.? No abnormal movements except for severe psychomotor agitation.? She was partially cooperative with exam in moderate distress.? Speech was increased in rate and volume with decreased latency in speech. ? Mood described as allright Affect was irritable and mood incongruent. Thought process was nonlinear and disorganized. ? Thought content: Patient endorses no suicidal and no homicidal ideation. There was delusions of grandeur. She denied auditory or visual hallucinations.? Attention, concentration were impaired. Her recent and remote memory were unreliable. She is alert and oriented to person, place , year and month. Insight and judgment was impaired. Her impulse control is impaired. Vitals/I&O/Wt Last Vital Signs Temp 97.5 F L 12/29/24 13:09 Pulse 77 12/29/24 13:09 Resp 17 12/29/24 13:09 BP 125/86 12/29/24 13:09 Pulse Ox 95 12/29/24 13:09 O2 Del Method Room Air 12/29/24 13:09 Weight last 48 hrs Weight 79.379 kg Data NPU 12/27/24 21:22 12/27/24 21:22 A&P Assessment and plan 1. Schizoaffective disorder, bipolar type: 2. Psychosis: 3. Depression: 4. Insomnia: 5. History of posttraumatic stress disorder (PTSD): Plan: This is a 54-year-old white female with a previous history of schizoaffective disorder bipolar type and past methamphetamine use admitted with bizarre behavior. 1. Encourage individual, group and milieu therapy. 2. Recommend sober living treatment at the highest level of care to which the patient is willing to commit. 3. Continue q-15 minute checks for safety.? 4.? Restart buspirone and reduce cymbalta to 30mg daily. Concern that SNRI+SSRI may be kindling chuy. 5.? Will attempt to gather collateral information. Previous records reviewed, patient reportedly responded very well for several years on Geodon 80mg bid. Continue Geodon 40mg bid with increase to 60mg bid after 1-2 days. PDMP PDMP Reviewed: Not Reviewed Involuntary Hold Information 2 Hold Status: Legal Status: 96 Hour Hold Date/Time Hold Expires: 01/02/25 @ 22:39 96 Hour Hold: 96 Hour Involuntary Admission: No Attestations NPU 2 Medical Necessity Statement*: Inpatient hospitalization is medically necessary and the clinically appropriate intervention at this time. We will monitor and adjust medications as indicated. Her likely length of stay 5-7 days. Coding Level of Care Code Acute Code for [facility] Fwd Diagnoses Schizoaffective disorder, bipolar type F25.0 Psychosis F29 Depression F32.A Insomnia G47.00 History of posttraumatic stress disorder (PTSD) Z86.59
--- NOTE | 2024-12-29 17:59 | P.PN_ITS ---
Subjective 2 Subjective: Patient is seen again this evening in the psych unit. The nurse reports that she is able to ambulate, though with some pain at times, on that affected left ankle. Patient reports feeling much better, otherwise. She has no new complaints. She is just requesting for morphine to be given to her on occasions, though this was a one-time dose yesterday. Vitals/I&O/Wt Last Vital Signs Temp 97.5 F L 12/29/24 13:09 Pulse 77 12/29/24 13:09 Resp 17 12/29/24 13:09 BP 125/86 12/29/24 13:09 Pulse Ox 95 12/29/24 13:09 O2 Del Method Room Air 12/29/24 13:09 Weight last 48 hrs Weight 79.379 kg Physical Exam 2 Narrative: General: Awake and alert patient. Resp: No obvious respiratory distress or difficulty breathing. Skin: No obvious rashes or new skin lesions. MSK: Mild diffuse swelling around the Achilles and tender mildly tender. Data 12/27/24 21:22 12/27/24 21:22 A&P Assessment and plan 1. Acute left ankle pain: 2. Achilles tendon disorder: Plan: The above metioned acute ankle problem is remarkable resolved. Not sure what it is, but patient is able to ambulate on it. I recommend a walking boot if the problem becomes significantly worse. Otherwise, PRN NSAIDs and/or acetaminophen could be continued to be used to control her symptoms.. Given this, I have her sign out. Hospitalist remain around as may be needed. PDMP PDMP Reviewed: Not Reviewed Attestations 2 Medical Necessity Statement*: N/A Coding Level of Care Code Acute Code for [facility] Fwd Diagnoses Acute left ankle pain M25.572 Achilles tendon disorder M67.979
[2024-12-29 20:55] VITALS: BP 129/85; PULSE 78; RESP 18; TEMP 36.6; O2SAT 96
--- NOTE | 2024-12-30 04:37 | PC.NURSE ---
Patient approaches nsg staff during rounds et yells expletives, name calling et throwing various items @ staff. She is asked repeatedly to not wake others up who are trying to rest et yells louder. Nsg continues to attempt to structure et calm.
[2024-12-30 06:00] VITALS: BP 136/91; PULSE 80; RESP 19; TEMP 36.9; O2SAT 98
--- NOTE | 2024-12-30 11:56 | PC.NURSE ---
Patient has been intrusive this morning asking for her DOC number and the naumber for Joshua Lott and dwayne Zambrano out of [facility]. Numbers were provided to her. Patient with flight of ideas loosely associated. She has a bizarre affect and has frequent mood swings. She has been tearful, mad, intrusive, demanding, cooperative. She has required olanzapine 5 mg sl and Haldol 5 mg po and hydroxyzine 50 mg po for agitation and anxiety this morning. She was given Ibuprofen 600 mg po for c/o generalized pain. Successfully redirected patient several times this morning.
[2024-12-30] MEDS: HYDROcodone-acetaminophen 5-325 mg Tablet 1 TAB PO ×2 (13:20→20:00)
--- NOTE | 2024-12-30 13:34 | PC.NURSE ---
Patient walked to nurses station and started crying stating she couldnt walk on left foot. Left inner aspect of ankle with some mild swelling and noted purple bruise. Patient given hydrocodone for this.
[2024-12-30 14:00] VITALS: BP 141/87; PULSE 82; RESP 18; TEMP 36.8; O2SAT 96
--- NOTE | 2024-12-30 15:32 | P.NPUPN_ITS ---
Subjective NPU 2 Subjective: 54-year-old female admitted with psychos is and increased confusion with history of schizoaffective disorder and PTSD. Patient had required a as needed medication of Haldol this morning for agitation. She continued to make numerous requests of staff and remained somewhat demanding. She had reported that she was starting to feel better with the Geodon. She reported no worsening of anxiety with the reduction in her Cymbalta. She had acknowledged a past history of hearing voices and continued to report feeling stressed that certain men were following her. She had reported having periods of intense irritability for several days. She had reported some difficulties with falling asleep last night. Mental Status Exam 2 MSE Comments: This is a a well-nourished, well-developed white female in hospital scrubs on with poor grooming and fleeting eye contact.? No abnormal movements except for severe psychomotor agitation.? She was partially cooperative with exam in moderate distress.? Speech was slower in rate and volume with normal latency in speech. ? Mood described as ok (she pointed to two thumbs up) Affect was labile. Thought process was nonlinear and disorganized. ? Thought content: Patient endorses no suicidal and no homicidal ideation. There was delusions of grandeur. She denied auditory or visual hallucinations.? Attention, concentration were impaired. Her recent and remote memory were unreliable. She is alert and oriented to person, place , year and month. Insight and judgment was impaired. Her impulse control is improving. Vitals/I&O/Wt Last Vital Signs Temp 98.2 F 12/30/24 14:00 Pulse 82 12/30/24 14:00 Resp 18 12/30/24 14:00 BP 141/87 12/30/24 14:00 Pulse Ox 96 12/30/24 14:00 O2 Del Method Room Air 12/30/24 14:00 12/30/24 12/30/24 12/30/24 06:59 14:59 22:59 Intake Total 900 / 900 Balance 900 / 900 Data NPU 12/27/24 21:22 12/27/24 21:22 A&P Assessment and plan 1. Schizoaffective disorder, bipolar type: 2. Psychosis: 3. Depression: 4. Insomnia: 5. History of posttraumatic stress disorder (PTSD): Plan: This is a 54-year-old white female with a previous history of schizoaffective disorder bipolar type and past methamphetamine use admitted with bizarre behavior. 1. Encourage individual, group and milieu therapy. 2. Recommend sober living treatment at the highest level of care to which the patient is willing to commit. 3. Continue q-15 minute checks for safety.? 4.? Reduce buspirone to 10mg tid and continue cymbalta to 30mg daily. Concern that SNRI+SSRI may be kindling chuy. 5.? Will attempt to gather collateral information. Previous records reviewed, patient reportedly responded very well for several years on Geodon 80mg bid. Increase geodon to 60mg bid today. PDMP PDMP Reviewed: Not Reviewed Involuntary Hold Information 2 Hold Status: Legal Status: 96 Hour Hold Date/Time Hold Expires: 01/02/25 @ 22:39 96 Hour Hold: 96 Hour Involuntary Admission: No Attestations NPU 2 Medical Necessity Statement*: Inpatient hospitalization is medically necessary and the clinically appropriate intervention at this time. We will monitor and adjust medications as indicated. Her likely length of stay 5-7 days. Coding Level of Care Code Acute Code for [facility] Diagnoses Schizoaffective disorder, bipolar type F25.0 Psychosis F29 Depression F32.A Insomnia G47.00 History of posttraumatic stress disorder (PTSD) Z86.59
[2024-12-30 20:53] VITALS: BP 150/91; PULSE 90; RESP 20; TEMP 36.7; O2SAT 94; BMI 28.7
--- NOTE | 2024-12-30 22:24 | PC.NURSE ---
Continues to call staff in et ask if she can approach.. 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 Nsg continues to monitor for needs et changes.
--- NOTE | 2024-12-31 04:39 | PC.NURSE ---
Summoning nursing to request more pairs of socks et holding a piece of coloring paper up @ window, then noted to make an obscene gesture @ staff et be rude with staff
[2024-12-31 05:03] VITALS: BP 130/88; PULSE 88; RESP 18; TEMP 36.4; O2SAT 94
[2024-12-31] MEDS: HYDROcodone-acetaminophen 5-325 mg Tablet 1 TAB PO ×3 (08:26→20:12)
--- NOTE | 2024-12-31 09:54 | PC.NURSE ---
Patient with increased pain in her left leg this morning. She was previously given oral pain medication for this with little relief. Her left calf is warm to touch with some redness noted to posterior calf and lateral. She verbalizes pain with light palpation to her posterior left knee and leg. Her left dorsalis pulse is 2+. She has some moderate swelling that has increased since yesterday in the left foot and continued bruising to the inner aspect of her left foot. Patient is currently encouraged to rest in bed with leg elevated. Hospitalist notified.
[2024-12-31 10:50] VITALS: RESP 18
[2024-12-31] MEDS: morphine 4 mg/mL SDV 1 mL IM (10:50)
--- NOTE | 2024-12-31 11:03 | USR_ITS ---
PROCEDURE INFORMATION: Exam: US Duplex Left Lower Extremity Veins, Limited Exam date and time: 12/31/2024 11:49 AM Age: 54 years old Clinical indication: Edema, localized; Lower extremity, left; Additional info: Calf swelling TECHNIQUE: Imaging protocol: Real-time duplex ultrasound of the left extremity with 2-D carlson scale, color Doppler flow and spectral waveform analysis including responses to compression and other maneuvers (when performed) with image documentation. Limited exam focused on the left lower extremity veins. COMPARISON: CR XR ankle LT min 3V* [id number] 12/28/2024 10:22 AM FINDINGS: Left deep veins: Unremarkable. The common femoral, femoral, proximal profunda femoral and popliteal veins are patent without thrombus. Normal Doppler waveforms. Normal compressibility and/or augmentation response. Superficial veins: Greater saphenous vein at the saphenofemoral junction is patent without thrombus. Soft tissues: Unremarkable. US/CV venous duplex [facility] [id number] IMPRESSION: No evidence of deep vein thrombosis.
--- NOTE | 2024-12-31 11:03 | P.PN_ITS ---
Subjective 2 Subjective: My attention called this morning to patient reported to having pain and swelling in the left calf area. This has been going on since late last night and this morning. Patient denies any obvious trauma. Vitals/I&O/Wt Last Vital Signs Temp 97.5 F L 12/31/24 05:03 Pulse 88 12/31/24 05:03 Resp 18 12/31/24 10:50 BP 130/88 12/31/24 05:03 Pulse Ox 94 12/31/24 05:03 O2 Del Method Room Air 12/31/24 05:03 12/30/24 12/31/24 12/31/24 22:59 06:59 14:59 Intake Total 900 / 1800 Balance 900 / 1800 Weight last 48 hrs Weight 80.796 kg Physical Exam 2 Narrative: General: Patient is wading heavily, appears to be in significant pain Chest/Resp: Normal respiratory chest movts; no obvious respiratory distress. CVS: Regular heart rate and rhythm. Extremities/MSK: Mild to mederate swelling with mild induration noted on the mid posterior calf area. Homans' sign negative. Tenderness appears exaggerated. Skin: No obvious new rashes or new skin lesions. Data 12/27/24 21:22 12/27/24 21:22 Venous Doppler US Lt Leg: Radiologist's impression: Left deep veins: Unremarkable. The common femoral, femoral, proximal profunda femoral and popliteal veins are patent without thrombus. Normal Doppler waveforms. Normal compressibility and/or augmentation response. Superficial veins: Greater saphenous vein at the saphenofemoral junction is patent without thrombus. Soft tissues: Unremarkable. IMPRESSION: No evidence of deep vein thrombosis. A&P Assessment and plan 1. Pain of left calf: The cause of this is not certain. Likely due to some bruise/contusion, likely due to mild trauma. 2. Achilles tendon disorder: Other problem. Resolving. 3. Schizoaffective disorder, bipolar type: This should be the main reason for the admission to the psych floor, I believe. Plan: There appears to be still some mild swelling, otherwise, not overtly very concerning. I went ahead and got a venous Doppler ultrasonography of the left LE, which is negative for any DVTs. One-time dose of morphine given, while patient will be continued on hydrocodone for pain and or acetaminophen. She is reassured. Hospitalist will continue to follow peripherally, and make further changes/recommendations and that. Otherwise, defer to the psychiatrist for continued expert management of the other psychiatric problems. PDMP PDMP Reviewed: Not Reviewed Attestations 2 Medical Necessity Statement*: N/A. Coding Level of Care Code Acute Code for [facility] Diagnoses Pain of left calf M79.662 Achilles tendon disorder M67.979 Schizoaffective disorder, bipolar type F25.0
[2024-12-31 13:05] LABS: INR 0.92 (0.8-1.2); Partial Thromboplastin Time 26.7 SECONDS (23.9-36.7); Prothrombin Time 13.00 SECONDS (12.1-14.9)
[2024-12-31 13:41] VITALS: BP 105/70; PULSE 82; RESP 18; O2SAT 96
--- NOTE | 2024-12-31 14:00 | P.NPUPN_ITS ---
Subjective NPU 2 Subjective: 54-year-old female admitted with psychos is and increased confusion with history of schizoaffective disorder and PTSD. The patient did not require as needed medications. She continued to make numerous demands on the unit stating that she needed to be completely examined for having cancer as she felt that she may have some unrecognizable or unidentified disease. She had reported that she wanted to get on marijuana Gummies as she did stated that she had problems with her breathing associated with her inhalation of marijuana. She had reported no racing thoughts. She had been reporting having hope for the future. She did not report suicidality and stated that she was looking forward to be able to leave the hospital. She did not report any side effects of having anxiety. She did not endorse any sleep continuity disruption. Mental Status Exam 2 MSE Comments: This is a a well-nourished, well-developed white female in hospital scrubs on with poor grooming and fleeting eye contact.? No abnormal movements except for severe psychomotor agitation.? She was partially cooperative with exam in moderate distress.? Speech was slower in rate and volume with normal latency in speech. ? Mood described as great Affect was less irritable. Thought process was more linear and logical. ? Thought content: Patient endorses no suicidal and no homicidal ideation. There was delusions of grandeur. She denied auditory or visual hallucinations.? Attention, concentration were impaired. Her recent and remote memory were unreliable. She is alert and oriented to person, place , year and month. Insight and judgment was impaired. Her impulse control is improving. Vitals/I&O/Wt Last Vital Signs Temp 97.5 F L 12/31/24 05:03 Pulse 82 12/31/24 13:41 Resp 18 12/31/24 13:41 BP 105/70 12/31/24 13:41 Pulse Ox 96 12/31/24 13:41 O2 Del Method Room Air 12/31/24 13:41 12/30/24 12/31/24 12/31/24 22:59 06:59 14:59 Intake Total 900 / 1800 Balance 900 / 1800 Weight last 48 hrs Weight 80.796 kg Data NPU 12/27/24 21:22 12/27/24 21:22 A&P Assessment and plan 1. Schizoaffective disorder, bipolar type: 2. Psychosis: 3. Depression: 4. Insomnia: 5. History of posttraumatic stress disorder (PTSD): Plan: This is a 54-year-old white female with a previous history of schizoaffective disorder bipolar type and past methamphetamine use admitted with bizarre behavior. 1. Encourage individual, group and milieu therapy. 2. Recommend sober living treatment at the highest level of care to which the patient is willing to commit. 3. Continue q-15 minute checks for safety.? 4.? Reduce buspirone to 10mg tid and continue cymbalta to 30mg daily. Concern that SNRI+SSRI may be kindling chuy. 5.? Will attempt to gather collateral information. Previous records reviewed, patient reportedly responded very well for several years on Geodon 80mg bid. Continue geodon at 60mg bid today, patient appearing improved. PDMP PDMP Reviewed: Not Reviewed Involuntary Hold Information 2 Hold Status: Legal Status: 96 Hour Hold Date/Time Hold Expires: 01/02/25 @ 22:39 96 Hour Hold: 96 Hour Involuntary Admission: No Attestations NPU 2 Medical Necessity Statement*: Inpatient hospitalization is medically necessary and the clinically appropriate intervention at this time. We will monitor and adjust medications as indicated. Her likely length of stay 5-7 days. Coding Level of Care Code Acute Code for [facility] Diagnoses Schizoaffective disorder, bipolar type F25.0 Psychosis F29 Depression F32.A Insomnia G47.00 History of posttraumatic stress disorder (PTSD) Z86.59
[2024-12-31] MEDS: blistex lip oint 7 gm Tube 1 APPLIC TOPICAL (16:42)
[2024-12-31] MEDS: diphenhydrAMINE 50 mg/mL SDV 1mL IM (18:43)
[2024-12-31] MEDS: haloperidol inj 5 mg/mL INJ 1 mL IM (18:43)
[2024-12-31] MEDS: LORazepam 2 mg/mL INJ 1 mL IM (18:43)
--- NOTE | 2024-12-31 18:44 | PC.NURSE ---
Pt becoming more irritable as the evening goes on. Pt down in dayroom irate & screaming / threw emile cards. A code ten was called but pt willingly sat and took a B-52 IM injection. Pt was helped back to her room to lay down.
[2024-12-31 20:50] VITALS: BP 98/64; PULSE 87; RESP 17; TEMP 36.7; O2SAT 92
[2025-01-01 06:00] VITALS: RESP 14
--- NOTE | 2025-01-01 06:38 | PC.NURSE ---
vitals not done per nurse, pt resting well, resp 14,
[2025-01-01] MEDS: LORazepam 2 mg/mL INJ 1 mL IM (08:39)
[2025-01-01] MEDS: haloperidol inj 5 mg/mL INJ 1 mL IM (08:40)
[2025-01-01] MEDS: diphenhydrAMINE 50 mg/mL SDV 1mL IM (08:41)
--- NOTE | 2025-01-01 09:07 | PC.NURSE ---
Patient is verbally escalated yelling at the staff and patients. She called one [employer]LECT[employer] stupid because she could not see that she had a coffee cup. Staff attempt to redirect the without success. Patient was in the dayroom talking about giving her eggs to another client and then offered to give her her son. Patient verbalized her anxiety is high and is requesting medication to help with this.
[2025-01-01 14:00] VITALS: BP 122/84; PULSE 96; RESP 18; O2SAT 99
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
[2025-01-01 20:27] VITALS: BP 118/78; PULSE 96; RESP 16; O2SAT 96
[2025-01-01 20:39] VITALS: TEMP 36.5
[2025-01-02 06:00] VITALS: BP 119/88; PULSE 91; RESP 18; TEMP 36.6; O2SAT 95
[2025-01-02 14:00] VITALS: BP 144/97; PULSE 107; RESP 18; TEMP 37.1; O2SAT 96
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
[2025-01-02 16:14] VITALS: BP 144/97; PULSE 107; RESP 18; TEMP 37.1; O2SAT 96
--- NOTE | 2025-01-02 16:20 | DCPLANNER ---
IMM was given to pt and rights explained. Copy placed in pts file.
== END 2025-01-02 17:17 | disposition home or self-care (01) | DRG 885 ==
LOC: ER 23:59 → NP 12-28 00:11
PROVIDERS: Family Medicine; Admitting Provider Psychiatry & Neurology Psychiatry; Emergency Provider Student in an Organized Health Care Education/Training Program; PCP Family Medicine; Visit Provider Psychiatry & Neurology Psychiatry
DX: F25.1 Schizoaffective disorder, depressive type (principal); Z59.00 Homelessness unspecified; G47.00 Insomnia, unspecified; F43.12 Post-traumatic stress disorder, chronic; F60.81 Narcissistic personality disorder; R45.1 Restlessness and agitation
CPT/HCPCS: 36415; 71045; 73610; 80053; 80307; 85025; 85610; 85730; 93971; 96372; 97150; 97165; 99285; J1200; J1630; J2060; J2270; J3486; J3535; J9999; Q0162

== ENCOUNTER 2025-01-04 11:32 | Emergency (ER) | payer MEDICARE, MEDICAID, SELFPAY ==
[2023-11-10 08:49] VITALS: BP 106/80; BMI 28.9
--- OUTSIDE RECORDS SUMMARY | 2023-12-04 03:00 | XMS_ITS ---
Author Organization [facility] Address [address] [place] [address] Care Team Providers Care Scrap Charger Name Role Phone Tee Morgan MD Primary Care Provider Unavailabl Aurora Krause Unavailable [phone] Migration, Provider Unavailable Unavailable REASON FOR VISIT EMR-[facility] Encounters Encounter Location Date Provider Diagnosis Migrated_Facility 0 0 12/04/2023 Provider Migration Plan Of Treatment No Information Progress Notes * Annemarie VILLARREAL LDOB:1970 (54 yo F)Acc No.[id number]:12/04/2023 Patient: Flori TRUJILLORATNA Annemarie Padilla :1970 A ge:53 Y S ex:Female Address:[place] [address] Subjective: * Chief Complaints: * E MR-Freddy * * Date:
--- OUTSIDE RECORDS SUMMARY | 2023-12-05 03:00 | XMS_ITS ---
Author Organization [facility] Address [address] [place] [address] Care Team Providers Care Grass Cutter Name Role Phone Tee Morgan MD Primary Care Provider Unavailabl Aurora Krause Unavailable [phone] Migration, Provider Unavailable Unavailable Allergies Allergen (clinical drug ingredient) Drug/Non Drug Allergy documented on EMR Reaction Allergy Type Onset Date Status erythromycin Erythromycin Base N&V, Rash Drug Allergy Active doxycycline Doxycycline N&V, Rash Drug Allergy Act emily tetracycline Tetracycline N&V, Rash Drug Allergy A ctive REASON FOR VISIT EMR-Rfeddy Medications Medication SIG (Take, Route, Frequency, Duration) Notes Start Date End Date Status Meloxicam *[facility]* Active Voltaren *[facility]* Active Gabapentin *[facility]* Active Aleve *[facility]* Active Social History Social [...] * Annemarie VILLARREAL LDOB:1970 (54 yo F)Acc No.[id number]:12/05/2023 Patient: Annemarie ZELAYA :1970 A ge:53 Y S ex:Female Address:[place] [address] Subjective: * Chief Complaints: * E MR-Freddy [...]
[2025-01-04 11:37] VITALS: BP 180/144; PULSE 103; RESP 18; TEMP 37.2; O2SAT 98; BMI 29.0
--- OUTSIDE RECORDS SUMMARY | 2025-01-04 11:41 | XMS_ITS | Patient Health Record ---
Author Organization [facility] Address [address] [place] [address] Care Team Providers Care Cryptologic Support Specialist Name Role Phone Tee Morgan MD Primary Care Provider Aurora Weiss Unavailable [phone] Reason For Referral No Information Medications Medication [...] Coverage End Date [place] [address] TABATHA ASTORGA [phone] [id number] Annemarie Hardin Self - patient is the insured [place] Medicaid [address] DAVINA FTAIMA [phone] [id number] LashawnKatiena Self - patient is the insured Medical (General) History Surgical History Surgery Date(Month/Year) Arm surgery Gallbladder surgery Partial Hysterectomy
--- NOTE | 2025-01-04 11:46 | W.ED.PSYCHS ---
HPI - Psych General: Chief Complaint: Psychiatric Symptoms Stated Complaint: MHE Time Seen by Provider: 01/04/25 11:35 Source: patient and police Mode of arrival: ambulatory Limitations: no limitations History of Present Illness: 54-year-old female has a history of schizoaffective disorder. Patient been discharged from a psych joe here 2 days ago. Patient was at their gas station please recall that she is having some erratic behavior there. Patient here denies SI or HI she states she has been under some stress. Patient is homeless. Related Data Home Medications ?Medication ?Instructions ?Recorded ?Confirmed cetirizine 10 mg capsule (Zyrtec) 10 mg PO DAILY PRN Allergy Symptoms 12/22/23 12/28/24 Previous Rx's ?Medication ?Instructions ?Recorded albuterol sulfate 90 mcg/actuation 1 inh inhalation QID PRN shortness 05/30/24 aerosol inhaler of breath or wheezing #8.5 grams gabapentin 600 mg tablet 600 mg PO TID 30 days #90 tabs 01/02/25 methocarbamol 500 mg tablet 500 mg PO TID PRN muscle spasm 30 01/02/25 days #90 tabs ziprasidone HCl 80 mg capsule 80 mg PO BID@0800,1800 30 days #60 01/02/25 caps Allergies Allergy/AdvReac Type Severity Reaction Status Date / Time aripiprazole Allergy Unknown Verified 09/25/24 13:34 doxycycline Allergy Unknown Verified 09/25/24 13:34 erythromycin base Allergy ADR-Vomitin Verified 09/25/24 13:34 g Tetracyclines Allergy Unknown Verified 09/25/24 13:34 PFSH ED PFSH: Medical History Narcissistic personality disorder Osteoarthritis Methamphetamine use disorder, moderate, in sustained remission Tobacco use disorder Generalized anxiety disorder PTSD (post-traumatic stress disorder) Methamphetamine use Cannabis abuse Chronic pain Moderate episode of recurrent major depressive disorder Major depressive disorder, recurrent episode with anxious distress Psychiatric care Homicidal ideation Aggression Anxiety Social History Smoking and tobacco/nicotine status: current every day tobacco/nicotine user Alcohol intake: current Alcohol intake frequency: holidays/special occasions only Substance/Drug Use: current Substance/Drug use frequency: daily Adopted: No Caregiver/support person: No Lives independently: Yes Household members: other Housing: Apartment Marital status: Legally Number of children: 2 Highest education level completed: Associate Degree: Academic Program service: No Current occupational status: unemployed Current occupational exposures/hazards: No Pets and animals: Yes Pets & animals: dog(s) Leisure activites: exercise, music and games Sexually active: No Do you think of yourself as: Straight/Heterosexual Current gender identity: Female Aniya/Faith: Nondenominational Special aniya needs: No Agree to transfusion: Yes Female Reproductive History: Para: 2 Physical Exam Const: COMMON NORMALS: no acute distress, patient oriented x3 and healthy appearing HENMT: COMMON NORMALS: normocephalic and atraumatic HEAD & SCALP: normocephalic and atraumatic Neck/C-Spine: COMMON NORMALS: full ROM and supple Chest: COMMONS NORMALS: normal inspection of the chest Resp: COMMON NORMALS: normal respiratory effort Cardio: COMMON NORMALS: regular rate, regular rhythm and No murmurs present (Cardio) RATE: regular rate RHYTHM: regular rhythm Extremity: COMMON NORMALS: normal to inspection and full ROM Neuro: COMMON NORMALS: patient oriented x3, moves all extremities and no focal motor deficits Psych: COMMON NORMALS: mental status grossly normal, Normal thought process present and cooperative THOUGHT PROCESS: Normal thought process present THOUGHT CONTENT: No Suicidality present and No Homicidality present Skin: COMMON NORMALS: no rashes or lesions noted and no wounds GENERAL SKIN EXAM: no rashes or lesions noted Course Vital Signs: Vital signs: Vital Signs Temperature 99.0 F 01/04/25 11:37 Pulse Rate 103 H 01/04/25 11:37 Respiratory Rate 18 01/04/25 11:37 Blood Pressure 180/144 01/04/25 11:37 Pulse Oximetry 98 01/04/25 11:37 Oxygen Delivery Me thod Room Air 01/04/25 11:37 MDM - Psych Medical Decision Making 54-year-old female history of schizoaffective disorder presents here with police for erratic behavior at a gas station. Patient here has been calm cooperative has no signs of acute psychosis she is not SI or HI. I spoke to Dr. Van psychiatrist who knows patient well and she was discharged from here 2 days ago she has no reason to be readmitted she is stable for discharge follow-up with PCP return if worsening. Medical Records I reviewed the patient's medical records. No radiology studies performed this visit Discharge Plan Discharge Patient Disposition: Home Clinical Impression: Schizoaffective disorder, bipolar type Condition: Stable Prescriptions: No Action Zyrtec 10 mg capsule 10 mg PO DAILY PRN (Reason: Allergy Symptoms) albuterol sulfate 90 mcg/actuation HFA aerosol inhaler 1 inh inhalation QID PRN (Reason: shortness of breath or wheezing) Qty: 8.5 0RF ziprasidone HCl 80 mg capsule 80 mg PO BID@0800,1800 30 Days Qty: 60 1RF methocarbamol 500 mg tablet 500 mg PO TID PRN (Reason: muscle spasm) 30 Days Qty: 90 1RF gabapentin 600 mg Tablet 600 mg PO TID 30 Days Qty: 90 1RF Discharge Orders: Discharge ED (Routine); Ordered 01/04/25 Ordered By: Mati Ceballos Referrals: Cruz Vizcarra MD [Primary Care Provider, [facility]] Discharge Diet: Advance as tolerated Discharge Activity: Resume usual activity Patient Instructions: Schizoaffective Disorder (ED) Print Language: Guatemalan Coding Level of Care Code ED Textile Cutting Machine Operator for Shakeel Rosa
== END 2025-01-04 11:55 | disposition home or self-care (01) ==
PROVIDERS: Emergency Provider Emergency Medicine; PCP Family Medicine
DX: F25.0 Schizoaffective disorder, bipolar type (principal); Z72.0 Tobacco use
CPT/HCPCS: 99283

== ENCOUNTER 2025-01-04 17:58 | Inpatient (IN) | payer MEDICARE, MEDICAID, SELFPAY ==
[2023-11-10 08:49] VITALS: BP 106/80; BMI 28.9
[2025-01-04 18:02] VITALS: BP 137/85; PULSE 109; TEMP 37.1; O2SAT 96
--- NOTE | 2025-01-04 18:05 | ED.C_ITS ---
Documented by User: TABATHA Babcock 01/04/25 19:15 HPI - Psych 2 General: Chief Complaint: Psychiatric Symptoms Stated Complaint: MHE Time Seen by Provider: 01/04/25 18:03 Source: patient Mode of arrival: ambulatory Limitations: altered mental status (psychotic) History of Present Illness: Patient is a 54-year-old female presents to ED today with unknown intent. She was just seen here in the emergency department earlier today for mental health related issues. Provider had consulted with Dr. Downs who did not feel she needed to be readmitted as she was just released from [facility] 2 days ago. Upon arrival, any form of history is incredibly difficult to obtain from patient as her speech is completely illogical and tangential. Her answers to questions being asked, are completely irrelevant. She apparently has a history of schizoaffective disorder. She reportedly is homeless as well. She does tell me [facility]after her discharge this morning but was brought back here by them, assumingly, due to her erratic behaviors. Onset (ago): unknown Duration: intermittent History of same: Yes Associated symptoms: Deny homicidal ideation or suicidal ideation Treatments prior to arrival: none Related Data Home Medications ?Medication ?Instructions ?Recorded ?Confirmed cetirizine 10 mg capsule (Zyrtec) 10 mg PO DAILY PRN A llergy Symptoms 12/22/23 12/28/24 Previous Rx's ?Medication ?Instructions ?Recorded albuterol sulfate 90 mcg/actuation 1 inh inhalation QI D PRN shortness 05/30/24 aerosol inhaler of breath or wheezing #8.5 g andrew gabapentin 600 mg tablet 600 mg PO TID 30 days #90 ta bs 01/02/25 methocarbamol 500 mg tablet 500 mg PO TID PRN muscle s pasm 30 01/02/25 days #90 tabs ziprasidone HCl 80 mg capsule 80 mg PO BID@0800,1800 3 0 days #60 01/02/25 caps Allergies Allergy/AdvReac Type Severity Reaction Status Date / Time aripiprazole Allergy Unknown Verified 09/25/24 13:34 doxycycline Allergy Unknown Verified 09/25/24 13:34 erythromycin base Allergy ADR-Vomitin Verified 09/25/24 13:34 g Tetracyclines Allergy Unknown Verified 09/25/24 13:34 Review of Systems 2 General: Reports: ROS unobtainable due to medical condition, ROS unobtainable due to mental status and Other (pt is psychotic ) Psych: Reports: paranoia and difficulty concentrating; Denies: hopelessness, suicidal ideation or homicidal ideation PFS ED 2 PFSH: Medical History Narcissistic personality disorder Osteoarthritis Methamphetamine use disorder, moderate, in sustained remission Tobacco use disorder Generalized anxiety disorder PTSD (post-traumatic stress disorder) Methamphetamine use Cannabis abuse Chronic pain Moderate episode of recurrent major depressive disorder Major depressive disorder, recurrent episode with anxious distress Psychiatric care Homicidal ideation Aggression Anxiety Social History Smoking and tobacco/nicotine status: current every day tobacco/nicotine user Alcohol intake: current Alcohol intake frequency: holidays/special occasions only Substance/Drug Use: current Substance/Drug use frequency: daily Adopted: No Caregiver/support person: No Lives independently: Yes Household members: other Housing: Apartment Marital status: Legally Number of children: 2 Highest education level completed: Associate Degree: Academic Program service: No Current occupational status: unemployed Current occupational exposures/hazards: No Pets and animals: Yes Pets & animals: dog(s) Leisure activites: exercise, music and games Sexually active: No Do you think of yourself as: Straight/Heterosexual Current gender identity: Female Aniya/Latter Day: Hoahaoism Special aniya needs: No Agree to transfusion: Yes Female Reproductive History: Para: 2 Physical Exam 2 Const: COMMON NORMALS: average body habitus, alert and well nourished EXAM LIMITATIONS: altered mental status (psychotic) GENERAL APPEARANCE: c ooperative ORIENTATION/CONSCIOUSNESS: Yes awake, Yes oriented to person, Yes oriented to place and Yes oriented to time (she knows her birthday is tomorrow) HENMT: COMMON NORMALS: normocephalic and atraumatic HEAD & SCALP: normal to inspection, normocephalic and atraumatic Resp: COMMON NORMALS: normal respiratory effort and clear to auscultation bilaterally AUSCULTATION: clear to auscultation bilaterally Cardio: COMMON NORMALS: regular rate and regular rhythm RATE: regular rate RHYTHM: regular rhythm Extremity: GENERAL: Yes normal exam except as noted Neuro: COMMON NORMALS: moves all extremities, no focal motor deficits, no sensory deficits noted and gait normal SENSORIUM/ORIENTATION: Yes alert, Yes oriented to person, Yes oriented to place and Yes oriented to time (she knows her birthday is tomorrow) Psych: COMMON NORMALS: speech normal, denies hallucinations, denies homicidal ideation and denies suicidal ideation APPEARANCE: Yes disheveled ATTITUDE: Yes bizarre ACTIVITY/MOTOR BEHAVIOR: Yes fidgeting and Yes hyperactivity S PEECH: Yes normal speech THOUGHT PROCESS: disorganized and Illogical thought process present INSIGHT: Limited insight present (Psych) JUDGEMENT: L imited judgement present (Psych) Skin: COMMON NORMALS: no rashes or lesions noted GENERAL SKIN EXAM: no rashes or lesions noted Course 2 Consultations: Consultation #1: Dr. Downs-accepts to [facility] Vital Signs: Vital signs: Vital Signs Temperature 98.7 F 01/04/25 18:02 Pulse Rate 88 01/04/25 22:30 Blood Pressure 93/57 01/04/25 22:30 Pulse Oximetry 97 01/04/25 22:30 Oxygen Delivery Me thod Room Air 01/04/25 22:30 MDM - Psych Medical Decision Making Patient will be placed on a 96-hour hold for her psychosis. She will be admitted to Dr. Downs to [facility]. Differential Diagnosis Likely acute psychosis, chronic schizophrenia, bipolar disorder and drug-induced psychotic disorder Medical Records I reviewed the patient's medical records. Lab Data I reviewed the patient's lab results. 01/04/25 18:40 01/04/25 18:40 Laboratory Results WBC 15.01 10^3/uL (3.29-11.43) H 01/04/25 18:40 RBC 4.40 10^6/uL (3.85-5.65) 01/04/25 18:40 Hgb 13.80 g/dL (11.27-16.99) 01/04/25 18:40 Hct 42.0 % (36-47) 01/04/25 18:40 MCV 95.5 fl (85-98) 01/04/25 18:40 MCH 31.4 pg (27-33) 01/04/25 18:40 MCHC 32.9 g/dL (30-55) 01/04/25 18:40 RDW 13.2 % (12.1-15.1) 01/04/25 18:40 Plt Count 236 10^3/cmm (157-399) 01/04/25 18:40 MPV 10.1 fL (7.4-10.4) 01/04/25 18:40 Neut % (Auto) 81.0 % 01/04/25 18:40 Lymph % (Auto) 11.1 % 01/04/25 18:40 [place] % (Auto) 7.1 % 01/04/25 18:40 Eos % (Auto) 0.1 % 01/04/25 18:40 Baso % (Auto) 0.3 % 01/04/25 18:40 Neut # (Auto) 12.15 10^3/uL (1.8-7.7) H 01/04/25 18:40 Lymph # (Auto) 1.7 10^3/uL (0.8-4.8) 01/04/25 18:40 [place] # (Auto) 1.1 10^3/uL (0.2-0.9) H 01/04/25 18:40 Eos # (Auto) 0.0 10^3/uL (0.0-0.8) 01/04/25 18:40 Baso # (Auto) 0.1 10^3/uL (0.0-0.1) 01/04/25 18:40 Nucleated RBC % (auto) 0 % 01/04/25 18:40 Nucleated RBCs # 0.0 /100WBC 01/04/25 18:40 Sodium 142 mmol/L (136-145) 01/04/25 18:40 Potassium 3.9 mmol/L (3.5-5.1) 01/04/25 18:40 Chloride 103 mmol/L (98-107) 01/04/25 18:40 Carbon Dioxide 26 mmol/L (22-29) 01/04/25 18:40 Anion Gap 16.9 (5-19) 01/04/25 18:40 BUN 12 mg/dL (6-20) 01/04/25 18:40 Creatinine 0.7 mg/dL (0.5-0.9) 01/04/25 18:40 GFR Calculation 87.9 mL/min (90-130) L 01/04/25 18:40 Glucose 84 mg/dL (65-115) 01/04/25 18:40 Calculated Osmolality 293 mOsm/kg (285-295) 01/04/25 18:40 Calcium 10.2 mg/dL (8.5-10.5) 01/04/25 18:40 Total Bilirubin 0.5 mg/dL (0.15-1.2) 01/04/25 18:40 AST 34 U/L (0-32) H 01/04/25 18:40 ALT 30 U/L (0-33) 01/04/25 18:40 Alkaline Phosphatase 102 U/L (35-105) 01/04/25 18:40 Total Protein 7.6 g/dL (6.6-8.7) 01/04/25 18:40 Albumin 4.6 g/dL (3.5-5.2) 01/04/25 18:40 Globulin 3.0 g/dL (1.3-4.6) 01/04/25 18:40 Salicylates < 0.3 mg/dL (3-10) L 01/04/25 18:40 Acetaminophen < 5.0 ug/mL (10-30) L 01/04/25 18:40 Ethyl Alcohol < 10 mg/dL (0-10) 01/04/25 18:40 No radiology studies performed this visit Discharge Plan Discharge Patient Disposition: Admitted As Inpatient Admit Provider: Yobany Downs Clinical Impression: Schizoaffective disorder, bipolar type Condition: Stable Coding Level of Care Code ED Gas Fitter Apprentice for Chg Fwd Documented by User: Dionte Drake DO 01/05/25 02:42 HPI - Psych 2 General: Chief Complaint: Psychiatric Symptoms Stated Complaint: MHE Time Seen by Provider: 01/04/25 18:03 Related Data Home Medications ?Medication ?Instructions ?Recorded ?Confirmed cetirizine 10 mg capsule (Zyrtec) 10 mg PO DAILY PRN A llergy Symptoms 12/22/23 12/28/24 Previous Rx's ?Medication ?Instructions ?Recorded albuterol sulfate 90 mcg/actuation 1 inh inhalation QI D PRN shortness 05/30/24 aerosol inhaler of breath or wheezing #8.5 g andrew gabapentin 600 mg tablet 600 mg PO TID 30 days #90 ta bs 01/02/25 methocarbamol 500 mg tablet 500 mg PO TID PRN muscle s pasm 30 01/02/25 days #90 tabs ziprasidone HCl 80 mg capsule 80 mg PO BID@0800,1800 3 0 days #60 01/02/25 caps Allergies Allergy/AdvReac Type Severity Reaction Status Date / Time aripiprazole Allergy Unknown Verified 09/25/24 13:34 doxycycline Allergy Unknown Verified 09/25/24 13:34 erythromycin base Allergy ADR-Vomitin Verified 09/25/24 13:34 g Tetracyclines Allergy Unknown Verified 09/25/24 13:34 PFSH ED 2 PFSH: Medical History Narcissistic personality disorder Osteoarthritis Methamphetamine use disorder, moderate, in sustained remission Tobacco use disorder Generalized anxiety disorder PTSD (post-traumatic stress disorder) Methamphetamine use Cannabis abuse Chronic pain Moderate episode of recurrent major depressive disorder Major depressive disorder, recurrent episode with anxious distress Psychiatric care Homicidal ideation Aggression Anxiety Social History Smoking and tobacco/nicotine status: current every day tobacco/nicotine user Alcohol intake: current Alcohol intake frequency: holidays/special occasions only Substance/Drug Use: current Substance/Drug use frequency: daily Adopted: No Caregiver/support person: No Lives independently: Yes Household members: other Housing: Apartment Marital status: Legally Number of children: 2 Highest education level completed: Associate Degree: Academic Program service: No Current occupational status: unemployed Current occupational exposures/hazards: No Pets and animals: Yes Pets & animals: dog(s) Leisure activites: exercise, music and games Sexually active: No Do you think of yourself as: Straight/Heterosexual Current gender identity: Female Aniya/Latter Day: Hoahaoism Special aniya needs: No Agree to transfusion: Yes Course 2 Vital Signs: Vital signs: Vital Signs Temperature 98.7 F 01/04/25 18:02 Pulse Rate 88 01/04/25 22:30 Blood Pressure 93/57 01/04/25 22:30 Pulse Oximetry 97 01/04/25 22:30 Oxygen Delivery Me thod Room Air 01/04/25 22:30 MDM - Psych Medical Decision Making Patient will be placed on a 96-hour hold for her psychosis. She will be admitted to Dr. Downs to [facility]. Chart reviewed and patient discussed with midlevel. Agree with assessment and plan. Lab Data 01/04/25 18:40 01/04/25 18:40 Laboratory Results WBC 15.01 10^3/uL (3.29-11.43) H 01/04/25 18:40 RBC 4.40 10^6/uL (3.85-5.65) 01/04/25 18:40 Hgb 13.80 g/dL (11.27-16.99) 01/04/25 18:40 Hct 42.0 % (36-47) 01/04/25 18:40 MCV 95.5 fl (85-98) 01/04/25 18:40 MCH 31.4 pg (27-33) 01/04/25 18:40 MCHC 32.9 g/dL (30-55) 01/04/25 18:40 RDW 13.2 % (12.1-15.1) 01/04/25 18:40 Plt Count 236 10^3/cmm (157-399) 01/04/25 18:40 MPV 10.1 fL (7.4-10.4) 01/04/25 18:40 Neut % (Auto) 81.0 % 01/04/25 18:40 Lymph % (Auto) 11.1 % 01/04/25 18:40 [place] % (Auto) 7.1 % 01/04/25 18:40 Eos % (Auto) 0.1 % 01/04/25 18:40 Baso % (Auto) 0.3 % 01/04/25 18:40 Neut # (Auto) 12.15 10^3/uL (1.8-7.7) H 01/04/25 18:40 Lymph # (Auto) 1.7 10^3/uL (0.8-4.8) 01/04/25 18:40 [place] # (Auto) 1.1 10^3/uL (0.2-0.9) H 01/04/25 18:40 Eos # (Auto) 0.0 10^3/uL (0.0-0.8) 01/04/25 18:40 Baso # (Auto) 0.1 10^3/uL (0.0-0.1) 01/04/25 18:40 Nucleated RBC % (auto) 0 % 01/04/25 18:40 Nucleated RBCs # 0.0 /100WBC 01/04/25 18:40 Sodium 142 mmol/L (136-145) 01/04/25 18:40 Potassium 3.9 mmol/L (3.5-5.1) 01/04/25 18:40 Chloride 103 mmol/L (98-107) 01/04/25 18:40 Carbon Dioxide 26 mmol/L (22-29) 01/04/25 18:40 Anion Gap 16.9 (5-19) 01/04/25 18:40 BUN 12 mg/dL (6-20) 01/04/25 18:40 Creatinine 0.7 mg/dL (0.5-0.9) 01/04/25 18:40 GFR Calculation 87.9 mL/min (90-130) L 01/04/25 18:40 Glucose 84 mg/dL (65-115) 01/04/25 18:40 Calculated Osmolality 293 mOsm/kg (285-295) 01/04/25 18:40 Calcium 10.2 mg/dL (8.5-10.5) 01/04/25 18:40 Total Bilirubin 0.5 mg/dL (0.15-1.2) 01/04/25 18:40 AST 34 U/L (0-32) H 01/04/25 18:40 ALT 30 U/L (0-33) 01/04/25 18:40 Alkaline Phosphatase 102 U/L (35-105) 01/04/25 18:40 Total Protein 7.6 g/dL (6.6-8.7) 01/04/25 18:40 Albumin 4.6 g/dL (3.5-5.2) 01/04/25 18:40 Globulin 3.0 g/dL (1.3-4.6) 01/04/25 18:40 Salicylates < 0.3 mg/dL (3-10) L 01/04/25 18:40 Acetaminophen < 5.0 ug/mL (10-30) L 01/04/25 18:40 Ethyl Alcohol < 10 mg/dL (0-10) 01/04/25 18:40 Discharge Plan Discharge Patient Disposition: Admitted As Inpatient Admit Provider: Yobany Downs Clinical Impression: Schizoaffective disorder, bipolar type Condition: Stable Coding Level of Care Code ED Gas Fitter Apprentice for Shakeel Rosa
--- OUTSIDE RECORDS SUMMARY | 2025-01-04 18:12 | XMS_ITS | Encounter Summary ---
Author Organization [facility] Address [address] [place] [address] Care Team Providers Care Doughnut Maker Name Role Phone Non-Staff, Physician Primary Care Provider Unava ilable Encounter Details Date Type Department Care Team (Latest Contact Info) Description 01/03/2003 Outpatient Historical [facility] Perl[facility] [address] [place] [phone] Gloria Pulido MD NO ADDRESS ON FILE JOINT PAIN-JOINT NEC (Primary Dx) Social History Tobacco Use Types Packs/Day Years Used Date Smoking Tobacco: Never Assessed Comments Unknown Sex and Gender Information Value Date Recorded Sex Assigned at Not on file 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
--- OUTSIDE RECORDS SUMMARY | 2025-01-04 18:12 | XMS_ITS | Encounter Summary ---
Author Organization [facility] Address [address] [place] [address] Care Team Providers Care Face Worker Name Role Phone Non-Staff, Physician Primary Care Provider Unava ilable Encounter Details Date Type Department Care Team (Latest Contact Info) Description 03/17/2005 Outpatient Historical [facility] Medicine [address] [phone] Aiden Alvarez DO NO ADDRESS ON FILE BACKACHE NOS (Primary Dx) Social History Tobacco Use Types Packs/Day Years Used Date Smoking Tobacco: Never Assessed Comments Unknown Sex and Gender Information Value Date Recorded Sex Assigned at Not on file 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
--- OUTSIDE RECORDS SUMMARY | 2025-01-04 18:12 | XMS_ITS | Encounter Summary ---
Author Organization [facility] Address [address] [place] [address] Care Team Providers Care Registered Nurse Float Pool Name Role Phone Non-Staff, Physician Primary Care Provider Unava ilable Encounter Details Date Type Department Care Team (Latest Contact Info) Description 07/17/2002 Outpatient Historical [address] [phone] Perez Carlton MD [address] [phone] MYALGIA AND MYOSITIS NOS (Primary Dx) Social History Tobacco Use Types Packs/Day Years Used Date Smoking Tobacco: Never Assessed Comments Unknown Sex and Gender Information Value Date Recorded Sex Assigned at Not on file 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
--- OUTSIDE RECORDS SUMMARY | 2025-01-04 18:12 | XMS_ITS | Encounter Summary ---
Author Organization [facility] Address [address] [place] [address] Care Team Providers Care Senior C Software Developer Name Role Phone Non-Staff, Physician Primary Care Provider Unava ilable Encounter Details Date Type Department Care Team (Latest Contact Info) Description 07/02/[address] [phone] Aiden Alvarez DO NO ADDRESS ON FILE MYALGIA AND MYOSITIS NOS (Primary Dx); CELLULITIS OF TRUNK Social History Tobacco Use Types Packs/Day Years Used Date Smoking Tobacco: Never Assessed Comments Unknown Sex and Gender Information Value Date Recorded Sex Assigned at Not on file Legal Sex Female 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
--- OUTSIDE RECORDS SUMMARY | 2025-01-04 18:12 | XMS_ITS | Encounter Summary ---
Author Organization [facility] Address [address] [place] [address] Care Team Providers Care Inventory Worker Name Role Phone Non-Staff, Physician Primary Care Provider Unava ilable Encounter Details Date Type Department Care Team (Latest Contact Info) Description 10/07/1998 Outpatient Historical [facility] Medicine [place] [address] [facility] [address] [place] [phone] Perez Carlton MD [address] [facility] [address] [place] [phone] Myalgia and myositis, unspecified (Primary Dx); Depressive disorder, not elsewhere classified Social History Tobacco Use Types Packs/Day Years Used Date Smoking Tobacco: Never Assessed Comments Unknown Sex and Gender Information Value Date Recorded Sex Assigned at Not on file Legal Sex Female 3:53 AM SUPERVISOR DENTAL LABORATORY Gender Identity Not on file Sexual Orientation Not on file documented as of this encounter Plan of Treatment Not on file documented as of this encounter Visit Diagnoses Diagnosis Myalgia and myositis, unspecified- Primary Mylagia and myositis, unspecified Depressive disorder, not elsewhere classified documented in this encounter Care Teams Inventory Worker Relationship Specialty Start Date End Date Non-Staff, Physician NO ADDRESS ON FILE PCP - General 10/08/17 documented as of this encounter
--- OUTSIDE RECORDS SUMMARY | 2025-01-04 18:12 | XMS_ITS | Encounter Summary ---
Author Organization [facility] Address [address] [place] [address] Care Team Providers Care Telephone Information Supervisor Name Role Phone Non-Staff, Physician Primary Care Provider Unava ilable Encounter Details Date Type Department Care Team (Latest Contact Info) Description 10/25/2003 Outpatient Historical [facility] Chan Perlita [address] [place] [address] Kathie Graf MD [address] [phone] UNSPEC CONSTIPATION (Primary Dx) Social History Tobacco Use Types Packs/Day Years Used Date Smoking Tobacco: Never Assessed Comments Unknown Sex and Gender Information Value Date Recorded Sex Assigned at Not on file Legal Sex Female 3:53 AM ENVIRONMENTAL PROGRAMS MANAGER Gender Identity Not on file Sexual Orientation Not on file documented as of this encounter Plan of Treatment Not on file documented as of this encounter Visit Diagnoses Diagnosis Unspecified constipation- Primary documented in this encounter Care Teams Telephone Information Supervisor Relationship Specialty Start Date End Date Non-Staff, Physician NO ADDRESS ON FILE PCP - General 10/08/17 documented as of this encounter
--- OUTSIDE RECORDS SUMMARY | 2025-01-04 18:12 | XMS_ITS | Encounter Summary ---
Author Organization [facility] Address [address] [place] [address] Care Team Providers Care Construction Equipment Operator Name Role Phone Non-Staff, Physician Primary Care Provider Unava ilable Encounter Details Date Type Department Care Team (Latest Contact Info) Description 11/29/2002 Outpatient Historical [facility] [address] [phone] Perez Carlton MD [address] [phone] MYALGIA AND MYOSITIS NOS (Primary Dx) Social History Tobacco Use Types Packs/Day Years Used Date Smoking Tobacco: Never Assessed Comments Unknown Sex and Gender Information Value Date Recorded Sex Assigned at Not on file Legal Sex Female 3:53 AM MANAGER BRIDGE Gender Identity Not on file Sexual Orientation Not on file documented as of this encounter Plan of Treatment Not on file documented as of this encounter Visit Diagnoses Diagnosis Myalgia and myositis, unspecified- Primary Mylagia and myositis, unspecified documented in this encounter Care Teams Construction Equipment Operator Relationship Specialty Start Date End Date Non-Staff, Physician NO ADDRESS ON FILE PCP - General 10/08/17 documented as of this encounter
--- OUTSIDE RECORDS SUMMARY | 2025-01-04 18:12 | XMS_ITS | Encounter Summary ---
Author Organization [facility] Address [address] [place] [address] Care Team Providers Care Wetlands Technician Name Role Phone Non-Staff, Physician Primary Care Provider Unava ilable Encounter Details Date Type Department Care Team (Latest Contact Info) Description 06/25/1999 Outpatient Historical [facility] Medicine [place] [address] [facility] [address] [place] [address] Perez Carlton MD [address] [facility] [address] [place] [phone] Health examination of defined subpopulation (Primary Dx) Social History Tobacco Use Types Packs/Day Years Used Date Smoking Tobacco: Never Assessed Comments Unknown Sex and Gender Information Value Date Recorded Sex Assigned at Not on file Legal Sex Female 3:53 AM DIRECTOR OF SOFTWARE DEVELOPMENT Gender Identity Not on file Sexual Orientation Not on file documented as of this encounter Plan of Treatment Not on file documented as of this encounter Visit Diagnoses Diagnosis Health examination of defined subpopulation- Primary documented in this encounter Care Teams Wetlands Technician Relationship Specialty Start Date End Date Non-Staff, Physician NO ADDRESS ON FILE PCP - General 10/08/17 documented as of this encounter
--- OUTSIDE RECORDS SUMMARY | 2025-01-04 18:12 | XMS_ITS | Encounter Summary ---
Author Organization [facility] Address [address] [place] [address] Care Team Providers Care And Drying Supervisor Cooking Casing Name Role Phone Non-Staff, Physician Primary Care Provider Unava ilable Encounter Details Date Type Department Care Team (Latest Contact Info) Description 09/27/2002 Outpatient Historical [facility] Medicine [address] [phone] Aiden Alvarez, NO ADDRESS ON FILE ACUTE SINUSITIS NOS (Primary Dx) Social History Tobacco Use Types Packs/Day Years Used Date Smoking Tobacco: Never Assessed Comments Unknown Sex and Gender Information Value Date Recorded Sex Assigned at Not on file Legal Sex Female 3:53 AM RN HOSPITAL Gender Identity Not on file Sexual Orientation Not on file documented as of this encounter Plan of Treatment Not on file documented as of this encounter Visit Diagnoses Diagnosis Acute sinusitis, unspecified- Primary documented in this encounter Care Teams And Drying Supervisor Cooking Casing Relationship Specialty Start Date End Date Non-Staff, Physician NO ADDRESS ON FILE PCP - General 10/08/17 documented as of this encounter
--- OUTSIDE RECORDS SUMMARY | 2025-01-04 18:12 | XMS_ITS | Encounter Summary ---
Author Organization [facility] Address [address] [place] [address] Care Team Providers Care Record Center Specialist Name Role Phone Non-Staff, Physician Primary Care Provider Unava ilable Encounter Details Date Type Department Care Team (Latest Contact Info) Description 10/23/2002 Outpatient Historical [facility] Rheumatology- [facility] [place] [address] [place] [phone] Gloria Pulido MD NO ADDRESS ON FILE JOINT PAIN-UNSPEC (Primary Dx) Social History Tobacco Use Types Packs/Day Years Used Date Smoking Tobacco: Never Assessed Comments Unknown Sex and Gender Information Value Date Recorded Sex Assigned at Not on file Legal Sex Female 3:53 AM LEGAL CASHIER Gender Identity Not on file Sexual Orientation Not on file documented as of this encounter Plan of Treatment Not on file documented as of this encounter Visit Diagnoses Diagnosis Pain in joint, site unspecified- Primary documented in this encounter Care Teams Record Center Specialist Relationship Specialty Start Date End Date Non-Staff, Physician NO ADDRESS ON FILE PCP - General 10/08/17 documented as of this encounter
--- OUTSIDE RECORDS SUMMARY | 2025-01-04 18:12 | XMS_ITS | Encounter Summary ---
Author Organization [facility] Address [address] [place] [address] Care Team Providers Care Sales Vendor Name Role Phone Non-Staff, Physician Primary Care Provider Unava ilable Encounter Details Date Type Department Care Team (Latest Contact Info) Description 01/03/2003 Outpatient Historical [facility] Rheumatology- [place] Dust[place] Perlita [address] [place] [phone] Gloria Pulido MD NO ADDRESS ON FILE RHEUMATISM NOS (Primary Dx); JOINT PAIN-MULT JTS; MYALGIA AND MYOSITIS NOS Social History Tobacco Use Types Packs/Day Years Used Date Smoking Tobacco: Never Assessed Comments Unknown Sex and Gender Information Value Date Recorded Sex Assigned at Not on file Legal Sex Female 3:53 AM IVORY CARVER Gender Identity Not on file Sexual Orientation Not on file documented as of this encounter Plan of Treatment Not on file documented as of this encounter Visit Diagnoses Diagnosis Rheumatism, unspecified and fibrositis- Primary Pain in joint, multiple sites Myalgia and myositis, unspecified Mylagia and myositis, unspecified documented in this encounter Care Teams Sales Vendor Relationship Specialty Start Date End Date Non-Staff, Physician NO ADDRESS ON FILE PCP - General 10/08/17 documented as of this encounter
--- OUTSIDE RECORDS SUMMARY | 2025-01-04 18:12 | XMS_ITS | Encounter Summary ---
Author Organization [facility] Address [address] [place] [address] Care Team Providers Care Multicultural Manager Name Role Phone Non-Staff, Physician Primary Care Provider Unava ilable Encounter Details Date Type Department Care Team (Latest Contact Info) Description 10/17/2002 Outpatient Historical [facility] Medicine [address] [address] Aiden Alvarez DO NO ADDRESS ON FILE ACUTE SINUSITIS NOS (Primary Dx); STOMATITIS Social History Tobacco Use Types Packs/Day Years Used Date Smoking Tobacco: Never Assessed Comments Unknown Sex and Gender Information Value Date Recorded Sex Assigned at Not on file Legal Sex Female 3:53 AM ENVIRONMENTAL SCIENTIST Gender Identity Not on file Sexual Orientation Not on file documented as of this encounter Plan of Treatment Not on file documented as of this encounter Visit Diagnoses Diagnosis Acute sinusitis, unspecified- Primary Stomatitis and mucositis (ulcerative) documented in this encounter Care Teams Multicultural Manager Relationship Specialty Start Date End Date Non-Staff, Physician NO ADDRESS ON FILE PCP - General 10/08/17 documented as of this encounter
--- OUTSIDE RECORDS SUMMARY | 2025-01-04 18:12 | XMS_ITS | Encounter Summary ---
Author Organization [facility] Address [address] [place] [address] Care Team Providers Care Automotive Parts Person Name Role Phone Non-Staff, Physician Primary Care Provider Unava ilable Encounter Details Date Type Department Care Team (Latest Contact Info) Description 10/23/2002 Outpatient Historical [facility] Dustin Perlita [address] [place] [address] Gloria Pulido MD NO ADDRESS ON FILE JOINT PAIN-UNSPEC (Primary Dx); LUMBAGO Social History Tobacco Use Types Packs/Day Years Used Date Smoking Tobacco: Never Assessed Comments Unknown Sex and Gender Information Value Date Recorded Sex Assigned at Not on file Legal Sex Female 3:53 AM POULTRY RAISER Gender Identity Not on file Sexual Orientation Not on file documented as of this encounter Plan of Treatment Not on file documented as of this encounter Visit Diagnoses Diagnosis Pain in joint, site unspecified- Primary Lumbago documented in this encounter Care Teams Automotive Parts Person Relationship Specialty Start Date End Date Non-Staff, Physician NO ADDRESS ON FILE PCP - General 10/08/17 documented as of this encounter
--- OUTSIDE RECORDS SUMMARY | 2025-01-04 18:12 | XMS_ITS | Encounter Summary ---
Author Organization [facility] Address [address] [place] [address] Care Team Providers Care Memorandum Statement Clerk Name Role Phone Non-Staff, Physician Primary Care Provider Unava ilable Encounter Details Date Type Department Care Team (Latest Contact Info) Description 10/15/1998 Outpatient Historical [facility] Medicine [place] [address] [facility] [address] [place] [address] Perez Carlton MD [address] [facility] [address] [place] [address] Other and unspecified noninfectious gastroenteritis and colitis(558.9) (Primary Dx); Migraine, unspecified, without mention of intractable migraine without mention of status migrainosus Social History Tobacco Use Types Packs/Day Years Used Date Smoking Tobacco: Never Assessed Comments Unknown Sex and Gender Information Value Date Recorded Sex Assigned at Not on file Legal Sex Female 3:53 AM FACTORY LABORER Gender Identity Not on file Sexual Orientation Not on file documented as of this encounter Plan of Treatment Not on file documented as of this encounter Visit Diagnoses Diagnosis Other and unspecified noninfectious gastroenteritis and colitis(558.9)- Primary Other and unspecified noninfectious gastroenteritis and colitis Migraine, unspecified, without mention of intractable migraine without mention of status migrainosus documented in this encounter Care Teams Memorandum Statement Clerk Relationship Specialty Start Date End Date Non-Staff, Physician NO ADDRESS ON FILE PCP - General 10/08/17 documented as of this encounter
--- OUTSIDE RECORDS SUMMARY | 2025-01-04 18:12 | XMS_ITS | Encounter Summary ---
Author Organization [facility] Address [address] [place] [address] Care Team Providers Care Parcel Post Order Clerk Name Role Phone Non-Staff, Physician Primary Care Provider Unava ilable Encounter Details Date Type Department Care Team (Latest Contact Info) Description 11/14/2002 Outpatient Historical [facility]- [address] [phone] Perez Carlton MD [address] [phone] MYALGIA AND MYOSITIS NOS (Primary Dx); CLASS MIGRAIN W/O MENTN INTRACTABLE Social History Tobacco Use Types Packs/Day Years Used Date Smoking Tobacco: Never Assessed Comments Unknown Sex and Gender Information Value Date Recorded Sex Assigned at Not on file Legal Sex Female 3:53 AM SEXUAL ASSAULT SOCIAL WORKER Gender Identity Not on file Sexual Orientation Not on file documented as of this encounter Plan of Treatment Not on file documented as of this encounter Visit Diagnoses Diagnosis Myalgia and myositis, unspecified- Primary Mylagia and myositis, unspecified Migraine with aura, without mention of intractable migraine without mention of status migrainosus documented in this encounter Care Teams Parcel Post Order Clerk Relationship Specialty Start Date End Date Non-Staff, Physician NO ADDRESS ON FILE PCP - General 10/08/17 documented as of this encounter
--- OUTSIDE RECORDS SUMMARY | 2025-01-04 18:12 | XMS_ITS | Encounter Summary ---
Author Organization [facility] Address [address] [place] [address] Care Team Providers Care Marble Setter Helper Name Role Phone Non-Staff, Physician Primary Care Provider Unava ilable Encounter Details Date Type Department Care Team (Late st Contact Info) Description 10/25/2003 Emergency [facility] Emergency Department [address] [place] [address] Ed, Physician NO ADDRESS ON FILE ABDOMINAL PAIN UNSPEC SITE (Primary Dx) Social History Tobacco Use Types Packs/Day Years Used Date Smoking Tobacco: Never Assessed Comments Unknown Sex and Gender Information Value Date Recorded Sex Assigned at Not on file Legal Sex Female 3:53 AM FABRIC SOURCER Gender Identity Not on file Sexual Orientation Not on file documented as of this encounter Plan of Treatment Not on file documented as of this encounter Visit Diagnoses Diagnosis Abdominal pain, unspecified site- Primary documented in this encounter Care Teams Marble Setter Helper Relationship Specialty Start Date End Date Non-Staff, Physician NO ADDRESS ON FILE PCP - General 10/08/17 documented as of this encounter
--- OUTSIDE RECORDS SUMMARY | 2025-01-04 18:12 | XMS_ITS | Encounter Summary ---
Author Organization [facility] Address [address] [place] [address] Care Team Providers Care Oracle Bpm Developer Name Role Phone Non-Staff, Physician Primary Care Provider Unava ilable Encounter Details Date Type Department Care Team (Latest Contact Info) Description 01/08/2003 Outpatient Historical [address] [phone] Perez Carlton MD [address] [phone] ACUTE URI NOS (Primary Dx); ARTHROPATHY NEC-UNSPEC Social History Tobacco Use Types Packs/Day Years Used Date Smoking Tobacco: Never Assessed Comments Unknown Sex and Gender Information Value Date Recorded Sex Assigned at Not on file Legal Sex Female 3:53 AM MEDICAL TECHNOLOGIST HEMATOLOGY Gender Identity Not on file Sexual Orientation Not on file documented as of this encounter Plan of Treatment Not on file documented as of this encounter Visit Diagnoses Diagnosis Acute upper respiratory infections of unspecified site- Primary Other specified arthropathy, site unspecified documented in this encounter Care Teams Oracle Bpm Developer Relationship Specialty Start Date End Date Non-Staff, Physician NO ADDRESS ON FILE PCP - General 10/08/17 documented as of this encounter
--- OUTSIDE RECORDS SUMMARY | 2025-01-04 18:12 | XMS_ITS | Encounter Summary ---
Author Organization [facility] Address [address] [place] [address] Care Team Providers Care Branding Machine Operator Name Role Phone Non-Staff, Physician Primary Care Provider Unava ilable Encounter Details Date Type Department Care Team (Latest Contact Info) Description 10/10/2002 Outpatient Historical [facility] Medicine [address] [phone] Aiden Alvarez DO NO ADDRESS ON FILE STOMATITIS (Primary Dx) Social History Tobacco Use Types Packs/Day Years Used Date Smoking Tobacco: Never Assessed Comments Unknown Sex and Gender Information Value Date Recorded Sex Assigned at Not on file Legal Sex Female 3:53 AM CIRCUS TRAIN SUPERVISOR Gender Identity Not on file Sexual Orientation Not on file documented as of this encounter Plan of Treatment Not on file documented as of this encounter Visit Diagnoses Diagnosis Stomatitis and mucositis (ulcerative)- Primary documented in this encounter Care Teams Branding Machine Operator Relationship Specialty Start Date End Date Non-Staff, Physician NO ADDRESS ON FILE PCP - General 10/08/17 documented as of this encounter
--- OUTSIDE RECORDS SUMMARY | 2025-01-04 18:12 | XMS_ITS | Encounter Summary ---
Author Organization [facility] Address [address] [place] [address] Care Team Providers Care Economic Development Coordinator Name Role Phone Non-Staff, Physician Primary Care Provider Unava ilable Encounter Details Date Type Department Care Team (Latest Contact Info) Description 11/26/1998 Outpatient Historical [facility] Medicine [address] [phone] Aiden Alvarez DO NO ADDRESS ON FILE Absence of menstruation (Primary Dx); Surveillance of other previously prescribed contraceptive method Social History Tobacco Use Types Packs/Day Years Used Date Smoking Tobacco: Never Assessed Comments Unknown Sex and Gender Information Value Date Recorded Sex Assigned at Not on file Legal Sex Female 3:53 AM DIRECTOR POST Gender Identity Not on file Sexual Orientation Not on file documented as of this encounter Plan of Treatment Not on file documented as of this encounter Visit Diagnoses Diagnosis Absence of menstruation- Primary Surveillance of other previously prescribed contraceptive method documented in this encounter Care Teams Economic Development Coordinator Relationship Specialty Start Date End Date Non-Staff, Physician NO ADDRESS ON FILE PCP - General 10/08/17 documented as of this encounter
--- OUTSIDE RECORDS SUMMARY | 2025-01-04 18:12 | XMS_ITS | Encounter Summary ---
Author Organization [facility] Address [address] [place] [address] Care Team Providers Care Printmaker Name Role Phone Non-Staff, Physician Primary Care Provider Unava ilable Encounter Details Date Type Department Care Team (Late st Contact Info) Description 01/03/2003 Outpatient Historical [facility] Imaging Services-[place] Dustin Perlita [address] [place] [address] Social History Tobacco Use Types Packs/Day Years Used Date Smoking Tobacco: Never Assessed Comments Unknown Sex and Gender Information Value Date Recorded Sex Assigned at Not on file Legal Sex Female 3:53 AM BYPRODUCTS OPERATOR Gender Identity Not on file Sexual Orientation Not on file documented as of this encounter Plan of Treatment Not on file documented as of this encounter Visit Diagnoses Not on filedocumented in this encounter Care Teams Printmaker Relationship Specialty Start Date End Date Non-Staff, Physician NO ADDRESS ON FILE PCP - General 10/08/17 documented as of this encounter
--- OUTSIDE RECORDS SUMMARY | 2025-01-04 18:12 | XMS_ITS | Encounter Summary ---
Author Organization [facility] Address [address] [place] [address] Care Team Providers Care Thermo Cementing Folder Operator Name Role Phone Non-Staff, Physician Primary Care Provider Unava ilable Encounter Details Date Type Department Care Team (Late st Contact Info) Description 01/12/2003 Outpatient Historical [facility] Gloria Pulido MD NO ADDRESS ON FILE Social History Tobacco Use Types Packs/Day Years Used Date Smoking Tobacco: Never Assessed Comments Unknown Sex and Gender Information Value Date Recorded Sex Assigned at Not on file Legal Sex Female 3:53 AM RIB CHOPPER Gender Identity Not on file Sexual Orientation Not on file documented as of this encounter Plan of Treatment Not on file documented as of this encounter Visit Diagnoses Not on filedocumented in this encounter Care Teams Thermo Cementing Folder Operator Relationship Specialty Start Date End Date Non-Staff, Physician NO ADDRESS ON FILE PCP - General 10/08/17 documented as of this encounter
--- OUTSIDE RECORDS SUMMARY | 2025-01-04 18:12 | XMS_ITS | Encounter Summary ---
Author Organization [facility] Address [address] [place] [address] Care Team Providers Care Diesel Dinkey Engineer Name Role Phone Non-Staff, Physician Primary Care Provider Unava ilable Encounter Details Date Type Department Care Team (Latest Contact Info) Description 09/25/2002 Outpatient Historical [facility] Family Medicine- [address] [place] [address] Aiden Alvarez DO NO ADDRESS ON FILE ACUTE SINUSITIS NOS (Primary Dx) Social History Tobacco Use Types Packs/Day Years Used Date Smoking Tobacco: Never Assessed Comments Unknown Sex and Gender Information Value Date Recorded Sex Assigned at Not on file Legal Sex Female 3:53 AM CLIENT SUPPORT ASSOCIATE Gender Identity Not on file Sexual Orientation Not on file documented as of this encounter Plan of Treatment Not on file documented as of this encounter Visit Diagnoses Diagnosis Acute sinusitis, unspecified- Primary documented in this encounter Care Teams Diesel Dinkey Engineer Relationship Specialty Start Date End Date Non-Staff, Physician NO ADDRESS ON FILE PCP - General 10/08/17 documented as of this encounter
--- OUTSIDE RECORDS SUMMARY | 2025-01-04 18:12 | XMS_ITS | Encounter Summary ---
Author Organization [facility] Address [address] [place] [address] Care Team Providers Care Reactor Kettle Operator Name Role Phone Non-Staff, Physician Primary Care Provider Unava ilable Encounter Details Date Type Department Care Team (Latest Contact Info) Description 01/30/2000 Outpatient Historical [facility] Medicine [place] [address] [facility] [address] [place] [phone] Perez Carlton MD [address] [phone] Screening for malignant neoplasm of the cervix (Primary Dx); Breast screening, unspecified; Anxiety state, unspecified; Tobacco use disorder Social History Tobacco Use Types Packs/Day Years Used Date Smoking Tobacco: Never Assessed Comments Unknown Sex and Gender Information Value Date Recorded Sex Assigned at Not on file Legal Sex Female 3:53 AM ERGONOMIC SPECIALIST Gender Identity Not on file Sexual Orientation Not on file documented as of this encounter Plan of Treatment Not on file documented as of this encounter Visit Diagnoses Diagnosis Screening for malignant neoplasm of the cervix- Primary Breast screening, unspecified Anxiety state, unspecified Tobacco use disorder documented in this encounter Care Teams Reactor Kettle Operator Relationship Specialty Start Date End Date Non-Staff, Physician NO ADDRESS ON FILE PCP - General 10/08/17 documented as of this encounter
--- OUTSIDE RECORDS SUMMARY | 2025-01-04 18:12 | XMS_ITS | Encounter Summary ---
Author Organization [facility] Address [address] [place] [address] Care Team Providers Care Senior Manager Name Role Phone Non-Staff, Physician Primary Care Provider Unava ilable Encounter Details Date Type Department Care Team (Late st Contact Info) Description 07/03/2003 Outpatient Historical [facility] FY06 Aiden Alvarez DO NO ADDRESS ON FILE Social History Tobacco Use Types Packs/Day Years Used Date Smoking Tobacco: Never Assessed Comments Unknown Sex and Gender Information Value Date Recorded Sex Assigned at Not on file Legal Sex Female 3:53 AM PUNCHBOARD STUFFER Gender Identity Not on file Sexual Orientation Not on file documented as of this encounter Plan of Treatment Not on file documented as of this encounter Visit Diagnoses Not on filedocumented in this encounter Care Teams Senior Manager Relationship Specialty Start Date End Date Non-Staff, Physician NO ADDRESS ON FILE PCP - General 10/08/17 documented as of this encounter
--- OUTSIDE RECORDS SUMMARY | 2025-01-04 18:12 | XMS_ITS | Encounter Summary ---
Author Organization [facility] Address [address] [place] [address] Care Team Providers Care Dough Scaler And Mixer Name Role Phone Non-Staff, Physician Primary Care Provider Unava ilable Encounter Details Date Type Department Care Team (Latest Contact Info) Description 02/20/2000 Outpatient Historical [facility] Medicine [address] [place] [phone] Perez Carlton MD [address] [phone] Tobacco use disorder (Primary Dx); Depressive disorder, not elsewhere classified Social History Tobacco Use Types Packs/Day Years Used Date Smoking Tobacco: Never Assessed Comments Unknown Sex and Gender Information Value Date Recorded Sex Assigned at Not on file Legal Sex Female 3:53 AM CVOR NURSE Gender Identity Not on file Sexual Orientation Not on file documented as of this encounter Plan of Treatment Not on file documented as of this encounter Visit Diagnoses Diagnosis Tobacco use disorder- Primary Depressive disorder, not elsewhere classified documented in this encounter Care Teams Dough Scaler And Mixer Relationship Specialty Start Date End Date Non-Staff, Physician NO ADDRESS ON FILE PCP - General 10/08/17 documented as of this encounter
--- OUTSIDE RECORDS SUMMARY | 2025-01-04 18:12 | XMS_ITS | Encounter Summary ---
Author Organization [facility] Address [address] 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
--- OUTSIDE RECORDS SUMMARY | 2025-01-04 18:12 | XMS_ITS | Encounter Summary ---
Author Organization [facility] Address [address] [place] [address] Care Team Providers Care Hand Assembler For Puller Over Name Role Phone Non-Staff, Physician Primary Care Provider Unava ilable Encounter Details Date Type Department Care Team (Latest Contact Info) Description 07/14/2002 Outpatient Historical [facility]- [address] [place], [place] [address] Aiden Alvarez DO NO ADDRESS ON FILE Dermatitis due to plant (Primary Dx) Social History Tobacco Use Types Packs/Day Years Used Date Smoking Tobacco: Never Assessed Comments Unknown Sex and Gender Information Value Date Recorded Sex Assigned at Not on file Legal Sex Female 3:53 AM PULP OPERATOR Gender Identity Not on file Sexual Orientation Not on file documented as of this encounter Plan of Treatment Not on file documented as of this encounter Visit Diagnoses Diagnosis Dermatitis due to plant- Primary Contact dermatitis and other eczema due to plants (except food) documented in this encounter Care Teams Hand Assembler For Puller Over Relationship Specialty Start Date End Date Non-Staff, Physician NO ADDRESS ON FILE PCP - General 10/08/17 documented as of this encounter
--- OUTSIDE RECORDS SUMMARY | 2025-01-04 18:12 | XMS_ITS | Encounter Summary ---
Author Organization [facility] Address [address] [place] [address] Care Team Providers Care Supervisor Speech Name Role Phone Non-Staff, Physician Primary Care Provider Unava ilable Encounter Details Date Type Department Care Team (Latest Contact Info) Description 12/12/2002 Outpatient Historical [facility]- [address] [phone] Perez Carlton MD [address] [phone] MYALGIA AND MYOSITIS NOS (Primary Dx); UNSPEC CONSTIPATION Social History Tobacco Use Types Packs/Day Years Used Date Smoking Tobacco: Never Assessed Comments Unknown Sex and Gender Information Value Date Recorded Sex Assigned at Not on file Legal Sex Female 3:53 AM 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
--- OUTSIDE RECORDS SUMMARY | 2025-01-04 18:12 | XMS_ITS | Encounter Summary ---
Author Organization [facility] Address [address] [place] [address] Care Team Providers Care Middleware Consultant Name Role Phone Non-Staff, Physician Primary Care Provider Unava ilable Encounter Details Date Type Department Care Team (Latest Contact Info) Description 11/06/2002 Outpatient Historical [facility] Rheumatology- [facility] [place] [address] [place] [phone] Gloria Pulido MD NO ADDRESS ON FILE INFLAM SPONDYLOPATHY NOS (Primary Dx); JOINT PAIN-MULT JTS; RHEUMATISM NOS Social History Tobacco Use Types Packs/Day Years Used Date Smoking Tobacco: Never Assessed Comments Unknown Sex and Gender Information Value Date Recorded Sex Assigned at Not on file 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
--- OUTSIDE RECORDS SUMMARY | 2025-01-04 18:12 | XMS_ITS | Encounter Summary ---
Author Organization [facility] Address [address] [place] [address] Care Team Providers Care Knitting Tester Name Role Phone Non-Staff, Physician Primary Care Provider Unava ilable Encounter Details Date Type Department Care Team (Latest Contact Info) Description 05/23/1999 Outpatient Historical [facility] Medicine [place] [address] [facility] [address] [place] [address] Perez Carlton MD [address] [facility] [address] [place] [phone] Surveillance of other previously prescribed contraceptive method (Primary Dx) Social History Tobacco Use Types Packs/Day Years Used Date Smoking Tobacco: Never Assessed Comments Unknown Sex and Gender Information Value Date Recorded Sex Assigned at Not on file Legal Sex Female 3:53 AM SPINNING MULE TENDER Gender Identity Not on file Sexual Orientation Not on file documented as of this encounter Plan of Treatment Not on file documented as of this encounter Visit Diagnoses Diagnosis Surveillance of other previously prescribed contraceptive method- Primary documented in this encounter Care Teams Knitting Tester Relationship Specialty Start Date End Date Non-Staff, Physician NO ADDRESS ON FILE PCP - General 10/08/17 documented as of this encounter
--- OUTSIDE RECORDS SUMMARY | 2025-01-04 18:12 | XMS_ITS | Encounter Summary ---
Author Organization [facility] Address [address] [place] [address] Care Team Providers Care Hanging Flags Decorator Name Role Phone Non-Staff, Physician Primary Care Provider Unava ilable Encounter Details Date Type Department Care Team (Latest Contact Info) Description 10/01/1998 Outpatient Historical [facility] Medicine [place] [address] [facility] [address] [place] [address] Perez Carlton MD [address] [facility] [address] [place] [address] Enlargement of lymph nodes (Primary Dx); Abnormal loss of weight Social History Tobacco Use Types Packs/Day Years Used Date Smoking Tobacco: Never Assessed Comments Unknown Sex and Gender Information Value Date Recorded Sex Assigned at Not on file Legal Sex Female 3:53 AM DENTISTRY TEACHER Gender Identity Not on file Sexual Orientation Not on file documented as of this encounter Plan of Treatment Not on file documented as of this encounter Visit Diagnoses Diagnosis Enlargement of lymph nodes- Primary Abnormal loss of weight Abnormal loss of weight and underweight documented in this encounter Care Teams Hanging Flags Decorator Relationship Specialty Start Date End Date Non-Staff, Physician NO ADDRESS ON FILE PCP - General 10/08/17 documented as of this encounter
--- OUTSIDE RECORDS SUMMARY | 2025-01-04 18:12 | XMS_ITS | Encounter Summary ---
Author Organization [facility] Address [address] [place] [address] Care Team Providers Care Supervisor Grove Name Role Phone Non-Staff, Physician Primary Care Provider Unava ilable Encounter Details Date Type Department Care Team (Latest Contact Info) Description 10/02/2002 Outpatient Historical [facility] Medicine [address] [address] Aiden Alvarez DO NO ADDRESS ON FILE STOMATITIS (Primary Dx); ACUTE SINUSITIS NOS Social History Tobacco Use Types Packs/Day Years Used Date Smoking Tobacco: Never Assessed Comments Unknown Sex and Gender Information Value Date Recorded Sex Assigned at Not on file Legal Sex Female 3:53 AM SPED TEACHER Gender Identity Not on file Sexual Orientation Not on file documented as of this encounter Plan of Treatment Not on file documented as of this encounter Visit Diagnoses Diagnosis Stomatitis and mucositis (ulcerative)- Primary Acute sinusitis, unspecified documented in this encounter Care Teams Supervisor Grove Relationship Specialty Start Date End Date Non-Staff, Physician NO ADDRESS ON FILE PCP - General 10/08/17 documented as of this encounter
--- OUTSIDE RECORDS SUMMARY | 2025-01-04 18:12 | XMS_ITS | Encounter Summary ---
Author Organization [facility] Address [address] [place] [address] Care Team Providers Care Composition Worker Name Role Phone Non-Staff, Physician Primary Care Provider Unava ilable Encounter Details Date Type Department Care Team (Latest Contact Info) Description 10/01/1999 Outpatient Historical [facility] Medicine [address] [phone] Heide Baeza NO ADDRESS ON FILE Allergy, unspecified not elsewhere classified (Primary Dx) Social History Tobacco Use Types Packs/Day Years Used Date Smoking Tobacco: Never Assessed Comments Unknown Sex and Gender Information Value Date Recorded Sex Assigned at Not on file Legal Sex Female 3:53 AM AIR EXPORT COORDINATOR Gender Identity Not on file Sexual Orientation Not on file documented as of this encounter Plan of Treatment Not on file documented as of this encounter Visit Diagnoses Diagnosis Allergy, unspecified not elsewhere classified- Primary documented in this encounter Care Teams Composition Worker Relationship Specialty Start Date End Date Non-Staff, Physician NO ADDRESS ON FILE PCP - General 10/08/17 documented as of this encounter
--- OUTSIDE RECORDS SUMMARY | 2025-01-04 18:12 | XMS_ITS | Encounter Summary ---
Author Organization [facility] Address [address] [place] [address] Care Team Providers Care Sawyer Cork Slabs Name Role Phone Non-Staff, Physician Primary Care Provider Unava ilable Encounter Details Date Type Department Care Team (Latest Contact Info) Description 02/19/2003 Outpatient Historical [facility] Medicine [address] [place] [phone] Perez Carlton MD [address] [facility] [address] [place] [phone] MYALGIA AND MYOSITIS NOS (Primary Dx) Social History Tobacco Use Types Packs/Day Years Used Date Smoking Tobacco: Never Assessed Comments Unknown Sex and Gender Information Value Date Recorded Sex Assigned at Not on file Legal Sex Female 3:53 AM 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
--- OUTSIDE RECORDS SUMMARY | 2025-01-04 18:12 | XMS_ITS | Encounter Summary ---
Author Organization [facility] Address [address] [place] [address] Care Team Providers Care Amf Mechanic Name Role Phone Non-Staff, Physician Primary Care Provider Unava ilable Encounter Details Date Type Department Care Team (Latest Contact Info) Description 08/16/2003 Outpatient Historical [facility] Rheumatology- [facility] [place] [address] [place] [phone] Gloria Pulido MD NO ADDRESS ON FILE RHEUMATISM NOS (Primary Dx); ROTATOR CUFF SYND NOS Social History Tobacco Use Types Packs/Day Years Used Date Smoking Tobacco: Never Assessed Comments Unknown Sex and Gender Information Value Date Recorded Sex Assigned at Not on file Legal Sex Female 3:53 AM 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
--- OUTSIDE RECORDS SUMMARY | 2025-01-04 18:12 | XMS_ITS | Encounter Summary ---
Author Organization [facility] Address [address] [place] [address] Care Team Providers Care Premium Representative Name Role Phone Non-Staff, Physician Primary Care Provider Unava ilable Encounter Details Date Type Department Care Team (Late st Contact Info) Description 07/12/2003 Outpatient Historical [facility] FY06 Aiden Alvarez DO NO ADDRESS ON FILE Social History Tobacco Use Types Packs/Day Years Used Date Smoking Tobacco: Never Assessed Comments Unknown Sex and Gender Information Value Date Recorded Sex Assigned at Not on file Legal Sex Female 3:53 AM SAP PROJECT MANAGER Gender Identity Not on file Sexual Orientation Not on file documented as of this encounter Plan of Treatment Not on file documented as of this encounter Visit Diagnoses Not on filedocumented in this encounter Care Teams Premium Representative Relationship Specialty Start Date End Date Non-Staff, Physician NO ADDRESS ON FILE PCP - General 10/08/17 documented as of this encounter
--- OUTSIDE RECORDS SUMMARY | 2025-01-04 18:12 | XMS_ITS | Encounter Summary ---
Author Organization [facility] Address [address] [place] [address] Care Team Providers Care Shell Fisherman Name Role Phone Non-Staff, Physician Primary Care Provider Unava ilable Encounter Details Date Type Department Care Team (Latest Contact Info) Description 10/25/2003 Outpatient Historical [facility] [place] [address] [place] [address] Kathie Graf MD [address] [phone] ABDOMINAL PAIN UNSPEC SITE (Primary Dx); UNSPEC CONSTIPATION Social History Tobacco Use Types Packs/Day Years Used Date Smoking Tobacco: Never Assessed Comments Unknown Sex and Gender Information Value Date Recorded Sex Assigned at Not on file Legal Sex Female 3:53 AM FBI PROFILER Gender Identity Not on file Sexual Orientation Not on file documented as of this encounter Plan of Treatment Not on file documented as of this encounter Visit Diagnoses Diagnosis Abdominal pain, unspecified site- Primary Unspecified constipation documented in this encounter Care Teams Shell Fisherman Relationship Specialty Start Date End Date Non-Staff, Physician NO ADDRESS ON FILE PCP - General 10/08/17 documented as of this encounter
--- OUTSIDE RECORDS SUMMARY | 2025-01-04 18:12 | XMS_ITS | Encounter Summary ---
Author Organization [facility] Address [address] [place] [address] Care Team Providers Care Creative Arts Music Therapist Name Role Phone Non-Staff, Physician Primary Care Provider Unava ilable Encounter Details Date Type Department Care Team (Latest Contact Info) Description 02/24/1999 Outpatient Historical [facility] Medicine [place] [address] [facility] [address] [place] [phone] Perez Carlton MD [address] [facility] [address] [place] [phone] Other specified contraceptive management (Primary Dx) Social History Tobacco Use Types Packs/Day Years Used Date Smoking Tobacco: Never Assessed Comments Unknown Sex and Gender Information Value Date Recorded Sex Assigned at Not on file Legal Sex Female 3:53 AM VIDEO GAME CREATOR Gender Identity Not on file Sexual Orientation Not on file documented as of this encounter Plan of Treatment Not on file documented as of this encounter Visit Diagnoses Diagnosis Other specified contraceptive management- Primary documented in this encounter Care Teams Creative Arts Music Therapist Relationship Specialty Start Date End Date Non-Staff, Physician NO ADDRESS ON FILE PCP - General 10/08/17 documented as of this encounter
--- OUTSIDE RECORDS SUMMARY | 2025-01-04 18:12 | XMS_ITS | Clinical Summary ---
Author Organization [facility] Address [facility] [place] [address] Care Team Providers Care Associate Business Analyst Name Role Phone Non-Staff, Physician Primary [...] week 07/29/2020 How often do you attend [facility] or muslim services? Never 07/29/2020 Do you belong to any clubs o r organizations such as rastafarian groups, unions, fraternal or athletic groups, or [...] any time in the past 12 m [facility], were you homeless or living in a alf (including now)? No 07/29/2020 Comments No Sex and Gender Information Value Date Recorded Sex Assigned at Not on file Legal Sex Female 3:53 AM SPONGE DIVER Gender Identity Not on file Sexual Orientation [...] 2024 12/16/2015 Insurance [place] D[place] COMPLETE [facility] PPO D-SNP [facility] DUAL COMPLETE [facility] PPO D-SNP [place] Member Subscriber Plan / Payer (Ef fective 2020-Present) Name:Annemarie Hardin Relation to Subscriber:Self Name:Annemarie Hardin Payer ID:[id number] Group ID:Not on file Type:Medicaid Address: [address] MEDICARE Advance Directives For more information, please contact: [phone] * Full Code (Latest Code Status on File) Date Activated Date Inactivated Comments 07/29/2020 7:00 PM 08/03/2020 1:52 PM Care Teams Associate Business Analyst Relationship Specialty Start Date End Date Non-Staff, Physician NO ADDRESS ON FILE PCP - General 10/08/17
--- OUTSIDE RECORDS SUMMARY | 2025-01-04 18:12 | XMS_ITS | Encounter Summary ---
Author Organization [facility] Address [address] [place] [address] Care Team Providers Care Revolving Inventory Clerk Name Role Phone Non-Staff, Physician Primary Care Provider Unava ilable Encounter Details Date Type Department Care Team (Latest Contact Info) Description 10/23/2002 Outpatient Historical [facility] Rheumatology- [place] [address] [place] [phone] Gloria Pulido MD NO ADDRESS ON FILE JOINT PAIN-MULT JTS (Primary Dx); OTHER MALAISE AND FATIGUE; RHEUMATISM NOS Social History Tobacco Use Types Packs/Day Years Used Date Smoking Tobacco: Never Assessed Comments Unknown Sex and Gender Information Value Date Recorded Sex Assigned at Not on file Legal Sex Female 3:53 AM AGRICULTURE LABORATORY TECHNICIAN Gender Identity Not on file Sexual Orientation Not on file documented as of this encounter Plan of Treatment Not on file documented as of this encounter Visit Diagnoses Diagnosis Pain in joint, multiple sites- Primary Other malaise and fatigue Rheumatism, unspecified and fibrositis documented in this encounter Care Teams Revolving Inventory Clerk Relationship Specialty Start Date End Date Non-Staff, Physician NO ADDRESS ON FILE PCP - General 10/08/17 documented as of this encounter
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
--- OUTSIDE RECORDS SUMMARY | 2025-01-04 18:13 | XMS_ITS | Encounter Summary ---
Author Organization [facility] Address [address] [place] [address] Care Team Providers Care Dinkey Operator Slate Name Role Phone Non-Staff, Physician Primary Care Provider Unava ilable Encounter Details Date Type Department Care Team (Latest Contact Info) Description 07/07/2002 Outpatient Historical [address] [phone] Shashank Deshpande PA NO ADDRESS ON FILE OTHER GENERAL SYMPTOMS (Primary Dx) Social History Tobacco Use Types Packs/Day Years Used Date Smoking Tobacco: Never Assessed Comments Unknown Sex and Gender Information Value Date Recorded Sex Assigned at Not on file Legal Sex Female 3:53 AM SUBSTATION DESIGN DRAFTSPERSON Gender Identity Not on file Sexual Orientation Not on file documented as of this encounter Plan of Treatment Not on file documented as of this encounter Visit Diagnoses Diagnosis Other general symptoms(780.99)- Primary Other general symptoms documented in this encounter Care Teams Dinkey Operator Slate Relationship Specialty Start Date End Date Non-Staff, Physician NO ADDRESS ON FILE PCP - General 10/08/17 documented as of this encounter
--- OUTSIDE RECORDS SUMMARY | 2025-01-04 18:13 | XMS_ITS | Encounter Summary ---
Author Organization [facility] Address [address] [place] [address] Care Team Providers Care Spring Up Supervisor Name Role Phone Non-Staff, Physician Primary Care Provider Unava ilable Encounter Details Date Type Department Care Team (Latest Contact Info) Description 09/15/2005 Outpatient Historical [facility] Medicine [address] [address] Edgardo Hunt NP NO ADDRESS ON FILE Unspecified Myalgia and Myositis (Primary Dx) Social History Tobacco Use Types Packs/Day Years Used Date Smoking Tobacco: Never Assessed Comments Unknown Sex and Gender Information Value Date Recorded Sex Assigned at Not on file Legal Sex Female 3:53 AM MEDICAL COORDINATOR PESTICIDE USE Gender Identity Not on file Sexual Orientation Not on file documented as of this encounter Plan of Treatment Not on file documented as of this encounter Visit Diagnoses Diagnosis Myalgia and myositis, unspecified- Primary Mylagia and myositis, unspecified documented in this encounter Care Teams Spring Up Supervisor Relationship Specialty Start Date End Date Non-Staff, Physician NO ADDRESS ON FILE PCP - General 10/08/17 documented as of this encounter
--- OUTSIDE RECORDS SUMMARY | 2025-01-04 18:13 | XMS_ITS | Encounter Summary ---
Author Organization [facility] Address [address] [place] [address] Care Team Providers Care Tool Filer Hand Name Role Phone Non-Staff, Physician Primary Care Provider Unava ilable Encounter Details Date Type Department Care Team (Late st Contact Info) Description 01/05/2006 Outpatient Historical HIS RAD MTN VIEW OP Lance Murray MD [facility] [place] [address] Social History Tobacco Use Types Packs/Day Years Used Date Smoking Tobacco: Never Assessed Comments Unknown Sex and Gender Information Value Date Recorded Sex Assigned at Not on file Legal Sex Female 3:53 AM METALLURGICAL ENGINEER Gender Identity Not on file Sexual Orientation Not on file documented as of this encounter Plan of Treatment Not on file documented as of this encounter Procedures Procedure Name Priority Date/Time Associated Diagnosis Comments MRI THORACIC WO CONTRAST Routine 01/05/2006 9:34 AM METALLURGICAL ENGINEER documented in this encounter Results * MRI THORACIC WO CONTRAST (01/05/2006 9:34 AM METALLURGICAL ENGINEER) Anatomical Region Laterality Modality Spine Other 01/05/2006 9:34 AM METALLURGICAL ENGINEER Narrative 01/05/2006 9:34 AM METALLURGICAL ENGINEER MRI OF THE CERVICAL, THORACIC, AND LUMBAR [...] noted along the margins of the left [id number]. IMPRESSION: Mild lower lumbar facet degenerative changes. The cervical and thoracicspine exams areunremarkable. - Dictated By: Trinity Pizarro M.D. Electronically Signed By: Trinity Pizarro M.D. Date Signed: 01/11/06 Lance Murray MD MR ORDERABLES Final Re sult documented in this encounter Visit Diagnoses Not on filedocumented in this encounter Care Teams Tool Filer Hand Relationship Specialty Start Date End Date Non-Staff, Physician NO ADDRESS ON FILE PCP - General 10/08/17 documented as of this encounter
--- OUTSIDE RECORDS SUMMARY | 2025-01-04 18:13 | XMS_ITS | Encounter Summary ---
Author Organization [facility] Address [address] [place] [address] Care Team Providers Care Veterinary Laboratory Diagnostician Name Role Phone Non-Staff, Physician Primary Care Provider Unava ilable Encounter Details Date Type Department Care Team (Latest Contact Info) Description 10/26/2005 Outpatient Historical [facility] [address] 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
--- OUTSIDE RECORDS SUMMARY | 2025-01-04 18:13 | XMS_ITS | Encounter Summary ---
Author Organization [facility] Address [address] [place] [address] Care Team Providers Care Coal Tower Operator Name Role Phone Non-Staff, Physician Primary Care Provider Unava ilable Encounter Details Date Type Department Care Team (Latest Contact Info) Description 10/29/[address] [facility] [address] [place] [address] AMBULANCE, [facility] Swelling of Limb (Primary Dx) Social History Tobacco Use Types Packs/Day Years Used Date Smoking Tobacco: Never Assessed Comments Unknown Sex and Gender Information Value Date Recorded Sex Assigned at Not on file Legal Sex Female 3:53 AM STONEHAND Gender Identity Not on file Sexual Orientation Not on file documented as of this encounter Plan of Treatment Not on file documented as of this encounter Visit Diagnoses Diagnosis Swelling of limb- Primary documented in this encounter Care Teams Coal Tower Operator Relationship Specialty Start Date End Date Non-Staff, Physician NO ADDRESS ON FILE PCP - General 10/08/17 documented as of this encounter
--- OUTSIDE RECORDS SUMMARY | 2025-01-04 18:13 | XMS_ITS | Encounter Summary ---
Author Organization [facility] Address [address] [place] [address] Care Team Providers Care Marine Engineer Cpvec Name Role Phone Non-Staff, Physician Primary Care Provider Unava ilable Encounter Details Date Type Department Care Team (Latest Contact Info) Description 07/07/[address] [phone] Marga Radford MD NO ADDRESS ON FILE MYALGIA AND MYOSITIS NOS (Primary Dx) Social History Tobacco Use Types Packs/Day Years Used Date Smoking Tobacco: Never Assessed Comments Unknown Sex and Gender Information Value Date Recorded Sex Assigned at Not on file Legal Sex Female 3:53 AM POST SPLITTER Gender Identity Not on file Sexual Orientation Not on file documented as of this encounter Plan of Treatment Not on file documented as of this encounter Visit Diagnoses Diagnosis Myalgia and myositis, unspecified- Primary Mylagia and myositis, unspecified documented in this encounter Care Teams Marine Engineer Cpvec Relationship Specialty Start Date End Date Non-Staff, Physician NO ADDRESS ON FILE PCP - General 10/08/17 documented as of this encounter
--- OUTSIDE RECORDS SUMMARY | 2025-01-04 18:13 | XMS_ITS | Encounter Summary ---
Author Organization [facility] Address [address] [place] [address] Care Team Providers Care Paintings Restorer Name Role Phone Non-Staff, Physician Primary Care Provider Unava ilable Encounter Details Date Type Department Care Team (Latest Contact Info) Description 04/10/2003 Outpatient Historical [facility] Rheumatology- [facility] [place] [address] [place] [phone] Gloria Pulido MD NO ADDRESS ON FILE RHEUMATISM NOS (Primary Dx) Social History Tobacco Use Types Packs/Day Years Used Date Smoking Tobacco: Never Assessed Comments Unknown Sex and Gender Information Value Date Recorded Sex Assigned at Not on file Legal Sex Female 3:53 AM PATTERN WEAVER Gender Identity Not on file Sexual Orientation Not on file documented as of this encounter Plan of Treatment Not on file documented as of this encounter Visit Diagnoses Diagnosis Rheumatism, unspecified and fibrositis- Primary documented in this encounter Care Teams Paintings Restorer Relationship Specialty Start Date End Date Non-Staff, Physician NO ADDRESS ON FILE PCP - General 10/08/17 documented as of this encounter
--- OUTSIDE RECORDS SUMMARY | 2025-01-04 18:13 | XMS_ITS | Encounter Summary ---
Author Organization [facility] Address [address] [facility] [place] [address] Care Team Providers Care County Program Technician Name Role Phone Non-Staff, Physician Primary Care Provider Unava ilable Encounter Details Date Type Department Care Team (Latest Contact Info) Description 07/08/2005 Outpatient Historical [facility] Medicine- Gloria [address] [place] [phone] Edgardo Hunt NP NO ADDRESS ON FILE Acute Sinusitis, Unspecified (Primary Dx); Unspecified Myalgia and Myositis; Lumbago Social History Tobacco Use Types Packs/Day Years Used Date Smoking Tobacco: Never Assessed Comments Unknown Sex and Gender Information Value Date Recorded Sex Assigned at Not on file Legal Sex Female 3:53 AM RIVET DRIVER Gender Identity Not on file Sexual Orientation Not on file documented as of this encounter Plan of Treatment Not on file documented as of this encounter Visit Diagnoses Diagnosis Acute sinusitis, unspecified- Primary Myalgia and myositis, unspecified Mylagia and myositis, unspecified Lumbago documented in this encounter Care Teams County Program Technician Relationship Specialty Start Date End Date Non-Staff, Physician NO ADDRESS ON FILE PCP - General 10/08/17 documented as of this encounter
--- OUTSIDE RECORDS SUMMARY | 2025-01-04 18:13 | XMS_ITS | Encounter Summary ---
Author Organization [facility] Address [address] [place] [address] Care Team Providers Care Drafter Landscape Name Role Phone Non-Staff, Physician Primary Care Provider Unava ilable Encounter Details Date Type Department Care Team (Latest Contact Info) Description 12/09/[address] [facility] Medicine [address] [phone] Aiden Alvarez DO NO ADDRESS ON FILE Unspecified Myalgia and Myositis (Primary Dx) Social History Tobacco Use Types Packs/Day Years Used Date Smoking Tobacco: Never Assessed Comments Unknown Sex and Gender Information Value Date Recorded Sex Assigned at Not on file Legal Sex Female 3:53 AM BAIL ATTACHER Gender Identity Not on file Sexual Orientation Not on file documented as of this encounter Plan of Treatment Not on file documented as of this encounter Visit Diagnoses Diagnosis Myalgia and myositis, unspecified- Primary Mylagia and myositis, unspecified documented in this encounter Care Teams Drafter Landscape Relationship Specialty Start Date End Date Non-Staff, Physician NO ADDRESS ON FILE PCP - General 10/08/17 documented as of this encounter
--- OUTSIDE RECORDS SUMMARY | 2025-01-04 18:13 | XMS_ITS | Encounter Summary ---
Author Organization [facility] Address [address] [place] [address] Care Team Providers Care Assistant Brand Manager Name Role Phone Non-Staff, Physician Primary Care Provider Unava ilable Encounter Details Date Type Department Care Team (Latest Contact Info) Description 01/13/2006 Outpatient Historical [facility] [place] [address] [phone] Gail Alicea, COMMERCIAL PORTFOLIO MANAGER [address] [place] [phone] Acute Upper Respiratory Infections of Unspecified Site (Primary Dx) Social History Tobacco Use Types Packs/Day Years Used Date Smoking Tobacco: Never Assessed Comments Unknown Sex and Gender Information Value Date Recorded Sex Assigned at Not on file Legal Sex Female 3:53 AM CONE TENDER Gender Identity Not on file Sexual Orientation Not on file documented as of this encounter Plan of Treatment Not on file documented as of this encounter Visit Diagnoses Diagnosis Acute upper respiratory infections of unspecified site- Primary documented in this encounter Care Teams Assistant Brand Manager Relationship Specialty Start Date End Date Non-Staff, Physician NO ADDRESS ON FILE PCP - General 10/08/17 documented as of this encounter
--- OUTSIDE RECORDS SUMMARY | 2025-01-04 18:13 | XMS_ITS | Encounter Summary ---
Author Organization [facility] Address [address] [place] [address] Care Team Providers Care Gas Tester Name Role Phone Non-Staff, Physician Primary Care Provider Unava ilable Encounter Details Date Type Department Care Team (Latest Contact Info) Description 01/03/1999 Outpatient Historical [facility] Medicine [address] [phone] Aiden Alvarez, NO ADDRESS ON FILE Contusion of foot (Primary Dx) Social History Tobacco Use Types Packs/Day Years Used Date Smoking Tobacco: Never Assessed Comments Unknown Sex and Gender Information Value Date Recorded Sex Assigned at Not on file Legal Sex Female 3:53 AM SUPERVISOR VACUUM METALIZING Gender Identity Not on file Sexual Orientation Not on file documented as of this encounter Plan of Treatment Not on file documented as of this encounter Visit Diagnoses Diagnosis Contusion of foot- Primary documented in this encounter Care Teams Gas Tester Relationship Specialty Start Date End Date Non-Staff, Physician NO ADDRESS ON FILE PCP - General 10/08/17 documented as of this encounter
--- OUTSIDE RECORDS SUMMARY | 2025-01-04 18:13 | XMS_ITS | Encounter Summary ---
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) Social History Tobacco Use Types Packs/Day Years Used Date Smoking Tobacco: Never Assessed Comments Unknown Sex and Gender Information Value Date Recorded Sex Assigned at Not on file Legal Sex Female 3:53 AM RESPITE PROVIDER Gender Identity Not on file Sexual Orientation Not on file documented as of this encounter Plan of Treatment Not on file documented as of this encounter Visit Diagnoses Diagnosis Ulcer of heel and midfoot (CMS/HCC)- Primary Ulcer of heel and midfoot documented in this encounter Care Teams Director Of Group Sales Relationship Specialty Start Date End Date Non-Staff, Physician NO ADDRESS ON FILE PCP - General 10/08/17 documented as of this encounter
--- OUTSIDE RECORDS SUMMARY | 2025-01-04 18:13 | XMS_ITS | Encounter Summary ---
Author Organization [facility] Address [address] [place] [address] Care Team Providers Care Radio Commentator Name Role Phone Non-Staff, Physician Primary Care Provider Unava ilable Encounter Details Date Type Department Care Team (Latest Contact Info) Description 12/31/1998 Outpatient Historical [facility] [place] [address] [facility] [address] [place] [address] Perez Carlton MD [address] [phone] Issue of medical certificates (Primary Dx); Gynecologic examination Social History Tobacco Use Types Packs/Day Years Used Date Smoking Tobacco: Never Assessed Comments Unknown Sex and Gender Information Value Date Recorded Sex Assigned at Not on file Legal Sex Female 3:53 AM 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
--- OUTSIDE RECORDS SUMMARY | 2025-01-04 18:13 | XMS_ITS | Encounter Summary ---
Author Organization [facility] Address [address] [place] [address] Care Team Providers Care Barrel Endshake Adjuster Name Role Phone Non-Staff, Physician Primary Care Provider Unava ilable Encounter Details Date Type Department Care Team (Latest Contact Info) Description 10/31/2005 Outpatient Historical [facility] [address] [place] [address] AMBULANCE, [facility] Embolism and Thrombosis of Unspecified Deep Vessels of Lower Extremity (CMS/HCC) (Primary Dx) Social History Tobacco Use Types Packs/Day Years Used Date Smoking Tobacco: Never Assessed Comments Unknown Sex and Gender Information Value Date Recorded Sex Assigned at Not on file Legal Sex Female 3:53 AM SIXTH GRADE TEACHER Gender Identity Not on file Sexual Orientation Not on file documented as of this encounter Plan of Treatment Not on file documented as of this encounter Visit Diagnoses Diagnosis Acute venous embolism and thrombosis of unspecified deep vessels of lower extremity- Primary documented in this encounter Care Teams Barrel Endshake Adjuster Relationship Specialty Start Date End Date Non-Staff, Physician NO ADDRESS ON FILE PCP - General 10/08/17 documented as of this encounter
--- OUTSIDE RECORDS SUMMARY | 2025-01-04 18:13 | XMS_ITS | Encounter Summary ---
Author Organization [facility] Address [address] [place] [address] Care Team Providers Care Bilingual School Psychologist Name Role Phone Non-Staff, Physician Primary Care [...] on file Legal Sex Female 3:53 AM TEAM LEADER SURGERY Gender Identity Not on file Sexual Orientation [...] Goal INR 3.0; range 2.5 - 3.5 POST-ND Goal INR 2.5; range 2.0 - 3.0 or Goal 3.0; range 2.5 - 3.5 Atrial Fibrillation Goal INR 2.5; range 2.0 - 3.0 Ischemic Stroke Goal INR 2.5; range 2.0 - 3.0 For additional information see Guidelines for Anticoagulation available from the pharmacy Mauro Espitia D. 11/04/2005 3:48 AM CDT us Leslee Rothman MD HEMATOLOGY ORDERABLES Final Result Performing Organization Address [facility] Phone Number INTERFACE SYSTEM Refer to clinic/hospital department * PROTEIN S ACTIVITY (11/03/2005 3:25 AM CDT) PROTEIN S ACTIVITY 48 45 - 125 % INTERFACE SYSTEM 11/03/2005 3:25 AM CDT us Leslee Rothman MD CHEMISTRY ORDERABLES Final R esult Performing Organization Address City/[facility] Co de Phone Number INTERFACE SYSTEM Refer to clinic/hospital department * (ABNORMAL) PROTEIN C ACTIVITY (11/03/2005 3:25 AM CDT) PROTEIN C ACTIVITY 19(L) 70 - 141 % INTERFACE SYSTEM Comment:VERIFIED BY REPEAT 11/03/2005 3:25 AM CDT us Leslee Rothman MD HEMATOLOGY ORDERABLES Final Result Performing Organization Address [facility] Phone Number INTERFACE SYSTEM Refer to clinic/hospital department * FACTOR V LEIDEN MUTATION (11/03/2005 3:25 AM CDT) Pathologist [facility] FACTOR V LEIDEN MUTATION See Sep Report INTERFACE SYSTEM 11/03/2005 3:25 AM CDT us Leslee Rothman MD HEMATOLOGY ORDERABLES Final Result Performing Organization Address [facility] Phone Number INTERFACE SYSTEM Refer [...] HEMATOLOGY ORDERABLES Final Result Performing Organization Address [facility] Phone Number INTERFACE SYSTEM Refer [...] Goal INR 3.0; range 2.5 - 3.5 POST-ND Goal INR 2.5; range 2.0 - 3.0 or Goal 3.0; range 2.5 - 3.5 Atrial Fibrillation Goal INR 2.5; range 2.0 - 3.0 Ischemic Stroke Goal INR 2.5; range 2.0 - 3.0 For additional information see Guidelines for Anticoagulation available from the pharmacy Mauro Espitia. 11/03/2005 3:25 AM CDT us Leslee Rothman MD HEMATOLOGY ORDERABLES Final Result Performing Organization Address City/[facility] de Phone Number INTERFACE SYSTEM Refer to clinic/hospital department * HOMOCYSTEINE, SERUM (11/03/2005 3:25 AM CDT) HOMOCYSTEINE, SERUM 7.8 5.0 - 11.5 umol/L INTERFACE SYSTEM Comment: As of 04 at 12:[address] [facility] has changed the methodology for Homocysteine, and with this change the reference range has changed for: Males 0-12.5 umol/L Females 0-11.5 umol/L 11/03/2005 3:25 AM CDT us Leslee Rothman MD CHEMISTRY ORDERABLES Final R esult Performing Organization Address [facility] de Phone Number INTERFACE SYSTEM Refer to clinic/hospital department * (ABNORMAL) ANTITHROMBIN III ACTIVITY (11/03/2005 3:25 AM CDT) ANTITHROMBIN III ACTIVITY 74(L) 80 - 120 % INTERFACE SYSTEM Comment:TEST VERIFIED BY REP EAT. 11/03/2005 3:25 AM CDT us Leslee Rothman MD HEMATOLOGY ORDERABLES Final Result Performing Organization Address City/[facility] de Phone Number INTERFACE SYSTEM Refer to clinic/hospital department * (ABNORMAL) LACTATE DEHYDROGENASE (11/03/2005 3:25 AM CDT) LD (LACTATE DEHYDROGENASE) 252(H) 100 - 190 U/L INTERFACE SYSTEM Comment: As of 05 the [facility] Lab has changed testing methods. The new reference range is 100-190 The old referance range was 250-540 11/03/2005 3:25 AM CDT us Leslee Rothman MD CHEMISTRY ORDERABLES Final R esult Performing Organization Address City/[facility] de Phone Number INTERFACE SYSTEM Refer to clinic/hospital department * (ABNORMAL) CK (11/03/2005 3:25 AM CDT) CK 576(H) 26 - 140 U/L INTERFACE SYSTEM Comment: As of 05 the [facility] has changed testing methods. The new reference ranges are Males 38-174 Females 26-140 The old referance ranges were Males 0-155 Females 0-133 11/03/2005 3:25 AM CDT us Leslee Rothman MD CHEMISTRY ORDERABLES Final R esult Performing Organization Address [facility] de Phone Number INTERFACE SYSTEM Refer to [...] INTERFACE SYSTEM Comment: As of 05 the [facility] has changed testing methods. The new reference range is 25-100 The old referance range was 38-126 AST 35(H) 8 - 33 U/L INTERFACE SYSTEM Comment: As of 05 the [facility] has changed testing methods. The new reference range is 8-33 The old referance range was Males 17-59 Females 14-36 ALT 33 4 - 36 IU/L INTERFACE SYSTEM Comment: As of 05 the [facility] has changed testing methods. The new reference range is 4-36 The old referance range was Males 21-72 Females 9-52 BILIRUBIN TOTAL 0.1(L) 0.3 - 1.2 mg/dL INTERFACE SYSTEM Comment: As of 05 the [facility] has changed testing methods. The new reference [...] Goal INR 3.0; range 2.5 - 3.5 POST-ND Goal INR 2.5; range 2.0 - 3.0 [...] Comment: As of 04 at 12:[address] [facility] has changed the methodology for ThCG, and with this change the reference range has changed from 0-5.0 mIU/ml to 0-10.0 mIU/ml. ----- ----- Total HCG levels between 10 mIU/mL and 25 mIU/mL may be indicative of early but need to be correlated with other clinical findings. HCG ranges during normal , as reported by the automatic dispenser mechanic, are summarized as follows: Gestational Age Expected hCG Values(mIU/ml) 0.2-1 Weeks 5 - 50 1-2 Weeks 50 - 500 2-3 Weeks 100 - 5,000 3-4 Weeks 1,000 - 50,000 5-6 Weeks 10,000 - 100,000 6-8 Weeks 15,000 - 200,000 2-3 Months 10,000 - 100,000 11/02/2005 4:15 AM CDT us Leslee Rothman MD CHEMISTRY ORDERABLES Final R community health Performing Organization Address [facility] de Phone Number INTERFACE SYSTEM Refer to [...] Leslee Rothman MD CHEMISTRY ORDERABLES Final R community health Performing Organization Address [facility] de Phone Number INTERFACE SYSTEM Refer to [...] Goal INR 3.0; range 2.5 - 3.5 POST-ND Goal INR 2.5; range 2.0 - 3.0 [...] SYSTEM Comment: As of 05 the [facility] has changed testing methods. The new [...] INTERFACE SYSTEM Comment: As of 05 the [facility] has changed testing methods. The new [...] HEMATOLOGY ORDERABLES Final Result Performing Organization Address City/State/[facility] Co de Phone Number [...] shoulder. No bony fracture isidentified in the [id number]. There is a small area of linear [...] posteriorshoulder. No bony fracture isidentified in the [id number]. There is a small area of linearenhancement [...] Primary documented in this encounter Care Teams Bilingual School Psychologist Relationship Specialty Start Date End Date Non-Staff, Physician NO ADDRESS ON FILE PCP - General 10/08/17 documented as of this encounter
--- OUTSIDE RECORDS SUMMARY | 2025-01-04 18:13 | XMS_ITS | Encounter Summary ---
Author Organization [facility] Address [address] [place] [address] Care Team Providers Care Assembler Utility Buildings Name Role Phone Non-Staff, Physician Primary Care Provider Unava ilable Encounter Details Date Type Department Care Team (Latest Contact Info) Description 04/16/2000 Outpatient Historical [facility]- [address] [place] [phone] Aiden Alvarez DO NO ADDRESS ON FILE Acute sinusitis, unspecified (Primary Dx); Acute bronchitis Social History Tobacco Use Types Packs/Day Years Used Date Smoking Tobacco: Never Assessed Comments Unknown Sex and Gender Information Value Date Recorded Sex Assigned at Not on file Legal Sex Female 3:53 AM NIGHT WAREHOUSE MANAGER Gender Identity Not on file Sexual Orientation Not on file documented as of this encounter Plan of Treatment Not on file documented as of this encounter Visit Diagnoses Diagnosis Acute sinusitis, unspecified- Primary Acute bronchitis documented in this encounter Care Teams Assembler Utility Buildings Relationship Specialty Start Date End Date Non-Staff, Physician NO ADDRESS ON FILE PCP - General 10/08/17 documented as of this encounter
--- OUTSIDE RECORDS SUMMARY | 2025-01-04 18:13 | XMS_ITS | Encounter Summary ---
Author Organization [facility] Address [address] [place] [address] Care Team Providers Care Configuration Analyst Name Role Phone Non-Staff, Physician Primary Care Provider Unava ilable Encounter Details Date Type Department Care Team (Latest Contact Info) Description 07/11/2002 Outpatient Historical [address] [phone] Perez Carlton MD [address] [phone] MYALGIA AND MYOSITIS NOS (Primary Dx) Social History Tobacco Use Types Packs/Day Years Used Date Smoking Tobacco: Never Assessed Comments Unknown Sex and Gender Information Value Date Recorded Sex Assigned at Not on file 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
--- OUTSIDE RECORDS SUMMARY | 2025-01-04 18:13 | XMS_ITS | Encounter Summary ---
Author Organization [facility] Address [address] [place] [address] Care Team Providers Care Deep Sea Diver Name Role Phone Non-Staff, Physician Primary Care Provider Unava ilable Encounter Details Date Type Department Care Team (Latest Contact Info) Description 01/17/1999 Outpatient Historical [facility] [place] [address] [facility] [address] [place] [phone] Perez Carlton MD [address] [facility] [address] [place] [phone] Acute upper respiratory infections of unspecified site (Primary Dx) Social History Tobacco Use Types Packs/Day Years Used Date Smoking Tobacco: Never Assessed Comments Unknown Sex and Gender Information Value Date Recorded Sex Assigned at Not on file 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
--- OUTSIDE RECORDS SUMMARY | 2025-01-04 18:13 | XMS_ITS | Encounter Summary ---
Author Organization [facility] Address [address] [place] [address] Care Team Providers Care Improvement Rn Name Role Phone Non-Staff, Physician Primary Care Provider Unava ilable Encounter Details Date Type Department Care Team (Latest Contact Info) Description 06/20/2002 Outpatient Historical [facility] Medicine- [address] [place] [phone] Aiden Alvarez DO NO ADDRESS ON FILE LUMBAGO (Primary Dx); DEPRESSIVE DISORDER NEC; ABNORMAL WEIGHT GAIN; ALLERGY, UNSPECIFIED Social History Tobacco Use Types Packs/Day Years Used Date Smoking Tobacco: Never Assessed Comments Unknown Sex and Gender Information Value Date Recorded Sex Assigned at Not on file 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
--- NOTE | 2025-01-04 18:24 | PC.NURSE ---
PT WAS ASKED BY THIS NURSE IF PT WANTED TO BE ADMITTED TO NPU. PT STATED NO. I JUST NEED PAIN MEDS AND A B52 SHOT RIGHT HERE OR TWO, AND POINTED TO HER RIGHT HIP. PROVIDER NOTIFIED.
[2025-01-04 19:07] LABS: Hematocrit 42.0 % (36-47); Hemoglobin 13.80 g/dL (11.27-16.99); Mean Corpuscular HGB Conc 32.9 g/dL (30-55); Mean Corpuscular Hemoglobin 31.4 pg (27-33); Mean Corpuscular Volume 95.5 fl (85-98); Nucleated Red Blood Cells % 0 %; Platelet Count 236 10^3/cmm (157-399); Red Blood Count 4.40 10^6/uL (3.85-5.65); White Blood Count 15.01 10^3/uL (3.29-11.43)
--- NOTE | 2025-01-04 19:15 | PC.NURSE ---
96 Hour Involuntary Hold Patient Rights have been reviewed with the patient and a copy of the same has been provided to her. Protection Analyst Sammy Hernandez was present at bedside during the presentation of Rights.
[2025-01-04] MEDS: water for injection-sterile 10 ML 999 ML (19:16)
[2025-01-04 19:51] LABS: Alanine Aminotransferase 30 U/L (0-33); Albumin Level 4.6 g/dL (3.5-5.2); Alkaline Phosphatase 102 U/L (35-105); Anion Gap 16.9 (5-19); Aspartate Amino Transferase 34 U/L (0-32); Blood Urea Nitrogen 12 mg/dL (6-20); Calcium 10.2 mg/dL (8.5-10.5); Carbon Dioxide 26 mmol/L (22-29); Chloride 103 mmol/L (98-107); Globulin 3.0 g/dL (1.3-4.6); Glucose 84 mg/dL (65-115); Osmolality Calculated 293 mOsm/kg (285-295); Potassium 3.9 mmol/L (3.5-5.1); Sodium 142 mmol/L (136-145); Total Protein 7.6 g/dL (6.6-8.7)
[2025-01-04 20:00] LABS: Acetaminophen < 5.0 ug/mL (10-30); Alcohol Level < 10 mg/dL (0-10); Salicylate < 0.3 mg/dL (3-10)
--- NOTE | 2025-01-04 20:03 | PC.NURSE ---
PT is resting quietly in bed with eyes closed. RR even and unlabored.
[2025-01-04 22:30] VITALS: BP 93/57; PULSE 88; O2SAT 97
--- NOTE | 2025-01-04 22:51 | PC.NURSE ---
pt refused, pt becoming increasingly agitated and confused, not completed per charge nurse, will attempt again at a later time
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
[2025-01-05 05:54] VITALS: PULSE 94; RESP 18; TEMP 36.7; O2SAT 99
--- NOTE | 2025-01-05 05:55 | PC.NURSE ---
Addendum entered by Mey Crum CNA 01/05/25 05:56: vital signs refused by pt, pt becoming more and more hostile while obtaining vitals, bp unable to obtain due to behavior, pt very hostile when refusing bp to be obtained, nurse notified Original Note: bp refused by pt
--- NOTE | 2025-01-05 09:14 | PC.NURSE ---
pt came to this staff member stating a couple of days ago when he was over on the [facility] unit and he was moving chairs he kicked the chair. states when he kicked the chair he injured his left outer foot. upon assessment of injury area just below ankle is red and with minor edema, no bruising noted. administered tylenol 650mg for pain. notifed doctor delroy and community chest officer and Catering Sales Manager.
--- NOTE | 2025-01-05 09:27 | PC.NURSE ---
asked pt what happen that brought her back to our hospital pt stated she is homeless and had no where else to go and she has decided that she will need to be here until her son gets out of [facility] on Feb 10. explained to pt that the possibilty of her staying here that long would most likely not be available pt stated well then you will need to get me somewhere I can stay. pt then walked off.
[2025-01-05 14:00] VITALS: BP 112/79; PULSE 94; RESP 18; TEMP 36.7; O2SAT 99
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
--- NOTE | 2025-01-05 16:18 | PC.NURSE ---
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
[2025-01-05 20:42] VITALS: BP 135/92; PULSE 104; RESP 19; TEMP 36.7; O2SAT 99
[2025-01-06 05:23] VITALS: BP 139/85; PULSE 89; RESP 18; TEMP 36.7; O2SAT 98
--- NOTE | 2025-01-06 08:56 | P.NPUPN_ITS ---
Subjective NPU 2 Subjective: Patient presented today reporting that she was scared. She was not making any sense per staff reports or direct observation. She was often speaking in rhythmic patterns lying associations and tangential thoughts per staff reports and direct observation. She had a picture of her son which she reported the other day he was getting out of penitentiary soon and she was very frantic and worked up pointing to the picture and uttering odd phrases without clarity. Mental Status Exam 2 MSE Comments: This is a a well-nourished, well-developed white female in hospital scrubs on with poor grooming and fleeting eye contact.? No abnormal movements except for severe psychomotor agitation.? She was cooperative with exam in significant distress.? Speech was increased in rate and normal volume slightly pressured. ? Mood described as scared, affect was odd and irritable. Thought process was disorganized. ? Thought content: Patient endorses no suicidal and no homicidal ideation. There was no delusions of grandeur. But she had significant bizarre delusions appearing paranoid and with concerns for also persecutory delusions. She denied auditory or visual hallucinations.? Attention and concentration were impaired And her recent and remote memory was unreliable, but no more formally tested. She is alert and oriented to person, place. Insight, judgment and impulse control are all impaired. Vitals/I&O/Wt Last Vital Signs Temp 98.0 F 01/06/25 05:23 Pulse 89 01/06/25 05:23 Resp 18 01/06/25 05:23 BP 139/85 01/06/25 05:23 Pulse Ox 98 01/06/25 05:23 O2 Del Method Room Air 01/06/25 05:23 Data NPU 01/04/25 18:40 01/04/25 18:40 A&P Assessment and plan 1. Schizoaffective disorder, bipolar type: 2. Psychosis: 3. Depression: 4. Insomnia: 5. History of posttraumatic stress disorder (PTSD): 6. Narcissistic personality disorder: 7. Post-traumatic stress disorder, chronic: Plan: This is a 55-year-old white female with a previous history of schizoaffective disorder bipolar type significant addiction with cannabis and methamphetamine use but no UDS in her past hospitalization or with this stay thus far admitted with bizarre behavior. 1. Encourage individual, group and milieu therapy. 2. Recommend sober living treatment at the highest level of care to which the patient is willing to commit. 3. Continue q-15 minute checks for safety.? 4.? Continue current medication. 5.?Will attempt to gather collateral information. Will identify whether she will benefit from a long-acting injectable or whether this psychosis is a reflection of recent drug use that has not been identified due to lack of UDS being obtained. We discussed the importance of her abstinence and the role that cannabis could be playing in her psychotic presentation. PDMP PDMP Reviewed: Not Reviewed Involuntary Hold Information 2 Hold Status: Legal Status: 96 Hour Hold Date/Time Hold Expires: 01/12/2025 @ 0001 96 Hour Hold: 96 Hour Involuntary Admission: No Attestations NPU 2 Medical Necessity Statement*: Inpatient hospitalization is medically necessary and the clinically appropriate intervention at this time. We will monitor/adjust medications as indicated. Her likely length of stay 7-10 days. Coding Level of Care Code Acute Code for [facility] Diagnoses Schizoaffective disorder, bipolar type F25.0 Psychosis F29 Depression F32.A Insomnia G47.00 History of posttraumatic stress disorder (PTSD) Z86.59 Narcissistic personality disorder F60.81 Post-traumatic stress disorder, chronic F43.12
[2025-01-06 10:10] LABS: PCP Screen Urine Negative (Negative)
[2025-01-06 13:35] VITALS: BP 123/84; PULSE 94; RESP 16; TEMP 36.9; O2SAT 99
[2025-01-06] MEDS: blistex lip oint 7 gm Tube 1 APPLIC TOPICAL (18:23)
[2025-01-06 20:57] VITALS: BP 141/85; PULSE 101; RESP 19; TEMP 37.1; O2SAT 98; BMI 29.7
[2025-01-07 05:19] VITALS: BP 133/78; PULSE 85; RESP 19; TEMP 36.6; O2SAT 99
--- NOTE | 2025-01-07 07:09 | PC.NURSE ---
Annemarie was asked by this nurse to be kinder to another patient this morning after she was heard talking very mean about her. This nurse spent time with Annemarie et pointed out that the other patient is the only one who is currently willing to be near Annemarie, as she's so mean to the others that they pointedly avoid her et report they do not feel safe with her rapid fire changes et yelling at them. Annemarie voiced a few more unkind remarks et then appeared to change demeanor toward the other patient et be kinder. This nurse has quietly visited with the other patient as well to ensure she is okay, et will remain nearby as much as able. Nursing continues to monitor for needs et changes.
--- NOTE | 2025-01-07 09:46 | W.PM.NPUPNS ---
Subjective NPU Subjective: Patient presented today reporting that she is doing okay. However she is having a challenging day per staff reports and direct observation as she continued to be disorganized and intrusive. She was to confused and unable to make sense in conversation to discuss whether her son getting out of skilled nursing has led to some stress that might be presenting in this really stressed out fashion. She denied any side effects to the medication but it is unclear how consistently she is with her medication outside of the hospital. We discussed the fact that we would be looking to add or replace her current Geodon with the medication that could be given as a long-acting injectable. She did not report any side effects to her medication. Mental Status Exam MSE Comments: This is a a well-nourished, well-developed white female in hospital scrubs on with poor grooming and fleeting eye contact.? No abnormal movements except for severe psychomotor agitation.? She was cooperative with exam in significant distress.? Speech was increased in rate and normal volume slightly pressured. ? Mood described as scared, affect was odd and irritable. Thought process was disorganized. ? Thought content: Patient endorses no suicidal and no homicidal ideation. There was no delusions of grandeur. But she had significant bizarre delusions appearing paranoid and with concerns for also persecutory delusions. She denied auditory or visual hallucinations.? Attention and concentration were impaired And her recent and remote memory was unreliable, but no more formally tested. She is alert and oriented to person, place. Insight, judgment and impulse control are all impaired. Vitals/I&O/Wt Last Vital Signs Temp 97.8 F 01/07/25 05:19 Pulse 85 01/07/25 05:19 Resp 19 H 01/07/25 05:19 BP 133/78 01/07/25 05:19 Pulse Ox 99 01/07/25 05:19 O2 Del Method Room Air 01/07/25 05:19 Weight last 48 hrs Weight 83.631 kg Data NPU 01/04/25 18:40 01/04/25 18:40 A&P Assessment and plan 1. Schizoaffective disorder, bipolar type: 2. Psychosis: 3. Depression: 4. Insomnia: 5. History of posttraumatic stress disorder (PTSD): 6. Narcissistic personality disorder: 7. Post-traumatic stress disorder, chronic: Plan: This is a 55-year-old white female with a previous history of schizoaffective disorder bipolar type significant addiction with cannabis and methamphetamine use but no UDS in her past hospitalization or with this stay thus far admitted with bizarre behavior. 1. Encourage individual, group and milieu therapy. 2. Recommend sober living treatment at the highest level of care to which the patient is willing to commit. 3. Continue q-15 minute checks for safety.? 4.? Continue current medication. Will consider the addition of Invega or Abilify for a medication that can be given as a long-acting injectable. Could also consider Uzedy to manage her psychosis. 5.?Will attempt to gather collateral information. Will identify whether she will benefit from a long-acting injectable or whether this psychosis is a reflection of recent drug use that has not been identified due to lack of UDS being obtained. We discussed the importance of her abstinence and the role that cannabis could be playing in her psychotic presentation. PDMP PDMP Reviewed: Not Reviewed Involuntary Hold Information Hold Status: Legal Status: 96 Hour Hold Date/Time Hold Expires: 01/12/2025 @ 0001 96 Hour Hold: 96 Hour Involuntary Admission: No Attestations NPU Medical Necessity Statement*: Inpatient hospitalization is medically necessary and the clinically appropriate intervention at this time. We will monitor/adjust medications as indicated. Her likely length of stay 7-10 days. Coding Level of Care Code Acute Code for [facility] Diagnoses Schizoaffective disorder, bipolar type F25.0 Psychosis F29 Depression F32.A Insomnia G47.00 History of posttraumatic stress disorder (PTSD) Z86.59 Narcissistic personality disorder F60.81 Post-traumatic stress disorder, chronic F43.12
[2025-01-07 14:00] VITALS: BP 147/89; PULSE 94; RESP 17; TEMP 36.6; O2SAT 100
--- NOTE | 2025-01-07 16:37 | PC.NURSE ---
Pt. came to signee and asked i tape her nicotine patch on because it would not stay on because she had taken it off too many times. Signee asked why she was taking it off and she replied because I can't eat and smoke at the same time. You can't smoke in any restaurant.
--- NOTE | 2025-01-07 17:29 | PC.NURSE ---
Pt. came up to the nurses station yelling and saying she wanted a prn to help her read and something for her habit. She said they are called prn's do you know what those are? Then she ranted on. Another pt. asked for a breathing tx then this pt. also said she wanted a breathing tx. Pt. is currently being loud and cursing up and down the aleman.
--- NOTE | 2025-01-07 18:05 | PC.NURSE ---
Pt. became irate for no reason. Pt. began cursing, yelling. Another pt. asked for a breathing tx, then this pt. said she needed one as well. She stated she needed prn's so she could read. Another nurse went to the dayroom where pt. was yelling loudly, then pt. went to her room where the cursing and yelling continued. A code 10 was called and pt. was taken to seclusion where she continued to curse and yell, and at times cry. Pt. has one on one with eyes on pt.
[2025-01-07 21:22] VITALS: BP 127/74; PULSE 83; RESP 17; TEMP 36.8; O2SAT 98
[2025-01-08 08:08] VITALS: PULSE 91; RESP 18; O2SAT 99
[2025-01-08 13:58] VITALS: BP 132/84; PULSE 79; RESP 16; TEMP 36.6; O2SAT 99
--- NOTE | 2025-01-08 14:17 | P.NPUPN_ITS ---
Subjective NPU 2 Subjective: Patient presented today reporting recurrent going better. She started talking about the possibly discharge. She was more cogent in the conversation per staff reports and direct conversation. There were times where her words actually connected and did not come across as word salad or tangential but there were moments where it was. We continue to discuss whether or not we would need to add an antipsychotic with the possibility of long-acting injectable to her regimen. She denied any side effects to the medication. Mental Status Exam 2 MSE Comments: This is a a well-nourished, well-developed white female in hospital scrubs on with poor grooming and fleeting eye contact.? No abnormal movements except for severe psychomotor agitation.? She was cooperative with exam in significant distress.? Speech was increased in rate and normal volume slightly pressured. ? Mood described as scared, affect was odd and irritable. Thought process was disorganized. ? Thought content: Patient endorses no suicidal and no homicidal ideation. There was no delusions of grandeur. But she had significant bizarre delusions appearing paranoid and with concerns for also persecutory delusions. She denied auditory or visual hallucinations.? Attention and concentration were impaired And her recent and remote memory was unreliable, but no more formally tested. She is alert and oriented to person, place. Insight, judgment and impulse control are all impaired. Vitals/I&O/Wt Last Vital Signs Temp 97.9 F 01/08/25 13:58 Pulse 79 01/08/25 13:58 Resp 16 01/08/25 13:58 BP 132/84 01/08/25 13:58 Pulse Ox 99 01/08/25 13:58 O2 Del Method Room Air 01/08/25 13:58 Weight last 48 hrs Weight 83.631 kg Data NPU 01/04/25 18:40 01/04/25 18:40 A&P Assessment and plan 1. Schizoaffective disorder, bipolar type: 2. Psychosis: 3. Depression: 4. Insomnia: 5. History of posttraumatic stress disorder (PTSD): 6. Narcissistic personality disorder: 7. Post-traumatic stress disorder, chronic: Plan: This is a 55-year-old white female with a previous history of schizoaffective disorder bipolar type significant addiction with cannabis and methamphetamine use but no UDS in her past hospitalization or with this stay thus far admitted with bizarre behavior. 1. Encourage individual, group and milieu therapy. 2. Recommend sober living treatment at the highest level of care to which the patient is willing to commit. 3. Continue q-15 minute checks for safety.? 4.? Continue current medication. Will consider the addition of Invega or Abilify for a medication that can be given as a long-acting injectable. Could also consider Uzedy to manage her psychosis. 5.?Will attempt to gather collateral information. Will identify whether she will benefit from a long-acting injectable or whether this psychosis is a reflection of recent drug use that has not been identified due to lack of UDS being obtained. We discussed the importance of her abstinence and the role that cannabis could be playing in her psychotic presentation. PDMP PDMP Reviewed: Not Reviewed Involuntary Hold Information 2 Hold Status: Legal Status: 96 Hour Hold Date/Time Hold Expires: 01/12/2025 @ 0001 96 Hour Hold: 96 Hour Involuntary Admission: No Attestations NPU 2 Medical Necessity Statement*: Inpatient hospitalization is medically necessary and the clinically appropriate intervention at this time. We will monitor/adjust medications as indicated. Her likely length of stay 6-9 days. Coding Level of Care Code Acute Code for [facility] Diagnoses Schizoaffective disorder, bipolar type F25.0 Psychosis F29 Depression F32.A Insomnia G47.00 History of posttraumatic stress disorder (PTSD) Z86.59 Narcissistic personality disorder F60.81 Post-traumatic stress disorder, chronic F43.12
[2025-01-08 20:44] VITALS: BP 154/93; PULSE 86; RESP 19; TEMP 36.3; O2SAT 97
[2025-01-08] MEDS: efferdent effervescent 1 EACH DENTAL (21:22)
[2025-01-09 05:51] VITALS: BP 134/95; PULSE 82; RESP 18; TEMP 36.4; O2SAT 99
[2025-01-09 13:55] VITALS: BP 100/70; PULSE 79; RESP 16; TEMP 36.8; O2SAT 100
[2025-01-09] MEDS: efferdent effervescent 1 EACH DENTAL ×2 (17:13→20:01)
--- NOTE | 2025-01-09 17:38 | P.NPUPN_ITS ---
Subjective NPU 2 Subjective: Patient presented today reporting that she is doing all right. She identified that she had been out of sorts before and was feeling better. We had a discussion about the concerns that this is related to her cannabis use and she did endorse being kicked out of [facility] at 1 point secondary to cannabis/drug use. We discussed continuing to feel like a long-acting injectable as a foundation might be the appropriate decision. She denied any side effects to her medication. Mental Status Exam 2 MSE Comments: This is a a well-nourished, well-developed white female in hospital scrubs on with poor grooming and fleeting eye contact.? No abnormal movements except for mild psychomotor agitation.? She was cooperative with exam in no acute distress.? Speech was more normal in rate and normal volume. ? Mood described as feeling better, affect was congruent and less irritable. Thought process was linear and continue to be more organized. ? Thought content: Patient endorses no suicidal and no homicidal ideation. There were no delusions reported and only mild signs of paranoid or persecutory delusions. She denied auditory or visual hallucinations.? Attention and concentration were more appropriate and her recent and remote memory was unreliable, but none were formally tested. She is alert and oriented to person, place. Insight, judgment and impulse control are all limited but improving. Vitals/I&O/Wt Last Vital Signs Temp 98.2 F 01/09/25 13:55 Pulse 79 01/09/25 13:55 Resp 16 01/09/25 13:55 BP 100/70 01/09/25 13:55 Pulse Ox 100 01/09/25 13:55 O2 Del Method Room Air 01/09/25 13:55 Data NPU 01/04/25 18:40 01/04/25 18:40 A&P Assessment and plan 1. Schizoaffective disorder, bipolar type: 2. Psychosis: 3. Depression: 4. Insomnia: 5. History of posttraumatic stress disorder (PTSD): 6. Narcissistic personality disorder: 7. Post-traumatic stress disorder, chronic: Plan: This is a 55-year-old white female with a previous history of schizoaffective disorder bipolar type significant addiction with cannabis and methamphetamine use but no UDS in her past hospitalization or with this stay thus far admitted with bizarre behavior. 1. Encourage individual, group and milieu therapy. 2. Recommend sober living treatment at the highest level of care to which the patient is willing to commit. 3. Continue q-15 minute checks for safety.? 4.? Continue current medication. Will consider the addition of Invega or Abilify for a medication that can be given as a long-acting injectable. Could also consider Uzedy to manage her psychosis. 5.?Will attempt to gather collateral information. Will identify whether she will benefit from a long-acting injectable or whether this psychosis is a reflection of recent drug use that has not been identified due to lack of UDS being obtained. We discussed the importance of her abstinence and the role that cannabis could be playing in her psychotic presentation. PDMP PDMP Reviewed: Not Reviewed Involuntary Hold Information 2 Hold Status: Legal Status: 96 Hour Hold Date/Time Hold Expires: 01/12/2025 @ 0001 96 Hour Hold: 96 Hour Involuntary Admission: No Attestations NPU 2 Medical Necessity Statement*: Inpatient hospitalization is medically necessary and the clinically appropriate intervention at this time. We will monitor/adjust medications as indicated. Her likely length of stay 4-8 days. Coding Level of Care Code Acute Code for [facility] Diagnoses Schizoaffective disorder, bipolar type F25.0 Psychosis F29 Depression F32.A Insomnia G47.00 History of posttraumatic stress disorder (PTSD) Z86.59 Narcissistic personality disorder F60.81 Post-traumatic stress disorder, chronic F43.12
[2025-01-09 20:08] VITALS: BP 118/75; PULSE 100; RESP 18; TEMP 36.4; O2SAT 97
[2025-01-10 06:00] VITALS: BP 116/73; PULSE 90; RESP 16; TEMP 36.6; O2SAT 99
--- NOTE | 2025-01-10 12:03 | P.NPUPN_ITS ---
Subjective NPU 2 Subjective: Patient presented today reporting he is doing fine. She was much more organized and less moments of verbal derailment per staff reports and direct communication. We discussed her cannabis use again and believing that this really does challenge her wellbeing. She was able to hear that but struggles with the idea that methamphetamine is not the only offending agent. We discussed the likelihood of keeping her beyond the end of her hold to ensure we do not have the same situation as last time and really encouraged the consideration of sober living treatment after discharge. She denied any side effects to the medication. Mental Status Exam 2 MSE Comments: This is a a well-nourished, well-developed white female in hospital scrubs on with poor grooming and fleeting eye contact.? No abnormal movements except for mild psychomotor agitation.? She was cooperative with exam in no acute distress.? Speech was more normal in rate and normal volume. ? Mood described as feeling better, affect was congruent and less irritable. Thought process was linear and continue to be more organized. ? Thought content: Patient endorses no suicidal and no homicidal ideation. There were no delusions reported and only mild signs of paranoid or persecutory delusions. She denied auditory or visual hallucinations.? Attention and concentration were more appropriate and her recent and remote memory was unreliable, but none were formally tested. She is alert and oriented to person, place. Insight, judgment and impulse control are all limited but improving. Vitals/I&O/Wt Last Vital Signs Temp 97.9 F 01/10/25 06:00 Pulse 90 01/10/25 06:00 Resp 16 01/10/25 06:00 BP 116/73 01/10/25 06:00 Pulse Ox 99 01/10/25 06:00 O2 Del Method Room Air 01/10/25 06:00 Data NPU 01/04/25 18:40 01/04/25 18:40 A&P Assessment and plan 1. Schizoaffective disorder, bipolar type: 2. Psychosis: 3. Depression: 4. Insomnia: 5. History of posttraumatic stress disorder (PTSD): 6. Narcissistic personality disorder: 7. Post-traumatic stress disorder, chronic: Plan: This is a 55-year-old white female with a previous history of schizoaffective disorder bipolar type significant addiction with cannabis and methamphetamine use but no UDS in her past hospitalization or with this stay thus far admitted with bizarre behavior. 1. Encourage individual, group and milieu therapy. 2. Recommend sober living treatment at the highest level of care to which the patient is willing to commit. 3. Continue q-15 minute checks for safety.? 4.? Continue current medication. Will consider the addition of Invega or Abilify for a medication that can be given as a long-acting injectable. Could also consider Uzedy to manage her psychosis. 5.?Will attempt to gather collateral information. Will identify whether she will benefit from a long-acting injectable or whether this psychosis is a reflection of recent drug use that has not been identified due to lack of UDS being obtained. We discussed the importance of her abstinence and the role that cannabis could be playing in her psychotic presentation. PDMP PDMP Reviewed: Not Reviewed Involuntary Hold Information 2 Hold Status: Legal Status: 96 Hour Hold Date/Time Hold Expires: 01/12/2025 @ 0001 96 Hour Hold: 96 Hour Involuntary Admission: No Attestations NPU 2 Medical Necessity Statement*: Inpatient hospitalization is medically necessary and the clinically appropriate intervention at this time. We will monitor/adjust medications as indicated. Her likely length of stay 3-7 days. Coding Level of Care Code Acute Code for [facility] Diagnoses Schizoaffective disorder, bipolar type F25.0 Psychosis F29 Depression F32.A Insomnia G47.00 History of posttraumatic stress disorder (PTSD) Z86.59 Narcissistic personality disorder F60.81 Post-traumatic stress disorder, chronic F43.12
[2025-01-10 14:00] VITALS: BP 99/68; PULSE 87; RESP 16; TEMP 36.8; O2SAT 100
[2025-01-10 20:06] VITALS: BP 115/79; PULSE 95; RESP 18; TEMP 36.5; O2SAT 99
[2025-01-11 06:00] VITALS: BP 94/60; PULSE 77; RESP 16; TEMP 36.7; O2SAT 95
[2025-01-11 14:00] VITALS: BP 116/80; PULSE 83; RESP 15; TEMP 36.8; O2SAT 93
--- NOTE | 2025-01-11 15:07 | P.NPUPN_ITS ---
Subjective NPU 2 Subjective: Patient presented today reporting that she is doing okay. She continues to show small steps of improvement but continued to have occasional moments of word salad or being tangential per staff reports and direct communication. She endorsed understanding and need to maintain her sobriety and consider different options to do that. We discussed the reality that to do that she would be here into next week and that we filed for a 21-day hold to ensure she is here and actively treatment to recent necessary improvement we are hoping for. She denied any side effects of medication. Mental Status Exam 2 MSE Comments: This is a a well-nourished, well-developed white female in hospital scrubs on with poor grooming and fleeting eye contact.? No abnormal movements except for mild psychomotor agitation.? She was cooperative with exam in no acute distress.? Speech was more normal in rate and normal volume. ? Mood described as feeling better, affect was congruent and less irritable. Thought process was linear and continue to be more organized. ? Thought content: Patient endorses no suicidal and no homicidal ideation. There were no delusions reported and only mild signs of paranoid or persecutory delusions. She denied auditory or visual hallucinations.? Attention and concentration were more appropriate and her recent and remote memory was unreliable, but none were formally tested. She is alert and oriented to person, place. Insight, judgment and impulse control are all limited but improving. Vitals/I&O/Wt Last Vital Signs Temp 98.0 F 01/11/25 06:00 Pulse 77 01/11/25 06:00 Resp 16 01/11/25 06:00 BP 94/60 01/11/25 06:00 Pulse Ox 95 01/11/25 06:00 O2 Del Method Room Air 01/11/25 06:00 Data NPU 01/04/25 18:40 01/04/25 18:40 A&P Assessment and plan 1. Schizoaffective disorder, bipolar type: 2. Psychosis: 3. Depression: 4. Insomnia: 5. History of posttraumatic stress disorder (PTSD): 6. Narcissistic personality disorder: 7. Post-traumatic stress disorder, chronic: Plan: This is a 55-year-old white female with a previous history of schizoaffective disorder bipolar type significant addiction with cannabis and methamphetamine use but no UDS in her past hospitalization or with this stay thus far admitted with bizarre behavior. 1. Encourage individual, group and milieu therapy. 2. Recommend sober living treatment at the highest level of care to which the patient is willing to commit. She is inquiring some different programs with social work team. 3. Continue q-15 minute checks for safety.? 4.? Continue current medication. Will consider the addition of Invega or Abilify for a medication that can be given as a long-acting injectable. Could also consider Uzedy to manage her psychosis. 5.?Will attempt to gather collateral information. Will identify whether she will benefit from a long-acting injectable or whether this psychosis is a reflection of recent drug use that has not been identified due to lack of UDS being obtained. We discussed the importance of her abstinence and the role that cannabis could be playing in her psychotic presentation. 6. Evaluate against the backdrop of 96-hour hold. Filed for 21-day hold today. PDMP PDMP Reviewed: Not Reviewed Involuntary Hold Information 2 Hold Status: Legal Status: 96 Hour Hold Date/Time Hold Expires: 01/12/2025 @ 0001 96 Hour Hold: 96 Hour Involuntary Admission: No Attestations NPU 2 Medical Necessity Statement*: Inpatient hospitalization is medically necessary and the clinically appropriate intervention at this time. We will monitor/adjust medications as indicated. Her likely length of stay 3-7 days. Coding Level of Care Code Acute Code for [facility] Diagnoses Schizoaffective disorder, bipolar type F25.0 Psychosis F29 Depression F32.A Insomnia G47.00 History of posttraumatic stress disorder (PTSD) Z86.59 Narcissistic personality disorder F60.81 Post-traumatic stress disorder, chronic F43.12
[2025-01-11 20:49] VITALS: BP 127/83; PULSE 90; RESP 18; TEMP 36.6; O2SAT 98
[2025-01-11] MEDS: efferdent effervescent 1 EACH DENTAL (21:47)
[2025-01-12 06:00] VITALS: BP 94/60; PULSE 67; RESP 16; TEMP 36.7; O2SAT 100
--- NOTE | 2025-01-12 12:40 | P.NPUPN_ITS ---
Subjective NPU 2 Subjective: Patient presented today reporting that she is doing fine. She reports that she has not been to go to the hearing today reporting that she trusts this check writer salesperson will be fair. She was doing better as far as her disorganization per staff reports and direct observation with moments where she would be having tangential speech where her point was not discernible but with greater about the time where she could be understood. She denied any side effects to the medication that we continue discussing the possibility of adding either Abilify, Invega or Risperdal that would be able to have a long-acting injectable. Mental Status Exam 2 MSE Comments: This is a a well-nourished, well-developed white female in hospital scrubs on with poor grooming and fleeting eye contact.? No abnormal movements except for mild psychomotor agitation.? She was cooperative with exam in no acute distress.? Speech was more normal in rate and normal volume. ? Mood described as feeling better, affect was congruent and less irritable. Thought process was linear and continue to be more organized. ? Thought content: Patient endorses no suicidal and no homicidal ideation. There were no delusions reported and only mild signs of paranoid or persecutory delusions. She denied auditory or visual hallucinations.? Attention and concentration were more appropriate and her recent and remote memory was unreliable, but none were formally tested. She is alert and oriented to person, place. Insight, judgment and impulse control are all limited but improving. Vitals/I&O/Wt Last Vital Signs Temp 98.1 F 01/12/25 06:00 Pulse 67 01/12/25 06:00 Resp 16 01/12/25 06:00 BP 94/60 01/12/25 06:00 Pulse Ox 100 01/12/25 06:00 O2 Del Method Room Air 01/12/25 06:00 Data NPU 01/04/25 18:40 01/04/25 18:40 A&P Assessment and plan 1. Schizoaffective disorder, bipolar type: 2. Psychosis: 3. Depression: 4. Insomnia: 5. History of posttraumatic stress disorder (PTSD): 6. Narcissistic personality disorder: 7. Post-traumatic stress disorder, chronic: Plan: This is a 55-year-old white female with a previous history of schizoaffective disorder bipolar type significant addiction with cannabis and methamphetamine use but no UDS in her past hospitalization or with this stay thus far admitted with bizarre behavior. 1. Encourage individual, group and milieu therapy. 2. Recommend sober living treatment at the highest level of care to which the patient is willing to commit. She is inquiring some different programs with social work team. 3. Continue q-15 minute checks for safety.? 4.? Continue current medication. Will consider the addition of Invega or Abilify for a medication that can be given as a long-acting injectable. Could also consider Uzedy to manage her psychosis. Start 1 of these medications tomorrow 5.?Will attempt to gather collateral information. Will identify whether she will benefit from a long-acting injectable or whether this psychosis is a reflection of recent drug use that has not been identified due to lack of UDS being obtained. We discussed the importance of her abstinence and the role that cannabis could be playing in her psychotic presentation. 6. Evaluate against the backdrop of 96-hour hold. Filed for 21-day hold. 21- day hearing later today. PDMP PDMP Reviewed: Not Reviewed Involuntary Hold Information 2 Hold Status: Legal Status: 96 Hour Hold Date/Time Hold Expires: 01/12/2025 @ 0001 96 Hour Hold: 96 Hour Involuntary Admission: No Attestations NPU 2 Medical Necessity Statement*: Inpatient hospitalization is medically necessary and the clinically appropriate intervention at this time. We will monitor/adjust medications as indicated. Her likely length of stay 3-7 days. Coding Level of Care Code Acute Code for [facility] Diagnoses Schizoaffective disorder, bipolar type F25.0 Psychosis F29 Depression F32.A Insomnia G47.00 History of posttraumatic stress disorder (PTSD) Z86.59 Narcissistic personality disorder F60.81 Post-traumatic stress disorder, chronic F43.12
[2025-01-12 14:00] VITALS: BP 112/80; PULSE 91; RESP 18; TEMP 36.9; O2SAT 97
[2025-01-12 20:39] VITALS: BP 111/77; PULSE 84; RESP 18; TEMP 36.6; O2SAT 98
[2025-01-13] MEDS: efferdent effervescent 1 EACH DENTAL ×2 (00:10→20:20)
[2025-01-13 06:00] VITALS: BP 105/71; PULSE 80; RESP 16; O2SAT 99
--- NOTE | 2025-01-13 13:00 | P.NPUPN_ITS ---
Subjective NPU 2 Subjective: Patient presented today reporting that she was doing all right but was interested in understanding what happened at the hearing. This typewriter aligner gave her a brief synopsis and then she gave me a 2 page list which has been her recent standard giving long lists of things that represent all the things going on in her head. I continued to talk to her about initiating Abilify or Invega feeling the Geodon has given her as much benefit as they can. She endorsed a plan to think that over we discussed making a change in the morning. Otherwise she denied any side effects to the medication and was thankful for what we have done. She continued to have some moments of tangentiality or almost appearing paraphasic per staff reports and direct observation. Mental Status Exam 2 MSE Comments: This is a a well-nourished, well-developed white female in hospital scrubs on with poor grooming and fleeting eye contact.? No abnormal movements except for mild psychomotor agitation.? She was cooperative with exam in no acute distress.? Speech was more normal in rate and normal volume. ? Mood described as feeling better, affect was congruent and less irritable. Thought process was linear and continue to be more organized. ? Thought content: Patient endorses no suicidal and no homicidal ideation. There were no delusions reported and only mild signs of paranoid or persecutory delusions. She denied auditory or visual hallucinations.? Attention and concentration were more appropriate and her recent and remote memory was unreliable, but none were formally tested. She is alert and oriented to person, place. Insight, judgment and impulse control are all limited but improving. Vitals/I&O/Wt Last Vital Signs Temp 97.9 F 01/12/25 20:39 Pulse 80 01/13/25 06:00 Resp 16 01/13/25 06:00 BP 105/71 01/13/25 06:00 Pulse Ox 99 01/13/25 06:00 O2 Del Method Room Air 01/13/25 06:00 Data NPU 01/04/25 18:40 01/04/25 18:40 A&P Assessment and plan 1. Schizoaffective disorder, bipolar type: 2. Psychosis: 3. Depression: 4. Insomnia: 5. History of posttraumatic stress disorder (PTSD): 6. Narcissistic personality disorder: 7. Post-traumatic stress disorder, chronic: Plan: This is a 55-year-old white female with a previous history of schizoaffective disorder bipolar type significant addiction with cannabis and methamphetamine use but no UDS in her past hospitalization or with this stay thus far admitted with bizarre behavior. 1. Encourage individual, group and milieu therapy. 2. Recommend sober living treatment at the highest level of care to which the patient is willing to commit. She is inquiring some different programs with social work team. 3. Continue q-15 minute checks for safety.? 4.? Continue current medication. Will consider the addition of Invega or Abilify for a medication that can be given as a long-acting injectable. Could also consider Uzedy to manage her psychosis. Start 1 of these medications tomorrow 5.?Will attempt to gather collateral information. Will identify whether she will benefit from a long-acting injectable or whether this psychosis is a reflection of recent drug use that has not been identified due to lack of UDS being obtained. We discussed the importance of her abstinence and the role that cannabis could be playing in her psychotic presentation. 6. Evaluate against the backdrop of 96-hour hold. Filed for 21-day hold. 21- day hearing later today. PDMP PDMP Reviewed: Not Reviewed Involuntary Hold Information 2 Hold Status: Legal Status: 96 Hour Hold Date/Time Hold Expires: 01/12/2025 @ 0001 96 Hour Hold: 96 Hour Involuntary Admission: No Attestations NPU 2 Medical Necessity Statement*: Inpatient hospitalization is medically necessary and the clinically appropriate intervention at this time. We will monitor/adjust medications as indicated. Her likely length of stay 3-7 days. Coding Level of Care Code Acute Code for [facility] Diagnoses Schizoaffective disorder, bipolar type F25.0 Psychosis F29 Depression F32.A Insomnia G47.00 History of posttraumatic stress disorder (PTSD) Z86.59 Narcissistic personality disorder F60.81 Post-traumatic stress disorder, chronic F43.12
[2025-01-13 13:40] VITALS: PULSE 85; RESP 18; O2SAT 98
[2025-01-13 14:00] VITALS: BP 118/79; PULSE 89; RESP 17; TEMP 36.6; O2SAT 100
[2025-01-13 21:02] VITALS: BP 114/75; PULSE 89; RESP 18; TEMP 36.6; O2SAT 96
--- NOTE | 2025-01-13 21:25 | PC.NURSE ---
2030 Escalating behaviors, picking on peers, complaining about various things et staff without connecting a specific reason, allows nsg to console et redirect with some difficulty. Some conversation of hers noted to be nonsensical et unable to be connected to present time/facility.
[2025-01-14 05:34] VITALS: BP 111/78; PULSE 79; RESP 16; TEMP 36.3; O2SAT 100
[2025-01-14 14:00] VITALS: BP 112/74; PULSE 68; RESP 16; TEMP 37; O2SAT 98
--- NOTE | 2025-01-14 16:55 | P.NPUPN_ITS ---
Subjective NPU 2 Subjective: Patient presented today reporting that she is doing okay. We discussed the risks, benefits and alternatives of increasing her Geodon to 100 mg p.o. twice daily but this was after a conversation about augmentation with an agent that is deliverable by long-acting injectable. She understood and agreed to proceed as is documented in this note. She denied any side effects to the medication however she was teamly focused on whether the medications we chose had a risk for weight gain but we discussed concerns that she could be seen in and not in her right mind and back in negative situations. Mental Status Exam 2 MSE Comments: This is a a well-nourished, well-developed white female in hospital scrubs on with poor grooming and fleeting eye contact.? No abnormal movements except for mild psychomotor agitation.? She was cooperative with exam in no acute distress.? Speech was more normal in rate and normal volume. ? Mood described as feeling better, affect was congruent and less irritable. Thought process was linear and continue to be more organized. ? Thought content: Patient endorses no suicidal and no homicidal ideation. There were no delusions reported and only mild signs of paranoid or persecutory delusions. She denied auditory or visual hallucinations.? Attention and concentration were more appropriate and her recent and remote memory was unreliable, but none were formally tested. She is alert and oriented to person, place. Insight, judgment and impulse control are all limited but improving. Vitals/I&O/Wt Last Vital Signs Temp 97.5 F L 01/14/25 20:16 Pulse 83 01/14/25 20:16 Resp 18 01/14/25 20:16 BP 102/71 01/14/25 20:16 Pulse Ox 95 01/14/25 20:16 O2 Del Method Room Air 01/14/25 20:16 Weight last 48 hrs Weight 85.457 kg Data NPU 01/04/25 18:40 01/04/25 18:40 A&P Assessment and plan 1. Schizoaffective disorder, bipolar type: 2. Psychosis: 3. Depression: 4. Insomnia: 5. History of posttraumatic stress disorder (PTSD): 6. Narcissistic personality disorder: 7. Post-traumatic stress disorder, chronic: Plan: This is a 55-year-old white female with a previous history of schizoaffective disorder bipolar type significant addiction with cannabis and methamphetamine use but no UDS in her past hospitalization or with this stay thus far admitted with bizarre behavior. 1. Encourage individual, group and milieu therapy. 2. Recommend sober living treatment at the highest level of care to which the patient is willing to commit. She is inquiring some different programs with social work team. 3. Continue q-15 minute checks for safety.? 4.? Continue current medication. Will consider the addition of Invega or Abilify for a medication that can be given as a long-acting injectable. Could also consider Uzedy to manage her psychosis. Start 1 of these medications tomorrow. Increase Geodon to 100 mg p.o. twice daily. Continue to try to get patient to look at augmentation with long-acting injectable. 5.?Will attempt to gather collateral information. Will identify whether she will benefit from a long-acting injectable or whether this psychosis is a reflection of recent drug use that has not been identified due to lack of UDS being obtained. We discussed the importance of her abstinence and the role that cannabis could be playing in her psychotic presentation. 6. Evaluate against the backdrop of 96-hour hold. Filed for 21-day hold. Patient placed on a 21-day hold 01/12/2025. PDMP PDMP Reviewed: Not Reviewed Involuntary Hold Information 2 Hold Status: Legal Status: 96 Hour Hold Date/Time Hold Expires: 01/12/2025 @ 0001 96 Hour Hold: 96 Hour Involuntary Admission: No Attestations NPU 2 Medical Necessity Statement*: Inpatient hospitalization is medically necessary and the clinically appropriate intervention at this time. We will monitor/adjust medications as indicated. Her likely length of stay 3-7 days. Coding Level of Care Code Acute Code for [facility] Diagnoses Schizoaffective disorder, bipolar type F25.0 Psychosis F29 Depression F32.A Insomnia G47.00 History of posttraumatic stress disorder (PTSD) Z86.59 Narcissistic personality disorder F60.81 Post-traumatic stress disorder, chronic F43.12
[2025-01-14] MEDS: efferdent effervescent 1 EACH DENTAL (20:01)
[2025-01-14 20:16] VITALS: BP 102/71; PULSE 83; RESP 18; TEMP 36.4; O2SAT 95
[2025-01-15 06:00] VITALS: BP 106/72; PULSE 86; RESP 18; TEMP 36.8; O2SAT 95
--- NOTE | 2025-01-15 12:19 | PC.NURSE ---
pt physical assessment pt has a tremor in her right hand.
--- NOTE | 2025-01-15 13:03 | P.NPUPN_ITS ---
Subjective NPU 2 Subjective: Patient presented today reporting that she is tolerating the increase in the Geodon without incident. She continues to be more helpful and calling programs like [facility] and attempting to get additional opportunities for her at discharge. Continue to discuss the need for a long-acting injectable and she continued to counter with issues surrounding weight. We discussed formulating a direction tomorrow so that we could feel more comfortable about discharge soon. She denied any side effects to her medication. Mental Status Exam 2 MSE Comments: This is a a well-nourished, well-developed white female in hospital scrubs on with poor grooming and fleeting eye contact.? No abnormal movements except for mild psychomotor agitation.? She was cooperative with exam in no acute distress.? Speech was more normal in rate and normal volume. ? Mood described as feeling better, affect was congruent and less irritable. Thought process was linear and continue to be more organized. ? Thought content: Patient endorses no suicidal and no homicidal ideation. There were no delusions reported and only mild signs of paranoid or persecutory delusions. She denied auditory or visual hallucinations.? Attention and concentration were more appropriate and her recent and remote memory was unreliable, but none were formally tested. She is alert and oriented to person, place. Insight, judgment and impulse control are all limited but improving. Vitals/I&O/Wt Last Vital Signs Temp 98.2 F 01/15/25 06:00 Pulse 86 01/15/25 06:00 Resp 18 01/15/25 06:00 BP 106/72 01/15/25 06:00 Pulse Ox 95 01/15/25 06:00 O2 Del Method Room Air 01/15/25 06:00 Weight last 48 hrs Weight 85.457 kg Data NPU 01/04/25 18:40 01/04/25 18:40 A&P Assessment and plan 1. Schizoaffective disorder, bipolar type: 2. Psychosis: 3. Depression: 4. Insomnia: 5. History of posttraumatic stress disorder (PTSD): 6. Narcissistic personality disorder: 7. Post-traumatic stress disorder, chronic: Plan: This is a 55-year-old white female with a previous history of schizoaffective disorder bipolar type significant addiction with cannabis and methamphetamine use but no UDS in her past hospitalization or with this stay thus far admitted with bizarre behavior. 1. Encourage individual, group and milieu therapy. 2. Recommend sober living treatment at the highest level of care to which the patient is willing to commit. She is inquiring some different programs with social work team. 3. Continue q-15 minute checks for safety.? 4.? Continue current medication. Will consider the addition of Invega or Abilify for a medication that can be given as a long-acting injectable. Could also consider Uzedy to manage her psychosis. Start 1 of these medications tomorrow. Increased Geodon to 100 mg p.o. twice daily. Continue to try to get patient to look at augmentation with long-acting injectable. 5.?Will attempt to gather collateral information. Will identify whether she will benefit from a long-acting injectable or whether this psychosis is a reflection of recent drug use that has not been identified due to lack of UDS being obtained. We discussed the importance of her abstinence and the role that cannabis could be playing in her psychotic presentation. 6. Evaluate against the backdrop of 96-hour hold. Filed for 21-day hold. Patient placed on a 21-day hold 01/12/2025. PDMP PDMP Reviewed: Not Reviewed Involuntary Hold Information 2 Hold Status: Legal Status: 21 Day Hold Date/Time Hold Expires: 02/02/2025 96 Hour Hold: 96 Hour Involuntary Admission: No Attestations NPU 2 Medical Necessity Statement*: Inpatient hospitalization is medically necessary and the clinically appropriate intervention at this time. We will monitor/adjust medications as indicated. Her likely length of stay 3-7 days. Coding Level of Care Code Acute Code for [facility] Diagnoses Schizoaffective disorder, bipolar type F25.0 Psychosis F29 Depression F32.A Insomnia G47.00 History of posttraumatic stress disorder (PTSD) Z86.59 Narcissistic personality disorder F60.81 Post-traumatic stress disorder, chronic F43.12
[2025-01-15 14:00] VITALS: BP 139/90; PULSE 87; RESP 16; TEMP 37.1; O2SAT 97
[2025-01-15 20:55] VITALS: BP 97/61; PULSE 118; RESP 16; TEMP 36.6; O2SAT 98
[2025-01-16 05:26] VITALS: BP 117/73; PULSE 71; RESP 18; TEMP 36.4; O2SAT 99
[2025-01-16 14:00] VITALS: BP 130/74; PULSE 94; RESP 16; TEMP 36.6; O2SAT 97
--- NOTE | 2025-01-16 17:43 | P.NPUPN_ITS ---
Subjective NPU 2 Subjective: Patient presented today reporting that she is doing okay. She was endorsing no issues related to the increase in her Geodon. Patient was less intrusive in general per staff reports and direct observation. She continued to be focused on where she would go next and was working with the social work team on different options. Denied any side effects of her medication. Mental Status Exam 2 MSE Comments: This is a a well-nourished, well-developed white female in hospital scrubs on with poor grooming and fleeting eye contact.? No abnormal movements except for mild psychomotor agitation.? Continues to have a fairly stiffened gait that is identified is due to back pain. She was cooperative with exam in no acute distress.? Speech was more normal in rate and normal volume. ? Mood described as feeling better, affect was congruent and less irritable. Thought process was linear and continue to be more organized. ? Thought content: Patient endorses no suicidal and no homicidal ideation. There were no delusions reported and only mild signs of paranoid or persecutory delusions. She denied auditory or visual hallucinations.? Attention and concentration were more appropriate and her recent and remote memory was unreliable, but none were formally tested. She is alert and oriented to person, place. Insight, judgment and impulse control are all limited but improving. Vitals/I&O/Wt Last Vital Signs Temp 98.3 F 01/16/25 19:45 Pulse 78 01/16/25 19:45 Resp 16 01/16/25 19:45 BP 111/72 01/16/25 19:45 Pulse Ox 98 01/16/25 19:45 O2 Del Method Room Air 01/16/25 19:45 Data NPU 01/04/25 18:40 01/04/25 18:40 A&P Assessment and plan 1. Schizoaffective disorder, bipolar type: 2. Psychosis: 3. Depression: 4. Insomnia: 5. History of posttraumatic stress disorder (PTSD): 6. Narcissistic personality disorder: 7. Post-traumatic stress disorder, chronic: Plan: This is a 55-year-old white female with a previous history of schizoaffective disorder bipolar type significant addiction with cannabis and methamphetamine use but no UDS in her past hospitalization or with this stay thus far admitted with bizarre behavior. 1. Encourage individual, group and milieu therapy. 2. Recommend sober living treatment at the highest level of care to which the patient is willing to commit. She is inquiring some different programs with social work team. 3. Continue q-15 minute checks for safety.? 4.? Continue current medication. Will consider the addition of Invega or Abilify for a medication that can be given as a long-acting injectable. Could also consider Uzedy to manage her psychosis. Start 1 of these medications tomorrow. Increased Geodon to 100 mg p.o. twice daily. Continue to try to get patient to look at augmentation with long-acting injectable. 5.?Will attempt to gather collateral information. Will identify whether she will benefit from a long-acting injectable or whether this psychosis is a reflection of recent drug use that has not been identified due to lack of UDS being obtained. We discussed the importance of her abstinence and the role that cannabis could be playing in her psychotic presentation. 6. Evaluate against the backdrop of 96-hour hold. Filed for 21-day hold. Patient placed on a 21-day hold 01/12/2025. PDMP PDMP Reviewed: Not Reviewed Involuntary Hold Information 2 Hold Status: Legal Status: 21 Day Hold Date/Time Hold Expires: 02/02/2025 96 Hour Hold: 96 Hour Involuntary Admission: No Attestations NPU 2 Medical Necessity Statement*: Inpatient hospitalization is medically necessary and the clinically appropriate intervention at this time. We will monitor/adjust medications as indicated. Her likely length of stay 3-7 days. Coding Level of Care Code Acute Code for [facility] Fwd Diagnoses Schizoaffective disorder, bipolar type F25.0 Psychosis F29 Depression F32.A Insomnia G47.00 History of posttraumatic stress disorder (PTSD) Z86.59 Narcissistic personality disorder F60.81 Post-traumatic stress disorder, chronic F43.12
[2025-01-16] MEDS: efferdent effervescent 1 EACH DENTAL (19:29)
[2025-01-16 19:45] VITALS: BP 111/72; PULSE 78; RESP 16; TEMP 36.8; O2SAT 98
[2025-01-17 03:46] VITALS: BP 117/73; PULSE 76; RESP 16; TEMP 36.3; O2SAT 100
[2025-01-17 14:00] VITALS: BP 124/68; PULSE 96; RESP 15; TEMP 36.6; O2SAT 97
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
[2025-01-17 20:22] VITALS: BP 97/73; PULSE 80; RESP 16; TEMP 36.9; O2SAT 96
[2025-01-18 04:48] VITALS: BP 109/68; PULSE 75; RESP 16; TEMP 36.3; O2SAT 98
--- NOTE | 2025-01-18 11:54 | W.PM.NPUPNS ---
Subjective NPU Subjective: Patient presented today reporting that she is doing well and she is excited about the developments over the last several hours. She was excited about getting in at the apartment complex and we discussed the plan to get things arranged get the process, application and everything in place so that she can move in on Wednesday. She denied any side effects to the medications. Mental Status Exam MSE Comments: This is a a well-nourished, well-developed white female in hospital scrubs on with poor grooming and fleeting eye contact.? No abnormal movements except for mild psychomotor agitation.? Continues to have a fairly stiffened gait that is identified is due to back pain. She was cooperative with exam in no acute distress.? Speech was more normal in rate and normal volume. ? Mood described as feeling better, affect was congruent and less irritable. Thought process was linear and continue to be more organized. ? Thought content: Patient endorses no suicidal and no homicidal ideation. There were no delusions reported and only mild signs of paranoid or persecutory delusions. She denied auditory or visual hallucinations.? Attention and concentration were more appropriate and her recent and remote memory was unreliable, but none were formally tested. She is alert and oriented to person, place. Insight, judgment and impulse control are all limited but improving. Vitals/I&O/Wt Last Vital Signs Temp 97.4 F L 01/18/25 04:48 Pulse 75 01/18/25 04:48 Resp 16 01/18/25 04:48 BP 109/68 01/18/25 04:48 Pulse Ox 98 01/18/25 04:48 O2 Del Method Room Air 01/18/25 04:48 Data NPU 01/04/25 18:40 01/04/25 18:40 A&P Assessment and plan 1. Schizoaffective disorder, bipolar type: 2. Psychosis: 3. Depression: 4. Insomnia: 5. History of posttraumatic stress disorder (PTSD): 6. Narcissistic personality disorder: 7. Post-traumatic stress disorder, chronic: Plan: This is a 55-year-old white female with a previous history of schizoaffective disorder bipolar type significant addiction with cannabis and methamphetamine use but no UDS in her past hospitalization or with this stay thus far admitted with bizarre behavior. 1. Encourage individual, group and milieu therapy. 2. Recommend sober living treatment at the highest level of care to which the patient is willing to commit. She is inquiring some different programs with social work team. 3. Continue q-15 minute checks for safety.? 4.? Continue current medication. Will consider the addition of Invega or Abilify for a medication that can be given as a long-acting injectable. Could also consider Uzedy to manage her psychosis. Start 1 of these medications tomorrow. Increased Geodon to 100 mg p.o. twice daily. Continue to try to get patient to look at augmentation with long-acting injectable. 5.?Will attempt to gather collateral information. Will identify whether she will benefit from a long-acting injectable or whether this psychosis is a reflection of recent drug use that has not been identified due to lack of UDS being obtained. We discussed the importance of her abstinence and the role that cannabis could be playing in her psychotic presentation. 6. Evaluate against the backdrop of 96-hour hold. Filed for 21-day hold. Patient placed on a 21-day hold 01/12/2025. 7. Patient showing improvement and was able to get collected with resources and has an apartment that should be ready by Wednesday. PDMP PDMP Reviewed: Not Reviewed Involuntary Hold Information Hold Status: Legal Status: 21 Day Hold Date/Time Hold Expires: 02/02/2025 96 Hour Hold: 96 Hour Involuntary Admission: No Attestations NPU Medical Necessity Statement*: Inpatient hospitalization is medically necessary and the clinically appropriate intervention at this time. We will monitor/adjust medications as indicated. Her likely length of stay 4-6 days. Coding Level of Care Code Acute Code for [facility] Diagnoses Schizoaffective disorder, bipolar type F25.0 Psychosis F29 Depression F32.A Insomnia G47.00 History of posttraumatic stress disorder (PTSD) Z86.59 Narcissistic personality disorder F60.81 Post-traumatic stress disorder, chronic F43.12
[2025-01-18 14:00] VITALS: BP 117/80; PULSE 102; RESP 16; TEMP 36.6; O2SAT 98
[2025-01-18 20:07] VITALS: BP 128/88; PULSE 86; RESP 18; TEMP 36.6; O2SAT 98
[2025-01-19 05:53] VITALS: BP 146/91; PULSE 77; RESP 18; TEMP 36.3; O2SAT 100
--- NOTE | 2025-01-19 08:59 | P.NPUPN_ITS ---
Subjective NPU 2 Subjective: Patient presented today reporting that today has been a roller coaster. She reports however that she is accepting of the reality of her situation which is that she does not have any control and so either she will go to 1 program or not on Wednesday but she reports that either of them will be a moving the right direction and so she is having a positive attitude. Otherwise she reports she is having no problems with the medication and she denied any side effects. Mental Status Exam 2 MSE Comments: This is a a well-nourished, well-developed white female in hospital scrubs on with poor grooming and fleeting eye contact.? No abnormal movements except for mild psychomotor agitation.? Continues to have a fairly stiffened gait that is identified is due to back pain. She was cooperative with exam in no acute distress.? Speech was more normal in rate and normal volume. ? Mood described as feeling better, affect was congruent. Thought process was linear and continue to be more organized. ? Thought content: Patient endorses no suicidal and no homicidal ideation. There were no delusions reported and only mild signs of paranoid or persecutory delusions. She denied auditory or visual hallucinations.? Attention and concentration were more appropriate and her recent and remote memory was unreliable, but none were formally tested. She is alert and oriented to person, place. Insight, judgment and impulse control are all limited but improving. Vitals/I&O/Wt Last Vital Signs Temp 97.4 F L 01/19/25 05:53 Pulse 77 01/19/25 05:53 Resp 18 01/19/25 05:53 BP 146/91 01/19/25 05:53 Pulse Ox 100 01/19/25 05:53 O2 Del Method Room Air 01/19/25 05:53 Data NPU 01/04/25 18:40 01/04/25 18:40 A&P Assessment and plan 1. Schizoaffective disorder, bipolar type: 2. Psychosis: 3. Depression: 4. Insomnia: 5. History of posttraumatic stress disorder (PTSD): 6. Narcissistic personality disorder: 7. Post-traumatic stress disorder, chronic: Plan: This is a 55-year-old white female with a previous history of schizoaffective disorder bipolar type significant addiction with cannabis and methamphetamine use but no UDS in her past hospitalization or with this stay thus far admitted with bizarre behavior. 1. Encourage individual, group and milieu therapy. 2. Recommend sober living treatment at the highest level of care to which the patient is willing to commit. She is inquiring some different programs with social work team. 3. Continue q-15 minute checks for safety.? 4.? Continue current medication. Will consider the addition of Invega or Abilify for a medication that can be given as a long-acting injectable. Could also consider Uzedy to manage her psychosis. Start 1 of these medications tomorrow. Increased Geodon to 100 mg p.o. twice daily. Continue to try to get patient to look at augmentation with long-acting injectable. 5.?Will attempt to gather collateral information. Will identify whether she will benefit from a long-acting injectable or whether this psychosis is a reflection of recent drug use that has not been identified due to lack of UDS being obtained. We discussed the importance of her abstinence and the role that cannabis could be playing in her psychotic presentation. 6. Evaluate against the backdrop of 96-hour hold. Filed for 21-day hold. Patient placed on a 21-day hold 01/12/2025. 7. Patient showing improvement and was able to get collected with resources and has an apartment that should be ready by Wednesday. Now the reports are that apartment will not be ready until February if at all secondary to her background check. However social work team has identified an opportunity that we will be available Wednesday and we will plan for then. We will give her medications ready tomorrow so that they are ready for staying in the morning on Wednesday. PDMP PDMP Reviewed: Not Reviewed Involuntary Hold Information 2 Hold Status: Legal Status: 21 Day Hold Date/Time Hold Expires: 02/02/2025 96 Hour Hold: 96 Hour Involuntary Admission: No Attestations NPU 2 Medical Necessity Statement*: Inpatient hospitalization is medically necessary and the clinically appropriate intervention at this time. We will monitor/adjust medications as indicated. Her likely length of stay 3 days. Coding Level of Care Code Acute Code for g Fwd Diagnoses Schizoaffective disorder, bipolar type F25.0 Psychosis F29 Depression F32.A Insomnia G47.00 History of posttraumatic stress disorder (PTSD) Z86.59 Narcissistic personality disorder F60.81 Post-traumatic stress disorder, chronic F43.12
[2025-01-19 13:59] VITALS: BP 121/68; PULSE 84; RESP 16; TEMP 36.5; O2SAT 100
[2025-01-19 21:06] VITALS: BP 109/77; PULSE 77; RESP 18; TEMP 36.8; O2SAT 99
[2025-01-20 05:09] VITALS: BP 117/79; PULSE 71; RESP 18; O2SAT 97
--- NOTE | 2025-01-20 13:33 | W.PM.NPUPNS ---
Subjective NPU Subjective: Patient presented today reporting that things are going fine. She reports thankfulness for this sports writer's role in her obtaining an opportunity for discharge on Wednesday. We discussed the fact that Dr. Downs would be back tomorrow and that he would take over and ensure that things went smoothly. She denied any side effects from medication. Mental Status Exam MSE Comments: This is a a well-nourished, well-developed white female in hospital scrubs on with poor grooming and fleeting eye contact.? No abnormal movements except for mild psychomotor agitation.? Continues to have a fairly stiffened gait that is identified is due to back pain. She was cooperative with exam in no acute distress.? Speech was more normal in rate and normal volume. ? Mood described as feeling better, affect was congruent. Thought process was linear and continue to be more organized. ? Thought content: Patient endorses no suicidal and no homicidal ideation. There were no delusions reported and only mild signs of paranoid or persecutory delusions. She denied auditory or visual hallucinations.? Attention and concentration were more appropriate and her recent and remote memory was more reliable, but none were formally tested. She is alert and oriented to person, place. Insight, judgment and impulse control are all limited but improving. Vitals/I&O/Wt Last Vital Signs Temp 98.2 F 01/19/25 21:06 Pulse 71 01/20/25 05:09 Resp 18 01/20/25 05:09 BP 117/79 01/20/25 05:09 Pulse Ox 97 01/20/25 05:09 O2 Del Method Room Air 01/20/25 05:09 Data NPU 01/04/25 18:40 01/04/25 18:40 A&P Assessment and plan 1. Schizoaffective disorder, bipolar type: 2. Psychosis: 3. Depression: 4. Insomnia: 5. History of posttraumatic stress disorder (PTSD): 6. Narcissistic personality disorder: 7. Post-traumatic stress disorder, chronic: Plan: This is a 55-year-old white female with a previous history of schizoaffective disorder bipolar type significant addiction with cannabis and methamphetamine use but no UDS in her past hospitalization or with this stay thus far admitted with bizarre behavior. 1. Encourage individual, group and milieu therapy. 2. Recommend sober living treatment at the highest level of care to which the patient is willing to commit. She is inquiring some different programs with social work team. 3. Continue q-15 minute checks for safety.? 4.? Continue current medication. Will consider the addition of Invega or Abilify for a medication that can be given as a long-acting injectable. Could also consider Uzedy to manage her psychosis. Start 1 of these medications tomorrow. Increased Geodon to 100 mg p.o. twice daily. Continue to try to get patient to look at augmentation with long-acting injectable. 5.?Will attempt to gather collateral information. Will identify whether she will benefit from a long-acting injectable or whether this psychosis is a reflection of recent drug use that has not been identified due to lack of UDS being obtained. We discussed the importance of her abstinence and the role that cannabis could be playing in her psychotic presentation. 6. Evaluate against the backdrop of 96-hour hold. Filed for 21-day hold. Patient placed on a 21-day hold 01/12/2025. 7. Patient showing improvement and was able to get collected with resources and has an apartment that should be ready by Wednesday. Now the reports are that apartment will not be ready until February if at all secondary to her background check. However social work team has identified an opportunity that will be available Wednesday and we will plan for then. Patient has at least 1 option if not two ready for Wednesday morning. She is compared to utilize 1 of those. PDMP PDMP Reviewed: Not Reviewed Involuntary Hold Information Hold Status: Legal Status: 21 Day Hold Date/Time Hold Expires: 02/02/2025 96 Hour Hold: 96 Hour Involuntary Admission: No Attestations NPU Medical Necessity Statement*: Inpatient hospitalization is medically necessary and the clinically appropriate intervention at this time. We will monitor/adjust medications as indicated. Her likely length of stay to days. Coding Level of Care Code Acute Code for [facility] Fwd Diagnoses Schizoaffective disorder, bipolar type F25.0 Psychosis F29 Depression F32.A Insomnia G47.00 History of posttraumatic stress disorder (PTSD) Z86.59 Narcissistic personality disorder F60.81 Post-traumatic stress disorder, chronic F43.12
[2025-01-20 14:00] VITALS: BP 99/70; PULSE 85; RESP 17; TEMP 36.6; O2SAT 97
[2025-01-20 19:35] VITALS: BP 108/72; PULSE 78; RESP 18; TEMP 36.9; O2SAT 98
[2025-01-20] MEDS: efferdent effervescent 1 EACH DENTAL ×2 (20:15→21:43)
[2025-01-21 06:00] VITALS: BP 114/70; PULSE 91; RESP 17; TEMP 36.4; O2SAT 98
[2025-01-21 14:00] VITALS: BP 115/84; PULSE 85; RESP 16; TEMP 36.6; O2SAT 99
--- NOTE | 2025-01-21 14:51 | PC.NURSE ---
Pt. wanted signee to get [employer] debit card (green in color) to [facility] because pt. is DC tomorrow and this person is getting pt. some cloths. Pt. signed her inventory list that she was ok to give debit card to this person.
--- NOTE | 2025-01-21 15:44 | P.NPUPN_ITS ---
Subjective NPU 2 Subjective: 55-year-old female with schizoaffective disorder admitted with disorganized thinking and behavior. Patient had reported that she was feeling much better. She had remained hopeful about being able [place] [facility] [place] or find a place to live [facility] [place]. She reported no suicidal thoughts. She reported that she was feeling less tired on her medication regimen and stated that the Cogentin had been helpful for her tremors. She had denied any paranoia and reported that the voices had been quieter. She had been less irritable and stated that she continued to have concerns about her anxiety as she asked whether she could have Ativan to help her with her anxiety. Mental Status Exam 2 MSE Comments: This is a a well-nourished, well-developed white female in hospital scrubs on with poor grooming and fleeting eye contact.? No abnormal movements except for mild psychomotor agitation.? Her gait was antalgic.She was cooperative with exam in no acute distress.? Speech was more normal in rate and normal volume. ? Mood described as good. Her affect appeared brighter. Thought process was linear and logical today.? Thought content: Patient endorses no suicidal and no homicidal ideation. There were no delusions reported and only mild signs of paranoid or persecutory delusions. She denied auditory or visual hallucinations.? Attention and concentration were more appropriate and her recent and remote memory was more reliable, but none were formally tested. She is alert and oriented to person, place. Insight, judgment and impulse control are all limited but improving. Vitals/I&O/Wt Last Vital Signs Temp 98 F 01/21/25 14:00 Pulse 85 01/21/25 14:00 Resp 16 01/21/25 14:00 BP 115/84 01/21/25 14:00 Pulse Ox 99 01/21/25 14:00 O2 Del Method Room Air 01/20/25 05:09 Weight last 48 hrs Weight 85.899 kg Data NPU 01/04/25 18:40 01/04/25 18:40 A&P Assessment and plan 1. Schizoaffective disorder, bipolar type: 2. Psychosis: 3. Depression: 4. Insomnia: 5. History of posttraumatic stress disorder (PTSD): 6. Narcissistic personality disorder: 7. Post-traumatic stress disorder, chronic: Plan: This is a 55-year-old white female with a previous history of schizoaffective disorder bipolar type significant addiction with cannabis and methamphetamine use but no UDS in her past hospitalization or with this stay thus far admitted with bizarre behavior. 1. Encourage individual, group and milieu therapy. 2. Recommend sober living treatment at the highest level of care to which the patient is willing to commit. She is inquiring some different programs with social work team. 3. Continue q-15 minute checks for safety.? 4.? Continue current medication. Will consider the addition of Invega or Abilify for a medication that can be given as a long-acting injectable. Could also consider Uzedy to manage her psychosis. Start 1 of these medications tomorrow. Continue Geodon at 100 mg p.o. twice daily. Continue to try to get patient to look at augmentation with long-acting injectable. 5.?Will attempt to gather collateral information. Will identify whether she will benefit from a long-acting injectable or whether this psychosis is a reflection of recent drug use that has not been identified due to lack of UDS being obtained. We discussed the importance of her abstinence and the role that cannabis could be playing in her psychotic presentation. 6. Evaluate against the backdrop of 96-hour hold. Filed for 21-day hold. Patient placed on a 21-day hold 01/12/2025. 7. Patient showing improvement and was able to get collected with resources and has an apartment that should be ready by Wednesday. Now the reports are that apartment will not be ready until February if at all secondary to her background check. However social work team has identified an opportunity that will be available Wednesday and we will plan for then. Patient has at least 1 option if not two ready for Wednesday morning. She is compared to utilize 1 of those. PDMP PDMP Reviewed: Not Reviewed Involuntary Hold Information 2 Hold Status: Legal Status: 21 Day Hold Date/Time Hold Expires: 02/02/2025 96 Hour Hold: 96 Hour Involuntary Admission: No Attestations NPU 2 Medical Necessity Statement*: Inpatient hospitalization is medically necessary and the clinically appropriate intervention at this time. We will monitor/adjust medications as indicated. Her likely length of stay is 1-2 days. Coding Level of Care Code Acute Code for [facility] Diagnoses Schizoaffective disorder, bipolar type F25.0 Psychosis F29 Depression F32.A Insomnia G47.00 History of posttraumatic stress disorder (PTSD) Z86.59 Narcissistic personality disorder F60.81 Post-traumatic stress disorder, chronic F43.12
[2025-01-21] MEDS: efferdent effervescent 1 EACH DENTAL (20:05)
[2025-01-21 20:52] VITALS: BP 117/73; PULSE 83; RESP 17; TEMP 36.7; O2SAT 96
[2025-01-22 05:47] VITALS: BP 106/77; PULSE 78; RESP 20; TEMP 36.6; O2SAT 99
[2025-01-22 09:57] VITALS: BP 106/77; PULSE 78; RESP 20; TEMP 36.6; O2SAT 99
--- NOTE | 2025-01-22 12:02 | DCPLANNER ---
Imm was given to pt and rights explained and copy placed in pts file.
[2025-01-22 14:00] VITALS: BP 109/78; PULSE 75; RESP 16; TEMP 36.4; O2SAT 100
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
== END 2025-01-22 14:45 | disposition home or self-care (01) | DRG 885 ==
LOC: ER 19:15 → NP 19:17
PROVIDERS: Psychiatry & Neurology Psychiatry; Admitting Provider Psychiatry & Neurology Psychiatry; Emergency Provider Physician Assistant; PCP Family Medicine; Visit Provider Psychiatry & Neurology Psychiatry
DX: F25.0 Schizoaffective disorder, bipolar type (principal); Z59.01 Sheltered homelessness; F17.200 Nicotine dependence, unspecified, uncomplicated; F43.12 Post-traumatic stress disorder, chronic; F15.10 Other stimulant abuse, uncomplicated; F12.10 Cannabis abuse, uncomplicated
CPT/HCPCS: 36415; 80053; 80306; 80307; 85025; 96372; 97150; 97165; 99283; 99285; J3486; J9999; Q0163